=== PATIENT | female | born 1940 | race Caucasian/White ===

== ENCOUNTER 2016-10-05 03:19 | Inpatient (IN) | payer MEDICARE, BC ==
[2016-10-05] VITALS (23 sets, daily range): BP systolic 123–179; BP diastolic 56–83; PULSE 68–97; RESP 16; TEMP 97.1–98.6; O2SAT 94–100
[~2016-10-05] VITALS: Ht 162.6 cm; Wt 78.6 kg
[~2016-10-05 03:19] MED LIST: ALEN70 PO; ASPI81TA45 PO; CALTCHW4 PO; DILT120C9 PO; FLON0.053; HYDR200T3 PO; LIPI20TA PO; MONT10 PO; RIVA20 PO; TYLE500T PO; WAL-10TA2 PO
[2016-10-05] MEDS ORDERED: PROPOFOL 1000 MG/100 ML INJ 100 ML ONE (03:22)
[2016-10-05] MEDS ORDERED: MANNITOL INJ 250 ML IV ONE (03:30)
--- NOTE | 2016-10-05 03:52 | PD ---
HPI Chief Complaint: Bleeding Time Seen by Provider: 03:25 Travel History International Travel<30 days: No Contact w/Intl Traveler<30days: No Traveled to known affect area: No History of Present Illness HPI 76yo F with PMH of blood clot on xarelto was transferred from [facility] after being found to have right subdural hematoma with midline shift to left. As per RN Amira, pt was unresponsive and emergently intubated. Pt had no gag reflex when OG tube was placed as per her. Pt was given Kcentra. Pt also had a STEMI. As per nurse, pt's was there and wanted everything done at the time. PFSH Past Medical History Cancer: No Cardiovascular Problems: Yes (LOOP RECORDER, ) Diabetes: No Endocrine: No Gastrointestinal Disorders: Yes (GERD) Genitourinary: No Headaches: Yes Hepatitis: No Hiatal Hernia: Yes Hypertension: Yes Immune Disorder: Yes (SCLERADERMA, FIBROMYALGIA) Musculoskeletal: Yes (ARTHRITIS, NECK/BACK PAIN, FIBROMYALGIA) Neurologic: Yes (BRAIN STIMULATOR (HEAD TRAUMA)) Psychiatric: No Reproductive: No Respiratory: Yes (CHR SINUSITIS) Thyroid Disease: No Past Surgical History Abdominal Surgery: Yes (APPY, LAP. MARLEN) AICD: No Appendectomy: Yes Body Medical Devices: [employer]. TUTU NEUROSTIMULATOR TO BRAIN, LOOP HEART MONITOR ( CHEST WALL) Cholecystectomy: Yes Genitourinary Surgery: Yes (ESWL RENAL CALC.) Gynecologic Surgery: Yes (HYSTERECTOMY) Joint Replacement: No Neurologic Surgery: Yes (LUMBAR LAMI, LUMBAR FUSION, NEURO STIM. SYSTEM IMPL) Oral Surgery: Yes (TONSILLECTOMY, ETHMOIDECTOMY) Pacemaker: No Thoracic Surgery: Yes (LOOP HEART MINITOR INS.) Other Surgery: Yes Social History Alcohol Use: No Tobacco Use: No Substance Use: No Allergies-Medications (Allergen,Severity, Reaction): Coded Allergies: Grass (Unverified Allergy, Severe, Sneezing, 10/05/16) Molds and Smuts (Unverified Allergy, Severe, Sneezing, 10/05/16) Reported Meds & Prescriptions Reported Meds & Active Scripts Active Reported Loratadine 10 Mg Tab 10 Mg PO DAILY PRN Vitamin D2 (Ergocalciferol) 2,000 Unit Tab 50,000 Units PO WEEKLY Montelukast (Montelukast Sodium) 10 Mg Tab 10 Mg PO DAILY Hydroxychloroquine (Hydroxychloroquine Sulfate) 200 Mg Tab 400 Mg PO DAILY Takw with food Xarelto (Rivaroxaban) 20 Mg Tab 20 Mg PO DAILY Folate (Folic Acid) 1 Mg Tab 1 Mg PO DAILY Lidocaine Patch 12 HR (Lidocaine) 5 % Patch 1 Patch TOPICAL DAILY Remove patch after 12 hours Pantoprazole (Pantoprazole Sodium) 40 Mg Tab 40 Mg PO DAILY Cartia Xt (Diltiazem ER 24 HR) 120 Mg Caper 120 Mg PO DAILY Review of Systems ROS Limitations: Unresponsive Physical Exam Narrative GENERAL: 76yo F unresponsive. SKIN: Warm and dry. HEAD: Atraumatic. Normocephalic. EYES: Right pupil 5mm unreactive. Left pupil 4mm and reactive. ENT: No nasal bleeding or discharge. Mucous membranes pink and moist. NECK: Trachea midline. No JVD. CARDIOVASCULAR: Regular rate and rhythm. No murmur appreciated. RESPIRATORY: Intubated, on mechanical ventilator. GASTROINTESTINAL: Abdomen soft, non-tender, nondistended. MUSCULOSKELETAL: No obvious deformities. No clubbing. No cyanosis. No edema. NEUROLOGICAL: Right upper extremity decorticating. Bilateral upgoing of toes on babinski. Data Data Last Documented VS Vital Signs Date Time Temp Pulse Resp B/P Pulse Ox O2 Delivery O2 Flow Rate FiO2 10/05/16 04:00 100 100 10/05/16 03:51 83 16 132/73 Ventilator Orders Complete Blood Count With Diff (10/05/16 03:27) Basic Metabolic Panel (Bmp) (10/05/16 03:27) Prothrombin Time / Inr (Pt) (10/05/16 03:27) Act Partial Throm Time (Ptt) (10/05/16 03:27) Type And Screen (10/05/16 03:27) Ct Brain W/O Iv Contrast(Rout) (10/05/16 ) Mannitol Inj (Osmitrol Inj) (10/05/16 03:30) Propofol 1000 Mg/100 Ml Inj (Diprivan 10 (10/05/16 03:22) Consult Neurosurgery (10/05/16 ) Propofol 1000 Mg/100 Ml Inj (Diprivan 10 (10/05/16 04:00) ^ Infusion (10/05/16 03:53) RASS (10/05/16 03:53) Neurological Rass Scale SILVANO.Q2H (10/05/16 03:53) Admit Order (Ed Use Only) (10/05/16 04:06) Labs Laboratory Tests Test 10/05/16 03:40 White Blood Count 18.8 TH/MM3 Red Blood Count 4.05 MIL/MM3 Hemoglobin 12.3 GM/DL Hematocrit 36.6 % Mean Corpuscular Volume 90.5 FL Mean Corpuscular Hemoglobin 30.4 PG Mean Corpuscular Hemoglobin 33.5 % Concent Red Cell Distribution Width 15.7 % Platelet Count 406 TH/MM3 Mean Platelet Volume 7.6 FL Neutrophils (%) (Auto) 78.3 % Lymphocytes (%) (Auto) 6.7 % Monocytes (%) (Auto) 14.8 % Eosinophils (%) (Auto) 0.1 % Basophils (%) (Auto) 0.1 % Neutrophils # (Auto) 14.7 TH/MM3 Lymphocytes # (Auto) 1.3 TH/MM3 Monocytes # (Auto) 2.8 TH/MM3 Eosinophils # (Auto) 0.0 TH/MM3 Basophils # (Auto) 0.0 TH/MM3 CBC Comment AUTO DIFF Differential Comment AUTO DIFF CONFIRMED Prothrombin Time 13.2 SEC Prothromb Time International 1.2 RATIO Ratio Activated Partial 26.1 SEC Thromboplast Time Sodium Level 141 MEQ/L Potassium Level 4.1 MEQ/L Chloride Level 106 MEQ/L Carbon Dioxide Level 27.2 MEQ/L Anion Gap 8 MEQ/L Blood Urea Nitrogen 20 MG/DL Creatinine 0.80 MG/DL Estimat Glomerular Filtration 70 ML/MIN Rate Random Glucose 223 MG/DL Calcium Level 8.5 MG/DL Phosphorus Level 3.3 MG/DL Magnesium Level 2.0 MG/DL Troponin I 4.17 NG/ML Blood Type A POSITIVE Antibody Screen NEGATIVE Blood Bank Comment [facility] Medical Decision Making Medical Screen Exam Complete: Yes Emergency Medical Condition: Yes Differential Diagnosis Subdural hematoma vs. herniation Narrative Course 76yo F transferred from [facility] after neurosurgeon Dr. Leon accepted the patient for right subdural hematoma after being found in the bathroom floor. I discussed with Dr. Leon who recommended repeat blood work, 50 gm of mannitol, admit to field observer and repeat CT brain. Repeat labs reviewed leukocytosis at 18.8. Glucose 223. VS stable. Pt given mannitol and is on propofol drip. Repeat CT brain showed large right sided acute subdural hematoma with right to left midline shift of 2.1cm. Discussed with ICU attending Dr. Leiva who accepted the patient. Pt's is at bedside and decision was made to proceed with neurosurgery. Critical Care Narrative Aggregate critical care time was 40 minutes. Time to perform other separately billable procedures was not included in the critical care time. My time did not include minutes spent treating any other patients simultaneously or on activities that did not directly contribute to the patient's treatment. The services I provided to this patient were to treat and/or prevent clinically significant deterioration that could result in: cardiovascular collapse or . I provided critical care services requiring my management, as noted below: Chart data review, documentation time, medication orders and management, vital sign assessments/reviewing monitor data, ordering and reviewing lab tests, ordering and interpreting/reviewing x-rays and diagnostic studies, care of the patient and discussion of the patient with the admitting physicians. Diagnosis Primary Impression: Subdural hematoma Admitting Information Admitting Physician Requests: Olesya Vivar DO Oct 05, 2016 03:52
[2016-10-05 04:00] LABS: AUTOMATED NEUTROPHIL # 14.7 TH/MM3 (1.8-7.7); BASOPHIL % 0.1 % (0.0-2.0); EOSINOPHIL % 0.1 % (0.0-4.0); HEMATOCRIT 36.6 % (35.0-46.0); LYMPH % 6.7 % (9.0-44.0); LYMPHOCYTE # 1.3 TH/MM3 (1.0-4.8); MEAN CELL VOLUME 90.5 FL (80.0-100.0); MEAN CORPUSCULAR HEMOGLOBIN 30.4 PG (27.0-34.0); MEAN CORPUSCULAR HGB CONC 33.5 % (32.0-36.0); MONO % 14.8 % (0.0-8.0); NEUT % 78.3 % (16.0-70.0); PLATELET COUNT 406 TH/MM3 (150-450); RED BLOOD COUNT 4.05 MIL/MM3 (4.00-5.30); RED CELL DISTRIBUTION WIDTH 15.7 % (11.6-17.2); WHITE BLOOD COUNT 18.8 TH/MM3 (4.0-11.0)
[2016-10-05] MEDS ORDERED: PROPOFOL 1000 MG/100 ML INJ 100 ML IV SCH (04:00)
[2016-10-05 04:04] LABS: HEMO FLAGS AUTO DIFF
[2016-10-05 04:09] LABS: APTT (PATIENT) 26.1 SEC (24.3-30.1); BICARBONATE 27.2 MEQ/L (21.0-32.0); INTERNATIONAL NORMALIZED RATIO 1.2 RATIO; PROTHROMBIN TIME - PATIENT 13.2 SEC (9.8-11.6)
[2016-10-05 04:15] LABS: POTASSIUM 4.1 MEQ/L (3.5-5.1)
[2016-10-05] MEDS ORDERED: THROMBIN (TOPICAL) 5,000 UNIT VIAL ONE ×2 (04:21→06:15)
[2016-10-05] MEDS ORDERED: LIDOCAINE 1%/EPINEPHrine 1:100,000 SOLN 20 ML VIAL ONE (04:21)
[2016-10-05] MEDS ORDERED: GELFOAM SIZE 100 ONE (04:21)
[2016-10-05] MEDS ORDERED: GENTAMICIN SULFATE 80 MG/2 ML VIAL ONE (04:26)
--- NOTE | 2016-10-05 04:26 | RADRPT ---
EXAM DATE/TIME: 10/05/2016 04:09 [place] COMPARISON: No previous studies available for comparison. EXTERNAL COMPARISON : [facility], October 05, 2016 INDICATIONS : Follow up subdural hematoma. RADIATION DOSE: 39.57 CTDIvol (mGy) MEDICAL HISTORY : Non-responsive. SURGICAL HISTORY : Non-responsive. ENCOUNTER: Initial ACUITY: 1 day PAIN SCALE: Non-responsive LOCATION: cranial TECH NOTE: PT WAS A TRANSFER FROM [facility] TECHNIQUE: Multiple contiguous axial images were obtained of the head. Using automated exposure control and adj ustment of the mA and/or kV according to patient size, radiation dose was kept as low as reasonably a chievable to obtain optimal diagnostic quality images. FINDINGS: CEREBRUM: Large right subdural hemorrhage measures 1.9 cm in thickness. There is mass effect and compression up on the posterior horn and temporal horn of the right lateral ventricle. There is right to left midlin e shift of 2.1 cm. No evidence of midline shift, mass lesion or acute infarction. POSTERIOR FOSSA: The cerebellum and brainstem are intact. The 4th ventricle is midline. The cerebellopontine angle i s unremarkable. EXTRACRANIAL: The visualized portion of the orbits is intact. SKULL: The calvaria is intact. No evidence of skull fracture. CONCLUSION: 1. Large right-sided acute subdural hemorrhage measures 1.9 cm in thickness. 2. Right to left midline shift of 2.1 cm. Keshav Blakely MD on October 05, 2016 at 4:22 Board Certified Radiologist. This report was verified electronically.
[2016-10-05] MEDS ORDERED: fentaNYL CITRATE 250 MCG/5 ML AMP ONE (04:33)
[2016-10-05] MEDS ORDERED: SODIUM CHLOR 0.9% 1000 ML INJ 1,000 ML IV SCH (04:33)
[2016-10-05 04:38] LABS: SCAN/DIFF AUTO DIFF CONFIRMED
[2016-10-05] MEDS ORDERED: ONDANSETRON HCL 4 MG/2 ML VIAL IV PRN ×2 (04:45→05:00)
[2016-10-05] MEDS ORDERED: SODIUM CHLORIDE 0.9% FLUSH 5 ML FLUSH IV FLUSH PRN (04:45)
[2016-10-05] MEDS ORDERED: CHLORHEXIDINE GLUCONATE 2 % 1 PACK (2 CLOTHS) TOP PRN (04:45)
[2016-10-05] MEDS ORDERED: RESP: ALBUTEROL 2.5 MG/IPRATROPIUM 0.5 MG NEB (PRN) INH (04:45)
[2016-10-05] MEDS ORDERED: MISCELLANEOUS NURSING INFORMATION XX SCH (04:45)
[2016-10-05] MEDS ORDERED: ACETAMINOPHEN 325 MG TAB PO PRN (04:45)
[2016-10-05 04:47] LABS: BLOOD GAS BASE EXCESS 0.9 mmol/L (-2-2); BLOOD GAS CARBOXYHEMOGLOBIN 1.6 % (0-4); BLOOD GAS HCO3 25 mmol/L (22-26); BLOOD GAS METHEMOGLOBIN 1.7 % (0-2); BLOOD GAS O2 HGB SATURATION 96 % (90-100); BLOOD GAS OXYGEN CONTENT 15.9 Vol % (12.0-20.0); BLOOD GAS PCO2 37 mmHg (38-42); BLOOD GAS PO2 220 mmHG (61-120); BLOOD GAS TOTAL HGB 11.4 G/DL (12.0-16.0); CRITICAL VALUE NO; DRAW SITE RT BRACHIAL; FIO2 50 %; NUMBER OF ARTERIAL PUNCTURES 1; OXYGEN DEVICE VENTILATOR; STAT YES; TEMP CORR TO 98.6; VENT SETTINGS AC/16/500/PEEP5
--- NOTE | 2016-10-05 04:48 | PD.CONS ---
[facility] Service Neurosurg Consult Requested By Dr Hernandez Reason for Consult subdural hematoma Primary Care Physician Linda Negro DO History of Present Illness This is a 76 y/o female who was found down and unresponsive at home. She was taken to [facility] comatose. No seizures. NO clark bitting. No incontinence of stool or usine. She was intubated. CT of the brain showeda large acute right sided SDH with 2 cm subfalcine shift to left. 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 Required intubation and mechanical ventilation at referring facility for obtundation. She received Vitamin K and Kcentra then transported to [facility]. Mannitol bolus started. Cardiac markers elevated consisytent with a myocardial event/ Neurosurgical consultation was requested. Review of Systems Unobtainable. ROS Limitations: Clinical Condition, Intubated, Altered Mental Status, Unresponsive Past Family Social History Allergies: Coded Allergies: Grass (Unverified Allergy, Severe, Sneezing, 10/05/16) Molds and Smuts (Unverified Allergy, Severe, Sneezing, 10/05/16) Past Medical History Cardiovascular Problems: Yes (LOOP RECORDER, ) Diabetes: No Endocrine: No Gastrointestinal Disorders: Yes (GERD) Genitourinary: No Headaches: Yes Hepatitis: No Hiatal Hernia: Yes Hypertension: Yes Immune Disorder: Yes (SCLERADERMA, FIBROMYALGIA) Musculoskeletal: Yes (ARTHRITIS, NECK/BACK PAIN, FIBROMYALGIA) Neurologic: Yes (BRAIN STIMULATOR (HEAD TRAUMA)) Psychiatric: No Reproductive: No Respiratory: Yes (CHR SINUSITIS) Thyroid Disease: No Past Surgical History Abdominal Surgery: Yes (APPY, LAP. MARLEN) AICD: No Appendectomy: Yes Body Medical Devices: ST. TUTU NEUROSTIMULATOR TO BRAIN, LOOP HEART MONITOR ( CHEST WALL) Cholecystectomy: Yes Genitourinary Surgery: Yes (ESWL RENAL CALC.) Gynecologic Surgery: Yes (HYSTERECTOMY) Joint Replacement: No Neurologic Surgery: Yes (LUMBAR LAMI, LUMBAR FUSION, NEURO STIM. SYSTEM IMPL) Oral Surgery: Yes (TONSILLECTOMY, ETHMOIDECTOMY) Pacemaker: No Thoracic Surgery: Yes (LOOP HEART MINITOR INS.) Reported Medications Reviewed in EMR Other Surgery: Yes Lipitor 20 Mg Tab (Atorvastatin Calcium) 20 Mg Tab 1 Tab PO HS 30 Days Xarelto 20 Mg Tab (Rivaroxaban) 20 Mg Tab 20 Mg PO DAILY 30 Days Hydroxychloroquine Sulfat (Hydroxychloroquine Sulfate) 200 Mg Tab 200 Mg PO DAILY Montelukast Sodium 10 Mg Tab 10 Mg PO DAILY Caltrate 600+D (Calcium Carbonate/Cholecalciferol) Chw 2 Tab PO DAILY Diltiazem Hcl Er (Diltiazem HCl) 120 Mg Cap 120 Mg PO DAILY Aspirin 81 mg EC Lo-Dose (Aspirin) 81 Mg Tab 81 Mg PO DAILY Tylenol (Acetaminophen) 500 Mg Tab 500 Mg PO Q6HPRN Flonase (Fluticasone Propionate) 0.05 % Naspr 2 Spr NA DAILY 2 SPRAYS EACH NOSTRIL Loratadine 10 Mg Tab 10 Mg PO DAILYPRN Fosamax (Alendronate Sodium) 70 Mg Tab 70 Mg PO WEEKLY Active Ordered Medications Current Medications Mannitol 250 ml @ 250 mls/hr ONCE ONCE IV Last administered on 10/05/16 04: 22; Start 10/05/16 at 03:30; Stop 10/05/16 at 04:29; Status DC Propofol 100 ml @ As Directed STK-MED ONCE .ROUTE ; Start 10/05/16 at 03:22; Stop 10/05/16 at 03:45; Status DC Propofol (Diprivan 1000 Mg/100ml Inj) 100 ml @ 0 mls/hr TITRATE IV Last administered on 10/05/16 04:23; Start 10/05/16 at 04:00 Fentanyl Citrate (fentaNYL INJ) 250 mcg STK-MED ONCE .ROUTE ; Start 10/05/16 at 04:33; Stop 10/05/16 at 04:34; Status DC Family History NC Social History Alcohol Use: No Tobacco Use: No Substance Use: No Physical Exam Vital Signs Vital Signs Date Time Temp Pulse Resp B/P Pulse Ox O2 Delivery O2 Flow Rate FiO2 10/05/16 04:30 86 16 123/80 100 Ventilator 10/05/16 04:27 90 16 135/80 100 Ventilator 50 10/05/16 03:51 83 16 132/73 100 Ventilator 50 10/05/16 03:49 80 16 133/72 100 Ventilator 10/05/16 03:47 50 10/05/16 03:21 81 16 179/80 100 10/05/16 03:20 98 50 Physical Exam The patient is intubated and sedated. Extends to painful stimuli with right upper and lower extremities. Cranial Nerves: Pupils unequal, right pupil dilated and fixed, left round, reactive to light. Eyes appear non-conjugated. There was no nystagmus, no papilledema. Face musculature appeared symmetrical at rest. Face sensation, olfaction, visual russ, and hearing cannot be adequately assessed due to her neurological condition. The patient has a corneal reflex. SHe has no gag reflex. The sternocleidomastoid and trapezius are symmetrical. Cervical Spine: neck with nuchal rigidity. Motor: Extends to painful stimuli with right upper and lower extremities. Reflexes: Deep tendon reflexes are 1+ and symmetrical in the biceps, triceps, and brachioradialis, bilaterally, in the upper extremities. In the lower extremities, the patellar and ankles are 1+, bilaterally. There is a bilateral Babinsky. There is no clonus Sensory: On examination there is response to painful stimuli, Extends to painful stimuli with right upper and lower extremities. Cerebellar: Examination cannot be adequately assessed due to the patient's neurological condition. Laboratory Laboratory Tests Test 10/05/16 03:40 White Blood Count 18.8 Red Blood Count 4.05 Hemoglobin 12.3 Hematocrit 36.6 Mean Corpuscular Volume 90.5 Mean Corpuscular Hemoglobin 30.4 Mean Corpuscular Hemoglobin 33.5 Concent Red Cell Distribution Width 15.7 Platelet Count 406 Mean Platelet Volume 7.6 Neutrophils (%) (Auto) 78.3 Lymphocytes (%) (Auto) 6.7 Monocytes (%) (Auto) 14.8 Eosinophils (%) (Auto) 0.1 Basophils (%) (Auto) 0.1 Neutrophils # (Auto) 14.7 Lymphocytes # (Auto) 1.3 Monocytes # (Auto) 2.8 Eosinophils # (Auto) 0.0 Basophils # (Auto) 0.0 CBC Comment AUTO DIFF Prothrombin Time 13.2 Prothromb Time International 1.2 Ratio Activated Partial 26.1 Thromboplast Time Sodium Level 141 Potassium Level 4.1 Chloride Level 106 Carbon Dioxide Level 27.2 Anion Gap 8 Blood Urea Nitrogen 20 Creatinine 0.80 Estimat Glomerular Filtration 70 Rate Random Glucose 223 Calcium Level 8.5 Blood Type A POSITIVE Antibody Screen NEGATIVE Blood Bank Comment Result Diagram: 10/05/16 0340 10/05/16 0340 Imaging Last Impressions Head CT 10/05/16 0000 Signed Impressions: Service Date/Time: Wednesday, October 05, 2016 04:09 - CONCLUSION: 1. Large right-sided acute subdural hemorrhage measures 1.9 cm in thickness. 2. Right to left midline shift of 2.1 cm. Keshav Blakely MD Attending Statement Neuro. I have reviewed her clinical and radiological findings. Start neuro checks in a serial fashion. She has a large subdural hematoma with midline shift and herniation. Emergency surgical decompression indicated in a desperated attempt to save her life. .A placement of a ICP monitoring is indicated at this time as recommend by the AANS Recommend to repeat the CT of the brain in 24 hours. I have discussed with hwer the details including the [id number] details of the surgical procedure , its indications, alternatives, risks, and potential complications. Risks and potential complications include, but are not limited to, infection, blood loss, CSF leak, partial or complete loss of sight in one or both eyes, paresis, paralysis, permanent pain or difficulty swallowing, loss of bowel or bladder function, complications from anesthesia, blood clot, stroke, myocardial infarction, or even . She is anticoagulated. She received KCENTRA. She is at high risk for further bleeding MS. Seriasl troponin and EKG. Consult cardiology. Echocardiogram Respiratory. Mechanical ventiation. Aggressive pulmonary toilette, nasotracheal suction, and breathing treatments with nebulizers. PT and OT evaluation Nutrition. NPO Renal. monitor closely urine output, BUN and creatinine Endocrine. Monitor serial Acu checks and SSI as needed in detail ID monitor for signs of infection Protonix for stress ulcer prophylaxis Kendall hose and SCD's for DVT prophylaxis Discussed with her and Chandana Archuleta MD Oct 05, 2016 04:48
[2016-10-05] MEDS ORDERED: BISACODYL 10 MG SUPP PR PRN (05:00)
[2016-10-05] MEDS ORDERED: CALCIUM GLUCONATE 10% 1 GM/10 ML VIAL IV PRN (05:00)
[2016-10-05] MEDS ORDERED: POTASSIUM CHLOR 20 MEQ PREMIX 100 ML IV PRN ×2 (05:00→05:15)
[2016-10-05] MEDS: ceFAZolin 2 GM PREMIX 50 ML IV SCH ×4 (05:00→20:22)
[2016-10-05] MEDS ORDERED: MAGNESIUM SULFATE INJ 4 GM in SODIUM CHLORIDE 0.9% INJ 100 ML IV PRN (05:00)
[2016-10-05] MEDS ORDERED: ACETAMINOPHEN/HYDROcodone 325 MG/10 MG TAB PO PRN ×2 (05:00)
[2016-10-05] MEDS ORDERED: MORPHINE SULFATE 4 MG/ML INJ IV PUSH PRN (05:00)
[2016-10-05] MEDS ORDERED: MAGNESIUM SULFATE INJ 4 GM in SODIUM CHLORIDE 0.9% INJ 92 ML IV PRN (05:15)
[2016-10-05] MEDS ORDERED: POTASSIUM CL 40 MEQ/30 ML LIQ UDC PO/TUBE PRN ×2 (05:15)
[2016-10-05] MEDS ORDERED: MAGNESIUM SULFATE INJ 2 GM in SODIUM CHLORIDE 0.9% INJ 96 ML IV PRN (05:15)
[2016-10-05] MEDS ORDERED: POTASSIUM CHLOR 40 MEQ PREMIX 100 ML IV PRN ×2 (05:15)
[2016-10-05] MEDS ORDERED: POTASSIUM PHOSPHATE INJ 30 MMOL in SODIUM CHLOR 0.9% 250 ML INJ 250 ML IV PRN (05:15)
[2016-10-05] MEDS ORDERED: POTASSIUM PHOSPHATE MONOBASIC 500 MG TAB PO/TUBE PRN (05:15)
[2016-10-05] MEDS ORDERED: POTASSIUM PHOSPHATE MONOBASIC 500 MG TAB PO PRN (05:15)
[2016-10-05] MEDS ORDERED: MAGNESIUM OXIDE 400 MG TAB PO PRN (05:15)
--- NOTE | 2016-10-05 05:21 | HHI.HP ---
[facility] Service Critical Care Medicine Primary Care Physician Linda Negro DO Admission Diagnosis Right subdural hematoma Diagnosis: (1) Subdural hematoma Diagnosis: Principal Chief Complaint: Transfer from OSH for evaluation on acute subdural hemorrhage. Travel History International Travel<30 Days: No Contact w/Intl Traveler <30 Da: No Traveled to Known Affected Are: No History of Present Illness 76 y/o woman was found down and unresponsive last evening. Evaluation at [facility] revealed large acute right sided SDH with 2 cm subfalcine shift to left. 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 Required intubation and mechanical ventilation at referring facility for obtundation. Received Vit K and Kcentra then transported to [facility] where I met her on her arrival. at bedside. Largely unresponsive, will withdraw arms to pain. Mannitol bolus started. Cardiac markers elevated at OSH. Review of Systems ROS Unobtainable. Past Family Social History Allergies: Coded Allergies: Grass (Unverified Allergy, Severe, Sneezing, 10/05/16) Molds and Smuts (Unverified Allergy, Severe, Sneezing, 10/05/16) Past Medical History Past Medical History Cancer: No Cardiovascular Problems: Yes (LOOP RECORDER, ) Diabetes: No Endocrine: No Gastrointestinal Disorders: Yes (GERD) Genitourinary: No Headaches: Yes Hepatitis: No Hiatal Hernia: Yes Hypertension: Yes Immune Disorder: Yes (SCLERADERMA, FIBROMYALGIA) Musculoskeletal: Yes (ARTHRITIS, NECK/BACK PAIN, FIBROMYALGIA) Neurologic: Yes (BRAIN STIMULATOR (HEAD TRAUMA)) Psychiatric: No Reproductive: No Respiratory: Yes (CHR SINUSITIS) Thyroid Disease: No Past Surgical History Abdominal Surgery: Yes (APPY, LAP. MARLEN) AICD: No Appendectomy: Yes Body Medical Devices: ST. TUTU NEUROSTIMULATOR TO BRAIN, LOOP HEART MONITOR ( CHEST WALL) Cholecystectomy: Yes Genitourinary Surgery: Yes (ESWL RENAL CALC.) Gynecologic Surgery: Yes (HYSTERECTOMY) Joint Replacement: No Neurologic Surgery: Yes (LUMBAR LAMI, LUMBAR FUSION, NEURO STIM. SYSTEM IMPL) Oral Surgery: Yes (TONSILLECTOMY, ETHMOIDECTOMY) Pacemaker: No Thoracic Surgery: Yes (LOOP HEART MINITOR INS.) Other Surgery: Yes Social History Alcohol Use: No Tobacco Use: No Substance Use: No Allergies-Medications Allergies-Medications (Allergen,Severity, Reaction): Coded Allergies: Grass (Unverified Allergy, Severe, Sneezing, 10/05/16) Molds and Smuts (Unverified Allergy, Severe, Sneezing, 10/05/16) Reported Meds & Prescriptions Reported Meds & Active Scripts Active Lipitor 20 Mg Tab (Atorvastatin Calcium) 20 Mg Tab 1 Tab PO HS 30 Days Xarelto 20 Mg Tab (Rivaroxaban) 20 Mg Tab 20 Mg PO DAILY 30 Days Reported Hydroxychloroquine Sulfat (Hydroxychloroquine Sulfate) 200 Mg Tab 200 Mg PO DAILY Montelukast Sodium 10 Mg Tab 10 Mg PO DAILY Caltrate 600+D (Calcium Carbonate/Cholecalciferol) Chw 2 Tab PO DAILY Diltiazem Hcl Er (Diltiazem HCl) 120 Mg Cap 120 Mg PO DAILY Aspirin 81 mg EC Lo-Dose (Aspirin) 81 Mg Tab 81 Mg PO DAILY Tylenol (Acetaminophen) 500 Mg Tab 500 Mg PO Q6HPRN Flonase (Fluticasone Propionate) 0.05 % Naspr 2 Spr NA DAILY 2 SPRAYS EACH NOSTRIL Loratadine 10 Mg Tab 10 Mg PO DAILYPRN Fosamax (Alendronate Sodium) 70 Mg Tab 70 Mg PO WEEKLY Physical Exam Vital Signs Vital Signs Date Time Temp Pulse Resp B/P Pulse Ox O2 Delivery O2 Flow Rate FiO2 10/05/16 04:40 97 16 135/83 99 Ventilator 10/05/16 04:30 86 16 123/80 100 Ventilator 10/05/16 04:27 90 16 135/80 100 Ventilator 50 10/05/16 04:00 100 100 10/05/16 03:51 83 16 132/73 100 Ventilator 50 10/05/16 03:49 80 16 133/72 100 Ventilator 10/05/16 03:47 50 10/05/16 03:21 81 16 179/80 100 10/05/16 03:20 98 50 Physical Exam P 93, BP 156/100, R 18 vent, sats 100% Lungs: Clear, no wheezes or crackles. Heart: NL S1S2, RRR, No JVD. Abdomen : Soft, nondistended, no guarding. Extremities: Warm, well perfused. Neuro: Right pupil 3 mm, non-reactive. Left pupil 2 mm, reactive. DTRs patellar 1+ brianda. Toes upgoing to plantar stimulation. Extends both legs to stimulation. + cough reflex. Disconjugate gaze. GCS 4T. Laboratory Laboratory Tests Test 10/05/16 10/05/16 03:40 04:37 White Blood Count 18.8 Red Blood Count 4.05 Hemoglobin 12.3 Hematocrit 36.6 Mean Corpuscular Volume 90.5 Mean Corpuscular Hemoglobin 30.4 Mean Corpuscular Hemoglobin 33.5 Concent Red Cell Distribution Width 15.7 Platelet Count 406 Mean Platelet Volume 7.6 Neutrophils (%) (Auto) 78.3 Lymphocytes (%) (Auto) 6.7 Monocytes (%) (Auto) 14.8 Eosinophils (%) (Auto) 0.1 Basophils (%) (Auto) 0.1 Neutrophils # (Auto) 14.7 Lymphocytes # (Auto) 1.3 Monocytes # (Auto) 2.8 Eosinophils # (Auto) 0.0 Basophils # (Auto) 0.0 CBC Comment AUTO DIFF Differential Comment AUTO DIFF CONFIRMED Prothrombin Time 13.2 Prothromb Time International 1.2 Ratio Activated Partial 26.1 Thromboplast Time Sodium Level 141 Potassium Level 4.1 Chloride Level 106 Carbon Dioxide Level 27.2 Anion Gap 8 Blood Urea Nitrogen 20 Creatinine 0.80 Estimat Glomerular Filtration 70 Rate Random Glucose 223 Calcium Level 8.5 Blood Type A POSITIVE Antibody Screen NEGATIVE Blood Bank Comment Blood Gas Puncture Site RT BRACHIAL Blood Gas Patient Temperature 98.6 Blood Gas HCO3 25 Blood Gas Base Excess 0.9 Blood Gas Oxygen Saturation 96 Arterial Blood pH 7.44 Arterial Blood Partial 37 Pressure CO2 Arterial Blood Partial 220 Pressure O2 Arterial Blood Oxygen Content 15.9 Arterial Blood 1.6 Carboxyhemoglobin Arterial Blood Methemoglobin 1.7 Blood Gas Hemoglobin 11.4 Oxygen Delivery Device VENTILATOR Blood Gas Ventilator Setting AC/16/500/PEEP5 Blood Gas Inspired Oxygen 50 Result Diagram: 10/05/1633910/05/16339 Assessment and Plan Problem List: (1) Acute subdural hematoma ICD Code: I62.01 Status: Acute (2) Coagulopathy ICD Code: D68.9 Status: Acute (3) Acute respiratory failure ICD Code: J96.00 Status: Acute (4) NSTEMI (non-ST elevated myocardial infarction) ICD Code: I21.4 Status: Acute Assessment and Plan PLAN: NEURO: Mannitol 50 gms iv. Mild hyperventilation until OR. Emergency SDH decompression. Isotonic fluid. CV: NSTEMI, normal hemodynamics. Hold xarelto and ASA. Trop X 2. RESP: PRVC vent mode. PCO2 30-35 range. GI: NG to LIS. NPO. : Landers to CBD. HEME: Follow coag profile. Repeat Kcentra for problematic oozing. ID: Cultures for fevers. RENAL: Hydrate gingerly for mild dehydration unless elevated ICP. Serial mag, phos. PX: Protonix, SCDs. No chemical DVT px. Overall impression: This woman is critically ill with a life-threatening acute subdural hemorrhage, exacerbated by NOAC therapy and possibly related to a fall. She has serious brain at jeopardy and may not survive this insult. NSTEMI noted but should not preclude urgent brain decompression. Prognosis is guarded at best. I have talked with her in the ED. Critical Care 43 mins Andrea Leiva MD Oct 05, 2016 05:21
[2016-10-05] MEDS ORDERED: LIDOCAINE 1%/EPINEPHrine 1:100,000 SOLN 30 ML VIAL INFIL ONE (05:38)
[2016-10-05] MEDS ORDERED: levETIRAcetam INJ 500 MG in SODIUM CHLORIDE 0.9% INJ 100 ML IV SCH (06:00)
[2016-10-05] MEDS ORDERED: GELFOAM SIZE 100 OTHER ONE (06:15)
[2016-10-05] MEDS ORDERED: GENTAMICIN SULFATE 80 MG/2 ML VIAL XX ONE (06:15)
[2016-10-05] MEDS ORDERED: PHENYLEPHRINE HCL 10 MG/ML VIAL ONE (06:22)
[2016-10-05] MEDS ORDERED: TERBUTALINE INJ 1 MG/ML AMP SQ PRN (06:30)
[2016-10-05 07:23] LABS: BLOOD GAS BASE EXCESS -0.1 mmol/L (-2-2); BLOOD GAS CARBOXYHEMOGLOBIN 0.8 % (0-4); BLOOD GAS HCO3 24 mmol/L (22-26); BLOOD GAS METHEMOGLOBIN 0.8 % (0-2); BLOOD GAS O2 HGB SATURATION 98 % (90-100); BLOOD GAS OXYGEN CONTENT 14.7 Vol % (12.0-20.0); BLOOD GAS PCO2 37 mmHg (38-42); BLOOD GAS PO2 325 mmHg (61-120); CRITICAL VALUE NO; OXYGEN DEVICE VENTILATOR; TEMP CORR TO 98.6
[2016-10-05 07:24] LABS: DRAW SITE ART LINE; FIO2 75 %; STAT YES; VENT SETTINGS SIMV/12/500/PS10/+5
[2016-10-05] MEDS: PHENYLEPHRINE 40 MG/D5W 496 ML ADMIX IV SCH ×2 (07:24)
[2016-10-05] MEDS: NS + KCL 20 MEQ INJ 1,000 ML IV SCH ×2 (07:30→17:54)
[2016-10-05] MEDS ORDERED: DO NOT ADM ANY ANTICOAGULANT DRUGS XX PRN (07:45)
[2016-10-05] MEDS: levETIRAcetam INJ 500 MG in SODIUM CHLORIDE 0.9% INJ 100 ML IV SCH ×2 (07:45→20:47)
[2016-10-05] MEDS ORDERED: MONTELUKAST SODIUM 10 MG TAB PO SCH (09:00)
[2016-10-05] MEDS ORDERED: PANTOPRAZOLE SODIUM 40 MG VIAL IV SCH (09:00)
[2016-10-05] MEDS ORDERED: SODIUM CHLORIDE 0.9% FLUSH 5 ML FLUSH IV FLUSH SCH (09:00)
[2016-10-05] MEDS: PANTOPRAZOLE SOD 40 MG DELAYED RELEASE TAB PO SCH (09:00)
[2016-10-05 09:23] LABS: BLOOD GAS BASE EXCESS 0.9 mmol/L (-2-2); BLOOD GAS CARBOXYHEMOGLOBIN 0.8 % (0-4); BLOOD GAS HCO3 24 mmol/L (22-26); BLOOD GAS METHEMOGLOBIN 0.9 % (0-2); BLOOD GAS O2 HGB SATURATION 98 % (90-100); BLOOD GAS OXYGEN CONTENT 15.2 Vol % (12.0-20.0); BLOOD GAS PCO2 35 mmHg (38-42); BLOOD GAS PO2 320 mmHg (61-120); BLOOD GAS TOTAL HGB 10.5 G/DL (12.0-16.0); CRITICAL VALUE NO; OXYGEN DEVICE VENTILATOR; TEMP CORR TO 98.6
[2016-10-05 09:24] LABS: DRAW SITE ART LINE; FIO2 50 %; STAT NO; VENT SETTINGS PRVC/AC
[2016-10-05] MEDS: CHLORHEXIDINE 0.12% (ORAL KIT) 15 ML CUP MT SCH ×2 (09:30→20:22)
[2016-10-05] MEDS: SODIUM CHLORIDE 0.9% FLUSH 5 ML FLUSH IVF SCH ×2 (09:30→20:22)
--- NOTE | 2016-10-05 10:27 | PD.OP ---
Operative Report Date of Surgery: Oct 05, 2016 Preoperative Diagnosis: Right acute subdural hematoma Postoperative Diagnosis: Right acute subdural hematoma Procedure: Left frontal bur hole with placement of an intracranial pressure monitor. Anesthesia: gen Surgeon: Chandana Leon Nutrition Aides Teacher(s): N/A Operation and Findings: INTRAOPERATIVE FINDINGS Intracranial pressures of 2 mmHg. INDICATIONS FOR THE PROCEDURE The patient is an adult female who was brought to [facility] with a severe traumatic brain injury and a large subdural hematoma causing severe mass effect and midline shift SHe had a GCS of 4 with a right pupil dilated and fixed. CT of the brain showed a large acute subdural hematoma with mass effect and midline shift Placement of ICP monitor was indicated as recommended by the Trauma Commitee of [employer] DETAILS OF THE SURGICAL PROCEDURE The left frontal area was shaved, prepped and draped in the usual sterile fashion. An entry point was selected behind the hairline, approximately 30 mm lateral to the midline. The incision was infiltrated with 1% lidocaine with epinephrine 1:100,000 dilution. A small incision was made with a 15 blade down to the level of the periosteum. Using a twist drill a conor hole was made. The dura was opened with a blunt stylet, and a Marge bolt was secured to the bone. A fiberoptic transducer was calibrated according to the coal digger's instructions, and advanced into the parenchyma of the frontal lobe through the bolt. An intracranial pressure of 2 mmHg was achieved with a good waveform. A Betadine sterile dressing was applied. The patient tolerated the procedure well. There were no intraoperative complications. Blood loss was minimal. Chandana Leon MD Oct 05, 2016 10:27
[2016-10-05] MEDS: PANTOPRAZOLE SODIUM 40 MG VIAL IVP SCH (10:32)
--- NOTE | 2016-10-05 10:32 | PD.OP ---
Operative Report Date of Surgery: Oct 05, 2016 Preoperative Diagnosis: Right acute subdural hematoma Postoperative Diagnosis: Right acute subdural hematoma Procedure: Right frontal temporal parietal decompressive craniectomy with evacuation of acute subdural hematoma Anesthesia: gen Surgeon: Chandana Leon Parts Order And Stock Clerk(s): Mariela Operation and Findings: INDICATIONS FOR THE PROCEDURE The patient is a 76 year old female who was brought to [facility] with a severe traumatic brain injury and a large subdural hematoma causing severe mass effect and midline shift SHe had a GCS of 4 with a right pupil dilated and fixed. CT of the brain showed a large acute subdural hematoma with mass effect and midline shift Placement of ICP monitor was indicated as recommended by the Trauma Committee of [employer] DETAILS OF THE SURGICAL PROCEDURE The patient was endotracheally intubated and mechanically ventilated. A Landers catheter, bilateral JENNIFER hose and sequential compression devices were placed and kept throughout the procedure. The patient was positioned supine on a 3080 table over a soft mattress. The eyes were tapped shut after ointment was applied by the anesthesiologist to prevent corneal abrasion. A Leroy hugger was placed over the exposed lower body to maintain control of the core body temperature. The head was placed on a gel doughnut. All pressure points were carefully padded with egg crate mattress. The frontotemporal parietal area was shaved, prepped and draped in the usual sterile fashion. A standard inverted question jaycob incision was outlined on the right side of the scalp and infiltrated with 1% lidocaine with epinephrine. The skin incision was made with a #10 blade down to the level of the periosteum in the frontoparietal region and to the temporalis fascia in the temporal region. Mindy clips were applied to the scalp. Using a Bovie, the temporalis fascia and muscle were incised and a subperiosteal dissection was performed reflecting the scalp flap anteriorly. The scalp was covered with a moist sponge and held in position using fish hooks. The [facility] Atul was brought to the field and a bur hole was made in the right temporalparietal region using the craniotome attachment. Then, using the footplate attachment, a large frontotemporoparietal craniotomy flap was elevated. The dura was bulging, very tense with severe pressure and an underlying dark coloration related to the acute subdural hematoma. The dura was opened with a 15 blade and metzembaun scissors and a large subdural hematoma was found, causing significant mass effect. The hematoma was evacuated by gentle irrigation and sent to the lab for histologic analysis. The bleeding was controlled using the bipolar meat grader. Then the incision was irrigated with saline solution. The dural edges were tacked to the bone. The Dura was loosely reconstructed. Two 7 millimeter Dg -Dunne drain was then left in the subgaleal space and externalized through a separate stab incision. The incision was then closed in layers. 0 Vicryl in interrupted sutures were used to close the temporalis fascia. The galea was closed with interrupted 3-0 Vicryl. [place] were applied to the skin. The drain was secured with a 3-0 nylon. At the end of the procedure, the sponge, needle and instrument counts were all correct. Estimated blood loss was less than 80-100 cc or less. No blood transfusion was given. No intraoperative complications occurred. The patient received prophylactic antibiotics. The patient was then transferred to the recovery room in stable condition. COMPLICATIONS None ESTIMATED BLOOD LOSS Less than 80-100 cc. Chandana Leon MD Oct 05, 2016 10:31
[2016-10-05] MEDS ORDERED: HYDR200T3 PO (12:56)
[2016-10-05] MEDS ORDERED: PANT40TA3 PO (12:56)
[2016-10-05] MEDS ORDERED: LIDO1PAD52 TOPICAL (12:56)
[2016-10-05] MEDS ORDERED: XARE20TA PO (12:56)
[2016-10-05] MEDS ORDERED: LORA10TA PO (12:56)
[2016-10-05] MEDS ORDERED: ERGO2000 PO (12:56)
[2016-10-05] MEDS ORDERED: CART120C PO (12:56)
[2016-10-05] MEDS ORDERED: FOLI1TAB4 PO (12:56)
[2016-10-05] MEDS ORDERED: MONT10TA4 PO (12:56)
--- NOTE | 2016-10-05 13:53 | MB ---
cc: CLAIR GRIFFIN M.D. DATE OF CONSULTATION: 10/05/2016 HISTORY OF PRESENT ILLNESS Josephine is a 76-year-old lady who had been on Xarelto due to a "blood clot," transferred from [facility] after developing a right subdural hematoma with midline shift to the left. The patient became unresponsive and was intubated. Also found to have elevated troponin. The patient is currently intubated. She is status post evacuation of the subdural hematoma by Dr. Leon. She is unsedated. She remains unresponsive, therefore the review of systems is not obtainable. The ICU nurse states that the patient's notes the patient may have had a myocardial infarction. The patient was noted to have received vitamin[place] [facility] [place] PAST MEDICAL HISTORY Per history of present illness. She also has a history of: 1. A loop recorder. 2. GERD. 3. Headaches. 4. Scleroderma. 5. Fibromyalgia. 6. Arthritis. 7. Neck and back pain. 8. Brain stimulator. 9. Head trauma. 10. Chronic sinusitis. 11. Laparoscopic cholecystectomy. 12. Appendectomy. 13. St. Nicolás neurostimulator to the brain. 14. Loop heart monitor chest wall. 15. Hysterectomy. 16. Lumbar laminotomy. 17. Lumbar fusion. 18. Tonsillectomy. ALLERGIES Grass and molds. SOCIAL HISTORY Denies tobacco or alcohol use. MEDICATIONS Medications prior to admission: 1. Lipitor. 2. Xarelto. Medications in the hospital: 1. Atorvastatin 20, h.s. 2. Singulair 10 mg daily. 3. Pantoprazole 40 mg daily. 4. Docusate 100, b.i.d. 5. Levetiracetam. 6. Phenylephrine IV. 7. Propofol IV. 8. Potassium supplementation. 9. Magnesium supplementation. 10.Cephazolin. PHYSICAL EXAMINATION VITAL SIGNS: Blood pressure 128/56, pulse 77, temperature 97.7. Sats are 100% on 35% FIO2 by intubation. GENERAL: She is intubated, unresponsive. NECK: Supple. No JVD. No bruits. CARDIOVASCULAR: S1, S2. No murmurs, rubs or gallops. LUNGS: Clear to auscultation bilaterally. ABDOMEN: Soft, nontender, nondistended. Positive bowel sounds. EXTREMITIES: No lower extremity edema. LABORATORY DATA White count 18.8, hemoglobin 12.3, hematocrit 36.6, platelet count 406. Sodium 141, potassium 4.1, chloride 106, bicarb 27.2, BUN 20, creatinine 0.80, glucose 223. First troponin is 4.17, second troponin 8.57. Blood gas pH 7.46, PCO2 35, PO2 320 on 50% ventilator. INR 1.2. IMAGING DATA Head CT: Large right-sided acute subdural hemorrhage measures 1.9 cm in thickness, [id number] midline shift of 2.1 cm. DIAGNOSIS 1. Subdural hematoma. 2. Non-STEMI. 3. Arrhythmia. DISCUSSION At this point in time it is indeterminate whether her troponin elevation is due to a coronary obstructive event versus nonspecifically related to acute intracranial event. Nevertheless, the patient is not a candidate for anticoagulation given the recent subdural hematoma and evacuation, and she is still within her last dose of Xarelto. Recommend conservative care. Also care will need to be considered in the context of her prognosis neurologically. At this point in time she does not appear to be responsive. Will continue to follow her closely. Agree with Lipitor 20 mg h.s. Prognosis is guarded, mostly from a neurologic standpoint and possibly a cardiovascular standpoint. Will also order an EKG as well. MD ROHITH Caro/ARLINE /1:16 PM /1:31 PM
[2016-10-05] MEDS ORDERED: PROPOFOL 200 MG/20 ML AMP IV ONE (14:18)
[2016-10-05] MEDS: ATORVASTATIN 20 MG TAB PO SCH (20:22)
[2016-10-05] MEDS: DOCUSATE SODIUM 100 MG CAP PO SCH (20:53)
[2016-10-05] MEDS: MORPHINE SULFATE 4 MG/ML INJ IV PUSH PRN (23:53)
[2016-10-06] VITALS (15 sets, daily range): BP systolic 136–145; BP diastolic 64–73; PULSE 96–109; RESP 16; TEMP 98.4–99.5; O2SAT 99–100
[2016-10-06] MEDS: NS + KCL 20 MEQ INJ 1,000 ML IV SCH ×3 (01:09→20:09)
[2016-10-06] MEDS: CHLORHEXIDINE GLUCONATE 2 % 1 PACK (2 CLOTHS) TOP SCH (03:45)
[2016-10-06] MEDS: PROPOFOL 1000 MG/100 ML INJ 100 ML IV SCH ×2 (03:46→19:05)
[2016-10-06 05:11] LABS: AUTOMATED NEUTROPHIL # 9.8 TH/MM3 (1.8-7.7); BASOPHIL % 0.1 % (0.0-2.0); HEMATOCRIT 29.4 % (35.0-46.0); LYMPH % 18.2 % (9.0-44.0); LYMPHOCYTE # 2.7 TH/MM3 (1.0-4.8); MEAN CELL VOLUME 90.2 FL (80.0-100.0); MEAN CORPUSCULAR HEMOGLOBIN 30.3 PG (27.0-34.0); MEAN CORPUSCULAR HGB CONC 33.6 % (32.0-36.0); MONO % 16.1 % (0.0-8.0); NEUT % 65.6 % (16.0-70.0); PLATELET COUNT 305 TH/MM3 (150-450); RED BLOOD COUNT 3.26 MIL/MM3 (4.00-5.30); RED CELL DISTRIBUTION WIDTH 16.7 % (11.6-17.2); WHITE BLOOD COUNT 14.9 TH/MM3 (4.0-11.0)
[2016-10-06 05:44] LABS: BICARBONATE 21.6 MEQ/L (21.0-32.0); POTASSIUM 3.9 MEQ/L (3.5-5.1)
[2016-10-06 05:54] LABS: HEMO FLAGS AUTO DIFF
[2016-10-06] MEDS: CHLORHEXIDINE 0.12% (ORAL KIT) 15 ML CUP MT SCH ×2 (08:00→20:09)
[2016-10-06] MEDS: levETIRAcetam INJ 500 MG in SODIUM CHLORIDE 0.9% INJ 100 ML IV SCH ×2 (08:00→20:09)
[2016-10-06] MEDS: PANTOPRAZOLE SOD 40 MG DELAYED RELEASE TAB PO SCH (08:42)
[2016-10-06] MEDS: MONTELUKAST SODIUM 5 MG CHEWABLE TAB PO SCH (08:42)
[2016-10-06] MEDS: SODIUM CHLORIDE 0.9% FLUSH 5 ML FLUSH IVF SCH ×2 (08:42→20:09)
[2016-10-06] MEDS: DOCUSATE SODIUM 100 MG CAP PO SCH ×2 (08:42→20:09)
[2016-10-06] MEDS: PANTOPRAZOLE SODIUM 40 MG VIAL IVP SCH (08:42)
[2016-10-06 09:21] LABS: SCAN/DIFF AUTO DIFF CONFIRMED
--- NOTE | 2016-10-06 10:31 | HHI.NSPN ---
(Kaylee Bloom) Note Status Status: Progress Note (Kaylee Bloom) Interval History Interval History Ms. Novoa is a 76 y/o woman was found unresponsive. She was found to have a acute large right sided SDH with 2 cm midline shift. She is anticoagulated with xarelto. She received Vit K and Kcentral and was transferred to [facility]. She underwent emergent right frontotemporoparietal decompressive craniectomy with evacuation of subdural hematoma, and placement of intracranial pressure monitor on 10/05/15. 10/06: POD 1, ICPs at highest overnight 11, she is on 30 of Diprivan. ICPs currently 4. She localized to LE, she does not open eyes or follow commands. Pupils are equal. (Kaylee Bloom) Labs, Micro, & Vital Signs Results Date Time Temp Pulse Resp B/P Pulse Ox O2 Delivery O2 Flow Rate FiO2 10/06/16 08:00 108 10/06/16 08:00 98.4 108 16 142/73 100 10/06/16 07:55 100 35 10/06/16 06:00 103 10/06/16 04:00 104 10/06/16 03:44 99 35 10/06/16 02:00 96 10/06/16 01:11 100 35 10/06/16 00:00 102 10/05/16 22:00 96 10/05/16 20:00 96 10/05/16 20:00 98.6 96 16 152/70 100 Automatic Cuff 10/05/16 19:55 100 35 10/05/16 16:00 90 10/05/16 16:00 97.1 90 16 144/66 100 10/05/16 15:51 100 35 10/05/16 12:00 97.7 77 16 128/56 100 10/05/16 12:00 77 10/06/16 07:00 Intake Total 2548 ml Output Total 1510 ml Balance 1038 ml Constitutional Vital Signs Date Time Temp Pulse Resp B/P Pulse Ox O2 Delivery O2 Flow Rate FiO2 10/06/16 08:00 108 10/06/16 08:00 98.4 108 16 142/73 100 10/06/16 07:55 100 35 10/06/16 06:00 103 10/06/16 04:00 104 10/06/16 03:44 99 35 10/06/16 02:00 96 10/06/16 01:11 100 35 10/06/16 00:00 102 10/05/16 22:00 96 10/05/16 20:00 96 10/05/16 20:00 98.6 96 16 152/70 100 Automatic Cuff 10/05/16 19:55 100 35 10/05/16 16:00 90 10/05/16 16:00 97.1 90 16 144/66 100 10/05/16 15:51 100 35 10/05/16 12:00 97.7 77 16 128/56 100 10/05/16 12:00 77 10/06/16 07:00 Intake Total 2548 ml Output Total 1510 ml Balance 1038 ml (Kaylee Bloom) Review of Systems/Exam Exam Ms. Novoa is intubated and sedated on 30 Diprivan. She does not open eyes or follow commands. Right flap is firm but with pulsations seen. LAUREN drains intact. Left ICP monitor in place, with ICPs = 4 Cranial Nerves: Pupils 3 mm equal, round. Eyes appear conjugated at midline. Cervical Spine: neck is soft, supple, without nuchal rigidity. Motor: muscle tone and bulk are normal. Reflexes: There is a bilateral babinsky response Sensory: localizes to both lower extremities only Cerebellar: Examination cannot be adequately assessed due to the patient's neurological condition. (Kaylee Bloom) Medications Current Medications Current Medications Medications (Trade) Dose Ordered Sig/Vladislav Route PRN Reason Start Time Stop Time Status Last Admin Dose Admin Miscellaneous Information 1 [id number] XX 10/05/16 04:45 10/06/16 03:46 Chlorhexidine Gluconate (Chlorhexidine 2% Cloth) 3 pack Taper DAILY@04 TOP 10/06/16 04:00 10/02/17 03:59 10/06/16 03:45 Chlorhexidine Gluconate (Chlorhexidine 2% Cloth) 3 pack UNSCH PRN TOP HYGIENIC CARE 10/05/16 04:45 Atorvastatin Calcium 20 mg 20 mg HS PO 10/05/16 21:00 10/05/16 20:22 Potassium Chloride/Sodium Chloride (NS + KCl 20 Meq Inj) 1,000 ml @ 100 mls/hr Q10H IV 10/05/16 05:00 10/06/16 01:09 IV Flush (NS Flush) 2 ml UNSCH PRN IVF FLUSH AFTER USING IV ACCESS 10/05/16 05:00 IV Flush (NS Flush) 2 ml BID IVF 10/05/16 09:00 10/06/16 08:42 Bisacodyl (Dulcolax Supp) 10 mg DAILY PRN VT CONSTIPATION 10/05/16 05:00 Docusate Sodium (Colace) 100 mg BID PO 10/05/16 09:00 10/06/16 08:42 Pantoprazole Sodium (Protonix) 40 mg DAILY PO 10/05/16 09:00 Pantoprazole Sodium (Protonix Inj) 40 mg DAILY IVP 10/05/16 09:00 10/06/16 08:42 Ondansetron HCl (Zofran Inj) 4 mg Q6H PRN IV NAUSEA OR VOMITING 10/05/16 05:00 Calcium Gluconate 1 gm 1 gm UNSCH PRN IV SEE LABEL COMMENTS 10/05/16 05:00 Potassium Chloride 100 ml @ 50 mls/hr UNSCH PRN IV POTASSIUM LESS THAN 4 10/05/16 05:00 Magnesium Sulfate/ Sodium Chloride (Magnesium Sulfate Inj/NS Inj) 108 ml @ 108 mls/hr UNSCH PRN IV MAGNESIUM LESS THAN 2 10/05/16 05:00 Acetaminophen/ Hydrocodone Bitart (Marshall 10-325 Mg) 1 tab Q4H PRN PO PAIN SCALE 1 TO 5 10/05/16 05:00 Acetaminophen/ Hydrocodone Bitart (Marshall 10-325 Mg) 2 tab Q4H PRN PO PAIN SCALE 6 TO 10 10/05/16 05:00 Morphine Sulfate (Morphine Inj) 2 mg Q2H PRN IV PUSH PAIN SCALE 1 TO 6 10/05/16 05:00 10/05/16 23:53 Morphine Sulfate (Morphine Inj) 4 mg Q2H PRN IV PUSH PAIN SCALE 7 TO 10 10/05/16 05:00 Acetaminophen (Tylenol) 650 mg Q4H PRN PO TEMPERATURE > 101.5 F 10/05/16 05:00 Chlorhexidine Gluconate 15 ml 15 ml BID@08,20 MT 10/05/16 08:00 10/06/16 08:00 Propofol 100 ml @ 0 mls/hr TITRATE IV 10/05/16 05:15 10/06/16 03:46 Potassium Chloride 100 ml @ 50 mls/hr Q2H PRN IV For Potassium 2.8 - 3.2 mEq/L 10/05/16 05:15 Potassium Chloride (KCl 20 Meq Premix Inj) 100 ml @ 50 mls/hr Q2H PRN IV For Potassium 2.8 - 3.2 mEq/L 10/05/16 05:15 Potassium Chloride 40 meq 40 meq UNSCH PRN PO/TUBE For Potassium 3.3 - 3.5 mEq/L 10/05/16 05:15 Potassium Chloride 100 ml @ 25 mls/hr UNSCH PRN IV For Potassium 3.3 - 3.5 mEq/L 10/05/16 05:15 Potassium Chloride 100 ml @ 50 mls/hr Q2H PRN IV For Potassium 3.3 - 3.5 mEq/L 10/05/16 05:15 Magnesium Sulfate/ Sodium Chloride (Magnesium Sulfate Inj/NS Inj) 100 ml @ 50 mls/hr UNSCH PRN IV For Magnesium 0.9 - 1.1 mg/dL 10/05/16 05:15 Magnesium Oxide 800 mg 800 mg UNSCH PRN PO For Magnesium 1.2 - 1.6 mg/dL 10/05/16 05:15 Magnesium Sulfate/ Sodium Chloride (Magnesium Sulfate Inj/NS Inj) 100 ml @ 50 mls/hr UNSCH PRN IV For Magnesium 1.2 - 1.6 mg/dL 10/05/16 05:15 Potassium Phosphate 2000 mg 2,000 mg Q4H PRN PO For Phosphorus < 2.5 mg/dL 10/05/16 05:15 Sodium Phosphate/ Sodium Chloride (Sodium Phosphate Inj/NS 250 ml Inj) 250 ml @ 42 mls/hr UNSCH PRN IV For Phosphorus < 2.5 mg/dL 10/05/16 05:15 Potassium Chloride (KCl 40 Meq/30 ml Liq) 40 meq UNSCH PRN PO/TUBE SEE LABEL COMMENTS 10/05/16 05:15 Potassium Phosphate 2000 mg 2,000 mg UNSCH PRN PO/TUBE SEE LABEL COMMENTS 10/05/16 05:15 Potassium Phosphate 30 mmol/ Sodium Chloride 260 ml @ 42 mls/hr UNSCH PRN IV SEE LABEL COMMENTS 10/05/16 05:15 Phenylephrine HCl/ Dextrose (Neosynephrine Inj/D5W 500 ml Inj) 500 ml @ 0 mls/hr TITRATE IV 10/05/16 06:30 10/05/16 07:24 Terbutaline Sulfate 1 mg 1 mg UNSCH PRN SQ FOR EXTRAVASATION PROTOCOL 10/05/16 06:30 Levetriacetam/ Sodium Chloride (Keppra Inj/NS Inj) 105 ml @ 400 mls/hr Q12H IV 10/05/16 08:00 10/06/16 08:00 Montelukast Sodium (Singulair Chew) 10 mg DAILY PO 10/06/16 09:00 10/06/16 08:42 (Kaylee Bloom) Medical Decision Making MDM Remarks 76 year old female found unresponsive with a large right subdural hematoma with 2 cm midline shift previously anticoagulated on Xarelto, s/p Vit K and Kcentra s/p emergent right decompressive craniectomy with evacuation of subdural hematoma and placement of intracranial pressure monitor on 10/05/16 (Kaylee Bloom) Plan Plan Remarks ICPs within normal limits, cont ICP monitoring for now cont serial neuro checks f/u CT Head tomorrow morning critical care mgt nonchemical dvt prophylaxis with SCDs and TEDs due to acute ICH Protonix for stress ulcer prophylaxis (Kaylee Bloom) Attending Statement The exam, history, and the medical decision-making described in the above note were completed with the assistance of the mid-level provider. I reviewed and agree with the findings presented. I attest that I had a [id number] encounter with the patient on the same day, and personally performed and documented my assessment and findings in the medical record. (Chandana Leon MD) Kaylee Bloom Oct 06, 2016 10:31 Chandana Leon MD Oct 10, 2016 21:03
--- NOTE | 2016-10-06 14:20 | EC ---
Study Study Date:10/06/2016 STUDY CONCLUSIONS SUMMARY - Left ventricle: The cavity size was mildly dilated. Systolic function was severely reduced. The estimated ejection fraction was in the range of 20% to 25%. Akinesis of the apical myocardium. Akinesis of the anteroseptal myocardium. Akinesis of the anterior myocardium; consistent with infarction. - Mitral valve: Mildly to moderately calcified annulus. If LV function is below 40, please consider prescribing an ACEI or ARB or document rationale for non-use. PROCEDURE DATA STUDY STATUS: Elective. Procedure: Transthoracic echocardiography. Image quality was good. Scanning was performed from the parasternal, apical, and subcostal acoustic windows. Study completion: The patient tolerated the procedure well. Transthoracic echocardiography. M-mode, complete 2D, complete spectral Doppler, and color Doppler. Patient status: Inpatient. CARDIAC ANATOMY LEFT VENTRICLE: The cavity size was mildly dilated. Systolic function was severely reduced. The estimated ejection fraction was in the range of 20% to 25%. Regional wall motion abnormalities: Akinesis of the apical myocardium. Akinesis of the anteroseptal myocardium. Akinesis of the anterior myocardium; consistent with infarction. AORTIC VALVE: Mildly calcified leaflets. Doppler: There was no stenosis. No significant regurgitation. MITRAL VALVE: Mildly to moderately calcified annulus. Doppler: There was no evidence for stenosis. Trace regurgitation. Peak gradient: 4mm Hg (D). PULMONIC VALVE: Not well visualized. TRICUSPID VALVE: The valve appears to be grossly normal. Doppler: There was no evidence for stenosis. Trace regurgitation. BASIC MEASUREMENTS ADULT NORMAL Left ventricle LV internal dimension, ED, chordal level, 47.5 mm 43-52 PLAX LV posterior wall thickness, ED 8.39 mm IVS/LVPW ratio, ED 1.08 <1.3 Ventricular septum Septal thickness, ED 9.04 mm Aortic valve Leaflet separation 19 mm 15-26 Left atrium Anterior-posterior dimension 24 mm Right ventricle RV internal dimension, ED, PLAX 19.9 mm 19-38 BASIC MEASUREMENTS ADULT NORMAL Aortic valve Leaflet separation 19 mm 15-26 Aorta Root diameter, ED 29 mm 20-37 DOPPLER MEASUREMENTS ADULT NORMAL Main pulmonary artery Pressure, S *44 mm Hg =30 Mitral valve Peak E-wave velocity 96.3 cm/s Peak A-wave velocity 89.5 cm/s Peak gradient, D 4 mm Hg Peak E/A ratio 1.1 Tricuspid valve Regurgitant peak velocity 293 cm/s Peak RV-RA gradient, S 34 mm Hg Maximal regurgitant velocity 293 cm/s Systemic veins Estimated CVP 10 mm Hg Right ventricle RV pressure, S *44 mm Hg <30 LEGEND: Mean values are shown as u=mean value. Asterisk (*) patel values outside specified normal range. Prepared and signed by Vance Oneal [id number]
--- NOTE | 2016-10-06 15:21 | PD.CARD.PN ---
Subjective Subjective Remarks intubated Objective Vital Signs / I&O Vital Signs Date Time Temp Pulse Resp B/P Pulse Ox O2 Delivery O2 Flow Rate FiO2 10/06/16 12:00 104 10/06/16 12:00 98.6 104 16 136/64 100 10/06/16 11:25 100 35 10/06/16 08:00 108 10/06/16 08:00 98.4 108 16 142/73 100 10/06/16 07:55 100 35 10/06/16 06:00 103 10/06/16 04:00 104 10/06/16 03:44 99 35 10/06/16 02:00 96 10/06/16 01:11 100 35 10/06/16 00:00 102 10/05/16 22:00 96 10/05/16 20:00 96 10/05/16 20:00 98.6 96 16 152/70 100 Automatic Cuff 10/05/16 19:55 100 35 10/05/16 16:00 90 10/05/16 16:00 97.1 90 16 144/66 100 10/05/16 15:51 100 35 I/O 10/05/16 10/05/16 10/05/16 10/06/16 10/06/16 10/06/16 07:00 15:00 23:00 07:00 15:00 23:00 Intake Total 500 ml 753 ml 1009 ml 786 ml 768 ml Output Total 350 ml 780 ml 470 ml 260 ml 350 ml Balance 150 ml -27 ml 539 ml 526 ml 418 ml Intake Oral 0 ml IV Total 753 ml 1009 ml 786 ml 768 ml Other 500 ml Output Urine Total 350 ml 625 ml 450 ml 250 ml 250 ml Gastric Drainage Total 0 ml 0 ml 100 ml Drainage Total 155 ml 20 ml 10 ml 0 ml # Bowel Movements 0 0 0 0 Physical Exam GENERAL: SKIN: Warm and dry. HEAD: Normocephalic. EYES: No scleral icterus. No injection or drainage. NECK: Supple, trachea midline. No JVD or lymphadenopathy. CARDIOVASCULAR: Regular rate and rhythm without murmurs, gallops, or rubs. RESPIRATORY: Breath sounds equal bilaterally. No accessory muscle use. GASTROINTESTINAL: Abdomen soft, non-tender, nondistended. MUSCULOSKELETAL: No cyanosis, or edema. BACK: Nontender without obvious deformity. No CVA tenderness. Laboratory Laboratory Tests Test 10/06/16 04:45 White Blood Count 14.9 TH/MM3 Red Blood Count 3.26 MIL/MM3 Hemoglobin 9.9 GM/DL Hematocrit 29.4 % Mean Corpuscular Volume 90.2 FL Mean Corpuscular Hemoglobin 30.3 PG Mean Corpuscular Hemoglobin 33.6 % Concent Red Cell Distribution Width 16.7 % Platelet Count 305 TH/MM3 Mean Platelet Volume 7.8 FL Neutrophils (%) (Auto) 65.6 % Lymphocytes (%) (Auto) 18.2 % Monocytes (%) (Auto) 16.1 % Eosinophils (%) (Auto) 0.0 % Basophils (%) (Auto) 0.1 % Neutrophils # (Auto) 9.8 TH/MM3 Lymphocytes # (Auto) 2.7 TH/MM3 Monocytes # (Auto) 2.4 TH/MM3 Eosinophils # (Auto) 0.0 TH/MM3 Basophils # (Auto) 0.0 TH/MM3 CBC Comment AUTO DIFF Differential Comment AUTO DIFF CONFIRMED Sodium Level 141 MEQ/L Potassium Level 3.9 MEQ/L Chloride Level 109 MEQ/L Carbon Dioxide Level 21.6 MEQ/L Anion Gap 10 MEQ/L Blood Urea Nitrogen 12 MG/DL Creatinine 0.55 MG/DL Estimat Glomerular Filtration 107 ML/MIN Rate Random Glucose 120 MG/DL Calcium Level 7.6 MG/DL Phosphorus Level 2.6 MG/DL Magnesium Level 2.0 MG/DL Assessment and Plan Problem List: (1) HTN (hypertension) (2) PAD (peripheral artery disease) (3) Left carotid artery occlusion (4) CAD (coronary artery disease) (5) Acute respiratory failure (6) Subdural hematoma (7) Coagulopathy (8) NSTEMI (non-ST elevated myocardial infarction) (9) Acute subdural hematoma Assessment and Plan 1.) SDH - ekg suggests possible recent anteroseptal mi, ac contraindicated d/t life threatening ich, beta blockers, lyssa held d/t hypotension and ich; continue statin, supportive care, neurologic prognosis uncertain Marcus Medel MD Oct 06, 2016 15:21
[2016-10-06] MEDS: ATORVASTATIN 20 MG TAB PO SCH (20:09)
[2016-10-06] MEDS: MORPHINE SULFATE 4 MG/ML INJ IV PUSH PRN (21:40)
--- NOTE | 2016-10-06 22:45 | EKG ---
Date Performed: 10/05/2016 Time Performed: 14:05:24 PTAGE: 76 years EKG: Sinus rhythm ANTEROSEPTAL INFARCT - POSSIBLY ACUTE Abnormal ECG PREVIOUS TRACING : 07/26/2014 20.00 Compared to the previous tracing, anteroseptal st-t change s are new DOCTOR: Yoseph Fuchs Interpretating Date/Time 10/06/2016 22:42:36
[2016-10-07] VITALS (19 sets, daily range): BP systolic 123–160; BP diastolic 57–72; PULSE 90–112; RESP 16–17; TEMP 97.6–98.8; O2SAT 98–100
[2016-10-07] MEDS ORDERED: LIDOCAINE HCL 2% 100 MG/5 ML SYRINGE ONE (04:02)
[2016-10-07] MEDS ORDERED: EPINEPHrine HCL (1:10,000) 1 MG/10 ML SYRINGE ONE (04:02)
[2016-10-07] MEDS ORDERED: ATROPINE SULFATE 1 MG/10 ML SYRINGE ONE (04:02)
[2016-10-07] MEDS: CHLORHEXIDINE GLUCONATE 2 % 1 PACK (2 CLOTHS) TOP SCH (04:54)
--- NOTE | 2016-10-07 05:09 | RADRPT ---
EXAM DATE/TIME: 10/07/2016 04:19 [facility] COMPARISON: CT BRAIN W/O CONTRAST, October 05, 2016, 4:09. INDICATIONS : Follow up hemorrhage. RADIATION DOSE: 69.16 CTDIvol (mGy) MEDICAL HISTORY : Non-responsive. SURGICAL HISTORY : Craniotomy. ENCOUNTER: Subsequent ACUITY: 2 days PAIN SCALE: Non-responsive LOCATION: cranial TECHNIQUE: Multiple contiguous axial images were obtained of the head. Using automated exposure control and adj ustment of the mA and/or kV according to patient size, radiation dose was kept as low as reasonably a chievable to obtain optimal diagnostic quality images. FINDINGS: Right subdural hemorrhage has been evacuated however there is some minimal residual hemorrhage on the right measuring 5 mm in thickness. There has been interval right frontal craniectomy. Two dural drai ns are in place. There is some new hemorrhage along the right lower right frontal lobe without signif icant mass effect. No midline shift on current study. Ventricles are patent. Minimal hemorrhage in th e posterior horns of both ventricles. CONCLUSION: 1. Right craniectomy with dural drains in place. 2. Minimal right subdural hemorrhage measures 5 mm. 3. There is some new minimal hemorrhage along the lower right frontal lobe without significant mass e ffect. 4. Minimal intraventricular hemorrhage. Keshav Blakely MD on October 07, 2016 at 5:03 Board Certified Radiologist. This report was verified electronically.
[2016-10-07] MEDS: NS + KCL 20 MEQ INJ 1,000 ML IV SCH ×2 (07:13→09:45)
[2016-10-07] MEDS: PANTOPRAZOLE SOD 40 MG DELAYED RELEASE TAB PO SCH (09:00)
[2016-10-07] MEDS: MONTELUKAST SODIUM 5 MG CHEWABLE TAB PO SCH (09:44)
[2016-10-07] MEDS: DOCUSATE SODIUM 100 MG CAP PO SCH ×2 (09:44→22:01)
[2016-10-07] MEDS: levETIRAcetam INJ 500 MG in SODIUM CHLORIDE 0.9% INJ 100 ML IV SCH ×2 (09:44→22:00)
[2016-10-07] MEDS: PANTOPRAZOLE SODIUM 40 MG VIAL IVP SCH (09:45)
[2016-10-07] MEDS: CHLORHEXIDINE 0.12% (ORAL KIT) 15 ML CUP MT SCH ×2 (09:46→22:00)
[2016-10-07] MEDS: SODIUM CHLORIDE 0.9% FLUSH 5 ML FLUSH IVF SCH ×2 (09:46→22:01)
[2016-10-07] MEDS: PROPOFOL 1000 MG/100 ML INJ 100 ML IV SCH (09:47)
--- NOTE | 2016-10-07 10:37 | HHI.NSPN ---
(Kaylee Bloom) Note Status Status: Progress Note (Kaylee Bloom) Interval History Interval History Ms. Novoa is a 76 y/o woman was found unresponsive. She was found to have a acute large right sided SDH with 2 cm midline shift. She is anticoagulated with xarelto. She received Vit K and Kcentral and was transferred to [facility]. She underwent emergent right frontotemporoparietal decompressive craniectomy with evacuation of subdural hematoma, and placement of intracranial pressure monitor on 10/05/15. 10/06: POD 1, ICPs at highest overnight 11, she is on 30 of Diprivan. ICPs currently 4. She localized to LE, she does not open eyes or follow commands. Pupils are equal. 10/07: POD 2, f/u CT Brain completed this am, remains sedated for bp control. ICPs within normal limits (Kaylee Bloom) Labs, Micro, & Vital Signs Results Date Time Temp Pulse Resp B/P Pulse Ox O2 Delivery O2 Flow Rate FiO2 10/07/16 08:06 100 35 10/07/16 06:00 107 10/07/16 04:17 100 35 10/07/16 04:10 100 100 10/07/16 04:00 105 10/07/16 02:00 112 10/07/16 01:14 100 35 10/07/16 00:00 98.8 108 16 148/68 98 10/07/16 00:00 108 10/06/16 22:00 107 10/06/16 20:31 100 35 10/06/16 20:00 109 10/06/16 20:00 99.5 109 16 145/67 100 10/06/16 16:05 100 35 10/06/16 16:00 99.4 109 16 138/67 100 10/06/16 16:00 109 10/06/16 12:00 104 10/06/16 12:00 98.6 104 16 136/64 100 10/06/16 11:25 100 35 10/07/16 07:00 Intake Total 2645 ml Output Total 2240 ml Balance 405 ml Constitutional Vital Signs Date Time Temp Pulse Resp B/P Pulse Ox O2 Delivery O2 Flow Rate FiO2 10/07/16 08:06 100 35 10/07/16 06:00 107 10/07/16 04:17 100 35 10/07/16 04:10 100 100 10/07/16 04:00 105 10/07/16 02:00 112 10/07/16 01:14 100 35 10/07/16 00:00 98.8 108 16 148/68 98 10/07/16 00:00 108 10/06/16 22:00 107 10/06/16 20:31 100 35 10/06/16 20:00 109 10/06/16 20:00 99.5 109 16 145/67 100 10/06/16 16:05 100 35 10/06/16 16:00 99.4 109 16 138/67 100 10/06/16 16:00 109 10/06/16 12:00 104 10/06/16 12:00 98.6 104 16 136/64 100 10/06/16 11:25 100 35 10/07/16 07:00 Intake Total 2645 ml Output Total 2240 ml Balance 405 ml (Kaylee Bloom) Review of Systems/Exam Exam Ms. Novoa is intubated and sedated on Diprivan. She does not open eyes or follow commands. Right flap is firm but with pulsations seen. LAUREN drains intact. Left ICP monitor in place, with ICPs low below 5 Cranial Nerves: Pupils 3 mm equal, round. Eyes appear conjugated at midline. Cervical Spine: neck is soft, supple, without nuchal rigidity. Motor: muscle tone and bulk are normal. Reflexes: There is a bilateral babinsky response Sensory: localizes to both lower extremities only Cerebellar: Examination cannot be adequately assessed due to the patient's neurological condition. (Kaylee Bloom) Medications Current Medications Current Medications Medications (Trade) Dose Ordered Sig/Vladislav Route PRN Reason Start Time Stop Time Status Last Admin Dose Admin Miscellaneous Information 1 [id number] XX 10/05/16 04:45 10/06/16 03:46 Chlorhexidine Gluconate (Chlorhexidine 2% Cloth) 3 pack Taper DAILY@04 TOP 10/06/16 04:00 10/02/17 03:59 10/07/16 04:54 Chlorhexidine Gluconate (Chlorhexidine 2% Cloth) 3 pack UNSCH PRN TOP HYGIENIC CARE 10/05/16 04:45 Atorvastatin Calcium 20 mg 20 mg HS PO 10/05/16 21:00 10/06/16 20:09 Potassium Chloride/Sodium Chloride (NS + KCl 20 Meq Inj) 1,000 ml @ 100 mls/hr Q10H IV 10/05/16 05:00 10/07/16 09:45 IV Flush (NS Flush) 2 ml UNSCH PRN IVF FLUSH AFTER USING IV ACCESS 10/05/16 05:00 IV Flush (NS Flush) 2 ml BID IVF 10/05/16 09:00 10/07/16 09:46 Bisacodyl (Dulcolax Supp) 10 mg DAILY PRN UT CONSTIPATION 10/05/16 05:00 Docusate Sodium (Colace) 100 mg BID PO 10/05/16 09:00 10/07/16 09:44 Pantoprazole Sodium (Protonix) 40 mg DAILY PO 10/05/16 09:00 Pantoprazole Sodium (Protonix Inj) 40 mg DAILY IVP 10/05/16 09:00 10/07/16 09:45 Ondansetron HCl (Zofran Inj) 4 mg Q6H PRN IV NAUSEA OR VOMITING 10/05/16 05:00 Calcium Gluconate 1 gm 1 gm UNSCH PRN IV SEE LABEL COMMENTS 10/05/16 05:00 Potassium Chloride 100 ml @ 50 mls/hr UNSCH PRN IV POTASSIUM LESS THAN 4 10/05/16 05:00 Magnesium Sulfate/ Sodium Chloride (Magnesium Sulfate Inj/NS Inj) 108 ml @ 108 mls/hr UNSCH PRN IV MAGNESIUM LESS THAN 2 10/05/16 05:00 Acetaminophen/ Hydrocodone Bitart (Parachute 10-325 Mg) 1 tab Q4H PRN PO PAIN SCALE 1 TO 5 10/05/16 05:00 Acetaminophen/ Hydrocodone Bitart (Parachute 10-325 Mg) 2 tab Q4H PRN PO PAIN SCALE 6 TO 10 10/05/16 05:00 Morphine Sulfate (Morphine Inj) 2 mg Q2H PRN IV PUSH PAIN SCALE 1 TO 6 10/05/16 05:00 10/06/16 21:40 Morphine Sulfate (Morphine Inj) 4 mg Q2H PRN IV PUSH PAIN SCALE 7 TO 10 10/05/16 05:00 Acetaminophen (Tylenol) 650 mg Q4H PRN PO TEMPERATURE > 101.5 F 10/05/16 05:00 Chlorhexidine Gluconate 15 ml 15 ml BID@08,20 MT 10/05/16 08:00 10/07/16 09:46 Propofol 100 ml @ 0 mls/hr TITRATE IV 10/05/16 05:15 10/07/16 09:47 Potassium Chloride 100 ml @ 50 mls/hr Q2H PRN IV For Potassium 2.8 - 3.2 mEq/L 10/05/16 05:15 Potassium Chloride (KCl 20 Meq Premix Inj) 100 ml @ 50 mls/hr Q2H PRN IV For Potassium 2.8 - 3.2 mEq/L 10/05/16 05:15 Potassium Chloride 40 meq 40 meq UNSCH PRN PO/TUBE For Potassium 3.3 - 3.5 mEq/L 10/05/16 05:15 Potassium Chloride 100 ml @ 25 mls/hr UNSCH PRN IV For Potassium 3.3 - 3.5 mEq/L 10/05/16 05:15 Potassium Chloride 100 ml @ 50 mls/hr Q2H PRN IV For Potassium 3.3 - 3.5 mEq/L 10/05/16 05:15 Magnesium Sulfate/ Sodium Chloride (Magnesium Sulfate Inj/NS Inj) 100 ml @ 50 mls/hr UNSCH PRN IV For Magnesium 0.9 - 1.1 mg/dL 10/05/16 05:15 Magnesium Oxide 800 mg 800 mg UNSCH PRN PO For Magnesium 1.2 - 1.6 mg/dL 10/05/16 05:15 Magnesium Sulfate/ Sodium Chloride (Magnesium Sulfate Inj/NS Inj) 100 ml @ 50 mls/hr UNSCH PRN IV For Magnesium 1.2 - 1.6 mg/dL 10/05/16 05:15 Potassium Phosphate 2000 mg 2,000 mg Q4H PRN PO For Phosphorus < 2.5 mg/dL 10/05/16 05:15 Sodium Phosphate/ Sodium Chloride (Sodium Phosphate Inj/NS 250 ml Inj) 250 ml @ 42 mls/hr UNSCH PRN IV For Phosphorus < 2.5 mg/dL 10/05/16 05:15 Potassium Chloride (KCl 40 Meq/30 ml Liq) 40 meq UNSCH PRN PO/TUBE SEE LABEL COMMENTS 10/05/16 05:15 Potassium Phosphate 2000 mg 2,000 mg UNSCH PRN PO/TUBE SEE LABEL COMMENTS 10/05/16 05:15 Potassium Phosphate 30 mmol/ Sodium Chloride 260 ml @ 42 mls/hr UNSCH PRN IV SEE LABEL COMMENTS 10/05/16 05:15 Phenylephrine HCl/ Dextrose (Neosynephrine Inj/D5W 500 ml Inj) 500 ml @ 0 mls/hr TITRATE IV 10/05/16 06:30 10/05/16 07:24 Terbutaline Sulfate 1 mg 1 mg UNSCH PRN SQ FOR EXTRAVASATION PROTOCOL 10/05/16 06:30 Levetriacetam/ Sodium Chloride (Keppra Inj/NS Inj) 105 ml @ 400 mls/hr Q12H IV 10/05/16 08:00 10/07/16 09:44 Montelukast Sodium (Singulair Chew) 10 mg DAILY PO 10/06/16 09:00 10/07/16 09:44 (Kaylee Bloom) Medical Decision Making MDM Remarks 76 year old female found unresponsive with a large right subdural hematoma with 2 cm midline shift previously anticoagulated on Xarelto, s/p Vit K and Kcentra s/p emergent right decompressive craniectomy with evacuation of subdural hematoma and placement of intracranial pressure monitor on 10/05/16 (Kaylee Bloom) Plan Plan Remarks f/u CT Brain with resolution of subdural hematoma, improved midline shift, stable intracranial pressures, will dc ICP monitor this afternoon cont wean sedation as tolerated and follow up neuro exam cont critical care mgt nonchemical dvt prophylaxis with SCDs and TEDs due to acute ICH, no anticoagulants at this time Protonix for stress ulcer prophylaxis cont LAUREN draining dw daughter at bedside, her questions answered (Kaylee Bloom) Attending Statement The exam, history, and the medical decision-making described in the above note were completed with the assistance of the mid-level provider. I reviewed and agree with the findings presented. I attest that I had a [id number] encounter with the patient on the same day, and personally performed and documented my assessment and findings in the medical record. (Chandana Leon MD) Kaylee Bloom Oct 07, 2016 10:37 Chandana Leon MD Oct 10, 2016 18:25
--- NOTE | 2016-10-07 11:06 | EKG ---
Date Performed: 10/06/2016 Time Performed: 15:41:22 PTAGE: 76 years EKG: Sinus tachycardia Recent or acute anteroseptal infarct Since previous tracing, no significa nt change noted Abnormal ECG PREVIOUS TRACING : 10/05/2016 14.05 DOCTOR: Max Cote Interpretating Date/Time 10/07/2016 11:05:55
[2016-10-07] MEDS ORDERED: LABETALOL HCL 100 MG/20 ML VIAL IVP ONE (14:30)
--- NOTE | 2016-10-07 15:18 | HHI.CCPN ---
Objective Vital Signs Date Time Temp Pulse Resp B/P Pulse Ox O2 Delivery O2 Flow Rate FiO2 10/07/16 12:00 100 10/07/16 12:00 97.6 16 133/63 100 10/07/16 10:59 35 10/05/16 08:50 Mechanical Ventilator Intake and Output 10/06/16 10/06/16 10/07/16 08:00 16:00 00:00 Intake Total 786 ml 768 ml 1164 ml Output Total 260 ml 350 ml 1165 ml Balance 526 ml 418 ml -1 ml Result Diagram: 10/06/1644410/06/16444 Objective Remarks P 93, BP 156/100, R 18 vent, sats 100% Lungs: Clear, no wheezes or crackles. Heart: NL S1S2, RRR, No JVD. Abdomen : Soft, nondistended, no guarding. Extremities: Warm, well perfused. Neuro: Right pupil 3 mm, non-reactive. Left pupil 2 mm, reactive. DTRs patellar 1+ brianda. Toes upgoing to plantar stimulation. Extends both legs to stimulation. + cough reflex. Disconjugate gaze. GCS 4T. A/P Problem List: (1) Acute subdural hematoma ICD Code: I62.01 Status: Acute (2) Coagulopathy ICD Code: D68.9 Status: Acute (3) Acute respiratory failure ICD Code: J96.00 Status: Acute (4) NSTEMI (non-ST elevated myocardial infarction) ICD Code: I21.4 Status: Acute Assessment and Plan PLAN: NEURO: - SDH - post Emergency SDH decompression. - continue Isotonic fluid. CV: - NSTEMI, - hemodynamically stable - Hold Xarelto and ASA. - per cardiology RESP: - PRVC vent mode. PCO2 30-35 range. - SBT - attempt to extubate GI: NG to LIS. NPO. : Landers to CBD. HEME: Follow coag profile. Repeat Kcentra for problematic oozing. ID: Cultures for fevers. RENAL: Hydrate gingerly for mild dehydration unless elevated ICP. Serial mag, phos. PX: Protonix, SCDs. No chemical DVT px. Overall impression: This woman is critically ill with a life-threatening acute subdural hemorrhage, exacerbated by NOAC therapy and possibly related to a fall. She has serious brain at jeopardy and may not survive this insult. NSTEMI noted but should not preclude urgent brain decompression. Prognosis is guarded at best. I have talked with her in the ED. Level 3 Femi Vieyra MD Oct 07, 2016 15:17
[2016-10-07] MEDS ORDERED: hydrALAZINE HCL 20 MG/ML VIAL IV PUSH PRN (15:30)
[2016-10-07] MEDS ORDERED: LABETALOL HCL 100 MG/20 ML VIAL IV PUSH PRN (15:30)
--- NOTE | 2016-10-07 15:46 | PD.CARD.PN ---
Subjective Subjective Remarks intubated Objective Vital Signs / I&O Vital Signs Date Time Temp Pulse Resp B/P Pulse Ox O2 Delivery O2 Flow Rate FiO2 10/07/16 14:00 98 10/07/16 12:00 100 10/07/16 12:00 97.6 100 16 133/63 100 10/07/16 10:59 100 35 10/07/16 10:00 102 10/07/16 08:06 100 35 10/07/16 08:00 98.6 104 16 123/60 100 10/07/16 08:00 104 10/07/16 06:00 107 10/07/16 04:17 100 35 10/07/16 04:10 100 100 10/07/16 04:00 105 10/07/16 02:00 112 10/07/16 01:14 100 35 10/07/16 00:00 98.8 108 16 148/68 98 10/07/16 00:00 108 10/06/16 22:00 107 10/06/16 20:31 100 35 10/06/16 20:00 109 10/06/16 20:00 99.5 109 16 145/67 100 10/06/16 16:05 100 35 10/06/16 16:00 99.4 109 16 138/67 100 10/06/16 16:00 109 I/O 10/06/16 10/06/16 10/06/16 10/07/16 10/07/16 10/07/16 07:00 15:00 23:00 07:00 15:00 23:00 Intake Total 786 ml 768 ml 1164 ml 713 ml 889 ml Output Total 260 ml 350 ml 1165 ml 725 ml 635 ml Balance 526 ml 418 ml -1 ml -12 ml 254 ml IV Total 786 ml 768 ml 1164 ml 713 ml 889 ml Output Urine Total 250 ml 250 ml 1150 ml 625 ml 620 ml Gastric Drainage Total 100 ml 100 ml 0 ml Drainage Total 10 ml 0 ml 15 ml 0 ml 15 ml # Bowel Movements 0 0 0 0 0 Physical Exam GENERAL: SKIN: Warm and dry. HEAD: Normocephalic. EYES: No scleral icterus. No injection or drainage. NECK: Supple, trachea midline. No JVD or lymphadenopathy. CARDIOVASCULAR: Regular rate and rhythm without murmurs, gallops, or rubs. RESPIRATORY: Breath sounds equal bilaterally. No accessory muscle use. GASTROINTESTINAL: Abdomen soft, non-tender, nondistended. MUSCULOSKELETAL: No cyanosis, or edema. BACK: Nontender without obvious deformity. No CVA tenderness. Assessment and Plan Problem List: (1) HTN (hypertension) (2) PAD (peripheral artery disease) (3) Left carotid artery occlusion (4) CAD (coronary artery disease) (5) Acute respiratory failure (6) Subdural hematoma (7) Coagulopathy (8) NSTEMI (non-ST elevated myocardial infarction) (9) Acute subdural hematoma Assessment and Plan 1.) SDH - ekg suggests possible recent anteroseptal mi, ac contraindicated d/t life threatening ich, beta blockers, lyssa held d/t hypotension and ich; continue statin, supportive care, neurologic prognosis uncertain 2.) Ischemic cardiomyopathy - lyssa inhibitor and beta blockers held d/t labile bp , hypotensive episodes and recent ich Marcus Medel MD Oct 07, 2016 15:46
[2016-10-07] MEDS: DILTIAZEM HCL 30 MG TAB PO SCH ×2 (17:40→22:01)
[2016-10-07] MEDS: ATORVASTATIN 20 MG TAB PO SCH (22:01)
[2016-10-08] VITALS (19 sets, daily range): BP systolic 110–168; BP diastolic 45–76; PULSE 83–120; RESP 16–21; TEMP 97.9–100.8; O2SAT 98–100
[2016-10-08] MEDS: NS + KCL 20 MEQ INJ 1,000 ML IV SCH ×3 (03:10→22:39)
[2016-10-08] MEDS: CHLORHEXIDINE GLUCONATE 2 % 1 PACK (2 CLOTHS) TOP SCH (04:23)
[2016-10-08 04:42] LABS: AUTOMATED NEUTROPHIL # 15.2 TH/MM3 (1.8-7.7); BASOPHIL % 0.2 % (0.0-2.0); HEMATOCRIT 26.5 % (35.0-46.0); LYMPH % 7.4 % (9.0-44.0); LYMPHOCYTE # 1.4 TH/MM3 (1.0-4.8); MEAN CELL VOLUME 90.9 FL (80.0-100.0); MEAN CORPUSCULAR HEMOGLOBIN 29.7 PG (27.0-34.0); MEAN CORPUSCULAR HGB CONC 32.7 % (32.0-36.0); MONO % 12.3 % (0.0-8.0); NEUT % 80.1 % (16.0-70.0); PLATELET COUNT 304 TH/MM3 (150-450); RED BLOOD COUNT 2.91 MIL/MM3 (4.00-5.30); RED CELL DISTRIBUTION WIDTH 16.9 % (11.6-17.2); WHITE BLOOD COUNT 18.9 TH/MM3 (4.0-11.0)
[2016-10-08 05:01] LABS: ALKALINE PHOSPHATASE 57 U/L (45-117); ALT (GPT) 16 U/L (10-53); ANION GAP 12 MEQ/L (5-15); AST (GOT) 35 U/L (15-37); BLOOD UREA NITROGEN 16 MG/DL (7-18); CHLORIDE 110 MEQ/L (98-107); GLOMERULAR FILTRATION RATE 139 ML/MIN (>89); MAGNESIUM 2.1 MG/DL (1.5-2.5); POTASSIUM 4.2 MEQ/L (3.5-5.1); SODIUM (NA) 141 MEQ/L (136-145); TOTAL BILIRUBIN ADULT 0.6 MG/DL (0.2-1.0)
[2016-10-08 05:11] LABS: HEMO FLAGS AUTO DIFF
[2016-10-08 05:44] LABS: BLOOD GAS BASE EXCESS -6.7 mmol/L (-2-2); BLOOD GAS CARBOXYHEMOGLOBIN 0.9 % (0-4); BLOOD GAS HCO3 17 mmol/L (22-26); BLOOD GAS METHEMOGLOBIN 0.9 % (0-2); BLOOD GAS O2 HGB SATURATION 97 % (90-100); BLOOD GAS OXYGEN CONTENT 15.4 Vol % (12.0-20.0); BLOOD GAS PCO2 27 mmHg (38-42); BLOOD GAS PO2 178 mmHg (61-120); CRITICAL VALUE NO; OXYGEN DEVICE VENTILATOR; TEMP CORR TO 98.6
[2016-10-08 05:45] LABS: DRAW SITE ART LINE; FIO2 35 %; STAT NO; VENT SETTINGS PRVC/AC
--- NOTE | 2016-10-08 06:36 | RADRPT ---
EXAM DATE/TIME: 10/08/2016 06:02 [facility] COMPARISON: No previous studies available for comparison. INDICATIONS : Shortness of breath. MEDICAL HISTORY : Hypertension. SURGICAL HISTORY : Loop recorder. Neurostimulator. ENCOUNTER: Initial ACUITY: 3 days PAIN SCORE: Non-responsive. LOCATION: Bilateral chest FINDINGS: The cardiac silhouette is normal in transverse diameter. Endotracheal tube is in good position above the lissette. A nasogastric tube is in place with its tip in the stomach. The patient is rotated into t he right posterior oblique position. The lungs are free of acute parenchymal opacity. No effusions ar e identified. CONCLUSION: 1. Satisfactory position of endotracheal tube as above. 2. No acute cardiopulmonary disease. Severo Love MD on October 08, 2016 at 6:33 Board Certified Radiologist. This report was verified electronically.
[2016-10-08 07:32] LABS: PLATELET ESTIMATE SMEAR NORMAL (NORMAL); PLATELET MORPHOLOGY NORMAL (NORMAL); SCAN/DIFF AUTO DIFF CONFIRMED
[2016-10-08] MEDS: CHLORHEXIDINE 0.12% (ORAL KIT) 15 ML CUP MT SCH ×2 (08:00→20:11)
[2016-10-08] MEDS: SODIUM CHLORIDE 0.9% FLUSH 5 ML FLUSH IVF SCH ×2 (08:58→20:11)
[2016-10-08] MEDS: DILTIAZEM HCL 30 MG TAB PO SCH ×4 (08:58→20:12)
[2016-10-08] MEDS: MONTELUKAST SODIUM 5 MG CHEWABLE TAB PO SCH (08:58)
[2016-10-08] MEDS: PANTOPRAZOLE SOD 40 MG DELAYED RELEASE TAB PO SCH (08:58)
[2016-10-08] MEDS: levETIRAcetam INJ 500 MG in SODIUM CHLORIDE 0.9% INJ 100 ML IV SCH (08:58)
[2016-10-08] MEDS: PANTOPRAZOLE SODIUM 40 MG VIAL IVP SCH (08:58)
[2016-10-08] MEDS: DOCUSATE SODIUM 100 MG CAP PO SCH ×2 (08:58→20:12)
--- NOTE | 2016-10-08 11:42 | HHI.CCPN ---
Subjective Remarks/Hospital Course 76 y/o woman was found down and unresponsive last evening. Evaluation at [facility] revealed large acute right sided SDH with 2 cm subfalcine shift to left. 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 Required intubation and mechanical ventilation at referring facility for obtundation. Received Vit K and Kcentra then transported to [facility] where I met her on her arrival. at bedside. Largely unresponsive, will withdraw arms to pain. Mannitol bolus started. Cardiac markers elevated at OSH. Objective Vital Signs Date Time Temp Pulse Resp B/P Pulse Ox O2 Delivery O2 Flow Rate FiO2 10/08/16 11:20 98 45 10/08/16 10:00 86 10/08/16 08:00 97.9 21 168/76 10/05/16 08:50 Mechanical Ventilator Intake and Output 10/07/16 10/07/16 10/08/16 08:00 16:00 00:00 Intake Total 713 ml 889 ml 1029 ml Output Total 725 ml 635 ml 1270 ml Balance -12 ml 254 ml -241 ml Result Diagram: 10/08/16 0421 10/08/16 0421 Other Results Laboratory Tests Test 10/08/16 05:38 Blood Gas Puncture Site ART LINE Blood Gas Patient Temperature 98.6 Blood Gas HCO3 17 mmol/L (22-26) Blood Gas Base Excess -6.7 mmol/L (-2-2) Blood Gas Oxygen Saturation 97 % (90-100) Arterial Blood pH 7.42 (7.380-7.420) Arterial Blood Partial 27 mmHg (38-42) Pressure CO2 Arterial Blood Partial 178 mmHg Pressure O2 (61-120) Arterial Blood Oxygen Content 15.4 Vol % (12.0-20.0) Arterial Blood 0.9 % (0-4) Carboxyhemoglobin Arterial Blood Methemoglobin 0.9 % (0-2) Blood Gas Hemoglobin 11.0 G/DL (12.0-16.0) Oxygen Delivery Device VENTILATOR Blood Gas Ventilator Setting PRVC/AC Blood Gas Inspired Oxygen 35 % Objective Remarks P 93, BP 156/100, R 18 vent, sats 100% Lungs: Clear, no wheezes or crackles. Heart: NL S1S2, RRR, No JVD. Abdomen : Soft, nondistended, no guarding. Extremities: Warm, well perfused. Neuro: Right pupil 3 mm, non-reactive. Left pupil 2 mm, reactive. DTRs patellar 1+ brianda. Toes upgoing to plantar stimulation. Extends both legs to stimulation. + cough reflex. Disconjugate gaze. GCS 4T. A/P Problem List: (1) Acute subdural hematoma ICD Code: I62.01 Status: Acute (2) Coagulopathy ICD Code: D68.9 Status: Acute (3) Acute respiratory failure ICD Code: J96.00 Status: Acute (4) NSTEMI (non-ST elevated myocardial infarction) ICD Code: I21.4 Status: Acute Assessment and Plan PLAN: NEURO: - SDH - post Emergency SDH decompression. - continue Isotonic fluid - neurochecks per unit routine - management per NSGY CV: - NSTEMI, - hemodynamically stable - Hold Xarelto and ASA. - cardiology input appreciated RESP: - PRVC vent mode. PCO2 30-35 range. - SBT - attempt to extubate - failed yesterday due to rapid shallow breathing GI: NG to LIS. NPO. : Landers to CBD. HEME: Follow coag profile. Repeat Kcentra for problematic oozing. ID: Cultures for fevers. RENAL: Hydrate gingerly for mild dehydration unless elevated ICP. Serial mag, phos. PX: Protonix, SCDs. No chemical DVT px. Overall impression: This woman is critically ill with a life-threatening acute subdural hemorrhage, exacerbated by NOAC therapy and possibly related to a fall. She has serious brain at jeopardy and may not survive this insult. NSTEMI noted but should not preclude urgent brain decompression. Prognosis is guarded at best. I have talked with her in the ED. Level 3 Femi Vieyra MD Oct 08, 2016 11:42
[2016-10-08] MEDS: PROPOFOL 1000 MG/100 ML INJ 100 ML IV SCH ×2 (14:31→18:08)
[2016-10-08] MEDS: LORazepam 2 MG/ML VIAL IM PRN (14:52)
--- NOTE | 2016-10-08 14:57 | HHI.NSPN ---
(Kaylee lBoom) Note Status Status: Progress Note (Kaylee Bloom) Interval History Interval History Ms. Novoa is a 76 y/o woman was found unresponsive. She was found to have a acute large right sided SDH with 2 cm midline shift. She is anticoagulated with xarelto. She received Vit K and Kcentral and was transferred to [facility]. She underwent emergent right frontotemporoparietal decompressive craniectomy with evacuation of subdural hematoma, and placement of intracranial pressure monitor on 10/05/15. 10/06: POD 1, ICPs at highest overnight 11, she is on 30 of Diprivan. ICPs currently 4. She localized to LE, she does not open eyes or follow commands. Pupils are equal. 10/07: POD 2, f/u CT Brain completed this am, remains sedated for bp control. ICPs within normal limits 10/08: POD 3, minimal output from LAUREN. new onset seizures, with head rotated to left, left lateral gaze with slight nystagmus. No tonic/ clonic events in extremities. bone flap with good pulsation, decompressed but firm (Kaylee Bloom) Labs, Micro, & Vital Signs Results Date Time Temp Pulse Resp B/P Pulse Ox O2 Delivery O2 Flow Rate FiO2 10/08/16 11:44 100 35 10/08/16 11:20 98 45 10/08/16 10:00 86 10/08/16 08:00 97.9 112 21 168/76 100 10/08/16 08:00 35 10/08/16 08:00 114 10/08/16 06:00 98 10/08/16 04:15 100 35 10/08/16 04:00 35 10/08/16 04:00 104 10/08/16 02:00 120 10/08/16 01:10 100 35 10/08/16 00:00 100 10/08/16 00:00 100.8 100 19 100 120/48 10/08/16 00:00 35 10/07/16 22:00 102 10/07/16 20:00 35 10/07/16 20:00 102 10/07/16 20:00 98.6 102 17 100 160/72 10/07/16 19:41 100 35 10/07/16 18:00 94 10/07/16 16:09 100 35 10/07/16 16:00 98.3 90 17 123/57 100 10/07/16 16:00 90 10/08/16 07:00 Intake Total 2782 ml Output Total 2405 ml Balance 377 ml Constitutional Vital Signs Date Time Temp Pulse Resp B/P Pulse Ox O2 Delivery O2 Flow Rate FiO2 10/08/16 11:44 100 35 10/08/16 11:20 98 45 10/08/16 10:00 86 10/08/16 08:00 97.9 112 21 168/76 100 10/08/16 08:00 35 10/08/16 08:00 114 10/08/16 06:00 98 10/08/16 04:15 100 35 10/08/16 04:00 35 10/08/16 04:00 104 10/08/16 02:00 120 10/08/16 01:10 100 35 10/08/16 00:00 100 10/08/16 00:00 100.8 100 19 100 120/48 10/08/16 00:00 35 10/07/16 22:00 102 10/07/16 20:00 35 10/07/16 20:00 102 10/07/16 20:00 98.6 102 17 100 160/72 10/07/16 19:41 100 35 10/07/16 18:00 94 10/07/16 16:09 100 35 10/07/16 16:00 98.3 90 17 123/57 100 10/07/16 16:00 90 10/08/16 07:00 Intake Total 2782 ml Output Total 2405 ml Balance 377 ml (Kaylee Bloom) Review of Systems/Exam Exam Ms. Novoa is intubated and sedated on Diprivan. She does not open eyes or follow commands. Right flap is firm but with pulsations seen. LAUREN drains intact. Left ICP monitor in place, with ICPs low below 5 Cranial Nerves: Pupils 3 mm equal, round. Eyes appear conjugated at midline. Cervical Spine: neck is soft, supple, without nuchal rigidity. Motor: muscle tone and bulk are normal. Reflexes: There is a bilateral babinsky response Sensory: localizes to both lower extremities only Cerebellar: Examination cannot be adequately assessed due to the patient's neurological condition. (Kaylee Bloom) Medical Decision Making MDM Remarks 76 year old female found unresponsive with a large right subdural hematoma with 2 cm midline shift previously anticoagulated on Xarelto, s/p Vit K and Kcentra s/p emergent right decompressive craniectomy with evacuation of subdural hematoma and placement of intracranial pressure monitor on 10/05/16 flap remains tight but decompressed (Kaylee Bloom) Plan Plan Remarks dc LAUREN drains, cont serial neuro checks increase Keppra to 1000mg bid, repeat EEG tomorrow Neurology consult for seizures (Kaylee Bloom) Attending Statement The exam, history, and the medical decision-making described in the above note were completed with the assistance of the mid-level provider. I reviewed and agree with the findings presented. I attest that I had a [id number] encounter with the patient on the same day, and personally performed and documented my assessment and findings in the medical record. (Chandana Leon MD) Kaylee Bloom Oct 08, 2016 14:57 Chandana Leon MD Oct 10, 2016 18:12
--- NOTE | 2016-10-08 17:08 | MG ---
cc: DOMONIQUE BARRIENTOS M.D., JAN MD Lab No: Date: 10/08/16 Age: Sex: F Race: DATE OF : 1940, [address] Vieyra. ROOM: [facility] With photic stimulation. No sedation. Diprivan 15 mcg started at 1435, went up to 40 mcg at 1439, and then 2 mg of Ativan at 1444. Intubated. History of right subdural hematoma with craniectomy, decompression. Apparently the patient fell, hit her head. On Xarelto. Medicines - on Keppra. DESCRIPTION OF RECORD Has diffuse discharges, spike and wave discharges over the frontal, central, parietal regions. The left hemisphere does not exhibit any epileptic potentials. There is movement and shaking of her foot, looking to the left. Photic stimulation does not change the background. I do not see any driving response. By epoch 93 the spike and waves are starting to slow down to decrease in intensity and amplitude. She was started back on the Diprivan at 15 mcg, then 40 mcg by epoch 124 because the discharges continued and then they started to become more frequent. Then 2 mg of Diovan was given and then discharges started to decrease and nearly resolve. Then her Keppra dose was increased. IMPRESSION Abnormal EEG due to epileptic activity over the right hemisphere. Clinical correlation. Repeat EEG in a.m. Adjust medications accordingly. Domonique Barrientos MD DF/MC /4:46 PM /4:52 PM
[2016-10-08] MEDS ORDERED: FOSPHENYTOIN INJ 1,000 MGPE in SODIUM CHLORIDE 0.9% INJ 50 ML IV ONE (17:45)
--- NOTE | 2016-10-08 18:18 | MB ---
cc: NICHOLAS CHACON MD DATE OF CONSULTATION 10/08/16 1940 REASON FOR CONSULTATION Seizures with a history of subdural hematoma. HISTORY OF PRESENT ILLNESS A 76-year-old woman found unresponsive the night prior to admission I believe. She was admitted on the . Evaluation of [facility] showed a large right-sided subdural hematoma with 2 cm subfalcine shift to the left. 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 She was intubated, placed on mechanical ventilation, sedated, given vitamin Kcentra and transported to [place]. She did undergo evacuation of the subdural on 10/05. She had a decompressive craniectomy with evacuation by Dr. Leon. She was placed on Keppra as well but apparently today when they lightened her sedation, she started having flickering of her right eye and gaze deviation. She was given some Ativan, increased her Diprivan and her Keppra was increased to 1000 mg twice a day. FOCUS EXAMINATION VITAL SIGNS: Temperature is 98.3, pulse 92, respiratory rate 18, blood pressure 115/56. She is intubated on the ventilator, sedated with Diprivan. Pupils are 4 mm, sluggishly reactive, some minimal withdrawal to pain. Does not follow commands. As stated, this is a sedated exam. DTRs are trace to 1+. Tone is intact. Toes are upgoing bilaterally. Gait and cerebellar cannot be assessed. IMAGING STUDIES Last CT of the head was on 10/07 showing right craniectomy with dural drains in place, minimal right subdural hemorrhage 5 mm and new minimal hemorrhage in the right frontal lobe without mass effect. IMPRESSION A 76-year-old woman subdural hematoma status post craniectomy with seizure. Recommend continuing the Keppra at the current dose 1 gram b.i.d. I will go ahead and take a look at her EEG. She will probably have an another EEG tomorrow. We will see how she does with lightening the sedation. If she has any further seizures, I would at that point in time add lacosamide 50 mg b.i.d. We will continue to monitor, make further recommendations accordingly. MD REFUGIO Anders/ /4:36 PM /6:06 PM
--- NOTE | 2016-10-08 18:25 | PD.CARD.PN ---
Subjective Subjective Remarks intubated, sedated d/t seizures Objective Vital Signs / I&O Vital Signs Date Time Temp Pulse Resp B/P Pulse Ox O2 Delivery O2 Flow Rate FiO2 10/08/16 17:06 100 35 10/08/16 14:00 92 10/08/16 12:00 35 10/08/16 12:00 93 10/08/16 12:00 98.3 93 18 115/56 100 10/08/16 11:44 100 35 10/08/16 11:20 98 45 10/08/16 10:00 86 10/08/16 08:00 97.9 112 21 168/76 100 10/08/16 08:00 35 10/08/16 08:00 114 10/08/16 06:00 98 10/08/16 04:15 100 35 10/08/16 04:00 35 10/08/16 04:00 104 10/08/16 02:00 120 10/08/16 01:10 100 35 10/08/16 00:00 100 10/08/16 00:00 100.8 100 19 100 120/48 10/08/16 00:00 35 10/07/16 22:00 102 10/07/16 20:00 35 10/07/16 20:00 102 10/07/16 20:00 98.6 102 17 100 160/72 10/07/16 19:41 100 35 I/O 10/07/16 10/07/16 10/07/16 10/08/16 10/08/16 10/08/16 07:00 15:00 23:00 07:00 15:00 23:00 Intake Total 713 ml 889 ml 1029 ml 864 ml 913 ml Output Total 725 ml 635 ml 1270 ml 500 ml 650 ml Balance -12 ml 254 ml -241 ml 364 ml 263 ml IV Total 713 ml 889 ml 829 ml 864 ml 813 ml Tube Irrigant 200 ml Other 100 ml Output Urine Total 625 ml 620 ml 1250 ml 450 ml 550 ml Gastric Drainage Total 100 ml 0 ml 0 ml 50 ml 100 ml Drainage Total 0 ml 15 ml 20 ml 0 ml # Bowel Movements 0 0 0 0 0 Physical Exam GENERAL: SKIN: Warm and dry. HEAD: Normocephalic. EYES: No scleral icterus. No injection or drainage. NECK: Supple, trachea midline. No JVD or lymphadenopathy. CARDIOVASCULAR: Regular rate and rhythm without murmurs, gallops, or rubs. RESPIRATORY: Breath sounds equal bilaterally. No accessory muscle use. GASTROINTESTINAL: Abdomen soft, non-tender, nondistended. MUSCULOSKELETAL: No cyanosis, or edema. BACK: Nontender without obvious deformity. No CVA tenderness. Laboratory Laboratory Tests Test 10/08/16 10/08/16 04:21 05:38 White Blood Count 18.9 TH/MM3 Red Blood Count 2.91 MIL/MM3 Hemoglobin 8.6 GM/DL Hematocrit 26.5 % Mean Corpuscular Volume 90.9 FL Mean Corpuscular Hemoglobin 29.7 PG Mean Corpuscular Hemoglobin 32.7 % Concent Red Cell Distribution Width 16.9 % Platelet Count 304 TH/MM3 Mean Platelet Volume 7.7 FL Neutrophils (%) (Auto) 80.1 % Lymphocytes (%) (Auto) 7.4 % Monocytes (%) (Auto) 12.3 % Eosinophils (%) (Auto) 0.0 % Basophils (%) (Auto) 0.2 % Neutrophils # (Auto) 15.2 TH/MM3 Lymphocytes # (Auto) 1.4 TH/MM3 Monocytes # (Auto) 2.3 TH/MM3 Eosinophils # (Auto) 0.0 TH/MM3 Basophils # (Auto) 0.0 TH/MM3 CBC Comment AUTO DIFF Differential Comment AUTO DIFF CONFIRMED Platelet Estimate NORMAL Platelet Morphology Comment NORMAL Sodium Level 141 MEQ/L Potassium Level 4.2 MEQ/L Chloride Level 110 MEQ/L Carbon Dioxide Level 19.0 MEQ/L Anion Gap 12 MEQ/L Blood Urea Nitrogen 16 MG/DL Creatinine 0.44 MG/DL Estimat Glomerular Filtration 139 ML/MIN Rate Random Glucose 96 MG/DL Calcium Level 7.7 MG/DL Phosphorus Level 2.8 MG/DL Magnesium Level 2.1 MG/DL Total Bilirubin 0.6 MG/DL Aspartate Amino Transf 35 U/L (AST/SGOT) Alanine Aminotransferase 16 U/L (ALT/SGPT) Alkaline Phosphatase 57 U/L Total Protein 5.8 GM/DL Albumin 2.0 GM/DL Blood Gas Puncture Site ART LINE Blood Gas Patient Temperature 98.6 Blood Gas HCO3 17 mmol/L Blood Gas Base Excess -6.7 mmol/L Blood Gas Oxygen Saturation 97 % Arterial Blood pH 7.42 Arterial Blood Partial 27 mmHg Pressure CO2 Arterial Blood Partial 178 mmHg Pressure O2 Arterial Blood Oxygen Content 15.4 Vol % Arterial Blood 0.9 % Carboxyhemoglobin Arterial Blood Methemoglobin 0.9 % Blood Gas Hemoglobin 11.0 G/DL Oxygen Delivery Device VENTILATOR Blood Gas Ventilator Setting PRVC/AC Blood Gas Inspired Oxygen 35 % Assessment and Plan Problem List: (1) HTN (hypertension) (2) PAD (peripheral artery disease) (3) Left carotid artery occlusion (4) CAD (coronary artery disease) (5) Acute respiratory failure (6) Subdural hematoma (7) Coagulopathy (8) NSTEMI (non-ST elevated myocardial infarction) (9) Acute subdural hematoma Assessment and Plan 1.) SDH - ekg suggests possible recent anteroseptal mi, ac contraindicated d/t life threatening ich, beta blockers, lyssa held d/t hypotension and ich; continue statin, supportive care, neurologic prognosis uncertain 2.) Ischemic cardiomyopathy - lyssa inhibitor and beta blockers held d/t labile bp , hypotensive episodes and recent ich Marcus Medel MD Oct 08, 2016 18:25
[2016-10-08] MEDS ORDERED: levETIRAcetam INJ 750 MG in SODIUM CHLORIDE 0.9% INJ 100 ML IV SCH (20:00)
[2016-10-08] MEDS: levETIRAcetam 1000 MG INJ 100 ML IV SCH (20:11)
[2016-10-08] MEDS: ATORVASTATIN 20 MG TAB PO SCH (20:12)
[2016-10-08] MEDS: PHENYLEPHRINE 40 MG/D5W 496 ML ADMIX IV SCH ×2 (21:17)
[2016-10-08] MEDS ORDERED: PHENYLEPHRINE 40 MG/D5W 496 ML ADMIX IV SCH ×2 (22:00)
[2016-10-09] VITALS (14 sets, daily range): BP systolic 101–112; BP diastolic 37–51; PULSE 73–113; RESP 16–27; TEMP 98.9–103; O2SAT 94–100
[2016-10-09] MEDS: PROPOFOL 1000 MG/100 ML INJ 100 ML IV SCH ×4 (00:35→18:36)
[2016-10-09] MEDS: CHLORHEXIDINE GLUCONATE 2 % 1 PACK (2 CLOTHS) TOP SCH (03:15)
[2016-10-09 03:40] LABS: AUTOMATED NEUTROPHIL # 10.6 TH/MM3 (1.8-7.7); BASOPHIL % 0.1 % (0.0-2.0); EOSINOPHIL % 0.1 % (0.0-4.0); HEMATOCRIT 23.1 % (35.0-46.0); LYMPH % 9.4 % (9.0-44.0); LYMPHOCYTE # 1.3 TH/MM3 (1.0-4.8); MEAN CELL VOLUME 90.7 FL (80.0-100.0); MEAN CORPUSCULAR HEMOGLOBIN 29.9 PG (27.0-34.0); MEAN CORPUSCULAR HGB CONC 32.9 % (32.0-36.0); MONO % 15.8 % (0.0-8.0); NEUT % 74.6 % (16.0-70.0); PLATELET COUNT 338 TH/MM3 (150-450); RED BLOOD COUNT 2.54 MIL/MM3 (4.00-5.30); RED CELL DISTRIBUTION WIDTH 16.8 % (11.6-17.2); WHITE BLOOD COUNT 14.3 TH/MM3 (4.0-11.0)
[2016-10-09 03:44] LABS: HEMO FLAGS AUTO DIFF
[2016-10-09 04:05] LABS: ALT (GPT) 19 U/L (10-53); ANION GAP 9 MEQ/L (5-15); AST (GOT) 32 U/L (15-37); BICARBONATE 20.9 MEQ/L (21.0-32.0); BLOOD UREA NITROGEN 17 MG/DL (7-18); CHLORIDE 111 MEQ/L (98-107); GLOMERULAR FILTRATION RATE 160 ML/MIN (>89); MAGNESIUM 2.1 MG/DL (1.5-2.5); POTASSIUM 4.4 MEQ/L (3.5-5.1); SODIUM (NA) 141 MEQ/L (136-145)
[2016-10-09 04:08] LABS: ALKALINE PHOSPHATASE 58 U/L (45-117); TOTAL BILIRUBIN ADULT 0.3 MG/DL (0.2-1.0)
[2016-10-09 05:51] LABS: BLOOD GAS BASE EXCESS -6.3 mmol/L (-2-2); BLOOD GAS CARBOXYHEMOGLOBIN 0.6 % (0-4); BLOOD GAS HCO3 17 mmol/L (22-26); BLOOD GAS METHEMOGLOBIN 0.7 % (0-2); BLOOD GAS O2 HGB SATURATION 98 % (90-100); BLOOD GAS OXYGEN CONTENT 21.7 Vol % (12.0-20.0); BLOOD GAS PCO2 27 mmHg (38-42); BLOOD GAS PO2 148 mmHg (61-120); BLOOD GAS TOTAL HGB 15.7 G/DL (12.0-16.0); CRITICAL VALUE NO; OXYGEN DEVICE VENTILATOR; TEMP CORR TO 98.6
[2016-10-09 05:52] LABS: DRAW SITE ART LINE; FIO2 35 %; STAT NO; VENT SETTINGS PRVC/AC
[2016-10-09 05:57] LABS: SCAN/DIFF AUTO DIFF CONFIRMED
--- NOTE | 2016-10-09 06:38 | RADRPT ---
EXAM DATE/TIME: 10/09/2016 05:37 [place] COMPARISON: CHEST SINGLE AP, October 08, 2016, 6:02. INDICATIONS : Shortness of breath. MEDICAL HISTORY : Hypertension. SURGICAL HISTORY : Loop recorder. Neurostimulator. ENCOUNTER: Subsequent ACUITY: 4 - 6 days PAIN SCORE: Non-responsive. LOCATION: Bilateral chest FINDINGS: The cardiac silhouette is enlarged in transverse diameter. The patient is rotated into the right post erior oblique position. There is increasing right perihilar edema versus pneumonia. No pleural effusi ons are identified. CONCLUSION: 1. Cardiomegaly. Right perihilar edema versus pneumonia. The findings have worsened when compared wit h the prior examination. Severo Love MD on October 09, 2016 at 6:36 Board Certified Radiologist. This report was verified electronically.
--- NOTE | 2016-10-09 06:40 | HHI.NSPN ---
History Chief Complaint: SDH s/p right crani. Interval History Ms. Novoa is a 76 y/o woman was found unresponsive. She was found to have a acute large right sided SDH with 2 cm midline shift. She is anticoagulated with xarelto. She received Vit K and Kcentral and was transferred to [facility]. She underwent emergent right frontotemporoparietal decompressive craniectomy with evacuation of subdural hematoma, and placement of intracranial pressure monitor on 10/05/15. 10/06: POD 1, ICPs at highest overnight 11, she is on 30 of Diprivan. ICPs currently 4. She localized to LE, she does not open eyes or follow commands. Pupils are equal. 10/07: POD 2, f/u CT Brain completed this am, remains sedated for bp control. ICPs within normal limits 10/08: POD 3, minimal output from [facility]. new onset seizures, with head rotated to left, left lateral gaze with slight nystagmus. No tonic/ clonic events in extremities. bone flap with good pulsation, decompressed but firm 10/09: POD 4: Not opening eyes or following commands. Intubated. Pt started on phenylephrine drip last night. Pupils equal. Pt on low dose Diprivan drip. System Review Comments Not able to obtain given level clinical condition. Exam Results Vital Signs Date Time Temp Pulse Resp B/P Pulse Ox O2 Delivery O2 Flow Rate FiO2 10/09/16 06:00 80 10/09/16 04:20 100 35 10/09/16 04:00 98.9 16 109/47 10/05/16 08:50 Mechanical Ventilator Intake and Output 10/08/16 10/08/16 10/09/16 08:00 16:00 00:00 Intake Total 864 ml 913 ml 1121 ml Output Total 500 ml 650 ml 525 ml Balance 364 ml 263 ml 596 ml Physical Examination Resp: Intubated PRVC A/C rate 16 Heart: NSR no murmurs Abd: Soft positive bs Skin: Incision clean and dry. No signs of infection Muscle: Not following for muscle testing. Withdraws all 4 extremities. Left hemiparesis. Neuro: Pt on low dose Diprivan. Not opening eyes. Not following commands. Pupils 3mm bilaterally. Withdraws extremities Left hemiparesis. Lab, Micro, Other Results Last Impressions Chest X-Ray 10/08/16 06 Signed Impressions: Service Date/Time: Saturday, October 08, 2016 06:02 - CONCLUSION: 1. Satisfactory position of endotracheal tube as above. 2. No acute cardiopulmonary disease. Severo Love MD Head CT 10/07/16 06 Signed Impressions: Service Date/Time: September 04:19 - CONCLUSION: 1. Right craniectomy with dural drains in place. 2. Minimal right subdural hemorrhage measures 5 mm. 3. There is some new minimal hemorrhage along the lower right frontal lobe without significant mass effect. 4. Minimal intraventricular hemorrhage. Keshav Blakely MD Laboratory Tests Test 10/09/16 10/09/16 03:15 05:39 White Blood Count 14.3 TH/MM3 Red Blood Count 2.54 MIL/MM3 Hemoglobin 7.6 GM/DL Hematocrit 23.1 % Mean Corpuscular Volume 90.7 FL Mean Corpuscular Hemoglobin 29.9 PG Mean Corpuscular Hemoglobin 32.9 % Concent Red Cell Distribution Width 16.8 % Platelet Count 338 TH/MM3 Mean Platelet Volume 7.5 FL Neutrophils (%) (Auto) 74.6 % Lymphocytes (%) (Auto) 9.4 % Monocytes (%) (Auto) 15.8 % Eosinophils (%) (Auto) 0.1 % Basophils (%) (Auto) 0.1 % Neutrophils # (Auto) 10.6 TH/MM3 Lymphocytes # (Auto) 1.3 TH/MM3 Monocytes # (Auto) 2.2 TH/MM3 Eosinophils # (Auto) 0.0 TH/MM3 Basophils # (Auto) 0.0 TH/MM3 CBC Comment AUTO DIFF Differential Comment AUTO DIFF CONFIRMED Sodium Level 141 MEQ/L Potassium Level 4.4 MEQ/L Chloride Level 111 MEQ/L Carbon Dioxide Level 20.9 MEQ/L Anion Gap 9 MEQ/L Blood Urea Nitrogen 17 MG/DL Creatinine 0.39 MG/DL Estimat Glomerular Filtration 160 ML/MIN Rate Random Glucose 157 MG/DL Calcium Level 7.8 MG/DL Phosphorus Level 2.3 MG/DL Magnesium Level 2.1 MG/DL Total Bilirubin 0.3 MG/DL Aspartate Amino Transf 32 U/L (AST/SGOT) Alanine Aminotransferase 19 U/L (ALT/SGPT) Alkaline Phosphatase 58 U/L Total Protein 5.5 GM/DL Albumin 1.9 GM/DL Blood Gas Puncture Site ART LINE Blood Gas Patient Temperature 98.6 Blood Gas HCO3 17 mmol/L Blood Gas Base Excess -6.3 mmol/L Blood Gas Oxygen Saturation 98 % Arterial Blood pH 7.42 Arterial Blood Partial 27 mmHg Pressure CO2 Arterial Blood Partial 148 mmHg Pressure O2 Arterial Blood Oxygen Content 21.7 Vol % Arterial Blood 0.6 % Carboxyhemoglobin Arterial Blood Methemoglobin 0.7 % Blood Gas Hemoglobin 15.7 G/DL Oxygen Delivery Device VENTILATOR Blood Gas Ventilator Setting PRVC/AC Blood Gas Inspired Oxygen 35 % 10/08/16 10/08/16 10/09/16 15:00 23:00 07:00 Intake Total 913 ml 1121 ml 1416 ml Output Total 650 ml 525 ml 550 ml Balance 263 ml 596 ml 866 ml IV Total 813 ml 1053 ml 1235 ml Tube Feeding 68 ml 181 ml Other 100 ml Output Urine Total 550 ml 525 ml 550 ml Gastric Drainage Total 100 ml # Bowel Movements 0 0 0 Medical Decision Making Impression and Plan A: 76 year old female found unresponsive with a large right subdural hematoma with 2 cm midline shift previously anticoagulated on Xarelto, s/p Vit K and Kcentra s/p emergent right decompressive craniectomy with evacuation of subdural hematoma and placement of intracranial pressure monitor on 10/05/16 flap remains tight but decompressed Seizures P: Continue to monitor Continue with current care. Neurology following for seizure management Continue with critical care. Keshav Cadena Oct 09, 2016 06:40
[2016-10-09] MEDS: CHLORHEXIDINE 0.12% (ORAL KIT) 15 ML CUP MT SCH ×2 (08:00→20:35)
[2016-10-09] MEDS: PANTOPRAZOLE SODIUM 40 MG VIAL IVP SCH (08:33)
[2016-10-09] MEDS: DOCUSATE SODIUM 100 MG CAP PO SCH ×2 (08:33→20:38)
--- NOTE | 2016-10-09 08:33 | PD.CARD.PN ---
Subjective Subjective Remarks intubated, sedated Objective Vital Signs / I&O Vital Signs Date Time Temp Pulse Resp B/P Pulse Ox O2 Delivery O2 Flow Rate FiO2 10/09/16 08:00 100.1 81 16 112/46 100 Automatic Cuff 10/09/16 08:00 30 10/09/16 08:00 81 10/09/16 06:00 80 10/09/16 04:20 100 35 10/09/16 04:00 98.9 73 16 100 109/47 10/09/16 04:00 35 10/09/16 04:00 73 10/09/16 02:00 86 10/09/16 01:36 100 35 10/09/16 00:00 99.3 74 16 100 106/49 10/09/16 00:00 35 10/09/16 00:00 74 10/08/16 22:08 100 35 10/08/16 22:00 83 10/08/16 20:00 98.3 86 16 100 110/45 10/08/16 20:00 86 10/08/16 20:00 35 10/08/16 19:58 100 35 10/08/16 18:00 92 10/08/16 17:06 100 35 10/08/16 16:00 97.9 94 18 120/58 100 10/08/16 16:00 94 10/08/16 16:00 35 10/08/16 14:00 92 10/08/16 12:00 35 10/08/16 12:00 93 10/08/16 12:00 98.3 93 18 115/56 100 10/08/16 11:45 35 10/08/16 11:44 100 35 10/08/16 11:20 98 45 10/08/16 10:00 86 I/O 10/08/16 10/08/16 10/08/16 10/09/16 10/09/16 10/09/16 07:00 15:00 23:00 07:00 15:00 23:00 Intake Total 864 ml 913 ml 1121 ml 1416 ml Output Total 500 ml 650 ml 525 ml 550 ml 0 ml Balance 364 ml 263 ml 596 ml 866 ml 0 ml IV Total 864 ml 813 ml 1053 ml 1235 ml Tube Feeding 68 ml 181 ml Other 100 ml Output Urine Total 450 ml 550 ml 525 ml 550 ml Gastric Drainage Total 50 ml 100 ml Tube Feeding Residual Discard 0 ml Drainage Total 0 ml # Bowel Movements 0 0 0 0 Physical Exam GENERAL: SKIN: Warm and dry. HEAD: Normocephalic. EYES: No scleral icterus. No injection or drainage. NECK: Supple, trachea midline. No JVD or lymphadenopathy. CARDIOVASCULAR: Regular rate and rhythm without murmurs, gallops, or rubs. RESPIRATORY: Breath sounds equal bilaterally. No accessory muscle use. GASTROINTESTINAL: Abdomen soft, non-tender, nondistended. MUSCULOSKELETAL: No cyanosis, or edema. BACK: Nontender without obvious deformity. No CVA tenderness. Laboratory Laboratory Tests Test 10/09/16 10/09/16 03:15 05:39 White Blood Count 14.3 TH/MM3 Red Blood Count 2.54 MIL/MM3 Hemoglobin 7.6 GM/DL Hematocrit 23.1 % Mean Corpuscular Volume 90.7 FL Mean Corpuscular Hemoglobin 29.9 PG Mean Corpuscular Hemoglobin 32.9 % Concent Red Cell Distribution Width 16.8 % Platelet Count 338 TH/MM3 Mean Platelet Volume 7.5 FL Neutrophils (%) (Auto) 74.6 % Lymphocytes (%) (Auto) 9.4 % Monocytes (%) (Auto) 15.8 % Eosinophils (%) (Auto) 0.1 % Basophils (%) (Auto) 0.1 % Neutrophils # (Auto) 10.6 TH/MM3 Lymphocytes # (Auto) 1.3 TH/MM3 Monocytes # (Auto) 2.2 TH/MM3 Eosinophils # (Auto) 0.0 TH/MM3 Basophils # (Auto) 0.0 TH/MM3 CBC Comment AUTO DIFF Differential Comment AUTO DIFF CONFIRMED Sodium Level 141 MEQ/L Potassium Level 4.4 MEQ/L Chloride Level 111 MEQ/L Carbon Dioxide Level 20.9 MEQ/L Anion Gap 9 MEQ/L Blood Urea Nitrogen 17 MG/DL Creatinine 0.39 MG/DL Estimat Glomerular Filtration 160 ML/MIN Rate Random Glucose 157 MG/DL Calcium Level 7.8 MG/DL Phosphorus Level 2.3 MG/DL Magnesium Level 2.1 MG/DL Total Bilirubin 0.3 MG/DL Aspartate Amino Transf 32 U/L (AST/SGOT) Alanine Aminotransferase 19 U/L (ALT/SGPT) Alkaline Phosphatase 58 U/L Total Protein 5.5 GM/DL Albumin 1.9 GM/DL Blood Gas Puncture Site ART LINE Blood Gas Patient Temperature 98.6 Blood Gas HCO3 17 mmol/L Blood Gas Base Excess -6.3 mmol/L Blood Gas Oxygen Saturation 98 % Arterial Blood pH 7.42 Arterial Blood Partial 27 mmHg Pressure CO2 Arterial Blood Partial 148 mmHg Pressure O2 Arterial Blood Oxygen Content 21.7 Vol % Arterial Blood 0.6 % Carboxyhemoglobin Arterial Blood Methemoglobin 0.7 % Blood Gas Hemoglobin 15.7 G/DL Oxygen Delivery Device VENTILATOR Blood Gas Ventilator Setting PRVC/AC Blood Gas Inspired Oxygen 35 % Assessment and Plan Problem List: (1) HTN (hypertension) (2) PAD (peripheral artery disease) (3) Left carotid artery occlusion (4) CAD (coronary artery disease) (5) Acute respiratory failure (6) Subdural hematoma (7) Coagulopathy (8) NSTEMI (non-ST elevated myocardial infarction) (9) Acute subdural hematoma Assessment and Plan 1.) SDH - ekg suggests possible recent anteroseptal mi, ac contraindicated d/t life threatening ich, beta blockers, lyssa held d/t hypotension and ich; continue statin, supportive care, neurologic prognosis uncertain 2.) Ischemic cardiomyopathy - lyssa inhibitor and beta blockers held d/t labile bp , hypotensive episodes and recent ich Marcus Medel MD Oct 09, 2016 08:33
[2016-10-09] MEDS: levETIRAcetam 1000 MG INJ 100 ML IV SCH ×2 (08:34→20:37)
[2016-10-09] MEDS: PANTOPRAZOLE SOD 40 MG DELAYED RELEASE TAB PO SCH (08:34)
[2016-10-09] MEDS: SODIUM CHLORIDE 0.9% FLUSH 5 ML FLUSH IVF SCH ×2 (08:34→20:38)
[2016-10-09] MEDS: MONTELUKAST SODIUM 5 MG CHEWABLE TAB PO SCH (08:34)
[2016-10-09] MEDS: DILTIAZEM HCL 30 MG TAB PO SCH ×4 (09:00→20:38)
--- NOTE | 2016-10-09 14:54 | MG ---
cc: NICHOLAS CHACON M.D. Lab No: [id number] Date: 10/09/16 Age: Sex: F Race: DATE OF : 1940, 76 YEARS OLD REFERRING [facility] ROOM 1332 With photic only. Intubated, sedated with Diprivan 25 mics, turned on at 8 minutes 45 seconds into test. Deep tactile stimulation done, withdrew bilaterally in the legs only. Status post frontotemporal decompressive craniotomy. EEG yesterday showed epileptic activity of the right hemisphere. MEDICINES Keppra, propofol. DESCRIPTION OF RECORD There are some sharp waves noted over the right hemisphere but not improved from yesterday. Overall background is slow predominately of delta frequency at times. There is a lot of muscle artifact. Sedation was resumed at epoch 55 with improvement at times over the right hemisphere. Photic stimulation - no significant driving response. IMPRESSION Abnormal EEG due to ongoing sharps still seen over the right hemisphere. Concerning for ongoing epileptic focus. Clinical correlation. Adjustment of medications and/or add on therapy recommended. MD REFUGIO Anders/MC /2:01 PM /2:40 PM
--- NOTE | 2016-10-09 16:00 | HHI.CCPN ---
Subjective Remarks/Hospital Course 76 y/o woman was found down and unresponsive last evening. Evaluation at [facility] revealed large acute right sided SDH with 2 cm subfalcine shift to left. 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 Required intubation and mechanical ventilation at referring facility for obtundation. Received Vit K and Kcentra then transported to [facility] where I met her on her arrival. at bedside. Largely unresponsive, will withdraw arms to pain. Mannitol bolus started. Cardiac markers elevated at OSH. Objective Vital Signs Date Time Temp Pulse Resp B/P Pulse Ox O2 Delivery O2 Flow Rate FiO2 10/09/16 12:00 99.7 90 18 111/45 100 10/09/16 10:21 30 10/05/16 08:50 Mechanical Ventilator Intake and Output 10/08/16 10/08/16 10/09/16 08:00 16:00 00:00 Intake Total 864 ml 913 ml 1121 ml Output Total 500 ml 650 ml 525 ml Balance 364 ml 263 ml 596 ml Result Diagram: 10/09/165 10/09/165 Other Results Laboratory Tests Test 10/09/16 05:39 Blood Gas Puncture Site ART LINE Blood Gas Patient Temperature 98.6 Blood Gas HCO3 17 mmol/L (22-26) Blood Gas Base Excess -6.3 mmol/L (-2-2) Blood Gas Oxygen Saturation 98 % (90-100) Arterial Blood pH 7.42 (7.380-7.420) Arterial Blood Partial 27 mmHg (38-42) Pressure CO2 Arterial Blood Partial 148 mmHg Pressure O2 (61-120) Arterial Blood Oxygen Content 21.7 Vol % (12.0-20.0) Arterial Blood 0.6 % (0-4) Carboxyhemoglobin Arterial Blood Methemoglobin 0.7 % (0-2) Blood Gas Hemoglobin 15.7 G/DL (12.0-16.0) Oxygen Delivery Device VENTILATOR Blood Gas Ventilator Setting PRVC/AC Blood Gas Inspired Oxygen 35 % Objective Remarks P 93, BP 156/100, R 18 vent, sats 100% Lungs: Clear, no wheezes or crackles. Heart: NL S1S2, RRR, No JVD. Abdomen : Soft, nondistended, no guarding. Extremities: Warm, well perfused. Neuro: Right pupil 3 mm, non-reactive. Left pupil 2 mm, reactive. DTRs patellar 1+ brianda. Toes upgoing to plantar stimulation. Extends both legs to stimulation. + cough reflex. Disconjugate gaze. GCS 4T. A/P Problem List: (1) Acute subdural hematoma ICD Code: I62.01 Status: Acute (2) Coagulopathy ICD Code: D68.9 Status: Acute (3) Acute respiratory failure ICD Code: J96.00 Status: Acute (4) NSTEMI (non-ST elevated myocardial infarction) ICD Code: I21.4 Status: Acute Assessment and Plan PLAN: NEURO: - SDH - post Emergency SDH decompression. - continue Isotonic fluid - neurochecks per unit routine - management per NSGY Seizure - Keppra - Loaded with Fosphenytoin - Neurology appreciated CV: - NSTEMI, - hemodynamically stable - Hold Xarelto and ASA. - cardiology input appreciated RESP: - PRVC vent mode. PCO2 30-35 range. - SBT on hold due to persistent seizure activity while off propofol GI: NG to LIS. NPO. : [place] to CBD. HEME: Follow coag profile. Repeat Kcentra for problematic oozing. ID: Cultures for fevers. RENAL: Hydrate gingerly for mild dehydration unless elevated ICP. Serial mag, phos. PX: Protonix, SCDs. No chemical DVT px. Overall impression: This woman is critically ill with a life-threatening acute subdural hemorrhage, exacerbated by NOAC therapy and possibly related to a fall. She has serious brain at jeopardy and may not survive this insult. NSTEMI noted but should not preclude urgent brain decompression. Prognosis is guarded at best. I have talked with her in the ED. Level 3 Femi Vieyra MD Oct 09, 2016 16:00
[2016-10-09] MEDS: ACETAMINOPHEN 325 MG TAB PO PRN (16:16)
[2016-10-09] MEDS: LACOSAMIDE INJ 50 MG in SODIUM CHLORIDE 0.9% INJ 100 ML IV SCH ×2 (16:46→20:37)
[2016-10-09] MEDS ORDERED: VANCOMYCIN INJ 1,000 MG in SODIUM CHLOR 0.9% 250 ML INJ 250 ML IV ONE (17:00)
[2016-10-09] MEDS: CEFEPIME INJ 2,000 MG in SODIUM CHLORIDE 0.9% INJ 100 ML IV SCH (18:32)
[2016-10-09 18:38] LABS: LACTIC ACID,CSF 4.3 MMOL/L (0.0-3.0)
[2016-10-09 18:51] LABS: GROSS BLOOD TUBE #1 4+ (0); GROSS BLOOD TUBE #2 4+ (0); GROSS BLOOD TUBE #3 4+ (0); SUPERNATE COLOR TUBE #1 XANTHOCHROMIC (CLEAR); SUPERNATE COLOR TUBE #2 XANTHOCHROMIC (CLEAR); SUPERNATE COLOR TUBE #3 XANTHOCHROMIC (CLEAR)
[2016-10-09 18:52] LABS: CSF LYMPHOCYTES 18 %; CSF MONOCYTES 2 %; CSF NEUTROPHILS 80 %; GROSS BLOOD TUBE #4 4+ (0); SUPERNATE COLOR TUBE #4 XANTHOCHROMIC (CLEAR); VOLUME TUBE # 4 2.5 ML
[2016-10-09 20:25] LABS: BACTERIA, URINE OCC /hpf; BLOOD, URINE TRACE (NEG); GLUCOSE,URINE 300 mg/dL (NEG); KETONE, URINE NEG (NEG); MUCUS URINE FEW /lpf (OCC); NITRITE,URINE NEG (NEG); SQUAMOUS EPITHELIAL CELL URINE 1 /hpf (0-5); URINE COLOR YELLOW (YELLW/STRAW)
[2016-10-09 20:26] LABS: COMMENT (UR) CATH-CULTURE IND; CULTURE IF INDICATED CATH CULTURE IND
[2016-10-09] MEDS: ATORVASTATIN 20 MG TAB PO SCH (20:38)
[2016-10-09] MEDS: LORazepam 2 MG/ML VIAL IM PRN (22:05)
[2016-10-10] VITALS (16 sets, daily range): BP systolic 88–110; BP diastolic 42–56; PULSE 80–110; RESP 16–25; TEMP 97.7–100; O2SAT 95–100
[2016-10-10] MEDS: CHLORHEXIDINE GLUCONATE 2 % 1 PACK (2 CLOTHS) TOP SCH (01:37)
[2016-10-10] MEDS: CEFEPIME INJ 2,000 MG in SODIUM CHLORIDE 0.9% INJ 100 ML IV SCH ×2 (05:32→18:00)
--- NOTE | 2016-10-10 06:44 | HHI.NSPN ---
(Keshav Cadena) History Chief Complaint: SDH s/p right crani. (Keshav Cadena) Interval History Ms. Novoa is a 76 y/o woman was found unresponsive. She was found to have a acute large right sided SDH with 2 cm midline shift. She is anticoagulated with xarelto. She received Vit K and Kcentral and was transferred to [facility]. She underwent emergent right frontotemporoparietal decompressive craniectomy with evacuation of subdural hematoma, and placement of intracranial pressure monitor on 10/05/15. 10/06: POD 1, ICPs at highest overnight 11, she is on 30 of Diprivan. ICPs currently 4. She localized to LE, she does not open eyes or follow commands. Pupils are equal. 10/07: POD 2, f/u CT Brain completed this am, remains sedated for bp control. ICPs within normal limits 10/08: POD 3, minimal output from [facility]. new onset seizures, with head rotated to left, left lateral gaze with slight nystagmus. No tonic/ clonic events in extremities. bone flap with good pulsation, decompressed but firm 10/09: POD 4: Not opening eyes or following commands. Intubated. Pt started on phenylephrine drip last night. Pupils equal. Pt on low dose Diprivan drip. 10/10/16: Pt not opening eyes or following commands. Intubated. Remains on phenylephedrine drip. When Diprivan weaned pt reportedly has seizure activity. Pupils 3mm bilaterally. (Keshav Cadena) System Review Comments Not able to obtain given level of alertness. (Keshav Cadena) Exam Results Vital Signs Date Time Temp Pulse Resp B/P Pulse Ox O2 Delivery O2 Flow Rate FiO2 10/10/16 06:00 99 10/10/16 04:44 97 50 10/10/16 04:00 98.5 20 89/42 88/52 Intake and Output 10/09/16 10/09/16 10/10/16 08:00 16:00 00:00 Intake Total 1416 ml 1628 ml 1524 ml Output Total 550.0 ml 575.0 ml 2100 ml Balance 866.0 ml 1053.0 ml -576 ml (Keshav Cadena) Physical Examination Resp: Intubated PRVC A/C rate 16 Heart: NSR no murmurs Abd: Soft positive bs Skin: Incision clean and dry. No signs of infection Muscle: Not following for muscle testing. Withdraws all 4 extremities. Neuro: Pt on low dose Diprivan. Not opening eyes. Not following commands. Pupils 3mm bilaterally. Withdraws extremities Left hemiparesis. (Keshav Cadena) Lab, Micro, Other Results Laboratory Tests Test 10/09/16 03:15 White Blood Count 14.3 TH/MM3 Red Blood Count 2.54 MIL/MM3 Hemoglobin 7.6 GM/DL Hematocrit 23.1 % Mean Corpuscular Volume 90.7 FL Mean Corpuscular Hemoglobin 29.9 PG Mean Corpuscular Hemoglobin 32.9 % Concent Red Cell Distribution Width 16.8 % Platelet Count 338 TH/MM3 Mean Platelet Volume 7.5 FL Neutrophils (%) (Auto) 74.6 % Lymphocytes (%) (Auto) 9.4 % Monocytes (%) (Auto) 15.8 % Eosinophils (%) (Auto) 0.1 % Basophils (%) (Auto) 0.1 % Neutrophils # (Auto) 10.6 TH/MM3 Lymphocytes # (Auto) 1.3 TH/MM3 Monocytes # (Auto) 2.2 TH/MM3 Eosinophils # (Auto) 0.0 TH/MM3 Basophils # (Auto) 0.0 TH/MM3 CBC Comment AUTO DIFF Differential Comment AUTO DIFF CONFIRMED Laboratory Tests Test 10/09/16 03:15 Sodium Level 141 MEQ/L Potassium Level 4.4 MEQ/L Chloride Level 111 MEQ/L Carbon Dioxide Level 20.9 MEQ/L Anion Gap 9 MEQ/L Blood Urea Nitrogen 17 MG/DL Creatinine 0.39 MG/DL Estimat Glomerular Filtration 160 ML/MIN Rate Random Glucose 157 MG/DL Calcium Level 7.8 MG/DL Phosphorus Level 2.3 MG/DL Magnesium Level 2.1 MG/DL Total Bilirubin 0.3 MG/DL Aspartate Amino Transf 32 U/L (AST/SGOT) Alanine Aminotransferase 19 U/L (ALT/SGPT) Alkaline Phosphatase 58 U/L Total Protein 5.5 GM/DL Albumin 1.9 GM/DL Microbiology Date/Time Procedure Status Source Growth 10/09/16 16:32 Gram Stain - Final Resulted Sputum Endotracheal 10/09/16 16:32 Sputum Culture Resulted Sputum Endotracheal Pending 10/09/16 16:32 Urine Culture Received Urine Catheterized Urine Pending 10/09/16 17:15 Gram Stain - Final Resulted Cerebral Spinal Fluid Lumbar Puncture 10/09/16 17:15 CSF Culture Resulted Cerebral Spinal Fluid Lumbar Puncture Pending 10/09/16 21:47 Aerobic Blood Culture Received Blood Peripheral Pending 10/09/16 21:47 Anaerobic Blood Culture Received Blood Peripheral Pending Last Impressions Chest X-Ray 10/09/16 0600 Signed Impressions: Service Date/Time: Sunday, October 09, 2016 05:37 - CONCLUSION: 1. Cardiomegaly. Right perihilar edema versus pneumonia. The findings have worsened when compared with the prior examination. Severo Love MD Head CT 10/07/16 0600 Signed Impressions: Service Date/Time: September 04:19 - CONCLUSION: 1. Right craniectomy with dural drains in place. 2. Minimal right subdural hemorrhage measures 5 mm. 3. There is some new minimal hemorrhage along the lower right frontal lobe without significant mass effect. 4. Minimal intraventricular hemorrhage. Keshav Blakely MD Laboratory Tests Test 10/09/16 10/09/16 16:32 17:15 Urine Color YELLOW Urine Turbidity HAZY Urine pH 5.0 Urine Specific [place] 1.016 Urine Protein TRACE mg/dL Urine Glucose (UA) 300 mg/dL Urine Ketones NEG mg/dL Urine Occult Blood TRACE Urine Nitrite NEG Urine Bilirubin NEG Urine Urobilinogen LESS THAN 2.0 MG/DL Urine Leukocyte Esterase LARGE Urine RBC 14 /hpf Urine WBC 40 /hpf Urine Squamous Epithelial 1 /hpf Cells Urine Bacteria OCC /hpf Urine Mucus FEW /lpf Urine Yeast (Budding) FEW Microscopic Urinalysis Comment CATH-CULTURE IND CSF Volume (Tube 1) 2.0 ML CSF Supernatant Color (tube 1) XANTHOCHROMIC CSF Gross Blood (Tube 1) 4+ CSF Volume (Tube 2) 2.0 ML CSF Supernatant Color (tube 2) XANTHOCHROMIC CSF Gross Blood (Tube 2) 4+ CSF Volume (Tube 3) 1.0 ML CSF Supernatant Color (tube 3) XANTHOCHROMIC CSF Gross Blood (Tube 3) 4+ CSF Volume (Tube 4) 2.5 ML CSF Supernatant Color (tube 4) XANTHOCHROMIC CSF Gross Blood (Tube 4) 4+ CSF Neutrophils 80 % CSF Lymphocytes 18 % CSF Monocytes 2 % CSF Differential Comment CSF Glucose 113 MG/DL CSF Lactate Dehydrogenase 47 U/L CSF Lactic Acid 4.3 MMOL/L CSF Total Protein 95.3 MG/DL 10/09/16 10/09/16 10/10/16 15:00 23:00 07:00 Intake Total 1628 ml 1524 ml 857 ml Output Total 575 ml 2100 ml 250 ml Balance 1053 ml -576 ml 607 ml IV Total 1311 ml 1524 ml 470 ml Tube Feeding 317 ml 0 ml 387 ml Output Urine Total 575 ml 2100 ml 250 ml Gastric Drainage Total 0 ml 0 ml 0 ml Tube Feeding Residual Discard 0 ml 0 ml # Bowel Movements 0 0 0 (Keshav Cadena) Medical Decision Making Impression and Plan A: 76 year old female found unresponsive with a large right subdural hematoma with 2 cm midline shift previously anticoagulated on Xarelto, s/p Vit K and Kcentra s/p emergent right decompressive craniectomy with evacuation of subdural hematoma and placement of intracranial pressure monitor on 10/05/16 flap remains tight but decompressed Seizures P: Continue to monitor Continue with current care. Neurology following for seizure management Continue with critical care. (Keshav Cadena) Attending Statement The exam, history, and the medical decision-making described in the above note were completed with the assistance of the mid-level provider. I reviewed and agree with the findings presented. I attest that I had a [id number] encounter with the patient on the same day, and personally performed and documented my assessment and findings in the medical record. Continue supportive care and seizure management. Updated daughter at bedside. (Jason Velarde MD) Keshav Cadena Oct 10, 2016 06:44 Jason Velarde MD Oct 10, 2016 09:47
[2016-10-10] MEDS: PHENYLEPHRINE INJ 40 MG in SODIUM CHLORID 0.9% 500 ML INJ 496 ML IV SCH ×3 (08:44→20:35)
[2016-10-10] MEDS: SODIUM CHLORIDE 0.9% FLUSH 5 ML FLUSH IVF SCH ×2 (08:44→20:33)
[2016-10-10] MEDS: CHLORHEXIDINE 0.12% (ORAL KIT) 15 ML CUP MT SCH ×2 (08:44→20:33)
[2016-10-10] MEDS: DOCUSATE SODIUM 100 MG CAP PO SCH ×2 (08:45→20:34)
[2016-10-10] MEDS: PANTOPRAZOLE SOD 40 MG DELAYED RELEASE TAB PO SCH (08:45)
[2016-10-10] MEDS: levETIRAcetam 1000 MG INJ 100 ML IV SCH (08:48)
[2016-10-10] MEDS: MONTELUKAST SODIUM 5 MG CHEWABLE TAB PO SCH (08:48)
[2016-10-10] MEDS: PANTOPRAZOLE SODIUM 40 MG VIAL IVP SCH (08:48)
--- NOTE | 2016-10-10 08:57 | PD.CARD.PN ---
Subjective Subjective Remarks intubated, sedated Objective Vital Signs / I&O Vital Signs Date Time Temp Pulse Resp B/P Pulse Ox O2 Delivery O2 Flow Rate FiO2 10/10/16 08:31 97 45 10/10/16 08:00 100.0 91 21 103/53 96 Arterial Line 10/10/16 08:00 91 10/10/16 08:00 50 10/10/16 06:00 99 10/10/16 04:44 97 50 10/10/16 04:00 98.5 100 20 89/42 99 88/52 10/10/16 04:00 100 10/10/16 04:00 50 10/10/16 02:19 99 50 10/10/16 02:00 108 10/10/16 00:00 110 10/10/16 00:00 99.5 110 19 99 97/48 10/10/16 00:00 60 10/09/16 22:08 96 60 10/09/16 22:00 113 27 101/51 98 10/09/16 22:00 113 10/09/16 20:00 60 10/09/16 20:00 99.2 88 18 111/42 94 10/09/16 20:00 98 10/09/16 17:53 95 50 10/09/16 16:00 103.0 99 23 103/37 100 10/09/16 16:00 99 10/09/16 12:00 99.7 90 18 111/45 100 10/09/16 12:00 90 10/09/16 10:21 100 30 I/O 10/09/16 10/09/16 10/09/16 10/10/16 10/10/16 10/10/16 07:00 15:00 23:00 07:00 15:00 23:00 Intake Total 1416 ml 1628 ml 1524 ml 857 ml Output Total 550 ml 575 ml 2100 ml 250 ml 0 ml Balance 866 ml 1053 ml -576 ml 607 ml 0 ml IV Total 1235 ml 1311 ml 1524 ml 470 ml Tube Feeding 181 ml 317 ml 0 ml 387 ml Output Urine Total 550 ml 575 ml 2100 ml 250 ml Gastric Drainage Total 0 ml 0 ml 0 ml Tube Feeding Residual Discard 0 ml 0 ml 0 ml # Bowel Movements 0 0 0 0 Physical Exam GENERAL: SKIN: Warm and dry. HEAD: Normocephalic. EYES: No scleral icterus. No injection or drainage. NECK: Supple, trachea midline. No JVD or lymphadenopathy. CARDIOVASCULAR: Regular rate and rhythm without murmurs, gallops, or rubs. RESPIRATORY: Breath sounds equal bilaterally. No accessory muscle use. GASTROINTESTINAL: Abdomen soft, non-tender, nondistended. MUSCULOSKELETAL: No cyanosis, or edema. BACK: Nontender without obvious deformity. No CVA tenderness. Laboratory Laboratory Tests Test 10/09/16 10/09/16 16:32 17:15 Urine Color YELLOW Urine Turbidity HAZY Urine pH 5.0 Urine Specific [place] 1.016 Urine Protein TRACE mg/dL Urine Glucose (UA) 300 mg/dL Urine Ketones NEG mg/dL Urine Occult Blood TRACE Urine Nitrite NEG Urine Bilirubin NEG Urine Urobilinogen LESS THAN 2.0 MG/DL Urine Leukocyte Esterase LARGE Urine RBC 14 /hpf Urine WBC 40 /hpf Urine Squamous Epithelial 1 /hpf Cells Urine Bacteria OCC /hpf Urine Mucus FEW /lpf Urine Yeast (Budding) FEW Microscopic Urinalysis Comment CATH-CULTURE IND CSF Volume (Tube 1) 2.0 ML CSF Supernatant Color (tube 1) XANTHOCHROMIC CSF Gross Blood (Tube 1) 4+ CSF Volume (Tube 2) 2.0 ML CSF Supernatant Color (tube 2) XANTHOCHROMIC CSF Gross Blood (Tube 2) 4+ CSF Volume (Tube 3) 1.0 ML CSF Supernatant Color (tube 3) XANTHOCHROMIC CSF Gross Blood (Tube 3) 4+ CSF Volume (Tube 4) 2.5 ML CSF Supernatant Color (tube 4) XANTHOCHROMIC CSF Gross Blood (Tube 4) 4+ CSF Neutrophils 80 % CSF Lymphocytes 18 % CSF Monocytes 2 % CSF Differential Comment CSF Glucose 113 MG/DL CSF Lactate Dehydrogenase 47 U/L CSF Lactic Acid 4.3 MMOL/L CSF Total Protein 95.3 MG/DL Assessment and Plan Problem List: (1) HTN (hypertension) (2) PAD (peripheral artery disease) (3) Left carotid artery occlusion (4) CAD (coronary artery disease) (5) Acute respiratory failure (6) Subdural hematoma (7) Coagulopathy (8) NSTEMI (non-ST elevated myocardial infarction) (9) Acute subdural hematoma Assessment and Plan 1.) SDH - ekg suggests possible recent anteroseptal mi, ac contraindicated d/t life threatening ich, beta blockers, lyssa held d/t hypotension and ich; continue statin, supportive care, neurologic prognosis uncertain 2.) Ischemic cardiomyopathy - lyssa inhibitor and beta blockers held d/t labile bp , hypotensive episodes and recent ich Marcus Medel MD Oct 10, 2016 08:57
[2016-10-10] MEDS: DILTIAZEM HCL 30 MG TAB PO SCH ×4 (09:00→20:34)
--- NOTE | 2016-10-10 09:14 | HHI.CCPN ---
Subjective Remarks/Hospital Course 76 y/o woman was found down and unresponsive last evening. Evaluation at [facility] revealed large acute right sided SDH with 2 cm subfalcine shift to left. 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 Required intubation and mechanical ventilation at referring facility for obtundation. Received Vit K and Kcentra then [place] [facility] [place] her on her arrival. at bedside. Largely unresponsive, will withdraw arms to pain. Mannitol bolus started. Cardiac markers elevated at OSH. Objective Vital Signs Date Time Temp Pulse Resp B/P Pulse Ox O2 Delivery O2 Flow Rate FiO2 10/10/16 08:31 97 45 10/10/16 08:00 100.0 91 21 103/53 Arterial Line Intake and Output 10/09/16 10/09/16 10/10/16 08:00 16:00 00:00 Intake Total 1416 ml 1628 ml 1524 ml Output Total 550.0 ml 575.0 ml 2100 ml Balance 866.0 ml 1053.0 ml -576 ml Result Diagram: 10/09/1631410/09/16314 Objective Remarks Lungs: Clear, no wheezes or crackles. Heart: NL S1S2, RRR, No JVD. Abdomen : Soft, nondistended, no guarding. Extremities: Warm, well perfused. Neuro: Right pupil 3 mm, non-reactive. Left pupil 2 mm, reactive. DTRs patellar 1+ brianda. Toes upgoing to plantar stimulation. Extends both legs to stimulation. + cough reflex. Disconjugate gaze. GCS 4T. A/P Problem List: (1) Acute subdural hematoma ICD Code: I62.01 Status: Acute (2) Coagulopathy ICD Code: D68.9 Status: Acute (3) Acute respiratory failure ICD Code: J96.00 Status: Acute (4) NSTEMI (non-ST elevated myocardial infarction) ICD Code: I21.4 Status: Acute Assessment and Plan SDH - post Emergency SDH decompression. - continue Isotonic fluid - neurochecks per unit routine - management per NSGY Seizure - Keppra - Loaded with Fosphenytoin - Neurology appreciated NSTEMI, - hemodynamically stable - Hold Xarelto and ASA due to SDH - cardiology input appreciated Respiratory failure: - intubated for an airway protection - PRVC vent mode. PCO2 30-35 range. - SBT on hold due to persistent seizure activity while off propofol Fevers and leukocytosis - LP cultures negative - Follow up - empirically Vanc/Cef DVT/GI prophylaxis Protonix, SCDs. No chemical DVT px. due to SDH Overall impression: This woman is critically ill with a life-threatening acute subdural hemorrhage, exacerbated by NOAC therapy and possibly related to a fall. She has serious brain at jeopardy and may not survive this insult. NSTEMI noted but should not preclude urgent brain decompression. Prognosis is guarded at best. I have talked with her in the ED. Level 3 Femi Vieyra MD Oct 10, 2016 09:14
[2016-10-10] MEDS: ACETAMINOPHEN 325 MG TAB PO PRN ×2 (09:30→23:41)
[2016-10-10] MEDS: LACOSAMIDE INJ 50 MG in SODIUM CHLORIDE 0.9% INJ 100 ML IV SCH (11:24)
[2016-10-10] MEDS: PROPOFOL 1000 MG/100 ML INJ 100 ML IV SCH ×3 (11:56→21:39)
[2016-10-10] MEDS: LACOSAMIDE INJ 100 MG in SODIUM CHLORIDE 0.9% INJ 100 ML IV SCH ×2 (14:14→20:33)
[2016-10-10] MEDS ORDERED: PHENYLEPHRINE HCL 10 MG/ML VIAL ONE (14:32)
--- NOTE | 2016-10-10 14:35 | MG ---
cc: NICHOLAS CHACON M.D. Lab No: [id number] Date: Age: 76 Sex: F Race: REFERRING: Iliana. ROOM: 1332. With hyperventilation only. Intubated and sedated with 20 micrograms of Diprivan and then increased to 40 micrograms five minutes into the study and then to 50 micrograms fourteen minutes into the study. Status post right frontotemporal decompressive craniotomy for subdural hematoma. CURRENT MEDICATIONS: Keppra 1000 milligrams twice a day. Yesterday, Vimpat 50 milligrams twice a day was added. DESCRIPTION OF RECORD: The leads have been adjusted but the patient in the right hemisphere still has spike and wave discharges paroxysmally. Otherwise the rest of the recording is attenuated at times predominantly in the delta frequency. The patient still exhibits abnormality still spiking waves coming from the right hemisphere. At epoch 81, the Diprivan is now increased to 50 micrograms with discharges still occurring. IMPRESSION: Abnormal EEG due to spike and wave discharges still coming from the right hemisphere concerning for ongoing epileptic focus. Medications have been adjusted. Lacosamide increased to 100 milligrams twice a day and Keppra 1500 milligrams twice a day. Continue neuro monitoring. MD REFUGIO Anders/ASHWIN /12:51 PM /2:28 PM
--- NOTE | 2016-10-10 17:58 | PD.PROCEDR ---
Procedure Note Procedure Lumbar Puncture Date: 10/09/16 Time: 1700 Indication: Altered Mental Status, Fever, Seizure A time-out was completed verifying correct patient, procedure, site, positioning , and special equipment if applicable. The patient was placed in the <LEFT/ lateral decubitus position in a semi- position with help from the nursing staff. The area was cleansed and draped in usual sterile fashion. 1% lidocaine was used anesthetize the surrounding skin area. A <20-gauge 3.5-inch> spinal needle was placed in the <L3-L4/L4-L5> interspace. Clear cerebral spinal fluid was obtained and the opening pressure was noted to be <?cm>. Four tubes were filled with 4 mL of CSF. These were sent for the usual tests, including 1 tube to be held for further analysis if needed. <Attending/Resident> was present for the entire procedure Estimated Blood Loss: 0ml The patient tolerated the procedure well and there were no complications. Femi Vieyra MD Oct 10, 2016 17:58
[2016-10-10] MEDS: levETIRAcetam INJ 1,500 MG in SODIUM CHLORIDE 0.9% INJ 100 ML IV SCH (20:33)
[2016-10-10] MEDS: ATORVASTATIN 20 MG TAB PO SCH (20:34)
[2016-10-11] VITALS (18 sets, daily range): BP systolic 87–110; BP diastolic 46–63; PULSE 78–97; RESP 16–23; TEMP 97.8–101.3; O2SAT 35–100
[2016-10-11] MEDS: CHLORHEXIDINE GLUCONATE 2 % 1 PACK (2 CLOTHS) TOP SCH (01:27)
[2016-10-11] MEDS: PROPOFOL 1000 MG/100 ML INJ 100 ML IV SCH ×5 (02:27→20:48)
[2016-10-11] MEDS: PHENYLEPHRINE INJ 40 MG in SODIUM CHLORID 0.9% 500 ML INJ 496 ML IV SCH (04:39)
[2016-10-11] MEDS: CEFEPIME INJ 2,000 MG in SODIUM CHLORIDE 0.9% INJ 100 ML IV SCH ×2 (05:06→17:18)
[2016-10-11 05:26] LABS: BLOOD GAS BASE EXCESS -11.2 mmol/L (-2-2); BLOOD GAS CARBOXYHEMOGLOBIN 1.3 % (0-4); BLOOD GAS HCO3 13 mmol/L (22-26); BLOOD GAS OXYGEN CONTENT 7.1 Vol % (12.0-20.0); BLOOD GAS PCO2 23 mmHg (38-42); BLOOD GAS PO2 83 mmHg (61-120); BLOOD GAS TOTAL HGB 5.2 G/DL (12.0-16.0); TEMP CORR TO 98.6
[2016-10-11 05:27] LABS: BLOOD GAS O2 HGB SATURATION 94 % (90-100)
--- NOTE | 2016-10-11 05:28 | RADRPT ---
EXAM DATE/TIME: 10/11/2016 04:45 [facility] COMPARISON: CHEST SINGLE AP, October 09, 2016, 5:37. POC ULTRASOUND VASCULAR ACCESS TEAM, October 10, 2016, 17:2 2. INDICATIONS : Please evaluate after respiratory failure. MEDICAL HISTORY : Hypertension. SURGICAL HISTORY : Loop recorder, nuerostimulator ENCOUNTER: Subsequent ACUITY: 2 weeks PAIN SCORE: Non-responsive. LOCATION: Bilateral chest FINDINGS: Endotracheal tube is present with tip just above the lissette. Nasogastric tube descends to the stomach . A stimulator apparatus is present with control pack over the left chest and leads extending up into the neck. There is also an implantable air box tester. Aeration is worsening with increasing bilate ral perihilar infiltrates and basilar infiltrates. Cardiac contours are grossly stable. CONCLUSION: Worsening aeration. Beau Babcock MD on October 11, 2016 at 5:25 Board Certified Radiologist. This report was verified electronically.
[2016-10-11 05:29] LABS: CRITICAL VALUE YES; OXYGEN DEVICE VENTILATOR
[2016-10-11 05:30] LABS: DRAW SITE ART LINE; FIO2 35 %; STAT NO; VENT SETTINGS PRVC/R16/1.0/+5
[2016-10-11 05:49] LABS: AUTOMATED NEUTROPHIL # 17.6 TH/MM3 (1.8-7.7); BASOPHIL % 0.2 % (0.0-2.0); EOSINOPHIL # 0.2 TH/MM3 (0-0.4); EOSINOPHIL % 0.7 % (0.0-4.0); LYMPH % 9.6 % (9.0-44.0); LYMPHOCYTE # 2.1 TH/MM3 (1.0-4.8); MEAN CELL VOLUME 93.7 FL (80.0-100.0); MEAN CORPUSCULAR HEMOGLOBIN 29.5 PG (27.0-34.0); MEAN CORPUSCULAR HGB CONC 31.5 % (32.0-36.0); MONO % 8.8 % (0.0-8.0); NEUT % 80.7 % (16.0-70.0); PLATELET COUNT 333 TH/MM3 (150-450); RED BLOOD COUNT 2.35 MIL/MM3 (4.00-5.30); RED CELL DISTRIBUTION WIDTH 17.2 % (11.6-17.2); WHITE BLOOD COUNT 21.8 TH/MM3 (4.0-11.0)
[2016-10-11 05:51] LABS: ALT (GPT) 22 U/L (10-53); ANION GAP 9 MEQ/L (5-15); AST (GOT) 26 U/L (15-37); BICARBONATE 17.7 MEQ/L (21.0-32.0); BLOOD UREA NITROGEN 16 MG/DL (7-18); CHLORIDE 117 MEQ/L (98-107); GLOMERULAR FILTRATION RATE 129 ML/MIN (>89); MAGNESIUM 1.8 MG/DL (1.5-2.5); POTASSIUM 3.7 MEQ/L (3.5-5.1); SODIUM (NA) 144 MEQ/L (136-145)
[2016-10-11 05:52] LABS: HEMO FLAGS AUTO DIFF
[2016-10-11 05:53] LABS: ALKALINE PHOSPHATASE 69 U/L (45-117); HEMATOCRIT 22.1 % (35.0-46.0); TOTAL BILIRUBIN ADULT LESS THAN 0.1 MG/DL (0.2-1.0)
[2016-10-11 07:14] LABS: WBC TUBE #4 386 /MM3 (0-10)
[2016-10-11] MEDS: SODIUM PHOSPHATE INJ 30 MMOL in SODIUM CHLOR 0.9% 250 ML INJ 240 ML IV PRN (07:18)
[2016-10-11 07:39] LABS: BANDS 18 % (0-6); EOSINOPHILS 1 % (0-4); PLATELET ESTIMATE SMEAR NORMAL (NORMAL); PLATELET MORPHOLOGY NORMAL (NORMAL); POLYS (SEG NEUTROPHILS) 69 % (16-70); SCAN/DIFF FINAL DIFF MANUAL; WBC DIFF SAMPLE 100
[2016-10-11 07:41] LABS: ACANTHOCYTES 1+ (NORMAL)
[2016-10-11] MEDS: PANTOPRAZOLE SOD 40 MG DELAYED RELEASE TAB PO SCH (09:00)
[2016-10-11] MEDS: DILTIAZEM HCL 30 MG TAB PO SCH ×4 (09:00→20:37)
[2016-10-11] MEDS: levETIRAcetam INJ 1,500 MG in SODIUM CHLORIDE 0.9% INJ 100 ML IV SCH ×2 (09:14→20:47)
[2016-10-11] MEDS: LACOSAMIDE INJ 100 MG in SODIUM CHLORIDE 0.9% INJ 100 ML IV SCH (09:15)
[2016-10-11] MEDS: MONTELUKAST SODIUM 5 MG CHEWABLE TAB PO SCH (09:15)
[2016-10-11] MEDS: DOCUSATE SODIUM 100 MG CAP PO SCH ×2 (09:15→20:47)
[2016-10-11] MEDS: PANTOPRAZOLE SODIUM 40 MG VIAL IVP SCH (09:15)
[2016-10-11] MEDS: SODIUM CHLORIDE 0.9% FLUSH 5 ML FLUSH IVF SCH ×2 (09:16→20:47)
[2016-10-11] MEDS: CHLORHEXIDINE 0.12% (ORAL KIT) 15 ML CUP MT SCH ×2 (09:16→20:47)
--- NOTE | 2016-10-11 10:15 | HHI.PR ---
Subjective Remarks abnormal eeg c/w epileptic d/c right hemisphere sedated on the vent no shaking or twitching Objective Vital Signs Date Time Temp Pulse Resp B/P Pulse Ox O2 Delivery O2 Flow Rate FiO2 10/11/16 08:15 35 35 10/11/16 06:00 82 10/11/16 04:00 81 10/11/16 04:00 35 10/11/16 04:00 99.7 81 19 95/46 98 10/11/16 02:00 97 10/11/16 00:30 96 35 10/11/16 00:00 97 10/11/16 00:00 35 10/11/16 00:00 101.3 97 23 87/51 95 10/10/16 22:00 101 10/10/16 20:52 100 35 10/10/16 20:00 35 10/10/16 20:00 97.8 88 25 108/56 97 10/10/16 20:00 88 10/10/16 16:07 100 35 10/10/16 16:00 80 10/10/16 16:00 97.7 80 16 90/55 96 10/10/16 14:18 96 40 10/10/16 12:08 95 45 10/10/16 12:00 98.1 87 16 110/53 97 10/10/16 12:00 87 I/O 10/10/16 10/10/16 10/10/16 10/11/16 10/11/16 10/11/16 07:00 15:00 23:00 07:00 15:00 23:00 Intake Total 857 ml 1823 ml 1207 ml 1369 ml Output Total 250 ml 350 ml 350 ml 350 ml Balance 607 ml 1473 ml 857 ml 1019 ml IV Total 470 ml 1373 ml 874 ml 931 ml Tube Feeding 387 ml 450 ml 333 ml 438 ml Output Urine Total 250 ml 350 ml 350 ml 350 ml Gastric Drainage Total 0 ml 0 ml Tube Feeding Residual Discard 0 ml 0 ml 0 ml # Bowel Movements 0 0 0 1 intub/sedated exam pupil 2-1mm not following decreased tone toes upgoing b/l Result Diagram: 10/11/1621 10/11/16 0521 Medications and IVs keppra 1500 mg q12 lacosamide 200mg q 12 Assessment and Plan Assessment and Plan s/p right sdh-evacuation ,craniotomy seizures -cont current doses of aed's will check f/u eeg. if still having discharges may need to add phenobarbital if able to tolerate. Domonique Barrientos MD Oct 11, 2016 10:15
--- NOTE | 2016-10-11 11:03 | HHI.NSPN ---
(Kaylee Bloom) Note Status Status: Progress Note (Kaylee Bloom) Interval History Interval History Ms. Novoa is a 76 y/o woman was found unresponsive. She was found to have a acute large right sided SDH with 2 cm midline shift. She is anticoagulated with xarelto. She received Vit K and Kcentral and was transferred to [facility]. She underwent emergent right frontotemporoparietal decompressive craniectomy with evacuation of subdural hematoma, and placement of intracranial pressure monitor on 10/05/15. 10/06: POD 1, ICPs at highest overnight 11, she is on 30 of Diprivan. ICPs currently 4. She localized to LE, she does not open eyes or follow commands. Pupils are equal. 10/07: POD 2, f/u CT Brain completed this am, remains sedated for bp control. ICPs within normal limits 10/08: POD 3, minimal output from [facility]. new onset seizures, with head rotated to left, left lateral gaze with slight nystagmus. No tonic/ clonic events in extremities. bone flap with good pulsation, decompressed but firm 10/11: records reports still having seizures off diprivan over the weekend. On multiple antiepileptic medications per Neurology. Sedated on 50 mc Diprivan. ( Kaylee Bloom) Labs, Micro, & Vital Signs Results Date Time Temp Pulse Resp B/P Pulse Ox O2 Delivery O2 Flow Rate FiO2 10/11/16 08:15 35 35 10/11/16 06:00 82 10/11/16 04:00 81 10/11/16 04:00 35 10/11/16 04:00 99.7 81 19 95/46 98 10/11/16 02:00 97 10/11/16 00:30 96 35 10/11/16 00:00 97 10/11/16 00:00 35 10/11/16 00:00 101.3 97 23 87/51 95 10/10/16 22:00 101 10/10/16 20:52 100 35 10/10/16 20:00 35 10/10/16 20:00 97.8 88 25 108/56 97 10/10/16 20:00 88 10/10/16 16:07 100 35 10/10/16 16:00 80 10/10/16 16:00 97.7 80 16 90/55 96 10/10/16 14:18 96 40 10/10/16 12:08 95 45 10/10/16 12:00 98.1 87 16 110/53 97 10/10/16 12:00 87 10/11/16 07:00 Intake Total 4399 ml Output Total 1050.0 ml Balance 3349.0 ml Constitutional Vital Signs Date Time Temp Pulse Resp B/P Pulse Ox O2 Delivery O2 Flow Rate FiO2 10/11/16 08:15 35 35 10/11/16 06:00 82 10/11/16 04:00 81 10/11/16 04:00 35 10/11/16 04:00 99.7 81 19 95/46 98 10/11/16 02:00 97 10/11/16 00:30 96 35 10/11/16 00:00 97 10/11/16 00:00 35 10/11/16 00:00 101.3 97 23 87/51 95 10/10/16 22:00 101 10/10/16 20:52 100 35 10/10/16 20:00 35 10/10/16 20:00 97.8 88 25 108/56 97 10/10/16 20:00 88 10/10/16 16:07 100 35 10/10/16 16:00 80 10/10/16 16:00 97.7 80 16 90/55 96 10/10/16 14:18 96 40 10/10/16 12:08 95 45 10/10/16 12:00 98.1 87 16 110/53 97 10/10/16 12:00 87 10/11/16 07:00 Intake Total 4399 ml Output Total 1050.0 ml Balance 3349.0 ml (Kaylee Bloom) Review of Systems/Exam Exam Intubated, sedated on 50 mc Diprivan. Does not open eyes, does not follow commands. No seizure like activities seen. Right flap decompressed, soft to palpate. Wound healing well, griselda intact. CN: pupils equal, left eye mildly disconjugated to left. Neck: soft, supple Sensorimotor: no withdrawals to all four extremities to local pain Plantars silent b/l (Kaylee Bloom) Medications Current Medications Current Medications Medications (Trade) Dose Ordered Sig/Vladislav Route PRN Reason Start Time Stop Time Status Last Admin Dose Admin Miscellaneous Information 1 [id number] XX 10/05/16 04:45 10/06/16 03:46 Chlorhexidine Gluconate (Chlorhexidine 2% Cloth) Taper DAILY@04 TOP 10/06/16 04:00 10/02/17 03:59 10/10/16 01:37 Chlorhexidine Gluconate (Chlorhexidine 2% Cloth) 3 pack UNSCH PRN TOP HYGIENIC CARE 10/05/16 04:45 Atorvastatin Calcium (Lipitor) 20 mg HS PO 10/05/16 21:00 10/10/16 20:34 IV Flush (NS Flush) 2 ml UNSCH PRN IVF FLUSH AFTER USING IV ACCESS 10/05/16 05:00 IV Flush (NS Flush) 2 ml BID IVF 10/05/16 09:00 10/11/16 09:16 Bisacodyl (Dulcolax Supp) 10 mg DAILY PRN GA CONSTIPATION 10/05/16 05:00 Docusate Sodium (Colace) 100 mg BID PO 10/05/16 09:00 10/11/16 09:15 Pantoprazole Sodium (Protonix) 40 mg DAILY PO 10/05/16 09:00 Pantoprazole Sodium (Protonix Inj) 40 mg DAILY IVP 10/05/16 09:00 10/11/16 09:15 Ondansetron HCl (Zofran Inj) 4 mg Q6H PRN IV NAUSEA OR VOMITING 10/05/16 05:00 Calcium Gluconate 1 gm 1 gm UNSCH PRN IV SEE LABEL COMMENTS 10/05/16 05:00 Potassium Chloride 100 ml @ 50 mls/hr UNSCH PRN IV POTASSIUM LESS THAN 4 10/05/16 05:00 Magnesium Sulfate/ Sodium Chloride (Magnesium Sulfate Inj/NS Inj) 108 ml @ 108 mls/hr UNSCH PRN IV MAGNESIUM LESS THAN 2 10/05/16 05:00 Acetaminophen/ Hydrocodone Bitart ([place] 10-325 Mg) 1 tab Q4H PRN PO PAIN SCALE 1 TO 5 10/05/16 05:00 Acetaminophen/ Hydrocodone Bitart ([place] 10-325 Mg) 2 tab Q4H PRN PO PAIN SCALE 6 TO 10 10/05/16 05:00 Morphine Sulfate (Morphine Inj) 2 mg Q2H PRN IV PUSH PAIN SCALE 1 TO 6 10/05/16 05:00 10/06/16 21:40 Morphine Sulfate (Morphine Inj) 4 mg Q2H PRN IV PUSH PAIN SCALE 7 TO 10 10/05/16 05:00 Acetaminophen (Tylenol) 650 mg Q4H PRN PO TEMPERATURE > 101.5 F 10/05/16 05:00 10/10/16 23:41 Chlorhexidine Gluconate 15 ml 15 ml BID@08,20 MT 10/05/16 08:00 10/11/16 09:16 Propofol 100 ml @ 0 mls/hr TITRATE IV 10/05/16 05:15 10/11/16 06:47 Potassium Chloride 100 ml @ 50 mls/hr Q2H PRN IV For Potassium 2.8 - 3.2 mEq/L 10/05/16 05:15 Potassium Chloride (KCl 20 Meq Premix Inj) 100 ml @ 50 mls/hr Q2H PRN IV For Potassium 2.8 - 3.2 mEq/L 10/05/16 05:15 Potassium Chloride 40 meq 40 meq UNSCH PRN PO/TUBE For Potassium 3.3 - 3.5 mEq/L 10/05/16 05:15 Potassium Chloride 100 ml @ 25 mls/hr UNSCH PRN IV For Potassium 3.3 - 3.5 mEq/L 10/05/16 05:15 Potassium Chloride 100 ml @ 50 mls/hr Q2H PRN IV For Potassium 3.3 - 3.5 mEq/L 10/05/16 05:15 Magnesium Sulfate/ Sodium Chloride (Magnesium Sulfate Inj/NS Inj) 100 ml @ 50 mls/hr UNSCH PRN IV For Magnesium 0.9 - 1.1 mg/dL 10/05/16 05:15 Magnesium Oxide 800 mg 800 mg UNSCH PRN PO For Magnesium 1.2 - 1.6 mg/dL 10/05/16 05:15 Magnesium Sulfate/ Sodium Chloride (Magnesium Sulfate Inj/NS Inj) 100 ml @ 50 mls/hr UNSCH PRN IV For Magnesium 1.2 - 1.6 mg/dL 10/05/16 05:15 Potassium Phosphate 2000 mg 2,000 mg Q4H PRN PO For Phosphorus < 2.5 mg/dL 10/05/16 05:15 10/09/16 08:35 Sodium Phosphate/ Sodium Chloride (Sodium Phosphate Inj/NS 250 ml Inj) 250 ml @ 42 mls/hr UNSCH PRN IV For Phosphorus < 2.5 mg/dL 10/05/16 05:15 10/11/16 07:18 Potassium Chloride (KCl 40 Meq/30 ml Liq) 40 meq UNSCH PRN PO/TUBE SEE LABEL COMMENTS 10/05/16 05:15 Potassium Phosphate 2000 mg 2,000 mg UNSCH PRN PO/TUBE SEE LABEL COMMENTS 10/05/16 05:15 Potassium Phosphate/Sodium Chloride (Potassium Phosphate Inj/NS 250 ml Inj) 260 ml @ 42 mls/hr UNSCH PRN IV SEE LABEL COMMENTS 10/05/16 05:15 Terbutaline Sulfate (Brethine Inj) 1 mg UNSCH PRN SQ FOR EXTRAVASATION PROTOCOL 10/05/16 06:30 Montelukast Sodium (Singulair Chew) 10 mg DAILY PO 10/06/16 09:00 10/11/16 09:15 Labetalol HCl (Trandate Inj) 10 mg Q4H PRN IV PUSH SBP>160, DBP>90 10/07/16 15:30 Hydralazine HCl (Apresoline Inj) 20 mg Q4H PRN IV PUSH SBP> OR = 180, DBP> OR = 100 10/07/16 15:30 Diltiazem HCl (Cardizem) 30 mg QID PO 10/07/16 18:00 10/10/16 20:34 Lorazepam 1 mg 1 mg Q2H PRN IM SEIZURES 10/08/16 13:15 10/09/16 22:05 Cefepime HCl 2000 mg/Sodium Chloride 100 ml @ 200 mls/hr Q12H IV 10/09/16 18:00 10/11/16 05:06 Phenylephrine HCl 40 mg/Sodium Chloride 500 ml @ 0 mls/hr TITRATE IV 10/09/16 21:00 10/11/16 04:39 Levetriacetam 1500 mg/Sodium Chloride 115 ml @ 460 mls/hr Q12H IV 10/10/16 21:00 10/11/16 09:14 Lacosamide/Sodium Chloride (Vimpat Inj/NS Inj) 120 ml @ 110 mls/hr Q12HR IV 10/11/16 21:00 (Kaylee Bloom) Medical Decision Making MDM Remarks 76 year old female found unresponsive with a large right subdural hematoma with 2 cm midline shift previously anticoagulated on Xarelto, s/p Vit K and Kcentra s/p emergent right decompressive craniectomy with evacuation of subdural hematoma and placement of intracranial pressure monitor on 10/05/16 flap remains tight but decompressed Seizures (Kaylee Bloom) Plan Plan Remarks cont mgt of seizures per Neurology, sedation weaning as tolerated and f/u neuro exam, right flap remains decompressed and soft, cont critical care mgt (Kaylee Bloom) Attending Statement The exam, history, and the medical decision-making described in the above note were completed with the assistance of the mid-level provider. I reviewed and agree with the findings presented. I attest that I had a [id number] encounter with the patient on the same day, and personally performed and documented my assessment and findings in the medical record. (Chandana Leon MD) Kaylee Bloom Oct 11, 2016 11:03 Chandana Leon MD Oct 13, 2016 17:08
[2016-10-11] MEDS ORDERED: PHENobarbital SOD 130 MG/ML VIAL IV PUSH ONE (13:15)
--- NOTE | 2016-10-11 14:10 | PD.CARD.PN ---
Subjective Subjective Remarks intubated, sedated Objective Vital Signs / I&O Vital Signs Date Time Temp Pulse Resp B/P Pulse Ox O2 Delivery O2 Flow Rate FiO2 10/11/16 14:00 83 10/11/16 12:38 100 35 10/11/16 12:00 94 10/11/16 12:00 35 10/11/16 12:00 97.8 94 16 110/63 100 10/11/16 10:00 85 10/11/16 08:15 35 35 10/11/16 08:00 81 10/11/16 08:00 35 10/11/16 08:00 98.4 81 16 110/55 100 10/11/16 06:00 82 10/11/16 04:00 81 10/11/16 04:00 35 10/11/16 04:00 99.7 81 19 95/46 98 10/11/16 02:00 97 10/11/16 00:30 96 35 10/11/16 00:00 97 10/11/16 00:00 35 10/11/16 00:00 101.3 97 23 87/51 95 10/10/16 22:00 101 10/10/16 20:52 100 35 10/10/16 20:00 35 10/10/16 20:00 97.8 88 25 108/56 97 10/10/16 20:00 88 10/10/16 16:07 100 35 10/10/16 16:00 80 10/10/16 16:00 97.7 80 16 90/55 96 10/10/16 14:18 96 40 I/O 10/10/16 10/10/16 10/10/16 10/11/16 10/11/16 10/11/16 07:00 15:00 23:00 07:00 15:00 23:00 Intake Total 857 ml 1823 ml 1207 ml 1369 ml 1755 ml Output Total 250 ml 350 ml 350 ml 350 ml 400 ml Balance 607 ml 1473 ml 857 ml 1019 ml 1355 ml IV Total 470 ml 1373 ml 874 ml 931 ml 1311 ml Tube Feeding 387 ml 450 ml 333 ml 438 ml 444 ml Output Urine Total 250 ml 350 ml 350 ml 350 ml 400 ml Gastric Drainage Total 0 ml 0 ml Tube Feeding Residual Discard 0 ml 0 ml 0 ml # Bowel Movements 0 0 0 1 0 Physical Exam GENERAL: SKIN: Warm and dry. HEAD: Normocephalic. EYES: No scleral icterus. No injection or drainage. NECK: Supple, trachea midline. No JVD or lymphadenopathy. CARDIOVASCULAR: Regular rate and rhythm without murmurs, gallops, or rubs. RESPIRATORY: Breath sounds equal bilaterally. No accessory muscle use. GASTROINTESTINAL: Abdomen soft, non-tender, nondistended. MUSCULOSKELETAL: No cyanosis, or edema. BACK: Nontender without obvious deformity. No CVA tenderness. Laboratory Laboratory Tests Test 10/11/16 10/11/16 10/11/16 05:14 05:21 12:25 Blood Gas Puncture Site ART LINE Blood Gas Patient Temperature 98.6 Blood Gas HCO3 13 mmol/L Blood Gas Base Excess -11.2 mmol/L Blood Gas Oxygen Saturation 94 % Arterial Blood pH 7.38 Arterial Blood Partial 23 mmHg Pressure CO2 Arterial Blood Partial 83 mmHg Pressure O2 Arterial Blood Oxygen Content 7.1 Vol % Arterial Blood 1.3 % Carboxyhemoglobin Arterial Blood Methemoglobin 1.0 % Blood Gas Hemoglobin 5.2 G/DL Oxygen Delivery Device VENTILATOR Blood Gas Ventilator Setting PRVC/R16/1.0/+5 Blood Gas Inspired Oxygen 35 % White Blood Count 21.8 TH/MM3 Red Blood Count 2.35 MIL/MM3 Hemoglobin 6.9 GM/DL Hematocrit 22.1 % Mean Corpuscular Volume 93.7 FL Mean Corpuscular Hemoglobin 29.5 PG Mean Corpuscular Hemoglobin 31.5 % Concent Red Cell Distribution Width 17.2 % Platelet Count 333 TH/MM3 Mean Platelet Volume 7.7 FL Neutrophils (%) (Auto) 80.7 % Lymphocytes (%) (Auto) 9.6 % Monocytes (%) (Auto) 8.8 % Eosinophils (%) (Auto) 0.7 % Basophils (%) (Auto) 0.2 % Neutrophils # (Auto) 17.6 TH/MM3 Lymphocytes # (Auto) 2.1 TH/MM3 Monocytes # (Auto) 1.9 TH/MM3 Eosinophils # (Auto) 0.2 TH/MM3 Basophils # (Auto) 0.0 TH/MM3 CBC Comment AUTO DIFF Differential Total Cells 100 Counted Neutrophils % (Manual) 69 % Band Neutrophils % 18 % Lymphocytes % 7 % Monocytes % 5 % Eosinophils % 1 % Neutrophils # (Manual) 19.0 TH/MM3 Differential Comment FINAL DIFF MANUAL Platelet Estimate NORMAL Platelet Morphology Comment NORMAL Acanthocytes 1+ Sodium Level 144 MEQ/L Potassium Level 3.7 MEQ/L Chloride Level 117 MEQ/L Carbon Dioxide Level 17.7 MEQ/L Anion Gap 9 MEQ/L Blood Urea Nitrogen 16 MG/DL Creatinine 0.47 MG/DL Estimat Glomerular Filtration 129 ML/MIN Rate Random Glucose 171 MG/DL Calcium Level 7.5 MG/DL Phosphorus Level 1.7 MG/DL Magnesium Level 1.8 MG/DL Total Bilirubin LESS THAN 0.1 MG/DL Aspartate Amino Transf 26 U/L (AST/SGOT) Alanine Aminotransferase 22 U/L (ALT/SGPT) Alkaline Phosphatase 69 U/L Total Protein 5.3 GM/DL Albumin 1.3 GM/DL Blood Type A POSITIVE Antibody Screen NEGATIVE Crossmatch Leukocyte-Reduced Red Blood Cells Blood Bank Comment Assessment and Plan Problem List: (1) HTN (hypertension) (2) PAD (peripheral artery disease) (3) Left carotid artery occlusion (4) CAD (coronary artery disease) (5) Acute respiratory failure (6) Subdural hematoma (7) Coagulopathy (8) NSTEMI (non-ST elevated myocardial infarction) (9) Acute subdural hematoma Assessment and Plan 1.) SDH - ekg suggests possible recent anteroseptal mi, ac contraindicated d/t life threatening ich, beta blockers, lyssa held d/t hypotension and ich; continue statin, supportive care, neurologic prognosis uncertain 2.) Ischemic cardiomyopathy - lyssa inhibitor and beta blockers held d/t labile bp , hypotensive episodes and recent ich Marcus Medel MD Oct 11, 2016 14:10
--- NOTE | 2016-10-11 14:24 | HHI.CCPN ---
Subjective Remarks/Hospital Course 76 y/o woman was found down and unresponsive last evening. Evaluation at [facility] revealed large acute right sided SDH with 2 cm subfalcine shift to left. 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 Required intubation and mechanical ventilation at referring facility for obtundation. Received Vit K and Kcentra then transported to [facility] [place] met her on her arrival. at bedside. Largely unresponsive, will withdraw arms to pain. Mannitol bolus started. Cardiac markers elevated at OSH. Objective Vital Signs Date Time Temp Pulse Resp B/P Pulse Ox O2 Delivery O2 Flow Rate FiO2 10/11/16 14:00 83 10/11/16 12:38 100 35 10/11/16 12:00 97.8 16 110/63 Intake and Output 10/10/16 10/10/16 10/11/16 08:00 16:00 00:00 Intake Total 857 ml 1823 ml 1207 ml Output Total 250.0 ml 350.0 ml 350.0 ml Balance 607.0 ml 1473.0 ml 857.0 ml Result Diagram: 10/11/16 0521 10/11/16 0521 Other Results Laboratory Tests Test 10/11/16 05:14 Blood Gas Puncture Site ART LINE Blood Gas Patient Temperature 98.6 Blood Gas HCO3 13 mmol/L (22-26) Blood Gas Base Excess -11.2 mmol/L (-2-2) Blood Gas Oxygen Saturation 94 % (90-100) Arterial Blood pH 7.38 (7.380-7.420) Arterial Blood Partial 23 mmHg (38-42) Pressure CO2 Arterial Blood Partial 83 mmHg Pressure O2 (61-120) Arterial Blood Oxygen Content 7.1 Vol % (12.0-20.0) Arterial Blood 1.3 % (0-4) Carboxyhemoglobin Arterial Blood Methemoglobin 1.0 % (0-2) Blood Gas Hemoglobin 5.2 G/DL (12.0-16.0) Oxygen Delivery Device VENTILATOR Blood Gas Ventilator Setting PRVC/R16/1.0/+5 Blood Gas Inspired Oxygen 35 % Objective Remarks Lungs: Clear, no wheezes or crackles. Heart: NL S1S2, RRR, No JVD. Abdomen : Soft, nondistended, no guarding. Extremities: Warm, well perfused. Neuro: Right pupil 3 mm, non-reactive. Left pupil 2 mm, reactive. DTRs patellar 1+ brianda. Toes upgoing to plantar stimulation. Extends both legs to stimulation. + cough reflex. Disconjugate gaze. GCS 4T. A/P Problem List: (1) Acute subdural hematoma ICD Code: I62.01 Status: Acute (2) Coagulopathy ICD Code: D68.9 Status: Acute (3) Acute respiratory failure ICD Code: J96.00 Status: Acute (4) NSTEMI (non-ST elevated myocardial infarction) ICD Code: I21.4 Status: Acute Assessment and Plan SDH - post Emergency SDH decompression. - continue Isotonic fluid - neurochecks per unit routine - management per NSGY Seizure - Keppra 1500 BID - Increased Vimpat 200 BID (off label dose for refractory seizure/status) - Phenobarb added by neurology today - Neurology input appreciated NSTEMI, - hemodynamically stable - Hold Xarelto and ASA due to SDH - cardiology input appreciated Anemia - protonics BID - Transfuse 2 units Today Respiratory failure: - intubated for an airway protection - PRVC vent mode. PCO2 30-35 range. - SBT on hold due to persistent seizure activity while off propofol Fevers and leukocytosis - LP cultures negative - Follow up - empirically Vanc/Cef, will add Zozyn to double cover for Pseudomonas until sensitivity (worsening WBC) - will sent C. Dif DVT/GI prophylaxis Protonix, SCDs. No chemical DVT px. due to SDH Overall impression: This woman is critically ill with a life-threatening acute subdural hemorrhage, exacerbated by NOAC therapy and possibly related to a fall. She has serious brain at jeopardy and may not survive this insult. NSTEMI noted but should not preclude urgent brain decompression. Prognosis is guarded at best. I have talked with her in the ED. Level 3 Femi Vieyra MD Oct 11, 2016 14:24
[2016-10-11] MEDS ORDERED: VANCOMYCIN INJ 1,000 MG in SODIUM CHLOR 0.9% 250 ML INJ 250 ML IV ONE (15:00)
[2016-10-11] MEDS: PIPERACIL-TAZO 3.375 GM PREMIX 50 ML IV SCH ×2 (15:42→22:18)
[2016-10-11] MEDS: LACOSAMIDE INJ 200 MG in SODIUM CHLORIDE 0.9% INJ 100 ML IV SCH (20:47)
[2016-10-12] VITALS (14 sets, daily range): BP systolic 89–123; BP diastolic 55–62; PULSE 84–100; RESP 20–24; TEMP 98.5–100.4; O2SAT 97–100
[2016-10-12] MEDS: ATORVASTATIN 20 MG TAB PO SCH ×2 (01:12→20:37)
[2016-10-12] MEDS: PROPOFOL 1000 MG/100 ML INJ 100 ML IV SCH ×2 (02:15→06:42)
[2016-10-12] MEDS: PIPERACIL-TAZO 3.375 GM PREMIX 50 ML IV SCH ×2 (03:20→10:14)
[2016-10-12] MEDS: CHLORHEXIDINE GLUCONATE 2 % 1 PACK (2 CLOTHS) TOP SCH (04:00)
[2016-10-12] MEDS: PHENYLEPHRINE INJ 40 MG in SODIUM CHLORID 0.9% 500 ML INJ 496 ML IV SCH ×2 (04:46→16:45)
[2016-10-12 04:58] LABS: AUTOMATED NEUTROPHIL # 14.4 TH/MM3 (1.8-7.7); BASOPHIL % 0.2 % (0.0-2.0); EOSINOPHIL # 0.3 TH/MM3 (0-0.4); EOSINOPHIL % 1.6 % (0.0-4.0); HEMATOCRIT 31.2 % (35.0-46.0); LYMPH % 11.1 % (9.0-44.0); MEAN CORPUSCULAR HEMOGLOBIN 30.3 PG (27.0-34.0); MEAN CORPUSCULAR HGB CONC 33.6 % (32.0-36.0); MONO % 8.9 % (0.0-8.0); NEUT % 78.2 % (16.0-70.0); PLATELET COUNT 301 TH/MM3 (150-450); RED BLOOD COUNT 3.47 MIL/MM3 (4.00-5.30); RED CELL DISTRIBUTION WIDTH 15.9 % (11.6-17.2); WHITE BLOOD COUNT 18.4 TH/MM3 (4.0-11.0)
[2016-10-12 05:08] LABS: BLOOD GAS BASE EXCESS -4.5 mmol/L (-2-2); BLOOD GAS CARBOXYHEMOGLOBIN 1.4 % (0-4); BLOOD GAS HCO3 19 mmol/L (22-26); BLOOD GAS METHEMOGLOBIN 0.8 % (0-2); BLOOD GAS O2 HGB SATURATION 96 % (90-100); BLOOD GAS PCO2 28 mmHg (38-42); BLOOD GAS PO2 109 mmHg (61-120); CRITICAL VALUE NO; OXYGEN DEVICE VENTILATOR; TEMP CORR TO 98.6; VENT SETTINGS PRVC/AC
[2016-10-12 05:09] LABS: DRAW SITE ART LINE; FIO2 35 %; STAT NO
[2016-10-12 05:10] LABS: HEMO FLAGS AUTO DIFF
[2016-10-12 05:28] LABS: BICARBONATE 17.9 MEQ/L (21.0-32.0); CALCIUM-PROTEIN CORRECTED 8.1 MG/DL (8.5-10.1); MAGNESIUM 1.7 MG/DL (1.5-2.5); POTASSIUM 3.5 MEQ/L (3.5-5.1); TOTAL BILIRUBIN ADULT 0.7 MG/DL (0.2-1.0)
[2016-10-12] MEDS: CEFEPIME INJ 2,000 MG in SODIUM CHLORIDE 0.9% INJ 100 ML IV SCH (05:33)
[2016-10-12] MEDS: POTASSIUM CHLOR 20 MEQ PREMIX 100 ML IV PRN ×2 (06:11→08:07)
--- NOTE | 2016-10-12 06:26 | RADRPT ---
EXAM DATE/TIME: 10/12/2016 05:43 [facility] COMPARISON: CHEST SINGLE AP, October 11, 2016, 4:45. INDICATIONS : Short of breath, respiratory failure MEDICAL HISTORY : Hypertension. SURGICAL HISTORY : loop recorder, neurostimulator ENCOUNTER: Subsequent ACUITY: 2 weeks PAIN SCORE: Non-responsive. LOCATION: Bilateral chest FINDINGS: Endotracheal tube tip is at the lissette. Nasogastric tube descends into the stomach. Implantable contr ol units are again seen over the left chest. Hazy bilateral infiltrates are improved, particularly on the left. Cardiac contours are stable. CONCLUSION: Slight improvement in aeration. Beau Babcock MD on October 12, 2016 at 6:23 Board Certified Radiologist. This report was verified electronically.
[2016-10-12 06:53] LABS: BANDS 20 % (0-6); BASOPHILS 1 % (0-2); CORRECTED NUCLEATED RBC 1 /100 WBC (0-0); METAMYELOCYTES 3 % (0-1); MYELOCYTES 4 % (0-0); NEUTROPHIL # MANUAL DIFF 14.9 TH/MM3 (1.8-7.7); POLYS (SEG NEUTROPHILS) 54 % (16-70); WBC DIFF SAMPLE 100
[2016-10-12 06:55] LABS: PLATELET ESTIMATE SMEAR NORMAL (NORMAL); PLATELET MORPHOLOGY NORMAL (NORMAL); SCAN/DIFF FINAL DIFF MANUAL
[2016-10-12] MEDS: MONTELUKAST SODIUM 5 MG CHEWABLE TAB PO SCH (07:58)
[2016-10-12] MEDS: levETIRAcetam INJ 1,500 MG in SODIUM CHLORIDE 0.9% INJ 100 ML IV SCH ×2 (07:58→20:36)
[2016-10-12] MEDS: SODIUM CHLORIDE 0.9% FLUSH 5 ML FLUSH IVF SCH ×2 (07:59→20:36)
[2016-10-12] MEDS: PANTOPRAZOLE SODIUM 40 MG VIAL IVP SCH (07:59)
[2016-10-12] MEDS: DOCUSATE SODIUM 100 MG CAP PO SCH ×2 (07:59→20:37)
[2016-10-12] MEDS: CHLORHEXIDINE 0.12% (ORAL KIT) 15 ML CUP MT SCH ×2 (07:59→20:38)
[2016-10-12] MEDS: DILTIAZEM HCL 30 MG TAB PO SCH ×4 (07:59→20:37)
[2016-10-12] MEDS: PANTOPRAZOLE SOD 40 MG DELAYED RELEASE TAB PO SCH (07:59)
[2016-10-12] MEDS: LACOSAMIDE INJ 200 MG in SODIUM CHLORIDE 0.9% INJ 100 ML IV SCH ×2 (08:33→21:09)
--- NOTE | 2016-10-12 08:54 | HHI.NSPN ---
(Kaylee Bloom) Note Status Status: Progress Note (Kaylee Bloom) Interval History Interval History Ms. Novoa is a 76 y/o woman was found unresponsive. She was found to have a acute large right sided SDH with 2 cm midline shift. She is anticoagulated with xarelto. She received Vit K and Kcentral and was transferred to [facility]. She underwent emergent right frontotemporoparietal decompressive craniectomy with evacuation of subdural hematoma, and placement of intracranial pressure monitor on 10/05/15. 10/06: POD 1, ICPs at highest overnight 11, she is on 30 of Diprivan. ICPs currently 4. She localized to LE, she does not open eyes or follow commands. Pupils are equal. 10/07: POD 2, f/u CT Brain completed this am, remains sedated for bp control. ICPs within normal limits 10/08: POD 3, minimal output from [facility]. new onset seizures, with head rotated to left, left lateral gaze with slight nystagmus. No tonic/ clonic events in extremities. bone flap with good pulsation, decompressed but firm 10/11: records reports still having seizures off diprivan over the weekend. On multiple antiepileptic medications per Neurology. Sedated on 50 mc Diprivan. 10/12: currently sedated on 30 mc Diprivan, does not open eyes or follow commands , slight withdrawals to feet. (Kaylee Bloom) Labs, Micro, & Vital Signs Results Date Time Temp Pulse Resp B/P Pulse Ox O2 Delivery O2 Flow Rate FiO2 10/12/16 06:00 84 10/12/16 04:00 86 10/12/16 04:00 98.7 86 22 98/55 97 10/12/16 04:00 35 10/12/16 03:52 100 35 10/12/16 02:00 90 10/12/16 00:59 100 35 10/12/16 00:00 96 10/12/16 00:00 98.7 96 20 112/61 99 10/12/16 00:00 35 10/11/16 22:28 99 35 10/11/16 22:00 93 10/11/16 20:00 35 10/11/16 20:00 93 10/11/16 20:00 99.4 93 22 106/63 100 10/11/16 19:59 99 35 10/11/16 18:00 90 10/11/16 16:52 100 35 10/11/16 16:00 35 10/11/16 16:00 98.6 78 16 100/52 98 10/11/16 16:00 78 10/11/16 14:00 83 10/11/16 12:38 100 35 10/11/16 12:00 94 10/11/16 12:00 35 10/11/16 12:00 97.8 94 16 110/63 100 10/11/16 10:00 85 10/12/16 07:00 Intake Total 4591 ml Output Total 1150 ml Balance 3441 ml Constitutional Vital Signs Date Time Temp Pulse Resp B/P Pulse Ox O2 Delivery O2 Flow Rate FiO2 10/12/16 06:00 84 10/12/16 04:00 86 10/12/16 04:00 98.7 86 22 98/55 97 10/12/16 04:00 35 10/12/16 03:52 100 35 10/12/16 02:00 90 10/12/16 00:59 100 35 10/12/16 00:00 96 10/12/16 00:00 98.7 96 20 112/61 99 10/12/16 00:00 35 10/11/16 22:28 99 35 10/11/16 22:00 93 10/11/16 20:00 35 10/11/16 20:00 93 10/11/16 20:00 99.4 93 22 106/63 100 10/11/16 19:59 99 35 10/11/16 18:00 90 10/11/16 16:52 100 35 10/11/16 16:00 35 10/11/16 16:00 98.6 78 16 100/52 98 10/11/16 16:00 78 10/11/16 14:00 83 10/11/16 12:38 100 35 10/11/16 12:00 94 10/11/16 12:00 35 10/11/16 12:00 97.8 94 16 110/63 100 10/11/16 10:00 85 10/12/16 07:00 Intake Total 4591 ml Output Total 1150 ml Balance 3441 ml (Kaylee Bloom) Review of Systems/Exam Exam Intubated, sedated on 30 mc Diprivan. Does not open eyes, does not follow commands. Right flap decompressed, soft to palpate. Pulsations noted. Wound healing well, griselda intact. CN: pupils 3-4 mm equal, no reaction to right, eye, left sluggish. left eye mildly disconjugated to left. No nystagmus seen. Neck: soft, supple Sensorimotor: mild withdrawal feet to local stim, R>L, no response to UE b/l. Normal tone. Right babinsky response, left plantar silent Abdomen: soft (Kaylee Bloom) Medications Current Medications Current Medications Medications (Trade) Dose Ordered Sig/Vladislav Route PRN Reason Start Time Stop Time Status Last Admin Dose Admin Miscellaneous Information 1 [id number] XX 10/05/16 04:45 10/06/16 03:46 Chlorhexidine Gluconate (Chlorhexidine 2% Cloth) Taper DAILY@04 TOP 10/06/16 04:00 10/02/17 03:59 10/12/16 04:00 Chlorhexidine Gluconate (Chlorhexidine 2% Cloth) 3 pack UNSCH PRN [facility] 10/05/16 04:45 Atorvastatin Calcium (Lipitor) 20 mg HS PO 10/05/16 21:00 10/12/16 01:12 IV Flush (NS Flush) 2 ml UNSCH PRN IVF FLUSH AFTER USING IV ACCESS 10/05/16 05:00 IV Flush (NS Flush) 2 ml BID IVF 10/05/16 09:00 10/12/16 07:59 Bisacodyl (Dulcolax Supp) 10 mg DAILY PRN MI CONSTIPATION 10/05/16 05:00 Docusate Sodium (Colace) 100 mg BID PO 10/05/16 09:00 10/12/16 07:59 Pantoprazole Sodium (Protonix) 40 mg DAILY PO 10/05/16 09:00 Pantoprazole Sodium (Protonix Inj) 40 mg DAILY IVP 10/05/16 09:00 10/12/16 07:59 Ondansetron HCl (Zofran Inj) 4 mg Q6H PRN IV NAUSEA OR VOMITING 10/05/16 05:00 Calcium Gluconate 1 gm 1 gm UNSCH PRN IV SEE LABEL COMMENTS 10/05/16 05:00 Potassium Chloride 100 ml @ 50 mls/hr UNSCH PRN IV POTASSIUM LESS THAN 4 10/05/16 05:00 Magnesium Sulfate/ Sodium Chloride (Magnesium Sulfate Inj/NS Inj) 108 ml @ 108 mls/hr UNSCH PRN IV MAGNESIUM LESS THAN 2 10/05/16 05:00 10/12/16 06:14 Acetaminophen/ Hydrocodone Bitart ([place] 10-325 Mg) 1 tab Q4H PRN PO PAIN SCALE 1 TO 5 10/05/16 05:00 Acetaminophen/ Hydrocodone Bitart ([place] 10-325 Mg) 2 tab Q4H PRN PO PAIN SCALE 6 TO 10 10/05/16 05:00 Morphine Sulfate (Morphine Inj) 2 mg Q2H PRN IV PUSH PAIN SCALE 1 TO 6 10/05/16 05:00 10/06/16 21:40 Morphine Sulfate (Morphine Inj) 4 mg Q2H PRN IV PUSH PAIN SCALE 7 TO 10 10/05/16 05:00 Acetaminophen (Tylenol) 650 mg Q4H PRN PO TEMPERATURE > 101.5 F 10/05/16 05:00 10/10/16 23:41 Chlorhexidine Gluconate 15 ml 15 ml BID@08,20 MT 10/05/16 08:00 10/12/16 07:59 Propofol 100 ml @ 0 mls/hr TITRATE IV 10/05/16 05:15 10/12/16 06:42 Potassium Chloride 100 ml @ 50 mls/hr Q2H PRN IV For Potassium 2.8 - 3.2 mEq/L 10/05/16 05:15 Potassium Chloride (KCl 20 Meq Premix Inj) 100 ml @ 50 mls/hr Q2H PRN IV For Potassium 2.8 - 3.2 mEq/L 10/05/16 05:15 Potassium Chloride 40 meq 40 meq UNSCH PRN PO/TUBE For Potassium 3.3 - 3.5 mEq/L 10/05/16 05:15 Potassium Chloride 100 ml @ 25 mls/hr UNSCH PRN IV For Potassium 3.3 - 3.5 mEq/L 10/05/16 05:15 Potassium Chloride 100 ml @ 50 mls/hr Q2H PRN IV For Potassium 3.3 - 3.5 mEq/L 10/05/16 05:15 10/12/16 08:07 Magnesium Sulfate/ Sodium Chloride (Magnesium Sulfate Inj/NS Inj) 100 ml @ 50 mls/hr UNSCH PRN IV For Magnesium 0.9 - 1.1 mg/dL 10/05/16 05:15 Magnesium Oxide 800 mg 800 mg UNSCH PRN PO For Magnesium 1.2 - 1.6 mg/dL 10/05/16 05:15 Magnesium Sulfate/ Sodium Chloride (Magnesium Sulfate Inj/NS Inj) 100 ml @ 50 mls/hr UNSCH PRN IV For Magnesium 1.2 - 1.6 mg/dL 10/05/16 05:15 Potassium Phosphate 2000 mg 2,000 mg Q4H PRN PO For Phosphorus < 2.5 mg/dL 10/05/16 05:15 10/09/16 08:35 Sodium Phosphate/ Sodium Chloride (Sodium Phosphate Inj/NS 250 ml Inj) 250 ml @ 42 mls/hr UNSCH PRN IV For Phosphorus < 2.5 mg/dL 10/05/16 05:15 10/11/16 07:18 Potassium Chloride (KCl 40 Meq/30 ml Liq) 40 meq UNSCH PRN PO/TUBE SEE LABEL COMMENTS 10/05/16 05:15 Potassium Phosphate 2000 mg 2,000 mg UNSCH PRN PO/TUBE SEE LABEL COMMENTS 10/05/16 05:15 Potassium Phosphate/Sodium Chloride (Potassium Phosphate Inj/NS 250 ml Inj) 260 ml @ 42 mls/hr UNSCH PRN IV SEE LABEL COMMENTS 10/05/16 05:15 Terbutaline Sulfate (Brethine Inj) 1 mg UNSCH PRN SQ FOR EXTRAVASATION PROTOCOL 10/05/16 06:30 Montelukast Sodium (Singulair Chew) 10 mg DAILY PO 10/06/16 09:00 10/12/16 07:58 Labetalol HCl (Trandate Inj) 10 mg Q4H PRN IV PUSH SBP>160, DBP>90 10/07/16 15:30 Hydralazine HCl (Apresoline Inj) 20 mg Q4H PRN IV PUSH SBP> OR = 180, DBP> OR = 100 10/07/16 15:30 Diltiazem HCl (Cardizem) 30 mg QID PO 10/07/16 18:00 10/10/16 20:34 Lorazepam 1 mg 1 mg Q2H PRN IM SEIZURES 10/08/16 13:15 10/09/16 22:05 Cefepime HCl 2000 mg/Sodium Chloride 100 ml @ 200 mls/hr Q12H IV 10/09/16 18:00 10/12/16 05:33 Phenylephrine HCl 40 mg/Sodium Chloride 500 ml @ 0 mls/hr TITRATE IV 10/09/16 21:00 10/12/16 04:46 Levetriacetam 1500 mg/Sodium Chloride 115 ml @ 460 mls/hr Q12H IV 10/10/16 21:00 10/12/16 07:58 Lacosamide/Sodium Chloride (Vimpat Inj/NS Inj) 120 ml @ 110 mls/hr Q12HR IV 10/11/16 21:00 10/12/16 08:33 Phenobarbital Sodium 60 mg 60 mg Q12H IV PUSH 10/12/16 01:00 10/12/16 01:12 Piperacillin Sod/ Tazobactam Sod (Zosyn 3.375 Gm Premix) 50 ml @ 100 mls/hr Q6H IV 10/11/16 16:00 10/12/16 03:20 (Kaylee Bloom) Medical Decision Making MDM Remarks 76 year old female found unresponsive with a large right subdural hematoma with 2 cm midline shift previously anticoagulated on Xarelto, s/p Vit K and Kcentra s/p emergent right decompressive craniectomy with evacuation of subdural hematoma and placement of intracranial pressure monitor on 10/05/16, flap decompressed and soft, pulsatile Seizures (Kaylee Bloom) Plan Plan Remarks cont mgt of seizures per Neurology, cont sedation weaning as tolerated and f/u neuro exam, right flap remains decompressed and soft, (Kaylee Bloom) Attending Statement The exam, history, and the medical decision-making described in the above note were completed with the assistance of the mid-level provider. I reviewed and agree with the findings presented. I attest that I had a [id number] encounter with the patient on the same day, and personally performed and documented my assessment and findings in the medical record. (Chandana Leon MD) Kaylee Bloom Oct 12, 2016 08:54 Chandana Leon MD Oct 13, 2016 17:11
--- NOTE | 2016-10-12 09:27 | MG ---
cc: ROSANGELA VELIZ MD Lab No: [id number] Date: 10/11/2016 Age: 76 Sex: F Race: __ DATE OF 1940 INDICATIONS History of head trauma, intracranial hemorrhage, altered mental status. DESCRIPTION Sharp waves and breach type rhythm noted in the right frontal central region background displaying 1-4 Hz activity 20-50 microvolts. Interspersed one to two second paroxysmal delta suppressed rhythm would occur. No driving with photic stimulation. Single lead EKG showing sinus rhythm. INTERPRETATION Moderate to severe encephalopathy with a right frontal breach type rhythm and with some sharp transients in that region, although no active seizure activity. Clinical correlation. Rosangela Veliz MD MG/DJL /9:02 PM /9:22 AM
--- NOTE | 2016-10-12 13:03 | HHI.CCPN ---
Subjective Remarks/Hospital Course 76 y/o woman was found down and unresponsive. Evaluation at [facility] revealed large acute right sided SDH with 2 cm subfalcine shift to left. 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 Required intubation and mechanical ventilation at referring facility for obtundation. Received Vit K and Kcentra then transported to [facility] where I met her on her arrival. at bedside. Largely unresponsive, will withdraw arms to pain. Mannitol bolus started. Cardiac markers elevated at OSH. Emergency decompression the night of admission, now ventilator dependent, largely unresponsive. Objective Vital Signs Date Time Temp Pulse Resp B/P Pulse Ox O2 Delivery O2 Flow Rate FiO2 10/12/16 12:33 100 35 10/12/16 08:00 98.5 87 23 89/57 Intake and Output 10/11/16 10/11/16 10/11/16 07:59 15:59 23:59 Intake Total 1369 ml 1755 ml 1997 ml Output Total 350 ml 400 ml 450 ml Balance 1019 ml 1355 ml 1547 ml Result Diagram: 10/12/16 0435 10/12/16 0435 Other Results Microbiology Date/Time Procedure Status Source Growth 10/09/16 16:32 Gram Stain - Final Complete Sputum Endotracheal 10/09/16 16:32 Sputum Culture - Final Complete Staphylococcus Aureus Enterobacter Cloacae 10/09/16 17:15 Gram Stain - Final Complete Cerebral Spinal Fluid Lumbar Puncture 10/09/16 17:15 CSF Culture - Final Complete Cerebral Spinal Fluid Lumbar Puncture NO GROWTH IN 72 HOURS Laboratory Tests Test 10/12/16 04:32 Blood Gas Puncture Site ART LINE Blood Gas Patient Temperature 98.6 Blood Gas HCO3 19 mmol/L (22-26) Blood Gas Base Excess -4.5 mmol/L (-2-2) Blood Gas Oxygen Saturation 96 % (90-100) Arterial Blood pH 7.44 (7.380-7.420) Arterial Blood Partial 28 mmHg (38-42) Pressure CO2 Arterial Blood Partial 109 mmHg Pressure O2 (61-120) Arterial Blood Oxygen Content 15.0 Vol % (12.0-20.0) Arterial Blood 1.4 % (0-4) Carboxyhemoglobin Arterial Blood Methemoglobin 0.8 % (0-2) Blood Gas Hemoglobin 11.0 G/DL (12.0-16.0) Oxygen Delivery Device VENTILATOR Blood Gas Ventilator Setting PRVC/AC Blood Gas Inspired Oxygen 35 % Objective Remarks Lungs: Clear, no wheezes or crackles. Heart: NL S1S2, RRR, No JVD. Abdomen : Soft, nondistended, no guarding. BS active. Extremities: Warm, well perfused. Neuro: Largely unresponsive. A/P Problem List: (1) Acute subdural hematoma ICD Code: I62.01 Status: Acute (2) Coagulopathy ICD Code: D68.9 Status: Acute (3) Acute respiratory failure ICD Code: J96.00 Status: Acute (4) NSTEMI (non-ST elevated myocardial infarction) ICD Code: I21.4 Status: Acute Assessment and Plan SDH - post Emergency SDH decompression. - continue Isotonic fluid - neurochecks per unit routine Seizure - Keppra 1500 BID - Increased Vimpat 200 BID (off label dose for refractory seizure/status) - Phenobarb added by neurology NSTEMI, - hemodynamically stable - Hold Xarelto and ASA due to SDH Anemia - protonics BID - Transfuse 2 units, check Hgb after Respiratory failure: - intubated, ventilated - PRVC vent mode. PCO2 30-35 range. - SBT on hold due to persistent seizure activity while off propofol Fevers and leukocytosis - LP cultures negative - Follow up - empirically Vanc/Cef. - will sent C. Dif DVT/GI prophylaxis Protonix, SCDs. No chemical DVT px. due to SDH Overall impression: This woman remains critically ill with a life-threatening acute subdural hemorrhage, exacerbated by NOAC therapy and possibly related to a fall. She remains critically ill and we are unable to wean the ventilators. Neurlogic function is markedly decreased. Critical care 36 mins Andrea Leiva MD Oct 12, 2016 13:03 Andrea Leiva MD Oct 12, 2016 13:03
[2016-10-12] MEDS ORDERED: Vancomycin Consult Pharmacy 1 EA OTHER SCH (13:15)
--- NOTE | 2016-10-12 14:07 | PD.CARD.PN ---
Subjective Subjective Remarks intubated, unresponsive Objective Vital Signs / I&O Vital Signs Date Time Temp Pulse Resp B/P Pulse Ox O2 Delivery O2 Flow Rate FiO2 10/12/16 12:33 100 35 10/12/16 08:00 98.5 87 23 89/57 99 10/12/16 08:00 87 10/12/16 08:00 35 10/12/16 06:00 84 10/12/16 04:00 86 10/12/16 04:00 98.7 86 22 98/55 97 10/12/16 04:00 35 10/12/16 03:52 100 35 10/12/16 02:00 90 10/12/16 00:59 100 35 10/12/16 00:00 96 10/12/16 00:00 98.7 96 20 112/61 99 10/12/16 00:00 35 10/11/16 22:28 99 35 10/11/16 22:00 93 10/11/16 20:00 35 10/11/16 20:00 93 10/11/16 20:00 99.4 93 22 106/63 100 10/11/16 19:59 99 35 10/11/16 18:00 90 10/11/16 16:52 100 35 10/11/16 16:00 35 10/11/16 16:00 98.6 78 16 100/52 98 10/11/16 16:00 78 I/O 10/11/16 10/11/16 10/11/16 10/12/16 10/12/16 10/12/16 07:00 15:00 23:00 07:00 15:00 23:00 Intake Total 1369 ml 1755 ml 1997 ml 839 ml Output Total 350 ml 400 ml 450 ml 300 ml Balance 1019 ml 1355 ml 1547 ml 539 ml IV Total 931 ml 1311 ml 1492 ml 501 ml Tube Feeding 438 ml 444 ml 505 ml 338 ml Output Urine Total 350 ml 400 ml 450 ml 300 ml Tube Feeding Residual Discard 0 ml # Bowel Movements 1 0 0 1 Physical Exam GENERAL: SKIN: Warm and dry. HEAD: Normocephalic. EYES: No scleral icterus. No injection or drainage. NECK: Supple, trachea midline. No JVD or lymphadenopathy. CARDIOVASCULAR: Regular rate and rhythm without murmurs, gallops, or rubs. RESPIRATORY: Breath sounds equal bilaterally. No accessory muscle use. GASTROINTESTINAL: Abdomen soft, non-tender, nondistended. MUSCULOSKELETAL: No cyanosis, or edema. BACK: Nontender without obvious deformity. No CVA tenderness. Laboratory Laboratory Tests Test 10/12/16 10/12/16 04:32 04:35 Blood Gas Puncture Site ART LINE Blood Gas Patient Temperature 98.6 Blood Gas HCO3 19 mmol/L Blood Gas Base Excess -4.5 mmol/L Blood Gas Oxygen Saturation 96 % Arterial Blood pH 7.44 Arterial Blood Partial 28 mmHg Pressure CO2 Arterial Blood Partial 109 mmHg Pressure O2 Arterial Blood Oxygen Content 15.0 Vol % Arterial Blood 1.4 % Carboxyhemoglobin Arterial Blood Methemoglobin 0.8 % Blood Gas Hemoglobin 11.0 G/DL Oxygen Delivery Device VENTILATOR Blood Gas Ventilator Setting PRVC/AC Blood Gas Inspired Oxygen 35 % White Blood Count 18.4 TH/MM3 Red Blood Count 3.47 MIL/MM3 Hemoglobin 10.5 GM/DL Hematocrit 31.2 % Mean Corpuscular Volume 90.0 FL Mean Corpuscular Hemoglobin 30.3 PG Mean Corpuscular Hemoglobin 33.6 % Concent Red Cell Distribution Width 15.9 % Platelet Count 301 TH/MM3 Mean Platelet Volume 8.0 FL Neutrophils (%) (Auto) 78.2 % Lymphocytes (%) (Auto) 11.1 % Monocytes (%) (Auto) 8.9 % Eosinophils (%) (Auto) 1.6 % Basophils (%) (Auto) 0.2 % Neutrophils # (Auto) 14.4 TH/MM3 Lymphocytes # (Auto) 2.0 TH/MM3 Monocytes # (Auto) 1.6 TH/MM3 Eosinophils # (Auto) 0.3 TH/MM3 Basophils # (Auto) 0.0 TH/MM3 CBC Comment AUTO DIFF Differential Total Cells 100 Counted Neutrophils % (Manual) 54 % Band Neutrophils % 20 % Lymphocytes % 11 % Monocytes % 7 % Basophils % 1 % Neutrophils # (Manual) 14.9 TH/MM3 Metamyelocytes 3 % Myelocytes 4 % Nucleated Red Blood Cells 1 /100 WBC Differential Comment FINAL DIFF MANUAL Platelet Estimate NORMAL Platelet Morphology Comment NORMAL Sodium Level 143 MEQ/L Potassium Level 3.5 MEQ/L Chloride Level 113 MEQ/L Carbon Dioxide Level 17.9 MEQ/L Anion Gap 12 MEQ/L Blood Urea Nitrogen 17 MG/DL Creatinine 0.53 MG/DL Estimat Glomerular Filtration 112 ML/MIN Rate Random Glucose 145 MG/DL Calcium Level 7.2 MG/DL Protein Corrected Calcium 8.1 MG/DL Phosphorus Level 1.9 MG/DL Magnesium Level 1.7 MG/DL Total Bilirubin 0.7 MG/DL Aspartate Amino Transf 53 U/L (AST/SGOT) Alanine Aminotransferase 30 U/L (ALT/SGPT) Alkaline Phosphatase 97 U/L Total Protein 5.4 GM/DL Albumin 1.2 GM/DL Assessment and Plan Problem List: (1) HTN (hypertension) (2) PAD (peripheral artery disease) (3) Left carotid artery occlusion (4) CAD (coronary artery disease) (5) Acute respiratory failure (6) Subdural hematoma (7) Coagulopathy (8) NSTEMI (non-ST elevated myocardial infarction) (9) Acute subdural hematoma Assessment and Plan 1.) SDH - ekg suggests possible recent anteroseptal mi, ac contraindicated d/t life threatening ich, beta blockers, lyssa held d/t hypotension and ich; continue statin, supportive care, neurologic prognosis uncertain 2.) Ischemic cardiomyopathy - lyssa inhibitor and beta blockers held d/t labile bp , hypotensive episodes and recent ich Marcus Medel MD Oct 12, 2016 14:07
[2016-10-12] MEDS: VANCOMYCIN INJ 1,250 MG in SODIUM CHLOR 0.9% 250 ML INJ 250 ML IV SCH (16:45)
--- NOTE | 2016-10-12 21:41 | MG ---
cc: ROSANGELA VELIZ MD Lab No: Date: 10/12/2016 Age: Sex: F Race: DATE OF 1940 INDICATION A 76-year-old female, unresponsive, intubated. Right frontotemporal decompressive craniotomy DESCRIPTION OF RECORD Right frontotemporal breech rhythm and sharp waves present off and on, 20 to over 70 microvolts. A couple of tiny sharp transients T3-T5 epoch 111. Reasonable EEG variability reactivity. Single lead EKG showing sinus rhythm. No significant driving with photic stimulation. INTERPRETATION Moderate to severe encephalopathy with right frontal central breach rhythm and sharp discharges at varying frequency. No sustained seizure activity. Clinical correlation. Rosangela Veliz MD MG/KK /8:22 PM /9:32 PM
[2016-10-13] VITALS (18 sets, daily range): BP systolic 116–145; BP diastolic 56–65; PULSE 90–114; RESP 21–25; TEMP 98.8–100.8; O2SAT 99–100
[2016-10-13] MEDS: CHLORHEXIDINE GLUCONATE 2 % 1 PACK (2 CLOTHS) TOP SCH (04:00)
[2016-10-13] MEDS: SODIUM CHLORIDE 0.9% FLUSH 5 ML FLUSH IVF PRN (05:58)
[2016-10-13 06:46] LABS: MAGNESIUM 2.3 MG/DL (1.5-2.5); PHENOBARBITAL 5.5 MCG/ML (15.0-40.0); POTASSIUM 4.1 MEQ/L (3.5-5.1)
[2016-10-13] MEDS: DOCUSATE SODIUM 100 MG CAP PO SCH ×2 (07:46→20:39)
[2016-10-13] MEDS: PANTOPRAZOLE SOD 40 MG DELAYED RELEASE TAB PO SCH (09:00)
[2016-10-13] MEDS: CHLORHEXIDINE 0.12% (ORAL KIT) 15 ML CUP MT SCH ×2 (09:20→20:40)
[2016-10-13] MEDS: LACOSAMIDE INJ 200 MG in SODIUM CHLORIDE 0.9% INJ 100 ML IV SCH ×2 (09:20→20:49)
[2016-10-13] MEDS: levETIRAcetam INJ 1,500 MG in SODIUM CHLORIDE 0.9% INJ 100 ML IV SCH ×2 (09:20→20:39)
[2016-10-13] MEDS: MONTELUKAST SODIUM 5 MG CHEWABLE TAB PO SCH (09:21)
[2016-10-13] MEDS: SODIUM PHOSPHATE INJ 30 MMOL in SODIUM CHLOR 0.9% 250 ML INJ 240 ML IV PRN (09:21)
[2016-10-13] MEDS: SODIUM CHLORIDE 0.9% FLUSH 5 ML FLUSH IVF SCH ×2 (09:21→20:39)
[2016-10-13] MEDS: PANTOPRAZOLE SODIUM 40 MG VIAL IVP SCH (09:21)
[2016-10-13] MEDS: VANCOMYCIN INJ 1,250 MG in SODIUM CHLOR 0.9% 250 ML INJ 250 ML IV SCH (10:24)
[2016-10-13] MEDS: DILTIAZEM HCL 30 MG TAB PO SCH ×4 (10:24→20:39)
--- NOTE | 2016-10-13 14:35 | PD.CARD.PN ---
Subjective Subjective Remarks intubated, unresponsive Objective Vital Signs / I&O Vital Signs Date Time Temp Pulse Resp B/P Pulse Ox O2 Delivery O2 Flow Rate FiO2 10/13/16 14:00 90 10/13/16 12:00 99.0 95 21 126/61 100 10/13/16 12:00 95 10/13/16 12:00 35 10/13/16 11:45 100 35 10/13/16 10:00 93 10/13/16 08:20 100 35 10/13/16 08:00 35 10/13/16 08:00 100.1 98 21 116/56 100 10/13/16 08:00 98 10/13/16 06:00 100 10/13/16 04:48 100 35 10/13/16 04:00 100 10/13/16 04:00 35 10/13/16 04:00 99.1 100 25 126/58 100 10/13/16 02:00 114 10/13/16 01:05 100 35 10/13/16 00:00 35 10/13/16 00:00 100.8 96 25 118/58 100 10/13/16 00:00 96 10/12/16 22:00 100 10/12/16 20:19 100 35 10/12/16 20:00 92 10/12/16 20:00 100.4 92 24 123/62 100 10/12/16 20:00 35 10/12/16 17:37 100 35 10/12/16 16:00 35 10/12/16 16:00 99.8 92 20 123/60 99 I/O 10/12/16 10/12/16 10/12/16 10/13/16 10/13/16 10/13/16 07:00 15:00 23:00 07:00 15:00 23:00 Intake Total 839 ml 1691 ml 1151 ml 666 ml 1139 ml Output Total 300 ml 750 ml 900 ml 850 ml 550 ml Balance 539 ml 941 ml 251 ml -184 ml 589 ml IV Total 501 ml 1227 ml 579 ml 182 ml 612 ml Tube Feeding 338 ml 464 ml 452 ml 364 ml 407 ml Other 120 ml 120 ml 120 ml Output Urine Total 300 ml 750 ml 900 ml 850 ml 550 ml Tube Feeding Residual Discard 0 ml 0 ml # Bowel Movements 1 1 0 3 0 Physical Exam GENERAL: SKIN: Warm and dry. HEAD: Normocephalic. EYES: No scleral icterus. No injection or drainage. NECK: Supple, trachea midline. No JVD or lymphadenopathy. CARDIOVASCULAR: Regular rate and rhythm without murmurs, gallops, or rubs. RESPIRATORY: Breath sounds equal bilaterally. No accessory muscle use. GASTROINTESTINAL: Abdomen soft, non-tender, nondistended. MUSCULOSKELETAL: No cyanosis, or edema. BACK: Nontender without obvious deformity. No CVA tenderness. Laboratory Laboratory Tests Test 10/13/16 06:05 Potassium Level 4.1 MEQ/L Phosphorus Level 2.1 MG/DL Magnesium Level 2.3 MG/DL Phenobarbital Level 5.5 MCG/ML Assessment and Plan Problem List: (1) HTN (hypertension) (2) PAD (peripheral artery disease) (3) Left carotid artery occlusion (4) CAD (coronary artery disease) (5) Acute respiratory failure (6) Subdural hematoma (7) Coagulopathy (8) NSTEMI (non-ST elevated myocardial infarction) (9) Acute subdural hematoma Assessment and Plan 1.) SDH - ekg suggests possible recent anteroseptal mi, ac contraindicated d/t life threatening ich, beta blockers, lyssa held d/t hypotension and ich; continue statin, supportive care, neurologic prognosis uncertain 2.) Ischemic cardiomyopathy - lyssa inhibitor and beta blockers held d/t labile bp , hypotensive episodes and recent ich Marcus Medel MD Oct 13, 2016 14:35
--- NOTE | 2016-10-13 16:03 | HHI.CCPN ---
Subjective Remarks/Hospital Course 76 y/o woman was found down and unresponsive. Evaluation at [facility] revealed large acute right sided SDH with 2 cm subfalcine shift to left. 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 Required intubation and mechanical ventilation at referring facility for obtundation. Received Vit K and Kcentra then transported to [facility] where I met her on her arrival. at bedside. Largely unresponsive, will withdraw arms to pain. Mannitol bolus started. Cardiac markers elevated at OSH. Emergency decompression the night of admission, now ventilator dependent, largely unresponsive. 10/13: No neurological improvement. is getting very anxious. Objective Vital Signs Date Time Temp Pulse Resp B/P Pulse Ox O2 Delivery O2 Flow Rate FiO2 10/13/16 15:51 100 35 10/13/16 14:00 90 10/13/16 12:00 99.0 21 126/61 Intake and Output 10/12/16 10/12/16 10/13/16 08:00 16:00 00:00 Intake Total 839 ml 1691 ml 1151 ml Output Total 300 ml 750 ml 900.0 ml Balance 539 ml 941 ml 251.0 ml Result Diagram: 10/12/16 0435 10/13/16 0605 Objective Remarks Lungs: Clear, no wheezes or crackles.Good brianda air entry. Heart: NL S1S2, RRR, No JVD. Abdomen : Soft, nondistended, no guarding. BS active. Extremities: Warm, well perfused. Trace ankle edema. Neuro: Unresponsive. A/P Problem List: (1) Acute subdural hematoma ICD Code: I62.01 Status: Acute (2) Coagulopathy ICD Code: D68.9 Status: Acute (3) Acute respiratory failure ICD Code: J96.00 Status: Acute (4) NSTEMI (non-ST elevated myocardial infarction) ICD Code: I21.4 Status: Acute Assessment and Plan SDH - post Emergency SDH decompression. - continue Isotonic fluid - neuro checks Seizure - Keppra 1500 BID - Increased Vimpat 200 BID (off label dose for refractory seizure/status) - Phenobarb NSTEMI, - hemodynamically stable - Hold Xarelto and ASA due to SDH Anemia - protonics BID - Transfuse 2 units, check Hgb after Respiratory failure: - intubated, ventilated - PRVC vent mode. PCO2 30-35 range. - SBT on hold due to persistent seizure activity while off propofol Fevers and leukocytosis - LP cultures negative - Follow up - empirically Vanc/Cef. DVT/GI prophylaxis Protonix, SCDs. No chemical DVT px. due to SDH Overall impression: This woman remains critically ill after decompression of a life-threatening acute subdural hemorrhage. She remains critically ill and we are unable to wean the ventilators. Neurologic function is markedly decreased. Critical care 35 mins Andrea Leiva MD Oct 13, 2016 16:03
--- NOTE | 2016-10-13 17:05 | HHI.NSPN ---
(Kaylee Bloom) Note Status Status: Progress Note (Kaylee Bloom) Interval History Interval History Ms. Novoa is a 76 y/o woman was found unresponsive. She was found to have a acute large right sided SDH with 2 cm midline shift. She is anticoagulated with xarelto. She received Vit K and Kcentral and was transferred to [facility]. She underwent emergent right frontotemporoparietal decompressive craniectomy with evacuation of subdural hematoma, and placement of intracranial pressure monitor on 10/05/15. 10/06: POD 1, ICPs at highest overnight 11, she is on 30 of Diprivan. ICPs currently 4. She localized to LE, she does not open eyes or follow commands. Pupils are equal. 10/07: POD 2, f/u CT Brain completed this am, remains sedated for bp control. ICPs within normal limits 10/08: POD 3, minimal output from [facility]. new onset seizures, with head rotated to left, left lateral gaze with slight nystagmus. No tonic/ clonic events in extremities. bone flap with good pulsation, decompressed but firm 10/11: records reports still having seizures off diprivan over the weekend. On multiple antiepileptic medications per Neurology. Sedated on 50 mc Diprivan. 10/12: currently sedated on 30 mc Diprivan, does not open eyes or follow commands , slight withdrawals to feet. 10/13: no acute changes overnight, remains sedated. (Kaylee Bloom) Labs, Micro, & Vital Signs Results Date Time Temp Pulse Resp B/P Pulse Ox O2 Delivery O2 Flow Rate FiO2 10/13/16 15:51 100 35 10/13/16 14:00 90 10/13/16 12:00 99.0 95 21 126/61 100 10/13/16 12:00 95 10/13/16 12:00 35 10/13/16 11:45 100 35 10/13/16 10:00 93 10/13/16 08:20 100 35 10/13/16 08:00 35 10/13/16 08:00 100.1 98 21 116/56 100 10/13/16 08:00 98 10/13/16 06:00 100 10/13/16 04:48 100 35 10/13/16 04:00 100 10/13/16 04:00 35 10/13/16 04:00 99.1 100 25 126/58 100 10/13/16 02:00 114 10/13/16 01:05 100 35 10/13/16 00:00 35 10/13/16 00:00 100.8 96 25 118/58 100 10/13/16 00:00 96 10/12/16 22:00 100 10/12/16 20:19 100 35 10/12/16 20:00 92 10/12/16 20:00 100.4 92 24 123/62 100 10/12/16 20:00 35 10/12/16 17:37 100 35 10/13/16 07:00 Intake Total 3508 ml Output Total 2500.0 ml Balance 1008.0 ml Constitutional Vital Signs Date Time Temp Pulse Resp B/P Pulse Ox O2 Delivery O2 Flow Rate FiO2 10/13/16 15:51 100 35 10/13/16 14:00 90 10/13/16 12:00 99.0 95 21 126/61 100 10/13/16 12:00 95 10/13/16 12:00 35 10/13/16 11:45 100 35 10/13/16 10:00 93 10/13/16 08:20 100 35 10/13/16 08:00 35 10/13/16 08:00 100.1 98 21 116/56 100 10/13/16 08:00 98 10/13/16 06:00 100 10/13/16 04:48 100 35 10/13/16 04:00 100 10/13/16 04:00 35 10/13/16 04:00 99.1 100 25 126/58 100 10/13/16 02:00 114 10/13/16 01:05 100 35 10/13/16 00:00 35 10/13/16 00:00 100.8 96 25 118/58 100 10/13/16 00:00 96 10/12/16 22:00 100 10/12/16 20:19 100 35 10/12/16 20:00 92 10/12/16 20:00 100.4 92 24 123/62 100 10/12/16 20:00 35 10/12/16 17:37 100 35 10/13/16 07:00 Intake Total 3508 ml Output Total 2500.0 ml Balance 1008.0 ml (Kaylee Bloom) Review of Systems/Exam Exam Intubated, sedated on Diprivan. Does not open eyes, does not follow commands. Right flap appears a little hines today but still soft and with good pulsation. Wound healing well, griselda intact. CN: pupils 3-4 mm equal, no reaction to right, eye, left sluggish. left eye mildly disconjugated to left. No nystagmus seen. No corneals noted. Neck: soft, supple Sensorimotor: mild withdrawal feet to local stim, R>L, no response to UE b/l. Normal tone. Right babinsky response, left plantar silent Abdomen: soft (Kaylee Bloom) Medications Current Medications Current Medications Medications (Trade) Dose Ordered Sig/Vladislav Route PRN Reason Start Time Stop Time Status Last Admin Dose Admin Miscellaneous Information 1 Q361D XX 10/05/16 04:45 10/06/16 03:46 Chlorhexidine Gluconate (Chlorhexidine 2% Cloth) Taper DAILY@04 TOP 10/06/16 04:00 10/02/17 03:59 10/12/16 04:00 Chlorhexidine Gluconate (Chlorhexidine 2% Cloth) 3 pack UNSCH PRN TOP HYGIENIC CARE 10/05/16 04:45 Atorvastatin Calcium (Lipitor) 20 mg HS PO 10/05/16 21:00 10/12/16 20:37 IV Flush (NS Flush) 2 ml UNSCH PRN IVF FLUSH AFTER USING IV ACCESS 10/05/16 05:00 10/13/16 05:58 IV Flush (NS Flush) 2 ml BID IVF 10/05/16 09:00 10/13/16 09:21 Bisacodyl (Dulcolax Supp) 10 mg DAILY PRN [place] CONSTIPATION 10/05/16 05:00 Docusate Sodium (Colace) 100 mg BID PO 10/05/16 09:00 10/12/16 20:37 Pantoprazole Sodium (Protonix) 40 mg DAILY PO 10/05/16 09:00 Pantoprazole Sodium (Protonix Inj) 40 mg DAILY IVP 10/05/16 09:00 10/13/16 09:21 Ondansetron HCl (Zofran Inj) 4 mg Q6H PRN IV NAUSEA OR VOMITING 10/05/16 05:00 Calcium Gluconate 1 gm 1 gm UNSCH PRN IV SEE LABEL COMMENTS 10/05/16 05:00 Potassium Chloride 100 ml @ 50 mls/hr UNSCH PRN IV POTASSIUM LESS THAN 4 10/05/16 05:00 Magnesium Sulfate/ Sodium Chloride (Magnesium Sulfate Inj/NS Inj) 108 ml @ 108 mls/hr UNSCH PRN IV MAGNESIUM LESS THAN 2 10/05/16 05:00 10/12/16 06:14 Acetaminophen/ Hydrocodone Bitart ([place] 10-325 Mg) 1 tab Q4H PRN PO PAIN SCALE 1 TO 5 10/05/16 05:00 Acetaminophen/ Hydrocodone Bitart ([place] 10-325 Mg) 2 tab Q4H PRN PO PAIN SCALE 6 TO 10 10/05/16 05:00 Morphine Sulfate (Morphine Inj) 2 mg Q2H PRN IV PUSH PAIN SCALE 1 TO 6 10/05/16 05:00 10/06/16 21:40 Morphine Sulfate (Morphine Inj) 4 mg Q2H PRN IV PUSH PAIN SCALE 7 TO 10 10/05/16 05:00 Acetaminophen (Tylenol) 650 mg Q4H PRN PO TEMPERATURE > 101.5 F 10/05/16 05:00 10/10/16 23:41 Chlorhexidine Gluconate 15 ml 15 ml BID@08,20 MT 10/05/16 08:00 10/13/16 09:20 Propofol 100 ml @ 0 mls/hr TITRATE IV 10/05/16 05:15 10/12/16 06:42 Potassium Chloride 100 ml @ 50 mls/hr Q2H PRN IV For Potassium 2.8 - 3.2 mEq/L 10/05/16 05:15 Potassium Chloride (KCl 20 Meq Premix Inj) 100 ml @ 50 mls/hr Q2H PRN IV For Potassium 2.8 - 3.2 mEq/L 10/05/16 05:15 Potassium Chloride 40 meq 40 meq UNSCH PRN PO/TUBE For Potassium 3.3 - 3.5 mEq/L 10/05/16 05:15 Potassium Chloride 100 ml @ 25 mls/hr UNSCH PRN IV For Potassium 3.3 - 3.5 mEq/L 10/05/16 05:15 Potassium Chloride 100 ml @ 50 mls/hr Q2H PRN IV For Potassium 3.3 - 3.5 mEq/L 10/05/16 05:15 10/12/16 08:07 Magnesium Sulfate/ Sodium Chloride (Magnesium Sulfate Inj/NS Inj) 100 ml @ 50 mls/hr UNSCH PRN IV For Magnesium 0.9 - 1.1 mg/dL 10/05/16 05:15 Magnesium Oxide 800 mg 800 mg UNSCH PRN PO For Magnesium 1.2 - 1.6 mg/dL 10/05/16 05:15 Magnesium Sulfate/ Sodium Chloride (Magnesium Sulfate Inj/NS Inj) 100 ml @ 50 mls/hr UNSCH PRN IV For Magnesium 1.2 - 1.6 mg/dL 10/05/16 05:15 Potassium Phosphate 2000 mg 2,000 mg Q4H PRN PO For Phosphorus < 2.5 mg/dL 10/05/16 05:15 10/09/16 08:35 Sodium Phosphate/ Sodium Chloride (Sodium Phosphate Inj/NS 250 ml Inj) 250 ml @ 42 mls/hr UNSCH PRN IV For Phosphorus < 2.5 mg/dL 10/05/16 05:15 10/13/16 09:21 Potassium Chloride (KCl 40 Meq/30 ml Liq) 40 meq UNSCH PRN PO/TUBE SEE LABEL COMMENTS 10/05/16 05:15 Potassium Phosphate 2000 mg 2,000 mg UNSCH PRN PO/TUBE SEE LABEL COMMENTS 10/05/16 05:15 Potassium Phosphate/Sodium Chloride (Potassium Phosphate Inj/NS 250 ml Inj) 260 ml @ 42 mls/hr UNSCH PRN IV SEE LABEL COMMENTS 10/05/16 05:15 Terbutaline Sulfate (Brethine Inj) 1 mg UNSCH PRN SQ FOR EXTRAVASATION PROTOCOL 10/05/16 06:30 Montelukast Sodium (Singulair Chew) 10 mg DAILY PO 10/06/16 09:00 10/13/16 09:21 Labetalol HCl (Trandate Inj) 10 mg Q4H PRN IV PUSH SBP>160, DBP>90 10/07/16 15:30 Hydralazine HCl (Apresoline Inj) 20 mg Q4H PRN IV PUSH SBP> OR = 180, DBP> OR = 100 10/07/16 15:30 Diltiazem HCl (Cardizem) 30 mg QID PO 10/07/16 18:00 10/13/16 12:55 Lorazepam 1 mg 1 mg Q2H PRN IM SEIZURES 10/08/16 13:15 10/09/16 22:05 Phenylephrine HCl 40 mg/Sodium Chloride 500 ml @ 0 mls/hr TITRATE IV 10/09/16 21:00 10/12/16 16:45 Levetriacetam 1500 mg/Sodium Chloride 115 ml @ 460 mls/hr Q12H IV 10/10/16 21:00 10/13/16 09:20 Lacosamide 200 mg/ Sodium Chloride 120 ml @ 110 mls/hr Q12HR IV 10/11/16 21:00 10/13/16 09:20 Pharmacy Profile Note (Vancomycin Consult Pharmacy) 0 ml @ 0 mls/hr UNSCH OTHER 10/12/16 13:15 Phenobarbital Sodium 60 mg 60 mg Q8HR IV PUSH 10/12/16 22:00 10/13/16 12:55 Vancomycin HCl/ Sodium Chloride (Vancomycin Inj/ NS 250 ml Inj) 262.5 ml @ 250 mls/hr Q18H IV 10/12/16 16:00 10/13/16 10:24 Miscellaneous Information SPECIFIC LAB TO BE DRAWN:VANCO TROUGH DATE TO BE DRChar.. ONCE ONCE XX 10/14/16 21:45 10/14/16 21:46 (Kaylee Bloom) Medical Decision Making MDM Remarks 76 year old female found unresponsive with a large right subdural hematoma with 2 cm midline shift previously anticoagulated on Xarelto, s/p Vit K and Kcentra s/p emergent right decompressive craniectomy with evacuation of subdural hematoma and placement of intracranial pressure monitor on 10/05/16, flap decompressed and soft, pulsatile Seizures (Kaylee Bloom) Plan Plan Remarks cont mgt of seizures per Neurology, cont sedation weaning as tolerated and f/u neuro exam, (Kaylee Bloom) Attending Statement The exam, history, and the medical decision-making described in the above note were completed with the assistance of the mid-level provider. I reviewed and agree with the findings presented. I attest that I had a [id number] encounter with the patient on the same day, and personally performed and documented my assessment and findings in the medical record. (Chandana Leon MD) Kaylee Bloom Oct 13, 2016 17:05 Chandana Leon MD Oct 17, 2016 20:58
[2016-10-13] MEDS: ATORVASTATIN 20 MG TAB PO SCH (20:39)
[2016-10-14] VITALS (19 sets, daily range): BP systolic 117–143; BP diastolic 57–66; PULSE 92–102; RESP 20–25; TEMP 98.5–100.1; O2SAT 95–100
[2016-10-14] MEDS: CHLORHEXIDINE GLUCONATE 2 % 1 PACK (2 CLOTHS) TOP SCH (04:00)
[2016-10-14] MEDS: VANCOMYCIN INJ 1,250 MG in SODIUM CHLOR 0.9% 250 ML INJ 250 ML IV SCH (04:26)
[2016-10-14] MEDS: DOCUSATE SODIUM 100 MG CAP PO SCH ×2 (07:27→21:00)
[2016-10-14] MEDS: PANTOPRAZOLE SOD 40 MG DELAYED RELEASE TAB PO SCH (08:19)
[2016-10-14] MEDS: MONTELUKAST SODIUM 5 MG CHEWABLE TAB PO SCH (08:19)
[2016-10-14] MEDS: levETIRAcetam INJ 1,500 MG in SODIUM CHLORIDE 0.9% INJ 100 ML IV SCH ×2 (08:19→21:12)
[2016-10-14] MEDS: LACOSAMIDE INJ 200 MG in SODIUM CHLORIDE 0.9% INJ 100 ML IV SCH ×2 (08:19→21:12)
[2016-10-14] MEDS: DILTIAZEM HCL 30 MG TAB PO SCH ×4 (08:19→21:12)
[2016-10-14] MEDS: PANTOPRAZOLE SODIUM 40 MG VIAL IVP SCH (08:19)
[2016-10-14] MEDS: SODIUM CHLORIDE 0.9% FLUSH 5 ML FLUSH IVF SCH ×2 (08:19→21:13)
[2016-10-14] MEDS: CHLORHEXIDINE 0.12% (ORAL KIT) 15 ML CUP MT SCH ×2 (08:20→21:13)
--- NOTE | 2016-10-14 09:35 | HHI.NSPN ---
(Kaylee Bloom) Note Status Status: Progress Note (Kaylee Bloom) Interval History Interval History Ms. Novoa is a 76 y/o woman was found unresponsive. She was found to have a acute large right sided SDH with 2 cm midline shift. She is anticoagulated with xarelto. She received Vit K and Kcentral and was transferred to [facility]. She underwent emergent right frontotemporoparietal decompressive craniectomy with evacuation of subdural hematoma, and placement of intracranial pressure monitor on 10/05/15. 10/06: POD 1, ICPs at highest overnight 11, she is on 30 of Diprivan. ICPs currently 4. She localized to LE, she does not open eyes or follow commands. Pupils are equal. 10/07: POD 2, f/u CT Brain completed this am, remains sedated for bp control. ICPs within normal limits 10/08: POD 3, minimal output from [facility]. new onset seizures, with head rotated to left, left lateral gaze with slight nystagmus. No tonic/ clonic events in extremities. bone flap with good pulsation, decompressed but firm 10/11: records reports still having seizures off diprivan over the weekend. On multiple antiepileptic medications per Neurology. Sedated on 50 mc Diprivan. 10/12: currently sedated on 30 mc Diprivan, does not open eyes or follow commands , slight withdrawals to feet. 10/13: no acute changes overnight, remains sedated. 10/14: last EEG still showing sharp discharges, remains sedated due to clinical sz when off sedation. does not open eyes, does not follow commands, no purposeful movements. (Kaylee Bloom) Labs, Micro, & Vital Signs Results Date Time Temp Pulse Resp B/P Pulse Ox O2 Delivery O2 Flow Rate FiO2 10/14/16 08:00 98.7 101 20 134/63 100 10/14/16 08:00 35 10/14/16 08:00 101 10/14/16 06:00 98 10/14/16 04:06 98 35 10/14/16 04:00 100.1 98 21 119/58 98 10/14/16 04:00 35 10/14/16 04:00 98 10/14/16 02:00 98 10/14/16 00:39 100 35 10/14/16 00:00 99.0 100 24 143/66 100 10/14/16 00:00 100 10/14/16 00:00 35 10/13/16 22:00 100 10/13/16 21:48 99 35 10/13/16 20:00 35 10/13/16 20:00 98.9 104 24 145/65 100 10/13/16 20:00 104 10/13/16 18:00 107 10/13/16 16:00 35 10/13/16 16:00 98.8 90 21 119/58 100 10/13/16 16:00 90 10/13/16 15:51 100 35 10/13/16 14:00 90 10/13/16 12:00 99.0 95 21 126/61 100 10/13/16 12:00 95 10/13/16 12:00 35 10/13/16 11:45 100 35 10/13/16 10:00 93 10/14/16 07:00 Intake Total 2928 ml Output Total 1800.0 ml Balance 1128.0 ml Constitutional Vital Signs Date Time Temp Pulse Resp B/P Pulse Ox O2 Delivery O2 Flow Rate FiO2 10/14/16 08:00 98.7 101 20 134/63 100 10/14/16 08:00 35 10/14/16 08:00 101 10/14/16 06:00 98 10/14/16 04:06 98 35 10/14/16 04:00 100.1 98 21 119/58 98 10/14/16 04:00 35 10/14/16 04:00 98 10/14/16 02:00 98 10/14/16 00:39 100 35 10/14/16 00:00 99.0 100 24 143/66 100 10/14/16 00:00 100 10/14/16 00:00 35 10/13/16 22:00 100 10/13/16 21:48 99 35 10/13/16 20:00 35 10/13/16 20:00 98.9 104 24 145/65 100 10/13/16 20:00 104 10/13/16 18:00 107 10/13/16 16:00 35 10/13/16 16:00 98.8 90 21 119/58 100 10/13/16 16:00 90 10/13/16 15:51 100 35 10/13/16 14:00 90 10/13/16 12:00 99.0 95 21 126/61 100 10/13/16 12:00 95 10/13/16 12:00 35 10/13/16 11:45 100 35 10/13/16 10:00 93 10/14/16 07:00 Intake Total 2928 ml Output Total 1800.0 ml Balance 1128.0 ml (Kaylee Bloom) Review of Systems/Exam Exam Intubated, no sedative drips. No spontaneous eye opening, does not follow commands. No purposeful movements. Right flap full, soft and pulsatile. The skin flap appears ecchymotic. Skin is warm. Wound healing well, griselda intact. CN: pupils 3-4 mm equal, no reaction to right, eye, left sluggish. left eye mildly disconjugated to left. No nystagmus seen. Neck: soft, supple Sensorimotor: mild foot dorsiflexion to local stimuli Right Babinski response, left plantar silent Abdomen: soft (Kaylee Bloom) Medications Current Medications Current Medications Medications (Trade) Dose Ordered Sig/Vladislav Route PRN Reason Start Time Stop Time Status Last Admin Dose Admin Miscellaneous Information 1 Q361D XX 10/05/16 04:45 10/06/16 03:46 Chlorhexidine Gluconate (Chlorhexidine 2% Cloth) Taper DAILY@04 TOP 10/06/16 04:00 10/02/17 03:59 10/12/16 04:00 Chlorhexidine Gluconate (Chlorhexidine 2% Cloth) 3 pack UNSCH PRN TOP HYGIENIC CARE 10/05/16 04:45 Atorvastatin Calcium (Lipitor) 20 mg HS PO 10/05/16 21:00 10/13/16 20:39 IV Flush (NS Flush) 2 ml UNSCH PRN IVF FLUSH AFTER USING IV ACCESS 10/05/16 05:00 10/13/16 05:58 IV Flush (NS Flush) 2 ml BID IVF 10/05/16 09:00 10/14/16 08:19 Bisacodyl (Dulcolax Supp) 10 mg DAILY PRN [place] CONSTIPATION 10/05/16 05:00 Docusate Sodium (Colace) 100 mg BID PO 10/05/16 09:00 10/12/16 20:37 Pantoprazole Sodium (Protonix) 40 mg DAILY PO 10/05/16 09:00 Pantoprazole Sodium (Protonix Inj) 40 mg DAILY IVP 10/05/16 09:00 10/14/16 08:19 Ondansetron HCl (Zofran Inj) 4 mg Q6H PRN IV NAUSEA OR VOMITING 10/05/16 05:00 Calcium Gluconate 1 gm 1 gm UNSCH PRN IV SEE LABEL COMMENTS 10/05/16 05:00 Potassium Chloride 100 ml @ 50 mls/hr UNSCH PRN IV POTASSIUM LESS THAN 4 10/05/16 05:00 Magnesium Sulfate/ Sodium Chloride (Magnesium Sulfate Inj/NS Inj) 108 ml @ 108 mls/hr UNSCH PRN IV MAGNESIUM LESS THAN 2 10/05/16 05:00 10/12/16 06:14 Acetaminophen/ Hydrocodone Bitart ([place] 10-325 Mg) 1 tab Q4H PRN PO PAIN SCALE 1 TO 5 10/05/16 05:00 Acetaminophen/ Hydrocodone Bitart ([place] 10-325 Mg) 2 tab Q4H PRN PO PAIN SCALE 6 TO 10 10/05/16 05:00 Morphine Sulfate (Morphine Inj) 2 mg Q2H PRN IV PUSH PAIN SCALE 1 TO 6 10/05/16 05:00 10/06/16 21:40 Morphine Sulfate (Morphine Inj) 4 mg Q2H PRN IV PUSH PAIN SCALE 7 TO 10 10/05/16 05:00 Acetaminophen (Tylenol) 650 mg Q4H PRN PO TEMPERATURE > 101.5 F 10/05/16 05:00 10/10/16 23:41 Chlorhexidine Gluconate 15 ml 15 ml BID@08,20 MT 10/05/16 08:00 10/14/16 08:20 Propofol 100 ml @ 0 mls/hr TITRATE IV 10/05/16 05:15 10/12/16 06:42 Potassium Chloride 100 ml @ 50 mls/hr Q2H PRN IV For Potassium 2.8 - 3.2 mEq/L 10/05/16 05:15 Potassium Chloride (KCl 20 Meq Premix Inj) 100 ml @ 50 mls/hr Q2H PRN IV For Potassium 2.8 - 3.2 mEq/L 10/05/16 05:15 Potassium Chloride 40 meq 40 meq UNSCH PRN PO/TUBE For Potassium 3.3 - 3.5 mEq/L 10/05/16 05:15 Potassium Chloride 100 ml @ 25 mls/hr UNSCH PRN IV For Potassium 3.3 - 3.5 mEq/L 10/05/16 05:15 Potassium Chloride 100 ml @ 50 mls/hr Q2H PRN IV For Potassium 3.3 - 3.5 mEq/L 10/05/16 05:15 10/12/16 08:07 Magnesium Sulfate/ Sodium Chloride (Magnesium Sulfate Inj/NS Inj) 100 ml @ 50 mls/hr UNSCH PRN IV For Magnesium 0.9 - 1.1 mg/dL 10/05/16 05:15 Magnesium Oxide 800 mg 800 mg UNSCH PRN PO For Magnesium 1.2 - 1.6 mg/dL 10/05/16 05:15 Magnesium Sulfate/ Sodium Chloride (Magnesium Sulfate Inj/NS Inj) 100 ml @ 50 mls/hr UNSCH PRN IV For Magnesium 1.2 - 1.6 mg/dL 10/05/16 05:15 Potassium Phosphate 2000 mg 2,000 mg Q4H PRN PO For Phosphorus < 2.5 mg/dL 10/05/16 05:15 10/09/16 08:35 Sodium Phosphate/ Sodium Chloride (Sodium Phosphate Inj/NS 250 ml Inj) 250 ml @ 42 mls/hr UNSCH PRN IV For Phosphorus < 2.5 mg/dL 10/05/16 05:15 10/13/16 09:21 Potassium Chloride (KCl 40 Meq/30 ml Liq) 40 meq UNSCH PRN PO/TUBE SEE LABEL COMMENTS 10/05/16 05:15 Potassium Phosphate 2000 mg 2,000 mg UNSCH PRN PO/TUBE SEE LABEL COMMENTS 10/05/16 05:15 Potassium Phosphate/Sodium Chloride (Potassium Phosphate Inj/NS 250 ml Inj) 260 ml @ 42 mls/hr UNSCH PRN IV SEE LABEL COMMENTS 10/05/16 05:15 Terbutaline Sulfate (Brethine Inj) 1 mg UNSCH PRN SQ FOR EXTRAVASATION PROTOCOL 10/05/16 06:30 Montelukast Sodium (Singulair Chew) 10 mg DAILY PO 10/06/16 09:00 10/14/16 08:19 Labetalol HCl (Trandate Inj) 10 mg Q4H PRN IV PUSH SBP>160, DBP>90 10/07/16 15:30 Hydralazine HCl (Apresoline Inj) 20 mg Q4H PRN IV PUSH SBP> OR = 180, DBP> OR = 100 10/07/16 15:30 Diltiazem HCl (Cardizem) 30 mg QID PO 10/07/16 18:00 10/14/16 08:19 Lorazepam 1 mg 1 mg Q2H PRN IM SEIZURES 10/08/16 13:15 10/09/16 22:05 Phenylephrine HCl 40 mg/Sodium Chloride 500 ml @ 0 mls/hr TITRATE IV 10/09/16 21:00 10/12/16 16:45 Levetriacetam 1500 mg/Sodium Chloride 115 ml @ 460 mls/hr Q12H IV 10/10/16 21:00 10/14/16 08:19 Lacosamide 200 mg/ Sodium Chloride 120 ml @ 110 mls/hr Q12HR IV 10/11/16 21:00 10/14/16 08:19 Pharmacy Profile Note (Vancomycin Consult Pharmacy) 0 ml @ 0 mls/hr UNSCH OTHER 10/12/16 13:15 Phenobarbital Sodium 60 mg 60 mg Q8HR IV PUSH 10/12/16 22:00 10/14/16 05:48 Vancomycin HCl/ Sodium Chloride (Vancomycin Inj/ NS 250 ml Inj) 262.5 ml @ 250 mls/hr Q18H IV 10/12/16 16:00 10/14/16 04:26 Miscellaneous Information SPECIFIC LAB TO BE DRAWN:VANCO TROUGH DATE TO BE DRChar.. ONCE ONCE XX 10/14/16 21:45 10/14/16 21:46 (Kaylee Bloom) Medical Decision Making MDM Remarks 76 year old female found unresponsive with a large right subdural hematoma with 2 cm midline shift previously anticoagulated on Xarelto, s/p Vit K and Kcentra s/p emergent right decompressive craniectomy with evacuation of subdural hematoma and placement of intracranial pressure monitor on 10/05/16, flap decompressed and soft, pulsatile Seizures (Kaylee Bloom) Plan Plan Remarks getting repeat EEG now, defer mgt seizure per Neurology cont follow neuro exam (Kaylee Bloom) Attending Statement The exam, history, and the medical decision-making described in the above note were completed with the assistance of the mid-level provider. I reviewed and agree with the findings presented. I attest that I had a [id number] encounter with the patient on the same day, and personally performed and documented my assessment and findings in the medical record. (Chandana Leon MD) Kaylee Bloom Oct 14, 2016 09:35 Chandana Leon MD Oct 17, 2016 20:59
--- NOTE | 2016-10-14 13:55 | PD.CARD.PN ---
Subjective Subjective Remarks intubated, sedated Objective Vital Signs / I&O Vital Signs Date Time Temp Pulse Resp B/P Pulse Ox O2 Delivery O2 Flow Rate FiO2 10/14/16 12:24 35 10/14/16 12:20 35 10/14/16 12:20 97 35 10/14/16 12:00 96 10/14/16 12:00 98.5 96 22 117/57 98 10/14/16 10:19 95 35 10/14/16 10:00 98 10/14/16 08:00 98.7 101 20 134/63 100 10/14/16 08:00 35 10/14/16 08:00 101 10/14/16 06:00 98 10/14/16 04:06 98 35 10/14/16 04:00 100.1 98 21 119/58 98 10/14/16 04:00 35 10/14/16 04:00 98 10/14/16 02:00 98 10/14/16 00:39 100 35 10/14/16 00:00 99.0 100 24 143/66 100 10/14/16 00:00 100 10/14/16 00:00 35 10/13/16 22:00 100 10/13/16 21:48 99 35 10/13/16 20:00 35 10/13/16 20:00 98.9 104 24 145/65 100 10/13/16 20:00 104 10/13/16 18:00 107 10/13/16 16:00 35 10/13/16 16:00 98.8 90 21 119/58 100 10/13/16 16:00 90 10/13/16 15:51 100 35 10/13/16 14:00 90 I/O 10/13/16 10/13/16 10/13/16 10/14/16 10/14/16 10/14/16 07:00 15:00 23:00 07:00 15:00 23:00 Intake Total 666 ml 1139 ml 823 ml 966 ml Output Total 850 ml 550 ml 650 ml 600 ml 0 ml Balance -184 ml 589 ml 173 ml 366 ml 0 ml IV Total 182 ml 612 ml 286 ml 461 ml Tube Feeding 364 ml 407 ml 357 ml 445 ml Other 120 ml 120 ml 180 ml 60 ml Output Urine Total 850 ml 550 ml 650 ml 600 ml Tube Feeding Residual Discard 0 ml 0 ml 0 ml 0 ml 0 ml # Bowel Movements 3 0 2 1 Physical Exam GENERAL: SKIN: Warm and dry. HEAD: Normocephalic. EYES: No scleral icterus. No injection or drainage. NECK: Supple, trachea midline. No JVD or lymphadenopathy. CARDIOVASCULAR: Regular rate and rhythm without murmurs, gallops, or rubs. RESPIRATORY: Breath sounds equal bilaterally. No accessory muscle use. GASTROINTESTINAL: Abdomen soft, non-tender, nondistended. MUSCULOSKELETAL: No cyanosis, or edema. BACK: Nontender without obvious deformity. No CVA tenderness. Assessment and Plan Problem List: (1) HTN (hypertension) (2) PAD (peripheral artery disease) (3) Left carotid artery occlusion (4) CAD (coronary artery disease) (5) Acute respiratory failure (6) Subdural hematoma (7) Coagulopathy (8) NSTEMI (non-ST elevated myocardial infarction) (9) Acute subdural hematoma Assessment and Plan 1.) SDH - ekg suggests possible recent anteroseptal mi, ac contraindicated d/t life threatening ich, beta blockers, lyssa held d/t hypotension and ich; continue statin, supportive care, neurologic prognosis uncertain 2.) Ischemic cardiomyopathy - lyssa inhibitor and beta blockers held d/t labile bp , hypotensive episodes and recent ich Marcus Medel MD Oct 14, 2016 13:55
[2016-10-14 14:27] LABS: BICARBONATE 23.4 MEQ/L (21.0-32.0)
[2016-10-14 14:39] LABS: POTASSIUM 4.3 MEQ/L (3.5-5.1)
--- NOTE | 2016-10-14 18:16 | HHI.CCPN ---
Subjective Remarks/Hospital Course 76 y/o woman was found down and unresponsive. Evaluation at [facility] revealed large acute right sided SDH with 2 cm subfalcine shift to left. 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 Required intubation and mechanical ventilation at referring facility for obtundation. Received Vit K and Kcentra then transported to [facility] where I met her on her arrival. at bedside. Largely unresponsive, will withdraw arms to pain. Mannitol bolus started. Cardiac markers elevated at OSH. Emergency decompression the night of admission, now ventilator dependent, largely unresponsive. 10/13: No neurological improvement. is getting very anxious. 10/14: No improvement, sedated for seizure control. Objective Vital Signs Date Time Temp Pulse Resp B/P Pulse Ox O2 Delivery O2 Flow Rate FiO2 10/14/16 17:15 97 35 10/14/16 16:00 95 10/14/16 16:00 98.9 21 120/59 Intake and Output 10/13/16 10/13/16 10/14/16 08:00 16:00 00:00 Intake Total 666 ml 1139 ml 823 ml Output Total 850.0 ml 550.0 ml 650.0 ml Balance -184.0 ml 589.0 ml 173.0 ml Result Diagram: 10/12/16 0435 10/14/16 1322 Objective Remarks Lungs: Clear, no wheezes or crackles.Good brianda air entry. Heart: NL S1S2, RRR, No JVD. Occ PMB. Abdomen : Soft, nondistended, no guarding. BS active. Extremities: Warm, well perfused. Trace ankle edema. Neuro: Unresponsive. No obvious seizures. A/P Problem List: (1) Acute subdural hematoma ICD Code: I62.01 Status: Acute (2) Coagulopathy ICD Code: D68.9 Status: Acute (3) Acute respiratory failure ICD Code: J96.00 Status: Acute (4) NSTEMI (non-ST elevated myocardial infarction) ICD Code: I21.4 Status: Acute Assessment and Plan SDH - post Emergency SDH decompression. - continue Isotonic fluid - neuro checks Seizure - Keppra 1500 BID - Increased Vimpat 200 BID (off label dose for refractory seizure/status) - Phenobarb level < 10 NSTEMI, - hemodynamically stable - Hold Xarelto and ASA due to SDH Anemia - protonics BID - Transfuse 2 units, check Hgb after Respiratory failure: - intubated, ventilated - PRVC vent mode. PCO2 30-35 range. - SBT on hold due to persistent seizure activity while off propofol Fevers and leukocytosis - LP cultures negative - Follow up - empirically Vanc/Cef. DVT/GI prophylaxis Protonix, SCDs. No chemical DVT px. due to SDH Overall impression: This woman remains critically ill after decompression of a life-threatening acute subdural hemorrhage. We are unable to wean the ventilators. Neurologic function is markedly decreased. Critical care 33 mins Andrea Leiva MD Oct 14, 2016 18:16
[2016-10-14] MEDS: ATORVASTATIN 20 MG TAB PO SCH (21:12)
--- NOTE | 2016-10-14 21:13 | MG ---
cc: ROSANGELA VELIZ MD Lab No: [id number] Date: 10/14/16 Age: 76 Sex: F Race: 1940 A 76-year-old history of decompressive craniectomy. Right frontal central breach rhythm. Sharp transients and overall generalized slowing 1-3 Hz with overriding low amplitude 4-5 Hz theta activity. No driving with photic stimulation. Areas of frequency of breach rhythm. Single lead EKG showing sinus rhythm. INTERPRETATION Right frontal central breach rhythm with sharp transients. moderate generalized slowing. Clinical correlation. MD JESSICA Bailon/ /8:17 PM /9:10 PM
[2016-10-14] MEDS ORDERED: PHARMACY ORDERED LAB XX ONE (21:45)
[2016-10-15] VITALS (19 sets, daily range): BP systolic 111–130; BP diastolic 56–62; PULSE 94–103; RESP 20–26; TEMP 99.1–100.7; O2SAT 97–100
[2016-10-15] MEDS: VANCOMYCIN INJ 1,250 MG in SODIUM CHLOR 0.9% 250 ML INJ 250 ML IV SCH ×2 (01:03→12:41)
[2016-10-15] MEDS: CHLORHEXIDINE GLUCONATE 2 % 1 PACK (2 CLOTHS) TOP SCH (04:00)
[2016-10-15 04:35] LABS: AUTOMATED NEUTROPHIL # 8.5 TH/MM3 (1.8-7.7); BASOPHIL # 0.1 TH/MM3 (0-0.2); BASOPHIL % 0.5 % (0.0-2.0); EOSINOPHIL # 0.1 TH/MM3 (0-0.4); EOSINOPHIL % 1.1 % (0.0-4.0); HEMATOCRIT 29.4 % (35.0-46.0); LYMPH % 13.5 % (9.0-44.0); LYMPHOCYTE # 1.6 TH/MM3 (1.0-4.8); MEAN CELL VOLUME 90.2 FL (80.0-100.0); MEAN CORPUSCULAR HGB CONC 33.2 % (32.0-36.0); MONO % 14.6 % (0.0-8.0); NEUT % 70.3 % (16.0-70.0); PLATELET COUNT 335 TH/MM3 (150-450); RED BLOOD COUNT 3.26 MIL/MM3 (4.00-5.30); RED CELL DISTRIBUTION WIDTH 16.3 % (11.6-17.2); WHITE BLOOD COUNT 12.1 TH/MM3 (4.0-11.0)
[2016-10-15 04:39] LABS: HEMO FLAGS AUTO DIFF
[2016-10-15 05:03] LABS: BICARBONATE 27.7 MEQ/L (21.0-32.0); POTASSIUM 3.8 MEQ/L (3.5-5.1)
[2016-10-15] MEDS: SODIUM CHLORIDE 0.9% FLUSH 5 ML FLUSH IVF PRN (06:01)
[2016-10-15 06:58] LABS: BANDS 4 % (0-6); BASOPHILS 1 % (0-2); EOSINOPHILS 3 % (0-4); METAMYELOCYTES 2 % (0-1); NEUTROPHIL # MANUAL DIFF 8.5 TH/MM3 (1.8-7.7); PLATELET ESTIMATE SMEAR NORMAL (NORMAL); PLATELET MORPHOLOGY NORMAL (NORMAL); POLYS (SEG NEUTROPHILS) 64 % (16-70); SCAN/DIFF FINAL DIFF MANUAL; WBC DIFF SAMPLE 100
[2016-10-15] MEDS: PANTOPRAZOLE SOD 40 MG DELAYED RELEASE TAB PO SCH (09:00)
[2016-10-15] MEDS: LACOSAMIDE INJ 200 MG in SODIUM CHLORIDE 0.9% INJ 100 ML IV SCH ×2 (09:18→21:00)
[2016-10-15] MEDS: SODIUM CHLORIDE 0.9% FLUSH 5 ML FLUSH IVF SCH ×2 (09:18→21:00)
[2016-10-15] MEDS: PANTOPRAZOLE SODIUM 40 MG VIAL IVP SCH (09:18)
[2016-10-15] MEDS: DILTIAZEM HCL 30 MG TAB PO SCH ×4 (09:18→21:00)
[2016-10-15] MEDS: MONTELUKAST SODIUM 5 MG CHEWABLE TAB PO SCH (09:18)
[2016-10-15] MEDS: DOCUSATE SODIUM 100 MG CAP PO SCH ×2 (09:18→21:00)
[2016-10-15] MEDS: CHLORHEXIDINE 0.12% (ORAL KIT) 15 ML CUP MT SCH ×2 (09:19→20:00)
[2016-10-15] MEDS: levETIRAcetam INJ 1,500 MG in SODIUM CHLORIDE 0.9% INJ 100 ML IV SCH ×2 (09:41→21:00)
--- NOTE | 2016-10-15 11:29 | PD.CONS ---
Consult Service Palliative Care Consult Requested By Dr Leiva . Primary Care Physician Linda Negro DO Reason for Consultation a. To assist with evaluation and management of symptoms including:dyspnea, encephalopathy, pain b. To assist medical decision maker(s) with: better understanding of current medical conditions; weighing benefits/burdens of medical treatment options; making medical treatment decisions. (Leah Elias) HPI History of Present Illness 76-year-old female presented to the ED 10/05/16, transferred from [facility]. She was found at home unresponsive on her bathroom floor. At [facility] ED was found to have a right subdural hematoma with midline shift , pt w known hx thrombus, on Xarelto. Patient was apparently unresponsive and emergently intubated in the ED. Nursing noted no gag reflex when NG-tube placed. Patient also positive for NSTEMI. She received Vit K, Kecentra before transfer to [place] * Dr Leon accepting neuro MD. Repeat CT brain =large right sided acute subdural hematoma with right to left midline shift of 2.1cm. Neurosurgery recommended emergency surgical decompression indicated in attempt to save her life -- present and elected to proceed w neurosurgery. 10/05/16 underwent right frontal temporal parietal decompressive craniectomy with evacuation acute SDH, conor hole placement for ICP monitor * Cardiology also consulted for NSTEMI--not clear. Troponin elevation due to coronary event versus nonspecific related to acute intracranial event, not a candidate for anticoagulation recommended conservative treatment. Further care to be considered in context of neuro prognosis. Cardiology to follow. * 2-D echo 10/06 EF 2025 percent, akinesis of apical myocardium, akinesis of anterior septal myocardium, akinesis of anterior myocardium consistent with infarction. * 10/07 ICP WNL. Remains on sedation for BP control. Follow-up CT brain stable. Not following commands, extension of extremities to stimuli. * 10/08 neurology consulted for seizures. Continue Keppra, EEG pending. * 10/09 still not following commands. Remains on mechanical vent.cont to have sz , neurology adjusting sz medications. * 10/11 + fevers, leukocytosis. S/p LP CSF cultures negative. On vancomycin, Ceftin, Zosyn. Transfuse 2 units RBC for anemia. On Keppra 1500 BID, Vimpat 200 BID + Phenobarb added by neurology or seizures. * 1/18 no neurological improvement. She remains critically ill. Ventilator weaning on hold due to requiring propofol to assist with persistent seizure activity. * 10/15/16 palliative care consulted to assist with clarification of goals of treatment Pt seen in room no family or visitors present. Minimally responsive to my exam: Eye-opening. Extension upper extremities to pain. Slight withdraw lower extremities to pain. On CPAP currently, appears to be tolerating -respiratory rate 22. Following exam call to patient to set up a meeting, he will be in hospital in another hour or 2, tentatively set up to meet with him today between 1 and 2 PM. He does inform he would want additional follow-up meeting on Tuesday when there are adult children are in town as well. D/w Neurosurgery-- any neurological recovery will be very slow improvements, likely over a year. Ongoing seizure activity contributing to current condition/ lack of neurologic improvement. Pt expected to require alf placement following hospitalization. Function/Cognitive Trajectory previously lived at home with her independent with ADLs, no cognitive deficits (Leah Elias) Review of Systems ROS Limitations: Intubated, Altered Mental Status (patient unable to provide due to unresponsive, SDH), Unresponsive (Leah Elias) Past Family Social History Coded Allergies: Grass (Unverified Allergy, Severe, Sneezing, 10/05/16) Molds and Smuts (Unverified Allergy, Severe, Sneezing, 10/05/16) Past Medical History Arthrosclerosis Splenic artery thrombosis GERD Headaches Hiatal hernia Hypertension Scleroderma Fibromyalgia Arthritis Chronic neck/back pain head trauma--brain stimulator Sinusitis . Past Surgical History bilateral carotid endarterectomy with reocclusion of the left internal carotid artery Appendectomy Laparoscopic cholecystectomy [place] neurostimulator implant brain Renal calculi procedure Hysterectomy Lumbar laminectomy Lumbar fusion Tonsillectomy Ethmoidectomy Reported Medications Loratadine 10 Mg Tab 10 Mg PO DAILY PRN Vitamin D2 (Ergocalciferol) 2,000 Unit Tab 50,000 Units PO WEEKLY Montelukast (Montelukast Sodium) 10 Mg Tab 10 Mg PO DAILY Hydroxychloroquine (Hydroxychloroquine Sulfate) 200 Mg Tab 400 Mg PO DAILY Takw with food Xarelto (Rivaroxaban) 20 Mg Tab 20 Mg PO DAILY Folate (Folic Acid) 1 Mg Tab 1 Mg PO DAILY Lidocaine Patch 12 HR (Lidocaine) 5 % Patch 1 Patch TOPICAL DAILY Remove patch after 12 hours Pantoprazole (Pantoprazole Sodium) 40 Mg Tab 40 Mg PO DAILY Cartia Xt (Diltiazem ER 24 HR) 120 Mg Caper 120 Mg PO DAILY . Current Medications Medications (Trade) Dose Ordered Sig/Vladislav Route Start Time Stop Time Status Last Admin Miscellaneous Information 1 [id number] XX 10/05/16 04:45 10/06/16 03:46 (Chlorhexidine 2% Cloth) Taper DAILY@04 TOP 10/06/16 04:00 10/02/17 03:59 10/12/16 04:00 (Chlorhexidine 2% Cloth) 3 pack UNSCH PRN TOP 10/05/16 04:45 (Lipitor) 20 mg HS PO 10/05/16 21:00 10/14/16 21:12 (NS Flush) 2 ml UNSCH PRN IVF 10/05/16 05:00 10/15/16 06:01 (NS Flush) 2 ml BID IVF 10/05/16 09:00 10/15/16 09:18 (Dulcolax Supp) 10 mg DAILY PRN [place] 10/05/16 05:00 (Colace) 100 mg BID PO 10/05/16 09:00 10/15/16 09:18 (Protonix) 40 mg DAILY PO 10/05/16 09:00 (Protonix Inj) 40 mg DAILY IVP 10/05/16 09:00 10/15/16 09:18 (Zofran Inj) 4 mg Q6H PRN IV 10/05/16 05:00 Calcium Gluconate 1 gm 1 gm UNSCH PRN IV 10/05/16 05:00 Potassium Chloride 100 ml @ 50 mls/hr UNSCH PRN IV 10/05/16 05:00 (Magnesium Sulfate Inj/NS Inj) 108 ml @ 108 mls/hr UNSCH PRN IV 10/05/16 05:00 10/12/16 06:14 ([place] 10-325 Mg) 1 tab Q4H PRN PO 10/05/16 05:00 ([place] 10-325 Mg) 2 tab Q4H PRN PO 10/05/16 05:00 (Morphine Inj) 2 mg Q2H PRN IV PUSH 10/05/16 05:00 10/06/16 21:40 (Morphine Inj) 4 mg Q2H PRN IV PUSH 10/05/16 05:00 (Tylenol) 650 mg Q4H PRN PO 10/05/16 05:00 10/10/16 23:41 Chlorhexidine Gluconate 15 ml 15 ml BID@08,20 MT 10/05/16 08:00 10/15/16 09:19 Propofol 100 ml @ 0 mls/hr TITRATE IV 10/05/16 05:15 10/12/16 06:42 Potassium Chloride 100 ml @ 50 mls/hr Q2H PRN IV 10/05/16 05:15 (KCl 20 Meq Premix Inj) 100 ml @ 50 mls/hr Q2H PRN IV 10/05/16 05:15 Potassium Chloride 40 meq 40 meq UNSCH PRN PO/TUBE 10/05/16 05:15 Potassium Chloride 100 ml @ 25 mls/hr UNSCH PRN IV 10/05/16 05:15 Potassium Chloride 100 ml @ 50 mls/hr Q2H PRN IV 10/05/16 05:15 10/12/16 08:07 (Magnesium Sulfate Inj/NS Inj) 100 ml @ 50 mls/hr UNSCH PRN IV 10/05/16 05:15 Magnesium Oxide 800 mg 800 mg UNSCH PRN PO 10/05/16 05:15 (Magnesium Sulfate Inj/NS Inj) 100 ml @ 50 mls/hr UNSCH PRN IV 10/05/16 05:15 Potassium Phosphate 2000 mg 2,000 mg Q4H PRN PO 10/05/16 05:15 10/09/16 08:35 (Sodium Phosphate Inj/NS 250 ml Inj) 250 ml @ 42 mls/hr UNSCH PRN IV 10/05/16 05:15 10/13/16 09:21 (KCl 40 Meq/30 ml Liq) 40 meq UNSCH PRN PO/TUBE 10/05/16 05:15 Potassium Phosphate 2000 mg 2,000 mg UNSCH PRN PO/TUBE 10/05/16 05:15 (Potassium Phosphate Inj/NS 250 ml Inj) 260 ml @ 42 mls/hr UNSCH PRN IV 10/05/16 05:15 (Brethine Inj) 1 mg UNSCH PRN SQ 10/05/16 06:30 (Singulair Chew) 10 mg DAILY PO 10/06/16 09:00 10/15/16 09:18 (Trandate Inj) 10 mg Q4H PRN IV PUSH 10/07/16 15:30 (Apresoline Inj) 20 mg Q4H PRN IV PUSH 10/07/16 15:30 (Cardizem) 30 mg QID PO 10/07/16 18:00 10/15/16 09:18 Lorazepam 1 mg 1 mg Q2H PRN IM 10/08/16 13:15 10/09/16 22:05 Phenylephrine HCl 40 mg/Sodium Chloride 500 ml @ 0 mls/hr TITRATE IV 10/09/16 21:00 10/12/16 16:45 Levetriacetam 1500 mg/Sodium Chloride 115 ml @ 460 mls/hr Q12H IV 10/10/16 21:00 10/15/16 09:41 Lacosamide 200 mg/ Sodium Chloride 120 ml @ 110 mls/hr Q12HR IV 10/11/16 21:00 10/15/16 09:18 (Vancomycin Consult Pharmacy) 0 ml @ 0 mls/hr UNSCH OTHER 10/12/16 13:15 Phenobarbital Sodium 60 mg 60 mg Q8HR IV PUSH 10/12/16 22:00 10/15/16 06:01 (Vancomycin Inj/ NS 250 ml Inj) 262.5 ml @ 250 mls/hr Q12H IV 10/15/16 13:00 Miscellaneous Information SPECIFIC LAB TO BE DRAWN:[facility] DATE TO BE DR... ONCE ONCE XX 10/16/16 12:45 10/16/16 12:46 Family History Father secondary to multiple strokes in his 80s, mother of coronary artery disease in late 60s Substance Use Tobacco: Former smoker quit 35 years ago, prior 1 PPD 20 years Alcohol: Prescription med abuse: Illicits: Psychosocial History Patient lives at home with her of 55 years. Originally from [place], lived in [place] for many years. 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 Enjoyed bingo, socializing with her girlfriends. Supported by 2 adult children (not local) Spiritual/Cultural Factors Muslim, believes in God, no particular yarsanism affiliation; would appreciate fibreglass lay up worker support. (Leah Elias) Living Will: Completed, but not made available (possible adv. directives, not certain ) Ethical and Legal Issues Due to clinical condition pt unable to participate in decision making, not clear if she will regain capacity. Per [place] statutes her would be legal decision maker--he is going to try to locate any living will she may have completed. . (Leah Elias) Physical Exam Vital Signs Date Time Temp Pulse Resp B/P Pulse Ox O2 Delivery O2 Flow Rate FiO2 10/15/16 08:38 35 10/15/16 08:38 99 35 10/15/16 06:00 96 10/15/16 04:21 100 35 10/15/16 04:00 35 10/15/16 04:00 99.2 98 21 112/56 97 10/15/16 04:00 98 10/15/16 02:00 100 10/15/16 01:48 100 35 10/15/16 00:00 99.3 100 26 129/62 98 10/15/16 00:00 100 10/15/16 00:00 35 10/14/16 22:36 99 35 10/14/16 22:00 97 10/14/16 20:14 96 35 10/14/16 20:00 102 10/14/16 20:00 99.2 102 25 135/66 97 10/14/16 20:00 35 10/14/16 18:00 92 10/14/16 17:15 97 35 10/14/16 16:00 35 10/14/16 16:00 95 10/14/16 16:00 98.9 95 21 120/59 98 10/14/16 14:00 92 10/14/16 12:24 35 10/14/16 12:20 35 10/14/16 12:20 97 35 10/14/16 12:00 96 10/14/16 12:00 98.5 96 22 117/57 98 10/14/16 10/15/16 19:00 07:00 Intake Total 597 ml 1694 ml Output Total 550 ml 1275 ml Balance 47 ml 419 ml IV Total 267 ml 724 ml Tube Feeding 250 ml 790 ml Other 80 ml 180 ml Output Urine Total 550 ml 1275 ml Tube Feeding Residual Discard 0 ml # Bowel Movements 1 2 Exam CONSTITUTIONAL/GENERAL: This is an adequately nourished patient, minimally responsive on mechanical vent TUBES/LINES/DRAINS: PIV 2 right upper extremity, OG tube, ET tube, Landers catheter, SCDs SKIN: No jaundice, rashes, or lesions. Areas of ecchymosis bilateral upper extremities. Ecchymosis present surgical flap area right head. + C-shaped incision right head, griselda intact-small amount pink/serous drainage end of incision near ear. Skin temperature warm. HEAD: Ecchymosis present surgical flap area right head. + C-shaped incision right head, griselda intact-small amount pink/serous drainage end of incision near ear. Flap area pulsatile EYES: Pupils 2 mm, questionable reaction to light. No scleral icterus. No injection or drainage. Fundi not examined. ENT: Nose without bleeding or purulent drainage. Unable to visualize oropharynx due to ET tube, OG tube.. NECK: Trachea midline. Supple, nontender. CARDIOVASCULAR: Regular rate and rhythm, no murmurs. No JVD. Peripheral pulses symmetric. Trace peripheral edema. RESPIRATORY/CHEST: Symmetric, unlabored respirations via mechanical vent. Respiratory rate 22 on CPAP. Clear to auscultation. Breath sounds equal bilaterally. GASTROINTESTINAL: Abdomen soft, unable to determine tenderness due to level of consciousness, nondistended. No hepato-splenomegaly, or palpable masses. Bowel sounds present. Tube feeding infusing via OG tube. GENITOURINARY: Without palpable bladder distension. Landers catheter in place- clear yellow urine some sediment present. MUSCULOSKELETAL: Extremities without clubbing, cyanosis. Trace generalized edema. No joint effusion noted. No mottling or clubbing. LYMPHATICS: No palpable cervical or supraclavicular adenopathy. NEUROLOGICAL: Minimally responsive. On no sedation currently. No eye opening to pain stimuli. Slight extension upper extremities to pain. Slight withdraw lower extremities to pain. + Spontaneous respirations on CPAP. PSYCHIATRIC: No obvious anxiety/depression--limited assessment due to clinical condition/decreased level of consciousness. (Leah Elias) Diagnostic Tests Laboratory Laboratory Tests Test 10/13/16 10/14/16 10/15/16 10/15/16 06:05 13:22 00:02 04:18 Potassium Level 4.1 MEQ/L 4.3 MEQ/L 3.8 MEQ/L (3.5-5.1) (3.5-5.1) (3.5-5.1) Phosphorus Level 2.1 MG/DL (2.5-4.9) Magnesium Level 2.3 MG/DL (1.5-2.5) Phenobarbital Level 5.5 MCG/ML 9.6 MCG/ML (15.0-40.0) (15.0-40.0) Sodium Level 141 MEQ/L 140 MEQ/L (136-145) (136-145) Chloride Level 108 MEQ/L 105 MEQ/L (98-107) (98-107) Carbon Dioxide Level 23.4 MEQ/L 27.7 MEQ/L (21.0-32.0) (21.0-32.0) Anion Gap 10 MEQ/L (5-15) 7 MEQ/L (5-15) Blood Urea Nitrogen 21 MG/DL (7-18) 22 MG/DL (7-18) Creatinine 0.48 MG/DL 0.50 MG/DL (0.50-1.00) (0.50-1.00) Estimat Glomerular Filtration 126 ML/MIN 120 ML/MIN Rate (>89) (>89) Random Glucose 161 MG/DL 146 MG/DL (74-106) (74-106) Calcium Level 7.7 MG/DL 7.5 MG/DL (8.5-10.1) (8.5-10.1) Vancomycin Level Trough 10.8 MCG/ML (5.0-10.0) White Blood Count 12.1 TH/MM3 (4.0-11.0) Red Blood Count 3.26 MIL/MM3 (4.00-5.30) Hemoglobin 9.8 GM/DL (11.6-15.3) Hematocrit 29.4 % (35.0-46.0) Mean Corpuscular Volume 90.2 FL (80.0-100.0) Mean Corpuscular Hemoglobin 30.0 PG (27.0-34.0) Mean Corpuscular Hemoglobin 33.2 % Concent (32.0-36.0) Red Cell Distribution Width 16.3 % (11.6-17.2) Platelet Count 335 TH/MM3 (150-450) Mean Platelet Volume 8.0 FL (7.0-11.0) Neutrophils (%) (Auto) 70.3 % (16.0-70.0) Lymphocytes (%) (Auto) 13.5 % (9.0-44.0) Monocytes (%) (Auto) 14.6 % (0.0-8.0) Eosinophils (%) (Auto) 1.1 % (0.0-4.0) Basophils (%) (Auto) 0.5 % (0.0-2.0) Neutrophils # (Auto) 8.5 TH/MM3 (1.8-7.7) Lymphocytes # (Auto) 1.6 TH/MM3 (1.0-4.8) Monocytes # (Auto) 1.8 TH/MM3 (0-0.9) Eosinophils # (Auto) 0.1 TH/MM3 (0-0.4) Basophils # (Auto) 0.1 TH/MM3 (0-0.2) CBC Comment AUTO DIFF Differential Total Cells 100 Counted Neutrophils % (Manual) 64 % (16-70) Band Neutrophils % 4 % (0-6) Lymphocytes % 13 % (9-44) Monocytes % 13 % (0-8) Eosinophils % 3 % (0-4) Basophils % 1 % (0-2) Neutrophils # (Manual) 8.5 TH/MM3 (1.8-7.7) Metamyelocytes 2 % (0-1) Differential Comment FINAL DIFF MANUAL Platelet Estimate NORMAL (NORMAL) Platelet Morphology Comment NORMAL (NORMAL) (Leah Elias) Result Diagram: 10/15/1641710/15/16417 Imaging Last Impressions Chest X-Ray 10/12/16599 Signed Impressions: Service Date/Time: Wednesday, October 12, 2016 05:43 - CONCLUSION: Slight improvement in aeration. Beau Babcock MD Head CT 10/07/16 06 Signed Impressions: Service Date/Time: September 04:19 - CONCLUSION: 1. Right craniectomy with dural drains in place. 2. Minimal right subdural hemorrhage measures 5 mm. 3. There is some new minimal hemorrhage along the lower right frontal lobe without significant mass effect. 4. Minimal intraventricular hemorrhage. Keshav Blakely MD Procedures 10/05/16-left frontal conor hole with placement of ICP monitor 10/05/16 right frontal temporal parietal decompressive craniectomy with evacuation acute SDH 10/09/16 -LP (Leah Elias) Patient/Family Conference Present at Family Conference: Patient Mr. Novoa Family Conference Time (mins): 45 Family Conference Location: Bedside Issues Discussed: Met with at length at bedside. Discussion included: * Palliative care role, purpose, approach * Additional medical, psychosocial, and spiritual history * Patients general health, functional status, and cognitive status in the months leading up to the current hospitalization * Patient/family understanding of the current medical problems, prognosis, likely trajectory going forward * Patients goals of care as best understood from advance directives and/or conversations and/or values * CODE STATUS * Current medical treatment options and benefits/burdens of those options-- review of upcoming likeliness to require tracheostomy, PEG tube, would likely require SNF placement following prolonged hospital course * Likely scenarios comparing ongoing aggressive care with a transition to comfort measures only--review alternative if they did not desire tracheostomy and ongoing aggressive measures then can transition to comfort focus only * Questions answered to the best of my ability * Palliative care contact information provided seems to have a reasonable understanding of conditions, treatments in place and prognosis. he is struggling expresses feeling guilty because the patient had a minor fall in which she struck the night stand about 24 hours before the event which led to current hospitalization; he blames himself for not seeking hospital treatment at that time and thinks maybe her condition would not be a severe had he originally made her get treatment. I did explore with him that the patient may not have sustained current injury from that fall. He verbalizes in the past patient may have elected DNR status however he does not wish to make any changes without talking further with his children Upon review of possible trajectories and procedures going for he does not think that the patient would want to live with any sort of even partially dependent fashion per her verbalizations in the past however; he also does not "think they could just choose to pull the plug "and allow her to . (Leah Elias) Assessment and Plan Disease Oriented Problem List: (1) Acute respiratory failure (2) NSTEMI (non-ST elevated myocardial infarction) (3) Acute subdural hematoma Comment: s/p craniectomy (4) Coagulopathy (5) Seizure (6) Anemia (7) Leukocytosis Symptom Scale: (1) Seizure 0-10 Scale: Unable to quantify (2) Dyspnea 0-10 Scale: Unable to quantify (3) Encephalopathy 0-10 Scale: Unable to quantify (4) Pain 0-10 Scale: Unable to quantify Pertinent Non-Medical Issues Psychosocial:Patient lives at home with her of 55 years. Originally from [place], lived in [place] for many years. 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 Enjoyed bingo, socializing with her girlfriends. Supported by 2 adult children (not local) Spiritual:Muslim, believes in God, no particular yarsanism affiliation; would appreciate fibreglass lay up worker support. Legal:Due to clinical condition pt unable to participate in decision making, not clear if she will regain capacity. Per [place] statutes her would be legal decision maker--he is going to try to locate any living will she may have completed. Ethical issues impacting care: Important Contacts Marcus Novoa [phone] /[phone] Prognosis This 76 yr old patient was admitted for subdural hemorrhage, now status post decompressive craniectomy. No neurological improvement thus far. Additionally has suffered NSTEMI, noted EF estimate 2024 percent. Unable to wean off of mechanical vent, had been requiring sedatives for seizure control. Overall prognosis for full functional recovery/independence appears poor. Will require trach/PEG for ongoing tx, will require NH placement following hospitalization. Code Status: Full Code Plan * Legal decision maker:Due to clinical condition pt unable to participate in decision making, not clear if she will regain capacity. Per [place] statutes her would be legal decision maker--he is going to try to locate any living will she may have completed. * Goals: Goals for now aggressive; contemplating DNR he thinks patient may have had a DNR before, but he is not willing to make any decisions before meeting further with their adult children. He is not certain about tracheostomy and PEG. Requests follow-up meeting Tuesday with his adult children to again review conditions, trajectory, prognosis. He will notify palliative with time. * CODE STATUS: Full * SYMPTOMS: --Dyspnea--emergently intubated, acute respiratory failure 2/2 SDH. Remains on mechanical vent, limited CPAP trials thus far due to heavy sedation requirements. Today off of sedation and on CPAP trial --Encephalopathy--large SDH with significant midline shift requiring emergent decompressive craniectomy 10/05. Very little neurologic improvement during course thus far. + Ongoing seizures (managed by neurology). --Pain--potential sources would include history of chronic disorders including fibromyalgia, scleroderma, multiple L-spine procedures, as well as acute hospitalization and current bedbound status multiple invasive procedures. Currently with no signs of pain to exam, nursing reports no signs of pain. --Seizures-neurology following. Ongoing seizure activity despite 3 anticonvulsants// phenobarbital, Keppra, vimat, neurology following * Palliative care will continue to follow during hospital course as condition evolves, to assist patient/decision-maker with understanding of medical conditions, weighing benefits/burdens of treatment options, for clarification of goals of treatment. Additionally will assist with any symptoms of palliative concern (Leah Elias) Time Spent Total Floor Time (mins): 70 >50% Counseling/Coord of Care: Yes (d/w critical care, RN, neurosurgery ) (Leah Elias) Thank you for the opportunity to participate in the care of Ms. Novoa. (Leah Elias) Attestation To help prompt me to consider important information that might be impacting today's encounter and assessment, information from prior notes written by myself or my colleagues may have been "brought forward" into today's note. My signature on this note, however, is an attestation that I personally performed the exam, history, and/or decision-making noted today, and, unless otherwise indicated, the interactions with patient, family, and staff as well as the review of records all occurred today. I also attest that the listed assessment and stated plan reflect my best clinical judgment today based on the combination of historical information, prior notes, and today's exam/ interactions. When time spent is documented, it refers only to time spent today by the signer, or if indicated, combined time spent today by collaborating physician/nurse practitioner. (Leah Elias) Collaborating MD Comments Chart reviewed. Case discussed with palliative care INSEMINATION WORKER. Above INSEMINATION WORKER note reviewed and I concur. . (Rufino Lucas MD) Leah Elias Oct 15, 2016 11:29 Rufino Lucas MD Nov 14, 2016 08:05
--- NOTE | 2016-10-15 13:48 | PD.CARD.PN ---
Subjective Subjective Remarks intubated, sedated Objective Vital Signs / I&O Vital Signs Date Time Temp Pulse Resp B/P Pulse Ox O2 Delivery O2 Flow Rate FiO2 10/15/16 12:25 100 35 10/15/16 12:00 35 10/15/16 12:00 99.1 102 22 126/60 99 10/15/16 12:00 102 10/15/16 10:00 101 10/15/16 08:38 35 10/15/16 08:38 99 35 10/15/16 08:00 103 10/15/16 08:00 35 10/15/16 08:00 100.7 103 20 130/61 98 10/15/16 06:00 96 10/15/16 04:21 100 35 10/15/16 04:00 35 10/15/16 04:00 99.2 98 21 112/56 97 10/15/16 04:00 98 10/15/16 02:00 100 10/15/16 01:48 100 35 10/15/16 00:00 99.3 100 26 129/62 98 10/15/16 00:00 100 10/15/16 00:00 35 10/14/16 22:36 99 35 10/14/16 22:00 97 10/14/16 20:14 96 35 10/14/16 20:00 102 10/14/16 20:00 99.2 102 25 135/66 97 10/14/16 20:00 35 10/14/16 18:00 92 10/14/16 17:15 97 35 10/14/16 16:00 35 10/14/16 16:00 95 10/14/16 16:00 98.9 95 21 120/59 98 10/14/16 14:00 92 I/O 10/14/16 10/14/16 10/14/16 10/15/16 10/15/16 10/15/16 07:00 15:00 23:00 07:00 15:00 23:00 Intake Total 966 ml 597 ml 648 ml 1046 ml Output Total 600 ml 550 ml 600 ml 675 ml Balance 366 ml 47 ml 48 ml 371 ml IV Total 461 ml 267 ml 182 ml 542 ml Tube Feeding 445 ml 250 ml 346 ml 444 ml Other 60 ml 80 ml 120 ml 60 ml Output Urine Total 600 ml 550 ml 600 ml 675 ml Tube Feeding Residual Discard 0 ml 0 ml # Bowel Movements 1 1 0 2 Physical Exam GENERAL: SKIN: Warm and dry. HEAD: Normocephalic. EYES: No scleral icterus. No injection or drainage. NECK: Supple, trachea midline. No JVD or lymphadenopathy. CARDIOVASCULAR: Regular rate and rhythm without murmurs, gallops, or rubs. RESPIRATORY: Breath sounds equal bilaterally. No accessory muscle use. GASTROINTESTINAL: Abdomen soft, non-tender, nondistended. MUSCULOSKELETAL: No cyanosis, or edema. BACK: Nontender without obvious deformity. No CVA tenderness. Laboratory Laboratory Tests Test 10/15/16 10/15/16 00:02 04:18 Vancomycin Level Trough 10.8 MCG/ML White Blood Count 12.1 TH/MM3 Red Blood Count 3.26 MIL/MM3 Hemoglobin 9.8 GM/DL Hematocrit 29.4 % Mean Corpuscular Volume 90.2 FL Mean Corpuscular Hemoglobin 30.0 PG Mean Corpuscular Hemoglobin 33.2 % Concent Red Cell Distribution Width 16.3 % Platelet Count 335 TH/MM3 Mean Platelet Volume 8.0 FL Neutrophils (%) (Auto) 70.3 % Lymphocytes (%) (Auto) 13.5 % Monocytes (%) (Auto) 14.6 % Eosinophils (%) (Auto) 1.1 % Basophils (%) (Auto) 0.5 % Neutrophils # (Auto) 8.5 TH/MM3 Lymphocytes # (Auto) 1.6 TH/MM3 Monocytes # (Auto) 1.8 TH/MM3 Eosinophils # (Auto) 0.1 TH/MM3 Basophils # (Auto) 0.1 TH/MM3 CBC Comment AUTO DIFF Differential Total Cells 100 Counted Neutrophils % (Manual) 64 % Band Neutrophils % 4 % Lymphocytes % 13 % Monocytes % 13 % Eosinophils % 3 % Basophils % 1 % Neutrophils # (Manual) 8.5 TH/MM3 Metamyelocytes 2 % Differential Comment FINAL DIFF MANUAL Platelet Estimate NORMAL Platelet Morphology Comment NORMAL Sodium Level 140 MEQ/L Potassium Level 3.8 MEQ/L Chloride Level 105 MEQ/L Carbon Dioxide Level 27.7 MEQ/L Anion Gap 7 MEQ/L Blood Urea Nitrogen 22 MG/DL Creatinine 0.50 MG/DL Estimat Glomerular Filtration 120 ML/MIN Rate Random Glucose 146 MG/DL Calcium Level 7.5 MG/DL Assessment and Plan Problem List: (1) HTN (hypertension) (2) PAD (peripheral artery disease) (3) Left carotid artery occlusion (4) CAD (coronary artery disease) (5) Acute respiratory failure (6) Subdural hematoma (7) Coagulopathy (8) NSTEMI (non-ST elevated myocardial infarction) (9) Acute subdural hematoma Assessment and Plan 1.) SDH - ekg suggests possible recent anteroseptal mi, ac contraindicated d/t life threatening ich, beta blockers, lyssa held d/t hypotension and ich; continue statin, supportive care, neurologic prognosis uncertain 2.) Ischemic cardiomyopathy - lyssa inhibitor and beta blockers held d/t labile bp , hypotensive episodes and recent ich Marcus Medel MD Oct 15, 2016 13:48
[2016-10-15] MEDS ORDERED: CEFEPIME INJ 2,000 MG in SODIUM CHLORIDE 0.9% INJ 100 ML IV SCH (16:00)
--- NOTE | 2016-10-15 16:00 | HHI.CCPN ---
Subjective Remarks/Hospital Course 76 y/o woman was found down and unresponsive. Evaluation at [facility] revealed large acute right sided SDH with 2 cm subfalcine shift to left. 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 Required intubation and mechanical ventilation at referring facility for obtundation. Received Vit K and Kcentra then transported to [facility] where I met her on her arrival. at bedside. Largely unresponsive, will withdraw arms to pain. Mannitol bolus started. Cardiac markers elevated at OSH. Emergency decompression the night of admission, now ventilator dependent, largely unresponsive. 10/13: No neurological improvement. is getting very anxious. 10/14: No improvement, sedated for seizure control. 10/15: Enterobacter and Staph in sputum. Pseudomonas in urine. Continue antibiotics, reculture for fevers. Repeat UA. Objective Vital Signs Date Time Temp Pulse Resp B/P Pulse Ox O2 Delivery O2 Flow Rate FiO2 10/15/16 14:00 98 10/15/16 12:25 100 35 10/15/16 12:00 99.1 22 126/60 Intake and Output 10/14/16 10/14/16 10/15/16 08:00 16:00 00:00 Intake Total 966 ml 597 ml 648 ml Output Total 600.0 ml 550 ml 600 ml Balance 366.0 ml 47 ml 48 ml Result Diagram: 10/15/168 10/15/16 0418 Objective Remarks Gen: Unresponsive. Neck: Supple, orally intubated Lungs: Clear, no wheezes or crackles.Good brianda air entry. Few mobile secretions. Heart: NL S1S2, RRR, No JVD. Abdomen : Soft, nondistended, no guarding. BS active. Extremities: Warm, well perfused. Neuro: Unresponsive. No obvious seizures. A/P Problem List: (1) Acute subdural hematoma ICD Code: I62.01 Status: Acute (2) Coagulopathy ICD Code: D68.9 Status: Acute (3) Acute respiratory failure ICD Code: J96.00 Status: Acute (4) NSTEMI (non-ST elevated myocardial infarction) ICD Code: I21.4 Status: Acute Assessment and Plan SDH - post Emergency SDH decompression. - continue Isotonic fluid - neuro checks Seizure - Keppra 1500 BID - Increased Vimpat 200 BID (off label dose for refractory seizure/status) - Phenobarb level < 10 NSTEMI, - hemodynamically stable - Hold Xarelto and ASA due to SDH Anemia - protonics BID - Transfuse 2 units, check Hgb after Respiratory failure: - intubated, ventilated - PRVC vent mode. PCO2 30-35 range. - SBT on hold due to persistent seizure activity while off propofol Fevers and leukocytosis - LP cultures negative - Follow up - empirically Vanc/Cef. Enterobacter, Staph lungs Pseudomonas urine DVT/GI prophylaxis Protonix, SCDs. No chemical DVT px. due to SDH Overall impression: This woman remains critically ill after decompression of a life-threatening acute subdural hemorrhage. We are unable to wean the ventilators. Neurologic function is markedly decreased. Lungs are colonized, bronchitis apparent. Critical care 37 mins Andrea Leiva MD Oct 15, 2016 15:59
--- NOTE | 2016-10-15 16:18 | HHI.NSPN ---
Note Status Status: Progress Note Interval History Interval History Ms. Novoa is a 76 y/o woman was found unresponsive. She was found to have a acute large right sided SDH with 2 cm midline shift. She is anticoagulated with xarelto. She received Vit K and Kcentral and was transferred to [facility]. She underwent emergent right frontotemporoparietal decompressive craniectomy with evacuation of subdural hematoma, and placement of intracranial pressure monitor on 10/05/15. 10/06: POD 1, ICPs at highest overnight 11, she is on 30 of Diprivan. ICPs currently 4. She localized to LE, she does not open eyes or follow commands. Pupils are equal. 10/07: POD 2, f/u CT Brain completed this am, remains sedated for bp control. ICPs within normal limits 10/08: POD 3, minimal output from [facility]. new onset seizures, with head rotated to left, left lateral gaze with slight nystagmus. No tonic/ clonic events in extremities. bone flap with good pulsation, decompressed but firm 10/11: records reports still having seizures off diprivan over the weekend. On multiple antiepileptic medications per Neurology. Sedated on 50 mc Diprivan. 10/12: currently sedated on 30 mc Diprivan, does not open eyes or follow commands , slight withdrawals to feet. 10/13: no acute changes overnight, remains sedated. 10/14: last EEG still showing sharp discharges, remains sedated due to clinical sz when off sedation. does not open eyes, does not follow commands, no purposeful movements. 10/15: Patient seen this morning during rounds. She is still off sedation. No purposeful movements, not following commands, reported ? right eye blinking with deep stimuli. Labs, Micro, & Vital Signs Results Date Time Temp Pulse Resp B/P Pulse Ox O2 Delivery O2 Flow Rate FiO2 10/15/16 14:00 98 10/15/16 12:25 100 35 10/15/16 12:00 35 10/15/16 12:00 99.1 102 22 126/60 99 10/15/16 12:00 102 10/15/16 10:00 101 10/15/16 08:38 35 10/15/16 08:38 99 35 10/15/16 08:00 103 10/15/16 08:00 35 10/15/16 08:00 100.7 103 20 130/61 98 10/15/16 06:00 96 10/15/16 04:21 100 35 10/15/16 04:00 35 10/15/16 04:00 99.2 98 21 112/56 97 10/15/16 04:00 98 10/15/16 02:00 100 10/15/16 01:48 100 35 10/15/16 00:00 99.3 100 26 129/62 98 10/15/16 00:00 100 10/15/16 00:00 35 10/14/16 22:36 99 35 10/14/16 22:00 97 10/14/16 20:14 96 35 10/14/16 20:00 102 10/14/16 20:00 99.2 102 25 135/66 97 10/14/16 20:00 35 10/14/16 18:00 92 10/14/16 17:15 97 35 10/15/16 07:00 Intake Total 2291 ml Output Total 1825 ml Balance 466 ml Constitutional Vital Signs Date Time Temp Pulse Resp B/P Pulse Ox O2 Delivery O2 Flow Rate FiO2 10/15/16 14:00 98 10/15/16 12:25 100 35 10/15/16 12:00 35 10/15/16 12:00 99.1 102 22 126/60 99 10/15/16 12:00 102 10/15/16 10:00 101 10/15/16 08:38 35 10/15/16 08:38 99 35 10/15/16 08:00 103 10/15/16 08:00 35 10/15/16 08:00 100.7 103 20 130/61 98 10/15/16 06:00 96 10/15/16 04:21 100 35 10/15/16 04:00 35 10/15/16 04:00 99.2 98 21 112/56 97 10/15/16 04:00 98 10/15/16 02:00 100 10/15/16 01:48 100 35 10/15/16 00:00 99.3 100 26 129/62 98 10/15/16 00:00 100 10/15/16 00:00 35 10/14/16 22:36 99 35 10/14/16 22:00 97 10/14/16 20:14 96 35 10/14/16 20:00 102 10/14/16 20:00 99.2 102 25 135/66 97 10/14/16 20:00 35 10/14/16 18:00 92 10/14/16 17:15 97 35 10/15/16 07:00 Intake Total 2291 ml Output Total 1825 ml Balance 466 ml Review of Systems/Exam Exam Intubated, no sedative drips. No spontaneous eye opening, reported to have blinking right eye when repositioned? does not follow commands. No purposeful movements. Right flap soft with pulsations. The skin flap appears ecchymotic. Skin is warm. Wound healing well, griselda intact. CN: pupils 3-4 mm equal, no reaction to right, eye, left sluggish. left eye mildly disconjugated to left. No nystagmus seen. Neck: soft, supple Sensorimotor: mild bilateral foot dorsiflexion to local stimuli Bilateral Babinski response Abdomen: soft Medications Current Medications Current Medications Medications (Trade) Dose Ordered Sig/Vladislav Route PRN Reason Start Time Stop Time Status Last Admin Dose Admin Miscellaneous Information 1 [id number] XX 10/05/16 04:45 10/06/16 03:46 Chlorhexidine Gluconate (Chlorhexidine 2% Cloth) Taper DAILY@04 TOP 10/06/16 04:00 10/02/17 03:59 10/12/16 04:00 Chlorhexidine Gluconate (Chlorhexidine 2% Cloth) 3 pack UNSCH PRN [facility] 10/05/16 04:45 Atorvastatin Calcium (Lipitor) 20 mg HS PO 10/05/16 21:00 10/14/16 21:12 IV Flush (NS Flush) 2 ml UNSCH PRN IVF FLUSH AFTER USING IV ACCESS 10/05/16 05:00 10/15/16 06:01 IV Flush (NS Flush) 2 ml BID IVF 10/05/16 09:00 10/15/16 09:18 Bisacodyl (Dulcolax Supp) 10 mg DAILY PRN [place] CONSTIPATION 10/05/16 05:00 Docusate Sodium (Colace) 100 mg BID PO 10/05/16 09:00 10/15/16 09:18 Pantoprazole Sodium (Protonix) 40 mg DAILY PO 10/05/16 09:00 Pantoprazole Sodium (Protonix Inj) 40 mg DAILY IVP 10/05/16 09:00 10/15/16 09:18 Ondansetron HCl (Zofran Inj) 4 mg Q6H PRN IV NAUSEA OR VOMITING 10/05/16 05:00 Calcium Gluconate 1 gm 1 gm UNSCH PRN IV SEE LABEL COMMENTS 10/05/16 05:00 Potassium Chloride 100 ml @ 50 mls/hr UNSCH PRN IV POTASSIUM LESS THAN 4 10/05/16 05:00 Magnesium Sulfate/ Sodium Chloride (Magnesium Sulfate Inj/NS Inj) 108 ml @ 108 mls/hr UNSCH PRN IV MAGNESIUM LESS THAN 2 10/05/16 05:00 10/12/16 06:14 Acetaminophen/ Hydrocodone Bitart ([place] 10-325 Mg) 1 tab Q4H PRN PO PAIN SCALE 1 TO 5 10/05/16 05:00 Acetaminophen/ Hydrocodone Bitart ([place] 10-325 Mg) 2 tab Q4H PRN PO PAIN SCALE 6 TO 10 10/05/16 05:00 Morphine Sulfate (Morphine Inj) 2 mg Q2H PRN IV PUSH PAIN SCALE 1 TO 6 10/05/16 05:00 10/06/16 21:40 Morphine Sulfate (Morphine Inj) 4 mg Q2H PRN IV PUSH PAIN SCALE 7 TO 10 10/05/16 05:00 Acetaminophen (Tylenol) 650 mg Q4H PRN PO TEMPERATURE > 101.5 F 10/05/16 05:00 10/10/16 23:41 Chlorhexidine Gluconate 15 ml 15 ml BID@08,20 MT 10/05/16 08:00 10/15/16 09:19 Propofol 100 ml @ 0 mls/hr TITRATE IV 10/05/16 05:15 10/12/16 06:42 Potassium Chloride 100 ml @ 50 mls/hr Q2H PRN IV For Potassium 2.8 - 3.2 mEq/L 10/05/16 05:15 Potassium Chloride (KCl 20 Meq Premix Inj) 100 ml @ 50 mls/hr Q2H PRN IV For Potassium 2.8 - 3.2 mEq/L 10/05/16 05:15 Potassium Chloride 40 meq 40 meq UNSCH PRN PO/TUBE For Potassium 3.3 - 3.5 mEq/L 10/05/16 05:15 Potassium Chloride 100 ml @ 25 mls/hr UNSCH PRN IV For Potassium 3.3 - 3.5 mEq/L 10/05/16 05:15 Potassium Chloride 100 ml @ 50 mls/hr Q2H PRN IV For Potassium 3.3 - 3.5 mEq/L 10/05/16 05:15 10/12/16 08:07 Magnesium Sulfate/ Sodium Chloride (Magnesium Sulfate Inj/NS Inj) 100 ml @ 50 mls/hr UNSCH PRN IV For Magnesium 0.9 - 1.1 mg/dL 10/05/16 05:15 Magnesium Oxide 800 mg 800 mg UNSCH PRN PO For Magnesium 1.2 - 1.6 mg/dL 10/05/16 05:15 Magnesium Sulfate/ Sodium Chloride (Magnesium Sulfate Inj/NS Inj) 100 ml @ 50 mls/hr UNSCH PRN IV For Magnesium 1.2 - 1.6 mg/dL 10/05/16 05:15 Potassium Phosphate 2000 mg 2,000 mg Q4H PRN PO For Phosphorus < 2.5 mg/dL 10/05/16 05:15 10/09/16 08:35 Sodium Phosphate/ Sodium Chloride (Sodium Phosphate Inj/NS 250 ml Inj) 250 ml @ 42 mls/hr UNSCH PRN IV For Phosphorus < 2.5 mg/dL 10/05/16 05:15 10/13/16 09:21 Potassium Chloride (KCl 40 Meq/30 ml Liq) 40 meq UNSCH PRN PO/TUBE SEE LABEL COMMENTS 10/05/16 05:15 Potassium Phosphate 2000 mg 2,000 mg UNSCH PRN PO/TUBE SEE LABEL COMMENTS 10/05/16 05:15 Potassium Phosphate/Sodium Chloride (Potassium Phosphate Inj/NS 250 ml Inj) 260 ml @ 42 mls/hr UNSCH PRN IV SEE LABEL COMMENTS 10/05/16 05:15 Terbutaline Sulfate (Brethine Inj) 1 mg UNSCH PRN SQ FOR EXTRAVASATION PROTOCOL 10/05/16 06:30 Montelukast Sodium (Singulair Chew) 10 mg DAILY PO 10/06/16 09:00 10/15/16 09:18 Labetalol HCl (Trandate Inj) 10 mg Q4H PRN IV PUSH SBP>160, DBP>90 10/07/16 15:30 Hydralazine HCl (Apresoline Inj) 20 mg Q4H PRN IV PUSH SBP> OR = 180, DBP> OR = 100 10/07/16 15:30 Diltiazem HCl (Cardizem) 30 mg QID PO 10/07/16 18:00 10/15/16 12:28 Lorazepam 1 mg 1 mg Q2H PRN IM SEIZURES 10/08/16 13:15 10/09/16 22:05 Phenylephrine HCl 40 mg/Sodium Chloride 500 ml @ 0 mls/hr TITRATE IV 10/09/16 21:00 10/12/16 16:45 Levetriacetam 1500 mg/Sodium Chloride 115 ml @ 460 mls/hr Q12H IV 10/10/16 21:00 10/15/16 09:41 Lacosamide 200 mg/ Sodium Chloride 120 ml @ 110 mls/hr Q12HR IV 10/11/16 21:00 10/15/16 09:18 Pharmacy Profile Note (Vancomycin Consult Pharmacy) 0 ml @ 0 mls/hr UNSCH OTHER 10/12/16 13:15 Phenobarbital Sodium 60 mg 60 mg Q8HR IV PUSH 10/12/16 22:00 10/15/16 12:40 Vancomycin HCl/ Sodium Chloride (Vancomycin Inj/ NS 250 ml Inj) 262.5 ml @ 250 mls/hr Q12H IV 10/15/16 13:00 10/15/16 12:41 Miscellaneous Information SPECIFIC LAB TO BE DRAWN:VANCO TROUGH DATE TO BE DRChar.. ONCE ONCE XX 10/16/16 12:45 10/16/16 12:46 Cefepime HCl/ Sodium Chloride (Maxipime Inj/NS Inj) 100 ml @ 200 mls/hr Q12H IV 10/15/16 17:00 Medical Decision Making MDM Remarks 76 year old female found unresponsive with a large right subdural hematoma with 2 cm midline shift previously anticoagulated on Xarelto, s/p Vit K and Kcentra s/p emergent right decompressive craniectomy with evacuation of subdural hematoma and placement of intracranial pressure monitor on 10/05/16, flap decompressed and soft, pulsatile Seizures Plan Plan Remarks cont antiepileptics, seizure management per neurology critical care mgt palliative care following Kaylee Bloom 20, 2017 16:18
[2016-10-15] MEDS: CEFEPIME INJ 2,000 MG in SODIUM CHLORIDE 0.9% INJ 100 ML IV SCH (16:53)
[2016-10-15] MEDS: ATORVASTATIN 20 MG TAB PO SCH (21:00)
[2016-10-16] VITALS (17 sets, daily range): BP systolic 83–129; BP diastolic 51–58; PULSE 87–104; RESP 17–20; TEMP 98.3–101.1; O2SAT 97–100
[2016-10-16] MEDS: VANCOMYCIN INJ 1,250 MG in SODIUM CHLOR 0.9% 250 ML INJ 250 ML IV SCH ×2 (01:00→13:00)
[2016-10-16] MEDS: CHLORHEXIDINE GLUCONATE 2 % 1 PACK (2 CLOTHS) TOP SCH (03:42)
[2016-10-16] MEDS: CEFEPIME INJ 2,000 MG in SODIUM CHLORIDE 0.9% INJ 100 ML IV SCH ×2 (04:01→16:11)
[2016-10-16] MEDS: ACETAMINOPHEN 325 MG TAB PO PRN (06:00)
[2016-10-16 06:30] LABS: BICARBONATE 24.3 MEQ/L (21.0-32.0); POTASSIUM 4.2 MEQ/L (3.5-5.1)
[2016-10-16] MEDS: CHLORHEXIDINE 0.12% (ORAL KIT) 15 ML CUP MT SCH ×2 (08:34→20:36)
[2016-10-16] MEDS: MONTELUKAST SODIUM 5 MG CHEWABLE TAB PO SCH (08:35)
[2016-10-16] MEDS: levETIRAcetam INJ 1,500 MG in SODIUM CHLORIDE 0.9% INJ 100 ML IV SCH ×2 (08:35→20:35)
[2016-10-16] MEDS: SODIUM CHLORIDE 0.9% FLUSH 5 ML FLUSH IVF SCH ×2 (08:35→20:36)
[2016-10-16] MEDS: PANTOPRAZOLE SODIUM 40 MG VIAL IVP SCH (08:36)
[2016-10-16] MEDS: DILTIAZEM HCL 30 MG TAB PO SCH ×4 (08:36→20:35)
[2016-10-16] MEDS: DOCUSATE SODIUM 100 MG CAP PO SCH ×2 (08:36→20:35)
[2016-10-16] MEDS: PANTOPRAZOLE SOD 40 MG DELAYED RELEASE TAB PO SCH (08:36)
--- NOTE | 2016-10-16 08:47 | HHI.CCPN ---
Subjective Remarks/Hospital Course 76 y/o woman was found down and unresponsive. Evaluation at [facility] revealed large acute right sided SDH with 2 cm subfalcine shift to left. 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 Required intubation and mechanical ventilation at referring facility for obtundation. Received Vit K and Kcentra then transported to [facility] where I met her on her arrival. at bedside. Largely unresponsive, will withdraw arms to pain. Mannitol bolus started. Cardiac markers elevated at OSH. Emergency decompression the night of admission, now ventilator dependent, largely unresponsive. 10/13: No neurological improvement. is getting very anxious. 10/14: No improvement, sedated for seizure control. 10/15: Enterobacter and Staph in sputum. Pseudomonas in urine. Continue antibiotics, reculture for fevers. Repeat UA. 10/16: No improvement. Objective Vital Signs Date Time Temp Pulse Resp B/P Pulse Ox O2 Delivery O2 Flow Rate FiO2 10/16/16 08:00 89 10/16/16 08:00 35 10/16/16 08:00 98.6 17 97/51 98 Intake and Output 10/15/16 10/15/16 10/16/16 08:00 16:00 00:00 Intake Total 1046 ml 1009 ml 710 ml Output Total 675 ml 650 ml 500 ml Balance 371 ml 359 ml 210 ml Result Diagram: 10/15/16 0418 10/16/16 0530 Objective Remarks Gen: Unresponsive. Neck: Supple, orally intubated Lungs: Clear, no wheezes or crackles.Good brianda air entry. Few mobile secretions. Heart: NL S1S2, RRR, No JVD. Abdomen : Soft, nondistended, no guarding. BS active. No peritoneal irritation. Extremities: Warm, well perfused. Neuro: Unresponsive. No obvious seizures. Occ spontaneous breath. Moves feet slightly to stimulation. Toes up bilat. No spontaneous movement. A/P Problem List: (1) Acute subdural hematoma ICD Code: I62.01 Status: Acute (2) Coagulopathy ICD Code: D68.9 Status: Acute (3) Acute respiratory failure ICD Code: J96.00 Status: Acute (4) NSTEMI (non-ST elevated myocardial infarction) ICD Code: I21.4 Status: Acute Assessment and Plan SDH - post Emergency SDH decompression. - continue Isotonic fluid - neuro checks Seizure - Keppra 1500 BID - Increased Vimpat 200 BID (off label dose for refractory seizure/status) NSTEMI, - hemodynamically stable - Hold Xarelto and ASA due to SDH Anemia - protonics BID Respiratory failure: - intubated, ventilated - PRVC vent mode. PCO2 30-35 range. -Try CPAP trial. Fevers and leukocytosis - LP cultures negative - Follow up - empirically Vanc/Cef. Enterobacter, Staph lungs Pseudomonas urine DVT/GI prophylaxis Protonix, SCDs. No chemical DVT px. due to SDH Overall impression: This woman remains critically ill after decompression of a life-threatening acute subdural hemorrhage. We are unable to wean the ventilator. Neurologic function remains markedly decreased. Lungs are colonized , bronchitis apparent. Only response is feet movement to stimulation. Critical care 34 mins Andrea Leiva MD Oct 16, 2016 08:47 nAdrea Leiva MD Oct 16, 2016 08:47
[2016-10-16 08:54] LABS: AUTOMATED NEUTROPHIL # 10.2 TH/MM3 (1.8-7.7); BASOPHIL # 0.1 TH/MM3 (0-0.2); BASOPHIL % 0.8 % (0.0-2.0); EOSINOPHIL # 0.2 TH/MM3 (0-0.4); EOSINOPHIL % 1.4 % (0.0-4.0); HEMATOCRIT 29.3 % (35.0-46.0); HEMO FLAGS AUTO DIFF; LYMPH % 11.7 % (9.0-44.0); LYMPHOCYTE # 1.6 TH/MM3 (1.0-4.8); MEAN CELL VOLUME 89.5 FL (80.0-100.0); MEAN CORPUSCULAR HEMOGLOBIN 29.9 PG (27.0-34.0); MEAN CORPUSCULAR HGB CONC 33.4 % (32.0-36.0); MONO % 11.9 % (0.0-8.0); NEUT % 74.2 % (16.0-70.0); PLATELET COUNT 327 TH/MM3 (150-450); RED BLOOD COUNT 3.27 MIL/MM3 (4.00-5.30); RED CELL DISTRIBUTION WIDTH 16.2 % (11.6-17.2); WHITE BLOOD COUNT 13.7 TH/MM3 (4.0-11.0)
[2016-10-16] MEDS: LACOSAMIDE INJ 200 MG in SODIUM CHLORIDE 0.9% INJ 100 ML IV SCH ×2 (08:58→23:05)
--- NOTE | 2016-10-16 09:22 | HHI.NSPN ---
History Chief Complaint: SDH s/p right crani. Interval History Day 10 after right craniectomy for SDH, improving very slowly clinically on maximal supportive care. She is off sedation and her eyes remain closed but she is starting to have minimal movements to command Review of Systems General: Positive for: fever (to 101.1) Exam Results Vital Signs Date Time Temp Pulse Resp B/P Pulse Ox O2 Delivery O2 Flow Rate FiO2 10/16/16 08:00 89 10/16/16 08:00 35 10/16/16 08:00 98.6 17 97/51 98 Intake and Output 10/15/16 10/15/16 10/16/16 08:00 16:00 00:00 Intake Total 1046 ml 1009 ml 710 ml Output Total 675 ml 650 ml 500 ml Balance 371 ml 359 ml 210 ml Physical Examination Intubated, no sedative drips. No spontaneous eye opening, reported to have blinking eyes, Right flap soft with pulsations. The skin flap appears ecchymotic. Skin is warm. Wound healing well, griselda intact. CN: pupils 3-4 mm equal, no reaction to right, eye, left sluggish. No nystagmus seen. Bilateral Babinski response Abdomen: soft, positive BS, RRR Lab, Micro, Other Results Laboratory Tests Test 10/16/16 05:30 White Blood Count 13.7 TH/MM3 Red Blood Count 3.27 MIL/MM3 Hemoglobin 9.8 GM/DL Hematocrit 29.3 % Mean Corpuscular Volume 89.5 FL Mean Corpuscular Hemoglobin 29.9 PG Mean Corpuscular Hemoglobin 33.4 % Concent Red Cell Distribution Width 16.2 % Platelet Count 327 TH/MM3 Mean Platelet Volume 8.9 FL Neutrophils (%) (Auto) 74.2 % Lymphocytes (%) (Auto) 11.7 % Monocytes (%) (Auto) 11.9 % Eosinophils (%) (Auto) 1.4 % Basophils (%) (Auto) 0.8 % Neutrophils # (Auto) 10.2 TH/MM3 Lymphocytes # (Auto) 1.6 TH/MM3 Monocytes # (Auto) 1.6 TH/MM3 Eosinophils # (Auto) 0.2 TH/MM3 Basophils # (Auto) 0.1 TH/MM3 CBC Comment AUTO DIFF Hematology Comments Sodium Level 139 MEQ/L Potassium Level 4.2 MEQ/L Chloride Level 105 MEQ/L Carbon Dioxide Level 24.3 MEQ/L Anion Gap 10 MEQ/L Blood Urea Nitrogen 23 MG/DL Creatinine 0.45 MG/DL Estimat Glomerular Filtration 135 ML/MIN Rate Random Glucose 149 MG/DL Calcium Level 7.6 MG/DL Medical Decision Making Impression and Plan Slightly more alert, follow up CT in the am, supportive care continued at this time. Total Minutes: 10 Froilan Verdugo Oct 16, 2016 09:22
[2016-10-16 10:12] LABS: BANDS 23 % (0-6); METAMYELOCYTES 1 % (0-1); POLYS (SEG NEUTROPHILS) 56 % (16-70); WBC DIFF SAMPLE 100
[2016-10-16 10:13] LABS: PLATELET ESTIMATE SMEAR NORMAL (NORMAL); PLATELET MORPHOLOGY NORMAL (NORMAL); SCAN/DIFF FINAL DIFF MANUAL; TOXIC GRANULATION 1+ (NORMAL)
[2016-10-16] MEDS: PHENobarbital SOD 130 MG/ML VIAL IV PUSH SCH ×2 (12:31→23:06)
[2016-10-16] MEDS ORDERED: PHARMACY ORDERED LAB XX ONE (12:45)
--- NOTE | 2016-10-16 13:11 | PD.CARD.PN ---
Subjective Subjective Remarks intubated, sedated Objective Vital Signs / I&O Vital Signs Date Time Temp Pulse Resp B/P Pulse Ox O2 Delivery O2 Flow Rate FiO2 10/16/16 12:36 97 35 10/16/16 10:00 87 10/16/16 09:20 98 35 10/16/16 09:20 35 10/16/16 08:00 89 10/16/16 08:00 35 10/16/16 08:00 98.6 89 17 97/51 98 10/16/16 04:07 99 35 10/16/16 04:00 101.1 96 19 108/54 98 10/16/16 04:00 96 10/16/16 04:00 35 10/16/16 02:00 104 10/16/16 01:53 99 35 10/16/16 00:00 94 10/16/16 00:00 100.6 94 19 114/56 99 10/16/16 00:00 35 10/15/16 22:15 99 35 10/15/16 22:00 94 10/15/16 20:15 100 35 10/15/16 20:00 94 10/15/16 20:00 35 10/15/16 20:00 99.9 94 20 111/56 100 10/15/16 18:00 98 10/15/16 16:52 100 35 10/15/16 16:00 99 10/15/16 16:00 99.4 99 24 122/57 99 10/15/16 16:00 35 10/15/16 14:00 98 I/O 10/15/16 10/15/16 10/15/16 10/16/16 10/16/16 10/16/16 07:00 15:00 23:00 07:00 15:00 23:00 Intake Total 1046 ml 1009 ml 710 ml Output Total 675 ml 650 ml 500 ml Balance 371 ml 359 ml 210 ml IV Total 542 ml 516 ml 260 ml Tube Feeding 444 ml 393 ml 350 ml Other 60 ml 100 ml 100 ml Output Urine Total 675 ml 650 ml 500 ml # Bowel Movements 2 0 1 Physical Exam GENERAL: SKIN: Warm and dry. HEAD: Normocephalic. EYES: No scleral icterus. No injection or drainage. NECK: Supple, trachea midline. No JVD or lymphadenopathy. CARDIOVASCULAR: Regular rate and rhythm without murmurs, gallops, or rubs. RESPIRATORY: Breath sounds equal bilaterally. No accessory muscle use. GASTROINTESTINAL: Abdomen soft, non-tender, nondistended. MUSCULOSKELETAL: No cyanosis, or edema. BACK: Nontender without obvious deformity. No CVA tenderness. Laboratory Laboratory Tests Test 10/16/16 05:30 White Blood Count 13.7 TH/MM3 Red Blood Count 3.27 MIL/MM3 Hemoglobin 9.8 GM/DL Hematocrit 29.3 % Mean Corpuscular Volume 89.5 FL Mean Corpuscular Hemoglobin 29.9 PG Mean Corpuscular Hemoglobin 33.4 % Concent Red Cell Distribution Width 16.2 % Platelet Count 327 TH/MM3 Mean Platelet Volume 8.9 FL Neutrophils (%) (Auto) 74.2 % Lymphocytes (%) (Auto) 11.7 % Monocytes (%) (Auto) 11.9 % Eosinophils (%) (Auto) 1.4 % Basophils (%) (Auto) 0.8 % Neutrophils # (Auto) 10.2 TH/MM3 Lymphocytes # (Auto) 1.6 TH/MM3 Monocytes # (Auto) 1.6 TH/MM3 Eosinophils # (Auto) 0.2 TH/MM3 Basophils # (Auto) 0.1 TH/MM3 CBC Comment AUTO DIFF Differential Total Cells 100 Counted Neutrophils % (Manual) 56 % Band Neutrophils % 23 % Lymphocytes % 12 % Monocytes % 8 % Neutrophils # (Manual) 11.0 TH/MM3 Metamyelocytes 1 % Differential Comment FINAL DIFF MANUAL Toxic Granulation 1+ Platelet Estimate NORMAL Platelet Morphology Comment NORMAL Hematology Comments Sodium Level 139 MEQ/L Potassium Level 4.2 MEQ/L Chloride Level 105 MEQ/L Carbon Dioxide Level 24.3 MEQ/L Anion Gap 10 MEQ/L Blood Urea Nitrogen 23 MG/DL Creatinine 0.45 MG/DL Estimat Glomerular Filtration 135 ML/MIN Rate Random Glucose 149 MG/DL Calcium Level 7.6 MG/DL Phenobarbital Level 12.0 MCG/ML Assessment and Plan Problem List: (1) HTN (hypertension) (2) PAD (peripheral artery disease) (3) Left carotid artery occlusion (4) CAD (coronary artery disease) (5) Acute respiratory failure (6) Subdural hematoma (7) Coagulopathy (8) NSTEMI (non-ST elevated myocardial infarction) (9) Acute subdural hematoma Assessment and Plan 1.) SDH - ekg suggests possible recent anteroseptal mi, ac contraindicated d/t life threatening ich, beta blockers, lyssa held d/t hypotension and ich; continue statin, supportive care, neurologic prognosis uncertain 2.) Ischemic cardiomyopathy - lyssa inhibitor and beta blockers held d/t labile bp , hypotensive episodes and recent ich Marcus Medel MD Oct 16, 2016 13:11
--- NOTE | 2016-10-16 13:18 | HHI.PR ---
Review/Management Diagnosis/Plan: (1) Encephalopathy Plan: 2/2 rt sdh, ? post-ictal and sz meds should gradually improve (2) Seizure Plan: continue phb increase to 80mg tid based on lower levels and repeat levels follow exam (3) Acute subdural hematoma (4) HTN (hypertension) Subjective Subjective Comments No acute events reported xcover Active Medications Current Medications Medications (Trade) Dose Ordered Sig/Vladislav Route Start Time Stop Time Status Last Admin Miscellaneous Information 1 Q361D XX 10/05/16 04:45 10/06/16 03:46 (Chlorhexidine 2% Cloth) Taper DAILY@04 TOP 10/06/16 04:00 10/02/17 03:59 10/12/16 04:00 (Chlorhexidine 2% Cloth) 3 pack UNSCH PRN TOP 10/05/16 04:45 (Lipitor) 20 mg HS PO 10/05/16 21:00 10/15/16 21:00 (NS Flush) 2 ml UNSCH PRN IVF 10/05/16 05:00 10/15/16 06:01 (NS Flush) 2 ml BID IVF 10/05/16 09:00 10/16/16 08:35 (Dulcolax Supp) 10 mg DAILY PRN RI 10/05/16 05:00 (Colace) 100 mg BID PO 10/05/16 09:00 10/16/16 08:36 (Protonix) 40 mg DAILY PO 10/05/16 09:00 (Protonix Inj) 40 mg DAILY IVP 10/05/16 09:00 10/16/16 08:36 (Zofran Inj) 4 mg Q6H PRN IV 10/05/16 05:00 Calcium Gluconate 1 gm 1 gm UNSCH PRN IV 10/05/16 05:00 Potassium Chloride 100 ml @ 50 mls/hr UNSCH PRN IV 10/05/16 05:00 (Magnesium Sulfate Inj/NS Inj) 108 ml @ 108 mls/hr UNSCH PRN IV 10/05/16 05:00 10/12/16 06:14 ([place] 10-325 Mg) 1 tab Q4H PRN PO 10/05/16 05:00 ([place] 10-325 Mg) 2 tab Q4H PRN PO 10/05/16 05:00 (Morphine Inj) 2 mg Q2H PRN IV PUSH 10/05/16 05:00 10/06/16 21:40 (Morphine Inj) 4 mg Q2H PRN IV PUSH 10/05/16 05:00 (Tylenol) 650 mg Q4H PRN PO 10/05/16 05:00 10/16/16 06:00 Chlorhexidine Gluconate 15 ml 15 ml BID@08,20 MT 10/05/16 08:00 10/16/16 08:34 Propofol 100 ml @ 0 mls/hr TITRATE IV 10/05/16 05:15 10/12/16 06:42 Potassium Chloride 100 ml @ 50 mls/hr Q2H PRN IV 10/05/16 05:15 (KCl 20 Meq Premix Inj) 100 ml @ 50 mls/hr Q2H PRN IV 10/05/16 05:15 Potassium Chloride 40 meq 40 meq UNSCH PRN PO/TUBE 10/05/16 05:15 Potassium Chloride 100 ml @ 25 mls/hr UNSCH PRN IV 10/05/16 05:15 Potassium Chloride 100 ml @ 50 mls/hr Q2H PRN IV 10/05/16 05:15 10/12/16 08:07 (Magnesium Sulfate Inj/NS Inj) 100 ml @ 50 mls/hr UNSCH PRN IV 10/05/16 05:15 Magnesium Oxide 800 mg 800 mg UNSCH PRN PO 10/05/16 05:15 (Magnesium Sulfate Inj/NS Inj) 100 ml @ 50 mls/hr UNSCH PRN IV 10/05/16 05:15 Potassium Phosphate 2000 mg 2,000 mg Q4H PRN PO 10/05/16 05:15 10/09/16 08:35 (Sodium Phosphate Inj/NS 250 ml Inj) 250 ml @ 42 mls/hr UNSCH PRN IV 10/05/16 05:15 10/13/16 09:21 (KCl 40 Meq/30 ml Liq) 40 meq UNSCH PRN PO/TUBE 10/05/16 05:15 Potassium Phosphate 2000 mg 2,000 mg UNSCH PRN PO/TUBE 10/05/16 05:15 (Potassium Phosphate Inj/NS 250 ml Inj) 260 ml @ 42 mls/hr UNSCH PRN IV 10/05/16 05:15 (Brethine Inj) 1 mg UNSCH PRN SQ 10/05/16 06:30 (Singulair Chew) 10 mg DAILY PO 10/06/16 09:00 10/16/16 08:35 (Trandate Inj) 10 mg Q4H PRN IV PUSH 10/07/16 15:30 (Apresoline Inj) 20 mg Q4H PRN IV PUSH 10/07/16 15:30 (Cardizem) 30 mg QID PO 10/07/16 18:00 10/16/16 12:30 Lorazepam 1 mg 1 mg Q2H PRN IM 10/08/16 13:15 10/09/16 22:05 Phenylephrine HCl 40 mg/Sodium Chloride 500 ml @ 0 mls/hr TITRATE IV 10/09/16 21:00 10/12/16 16:45 Levetriacetam 1500 mg/Sodium Chloride 115 ml @ 460 mls/hr Q12H IV 10/10/16 21:00 10/16/16 08:35 Lacosamide 200 mg/ Sodium Chloride 120 ml @ 110 mls/hr Q12HR IV 10/11/16 21:00 10/16/16 08:58 Pharmacy Profile Note 0 ml @ 0 mls/hr UNSCH OTHER 10/12/16 13:15 Vancomycin HCl 1250 mg/Sodium Chloride 262.5 ml @ 250 mls/hr Q12H IV 10/15/16 13:00 10/16/16 01:00 (Maxipime Inj/NS Inj) 100 ml @ 200 mls/hr Q12H IV 10/15/16 17:00 10/16/16 04:01 (Luminal Inj) 80 mg Q8HR IV PUSH 10/16/16 14:00 10/16/16 12:31 Allergies Allergies Coded Allergies Grass (Unverified Allergy, Severe, Sneezing, 10/05/16) Molds and Smuts (Unverified Allergy, Severe, Sneezing, 10/05/16) Review of Systems All other ROS: Unable to obtain Exam I&O / VS 10/15/16 10/15/16 10/16/16 15:00 23:00 07:00 Intake Total 1009 ml 710 ml Output Total 650 ml 500 ml Balance 359 ml 210 ml IV Total 516 ml 260 ml Tube Feeding 393 ml 350 ml Other 100 ml 100 ml Output Urine Total 650 ml 500 ml # Bowel Movements 0 1 Vital Signs Date Time Temp Pulse Resp B/P Pulse Ox O2 Delivery O2 Flow Rate FiO2 10/16/16 12:36 97 35 10/16/16 10:00 87 10/16/16 09:20 98 35 10/16/16 09:20 35 10/16/16 08:00 89 10/16/16 08:00 35 10/16/16 08:00 98.6 89 17 97/51 98 10/16/16 04:07 99 35 10/16/16 04:00 101.1 96 19 108/54 98 10/16/16 04:00 96 10/16/16 04:00 35 10/16/16 02:00 104 10/16/16 01:53 99 35 10/16/16 00:00 94 10/16/16 00:00 100.6 94 19 114/56 99 10/16/16 00:00 35 10/15/16 22:15 99 35 10/15/16 22:00 94 10/15/16 20:15 100 35 10/15/16 20:00 94 10/15/16 20:00 35 10/15/16 20:00 99.9 94 20 111/56 100 10/15/16 18:00 98 10/15/16 16:52 100 35 10/15/16 16:00 99 10/15/16 16:00 99.4 99 24 122/57 99 10/15/16 16:00 35 10/15/16 14:00 98 Exam Comments minimally opens eye, non-verbal, not following, ou 2-1mm, eomi, mild flexion in ue, withdrawal in le, Objective Micro and Labs Laboratory Tests Test 10/16/16 05:30 White Blood Count 13.7 Red Blood Count 3.27 Hemoglobin 9.8 Hematocrit 29.3 Mean Corpuscular Volume 89.5 Mean Corpuscular Hemoglobin 29.9 Mean Corpuscular Hemoglobin 33.4 Concent Red Cell Distribution Width 16.2 Platelet Count 327 Mean Platelet Volume 8.9 Neutrophils (%) (Auto) 74.2 Lymphocytes (%) (Auto) 11.7 Monocytes (%) (Auto) 11.9 Eosinophils (%) (Auto) 1.4 Basophils (%) (Auto) 0.8 Neutrophils # (Auto) 10.2 Lymphocytes # (Auto) 1.6 Monocytes # (Auto) 1.6 Eosinophils # (Auto) 0.2 Basophils # (Auto) 0.1 CBC Comment AUTO DIFF Differential Total Cells 100 Counted Neutrophils % (Manual) 56 Band Neutrophils % 23 Lymphocytes % 12 Monocytes % 8 Neutrophils # (Manual) 11.0 Metamyelocytes 1 Differential Comment FINAL DIFF MANUAL Toxic Granulation 1+ Platelet Estimate NORMAL Platelet Morphology Comment NORMAL Hematology Comments Sodium Level 139 Potassium Level 4.2 Chloride Level 105 Carbon Dioxide Level 24.3 Anion Gap 10 Blood Urea Nitrogen 23 Creatinine 0.45 Estimat Glomerular Filtration 135 Rate Random Glucose 149 Calcium Level 7.6 Phenobarbital Level 12.0 Problem Qualifiers (1) HTN (hypertension): Qualified Code: I10 - Essential hypertension Alfie Mary MD Oct 16, 2016 13:18
[2016-10-16] MEDS ORDERED: ALBUMIN HUMAN 5% 12.5 GM/250 ML BOTTLE IV ONE ×3 (17:26→17:45)
[2016-10-16] MEDS ORDERED: SODIUM CHLORID 0.9% 500 ML INJ 500 ML IV ONE (17:45)
[2016-10-16 19:16] LABS: HEMATOCRIT 28.5 % (35.0-46.0)
[2016-10-16 19:22] LABS: REVIEW FLAG FINAL
[2016-10-16] MEDS ORDERED: NOREPINEPHRINE 4 MG/4 ML AMP ONE (19:25)
[2016-10-16] MEDS ORDERED: SODIUM CHLOR 0.9% 1000 ML INJ 1,000 ML IV ONE (20:00)
[2016-10-16] MEDS: ATORVASTATIN 20 MG TAB PO SCH (20:35)
[2016-10-16] MEDS: SODIUM CHLOR 0.9% 1000 ML INJ 1,000 ML IV SCH (20:36)
[2016-10-17] VITALS (14 sets, daily range): BP systolic 92–107; BP diastolic 51–67; PULSE 92–98; RESP 19–24; TEMP 98.3–100.4; O2SAT 97–100
[2016-10-17] MEDS: CHLORHEXIDINE GLUCONATE 2 % 1 PACK (2 CLOTHS) TOP SCH (04:00)
[2016-10-17 04:26] LABS: BICARBONATE 25.8 MEQ/L (21.0-32.0); PHENOBARBITAL 11.8 MCG/ML (15.0-40.0); POTASSIUM 3.7 MEQ/L (3.5-5.1)
[2016-10-17 04:44] LABS: CALCIUM-PROTEIN CORRECTED 8.2 MG/DL (8.5-10.1)
--- NOTE | 2016-10-17 05:09 | RADRPT ---
EXAM DATE/TIME: 10/17/2016 04:41 [facility] COMPARISON: CT BRAIN W/O CONTRAST, October 07, 2016, 4:19. INDICATIONS : Follow up subdural hematoma. RADIATION DOSE: 56.35 CTDIvol (mGy) MEDICAL HISTORY : Non-responsive. SURGICAL HISTORY : Non-responsive. ENCOUNTER: Subsequent ACUITY: 2 weeks PAIN SCALE: Non-responsive LOCATION: cranial TECHNIQUE: Multiple contiguous axial images were obtained of the head. Using automated exposure control and adj ustment of the mA and/or kV according to patient size, radiation dose was kept as low as reasonably a chievable to obtain optimal diagnostic quality images. FINDINGS: Interval removal of the subdural drains. There is protrusion of the right interparietal cortex throu gh the craniotomy defect, but there is no protrusion in the posterior one half of the craniotomy defe ct. This protrusion is a new finding when compared to prior CT 10/07/16. The ventricles are normal i n size. No evidence of midline shift. There is good through matter differentiation. There is some CSF density in the subdural space right lobe parietal region. No residual blood products seen in the right subdural space. Mild subarachnoid hemorrhage in the posterior left sylvian region. The poste rior fossa structures are intact. There is an air-fluid level in the right sphenoid sinus, similar t o prior.. CONCLUSION: 1. Interval removal of subdural drains and the extra-axial fluid about the posterior parietal and occ ipital region is isodense to CSF. 2. There is focal swelling of the brain in the anterior one half of the craniotomy defect with protru lupe of the cortex. No effacement of the ventricles and no midline shift however. Carlos Stafford MD on October 17, 2016 at 5:03 Board Certified Radiologist. This report was verified electronically.
[2016-10-17] MEDS: CEFEPIME INJ 2,000 MG in SODIUM CHLORIDE 0.9% INJ 100 ML IV SCH ×2 (05:59→18:04)
[2016-10-17] MEDS: PHENobarbital SOD 130 MG/ML VIAL IV PUSH SCH ×2 (05:59→20:25)
[2016-10-17] MEDS ORDERED: NOREPINEPHRINE 4 MG/4 ML AMP ONE (07:25)
[2016-10-17] MEDS: CHLORHEXIDINE 0.12% (ORAL KIT) 15 ML CUP MT SCH ×2 (07:43→20:24)
[2016-10-17] MEDS: MONTELUKAST SODIUM 5 MG CHEWABLE TAB PO SCH (08:33)
[2016-10-17] MEDS: SODIUM CHLORIDE 0.9% FLUSH 5 ML FLUSH IVF SCH ×2 (08:33→20:25)
[2016-10-17] MEDS: PANTOPRAZOLE SOD 40 MG DELAYED RELEASE TAB PO SCH (09:00)
[2016-10-17] MEDS: DILTIAZEM HCL 30 MG TAB PO SCH ×4 (09:00→20:24)
[2016-10-17] MEDS: levETIRAcetam INJ 1,500 MG in SODIUM CHLORIDE 0.9% INJ 100 ML IV SCH ×2 (09:11→20:24)
[2016-10-17] MEDS: NOREPINEPHRINE INJ 4 MG in SODIUM CHLOR 0.9% 250 ML INJ 250 ML IV SCH ×2 (09:11→23:04)
[2016-10-17] MEDS: LACOSAMIDE INJ 200 MG in SODIUM CHLORIDE 0.9% INJ 100 ML IV SCH ×2 (09:17→20:23)
[2016-10-17] MEDS: PANTOPRAZOLE SODIUM 40 MG VIAL IVP SCH (09:19)
[2016-10-17] MEDS: DOCUSATE SODIUM 100 MG CAP PO SCH ×2 (09:21→20:24)
--- NOTE | 2016-10-17 12:11 | HHI.NSPN ---
History Chief Complaint: SDH s/p right crani. Interval History Day 10 after right craniectomy for SDH, improving very slowly clinically on maximal supportive care. She is off sedation and her eyes remain closed but she is starting to have minimal movements to command 10/17/16 She is off sedation but still still very minimally responsive, eyes closed and not able to follow commands. She is afebrile. Review of Systems General: Negative for: fever, chills, insomnia Exam Results Vital Signs Date Time Temp Pulse Resp B/P Pulse Ox O2 Delivery O2 Flow Rate FiO2 10/17/16 10:05 35 10/17/16 10:05 98 10/17/16 08:00 99.4 92 20 92/51 Intake and Output 10/16/16 10/16/16 10/17/16 08:00 16:00 00:00 Intake Total 628 ml Output Total 675 ml Balance -47 ml Physical Examination Intubated, no sedative drips. No spontaneous eye opening, blinking eyes, Right flap soft with pulsations. The skin flap appears ecchymotic. Skin is warm. Wound healing well, griselda intact. CN: pupils 3-4 mm equal,reactive, No nystagmus seen. Bilateral Babinski response Abdomen: soft, positive BS, RRR Lab, Micro, Other Results Last Impressions Head CT 10/17/16 06 Signed Impressions: Service Date/Time: Monday, October 17, 2016 04:41 - CONCLUSION: 1. Interval removal of subdural drains and the extra-axial fluid about the posterior parietal and occipital region is isodense to CSF. 2. There is focal swelling of the brain in the anterior one half of the craniotomy defect with protrusion of the cortex. No effacement of the ventricles and no midline shift however. Carlos Stafford MD Chest X-Ray 10/12/16 0600 Signed Impressions: Service Date/Time: Wednesday, October 12, 2016 05:43 - CONCLUSION: Slight improvement in aeration. Beau Babcock MD Laboratory Tests Test 10/16/16 10/16/16 10/17/16 13:35 19:02 03:06 Vancomycin Level Trough 25.0 MCG/ML Hemoglobin 9.4 GM/DL Hematocrit 28.5 % Sodium Level 140 MEQ/L Potassium Level 3.7 MEQ/L Chloride Level 107 MEQ/L Carbon Dioxide Level 25.8 MEQ/L Anion Gap 7 MEQ/L Blood Urea Nitrogen 20 MG/DL Creatinine 0.41 MG/DL Estimat Glomerular Filtration 151 ML/MIN Rate Random Glucose 176 MG/DL Calcium Level 7.4 MG/DL Protein Corrected Calcium 8.2 MG/DL Total Protein 5.6 GM/DL Random Vancomycin Level 15.0 COMMENT Phenobarbital Level 11.8 MCG/ML Medical Decision Making Impression and Plan 10/17/[address] showed a completed right frontal contusion and post craniectomy defect but no new findings. The last EEG showed sharp activity. Follow up EEG ordered for tomorrow. She may need a follow up LP after antibiotics are completed. Total Minutes: 10 Froilan Verdugo Oct 17, 2016 12:11
[2016-10-17] MEDS: VANCOMYCIN INJ 1,250 MG in SODIUM CHLOR 0.9% 250 ML INJ 250 ML IV SCH (12:59)
--- NOTE | 2016-10-17 14:48 | PD.CARD.PN ---
Subjective Subjective Remarks intubated, sedated Objective Vital Signs / I&O Vital Signs Date Time Temp Pulse Resp B/P Pulse Ox O2 Delivery O2 Flow Rate FiO2 10/17/16 14:00 93 10/17/16 12:00 96 10/17/16 12:00 99.3 96 24 101/56 98 10/17/16 10:05 35 10/17/16 10:05 98 35 10/17/16 08:00 35 10/17/16 08:00 99.4 92 20 92/51 97 10/17/16 04:45 100 10/17/16 04:05 98 35 10/17/16 04:00 35 10/17/16 04:00 98.8 92 19 97/60 99 10/17/16 04:00 92 10/17/16 00:05 100 35 10/17/16 00:00 94 10/17/16 00:00 98.3 94 20 96/67 100 10/17/16 00:00 35 10/16/16 22:00 92 10/16/16 21:42 100 35 10/16/16 20:00 98.3 98 20 103/58 100 10/16/16 20:00 99.6 94 19 91/58 100 10/16/16 20:00 98 10/16/16 20:00 35 10/16/16 18:00 90 10/16/16 16:42 100 35 10/16/16 16:00 35 10/16/16 16:00 98.7 90 20 83/53 100 10/16/16 16:00 90 I/O 10/16/16 10/16/16 10/16/16 10/17/16 10/17/16 10/17/16 07:00 15:00 23:00 07:00 15:00 23:00 Intake Total 628 ml 2934 ml 1114 ml Output Total 675 ml 650 ml 1000 ml Balance -47 ml 2284 ml 114 ml IV Total 254 ml 2651 ml 931 ml Tube Feeding 254 ml 183 ml 183 ml Other 120 ml 100 ml Output Urine Total 675 ml 650 ml 1000 ml # Bowel Movements 0 Physical Exam GENERAL: SKIN: Warm and dry. HEAD: Normocephalic. EYES: No scleral icterus. No injection or drainage. NECK: Supple, trachea midline. No JVD or lymphadenopathy. CARDIOVASCULAR: Regular rate and rhythm without murmurs, gallops, or rubs. RESPIRATORY: Breath sounds equal bilaterally. No accessory muscle use. GASTROINTESTINAL: Abdomen soft, non-tender, nondistended. MUSCULOSKELETAL: No cyanosis, or edema. BACK: Nontender without obvious deformity. No CVA tenderness. Laboratory Laboratory Tests Test 10/16/16 10/17/16 19:02 03:06 Hemoglobin 9.4 GM/DL Hematocrit 28.5 % Sodium Level 140 MEQ/L Potassium Level 3.7 MEQ/L Chloride Level 107 MEQ/L Carbon Dioxide Level 25.8 MEQ/L Anion Gap 7 MEQ/L Blood Urea Nitrogen 20 MG/DL Creatinine 0.41 MG/DL Estimat Glomerular Filtration 151 ML/MIN Rate Random Glucose 176 MG/DL Calcium Level 7.4 MG/DL Protein Corrected Calcium 8.2 MG/DL Total Protein 5.6 GM/DL Random Vancomycin Level 15.0 COMMENT Phenobarbital Level 11.8 MCG/ML Assessment and Plan Problem List: (1) HTN (hypertension) (2) PAD (peripheral artery disease) (3) Left carotid artery occlusion (4) CAD (coronary artery disease) (5) Acute respiratory failure (6) Subdural hematoma (7) Coagulopathy (8) NSTEMI (non-ST elevated myocardial infarction) (9) Acute subdural hematoma Assessment and Plan 1.) SDH - ekg suggests possible recent anteroseptal mi, ac contraindicated d/t life threatening ich, beta blockers, lyssa held d/t hypotension and ich; continue statin, supportive care, neurologic prognosis uncertain 2.) Ischemic cardiomyopathy - lyssa inhibitor and beta blockers held d/t labile bp , hypotensive episodes and recent ich Problem Qualifiers (1) HTN (hypertension): Qualified Code: I10 - Essential hypertension Marcus Medel MD Oct 17, 2016 14:48
--- NOTE | 2016-10-17 15:08 | HHI.PR ---
Review/Management Diagnosis/Plan: (1) Encephalopathy Plan: 2/2 rt sdh, ? post-ictal and sz meds had repeat ct brain; nsx following recs consideration of palliative care Dr. Barrientos to follow (2) Seizure Plan: continue phb phb dose decreased by nsx follow exam (3) Acute subdural hematoma (4) HTN (hypertension) Subjective Subjective Comments No acute events reported Active Medications Current Medications Medications (Trade) Dose Ordered Sig/Vladislav Route Start Time Stop Time Status Last Admin Miscellaneous Information 1 Q361D XX 10/05/16 04:45 10/06/16 03:46 (Chlorhexidine 2% Cloth) Taper DAILY@04 TOP 10/06/16 04:00 10/02/17 03:59 10/12/16 04:00 (Chlorhexidine 2% Cloth) 3 pack UNSCH PRN TOP 10/05/16 04:45 (Lipitor) 20 mg HS PO 10/05/16 21:00 10/16/16 20:35 (NS Flush) 2 ml UNSCH PRN IVF 10/05/16 05:00 10/15/16 06:01 (NS Flush) 2 ml BID IVF 10/05/16 09:00 10/16/16 20:36 (Dulcolax Supp) 10 mg DAILY PRN MT 10/05/16 05:00 (Colace) 100 mg BID PO 10/05/16 09:00 10/17/16 09:21 (Protonix Inj) 40 mg DAILY IVP 10/05/16 09:00 10/17/16 09:19 (Zofran Inj) 4 mg Q6H PRN IV 10/05/16 05:00 Calcium Gluconate 1 gm 1 gm UNSCH PRN IV 10/05/16 05:00 Potassium Chloride 100 ml @ 50 mls/hr UNSCH PRN IV 10/05/16 05:00 (Magnesium Sulfate Inj/NS Inj) 108 ml @ 108 mls/hr UNSCH PRN IV 10/05/16 05:00 10/12/16 06:14 ([place] 10-325 Mg) 1 tab Q4H PRN PO 10/05/16 05:00 ([place] 10-325 Mg) 2 tab Q4H PRN PO 10/05/16 05:00 (Morphine Inj) 2 mg Q2H PRN IV PUSH 10/05/16 05:00 10/06/16 21:40 (Morphine Inj) 4 mg Q2H PRN IV PUSH 10/05/16 05:00 (Tylenol) 650 mg Q4H PRN PO 10/05/16 05:00 10/16/16 06:00 Chlorhexidine Gluconate 15 ml 15 ml BID@08,20 MT 10/05/16 08:00 10/17/16 07:43 Propofol 100 ml @ 0 mls/hr TITRATE IV 10/05/16 05:15 10/12/16 06:42 Potassium Chloride 100 ml @ 50 mls/hr Q2H PRN IV 10/05/16 05:15 (KCl 20 Meq Premix Inj) 100 ml @ 50 mls/hr Q2H PRN IV 10/05/16 05:15 Potassium Chloride 40 meq 40 meq UNSCH PRN PO/TUBE 10/05/16 05:15 Potassium Chloride 100 ml @ 25 mls/hr UNSCH PRN IV 10/05/16 05:15 Potassium Chloride 100 ml @ 50 mls/hr Q2H PRN IV 10/05/16 05:15 10/12/16 08:07 (Magnesium Sulfate Inj/NS Inj) 100 ml @ 50 mls/hr UNSCH PRN IV 10/05/16 05:15 Magnesium Oxide 800 mg 800 mg UNSCH PRN PO 10/05/16 05:15 (Magnesium Sulfate Inj/NS Inj) 100 ml @ 50 mls/hr UNSCH PRN IV 10/05/16 05:15 Potassium Phosphate 2000 mg 2,000 mg Q4H PRN PO 10/05/16 05:15 10/09/16 08:35 (Sodium Phosphate Inj/NS 250 ml Inj) 250 ml @ 42 mls/hr UNSCH PRN IV 10/05/16 05:15 10/13/16 09:21 (KCl 40 Meq/30 ml Liq) 40 meq UNSCH PRN PO/TUBE 10/05/16 05:15 Potassium Phosphate 2000 mg 2,000 mg UNSCH PRN PO/TUBE 10/05/16 05:15 (Potassium Phosphate Inj/NS 250 ml Inj) 260 ml @ 42 mls/hr UNSCH PRN IV 10/05/16 05:15 (Brethine Inj) 1 mg UNSCH PRN SQ 10/05/16 06:30 (Singulair Chew) 10 mg DAILY PO 10/06/16 09:00 10/16/16 08:35 (Trandate Inj) 10 mg Q4H PRN IV PUSH 10/07/16 15:30 (Apresoline Inj) 20 mg Q4H PRN IV PUSH 10/07/16 15:30 (Cardizem) 30 mg QID PO 10/07/16 18:00 10/16/16 20:35 Lorazepam 1 mg 1 mg Q2H PRN IM 10/08/16 13:15 10/09/16 22:05 Phenylephrine HCl 40 mg/Sodium Chloride 500 ml @ 0 mls/hr TITRATE IV 10/09/16 21:00 10/12/16 16:45 Levetriacetam 1500 mg/Sodium Chloride 115 ml @ 460 mls/hr Q12H IV 10/10/16 21:00 10/17/16 09:11 Lacosamide 200 mg/ Sodium Chloride 120 ml @ 110 mls/hr Q12HR IV 10/11/16 21:00 10/17/16 09:17 Pharmacy Profile Note 0 ml @ 0 mls/hr UNSCH OTHER 10/12/16 13:15 Cefepime HCl 2000 mg/Sodium Chloride 100 ml @ 200 mls/hr Q12H IV 10/15/16 17:00 10/17/16 05:59 Norepinephrine Bitartrate 4 mg/ Sodium Chloride 254 ml @ 0 mls/hr TITRATE IV 10/16/16 20:00 10/17/16 09:11 Sodium Chloride 1,000 ml @ 50 mls/hr Q20H IV 10/16/16 20:00 10/16/16 20:36 (Vancomycin Inj/ NS 250 ml Inj) 262.5 ml @ 250 mls/hr Q24H IV 10/17/16 13:00 10/17/16 12:59 Miscellaneous Information SPECIFIC LAB TO BE DRAWN:VANCOMY... ONCE ONCE XX 10/19/16 12:45 10/19/16 12:46 (Luminal Inj) 40 mg Q12HR IV PUSH 10/17/16 21:00 Allergies Allergies Coded Allergies Grass (Unverified Allergy, Severe, Sneezing, 10/05/16) Molds and Smuts (Unverified Allergy, Severe, Sneezing, 10/05/16) Review of Systems All other ROS: Unable to obtain Exam I&O / VS 10/16/16 10/16/16 10/17/16 15:00 23:00 07:00 Intake Total 628 ml 2934 ml Output Total 675 ml 650 ml Balance -47 ml 2284 ml IV Total 254 ml 2651 ml Tube Feeding 254 ml 183 ml Other 120 ml 100 ml Output Urine Total 675 ml 650 ml # Bowel Movements 0 Vital Signs Date Time Temp Pulse Resp B/P Pulse Ox O2 Delivery O2 Flow Rate FiO2 10/17/16 14:00 93 10/17/16 12:00 96 10/17/16 12:00 99.3 96 24 101/56 98 10/17/16 10:05 35 10/17/16 10:05 98 35 10/17/16 08:00 35 10/17/16 08:00 99.4 92 20 92/51 97 10/17/16 04:45 100 10/17/16 04:05 98 35 10/17/16 04:00 35 10/17/16 04:00 98.8 92 19 97/60 99 10/17/16 04:00 92 10/17/16 00:05 100 35 10/17/16 00:00 94 10/17/16 00:00 98.3 94 20 96/67 100 10/17/16 00:00 35 10/16/16 22:00 92 10/16/16 21:42 100 35 10/16/16 20:00 98.3 98 20 103/58 100 10/16/16 20:00 99.6 94 19 91/58 100 10/16/16 20:00 98 10/16/16 20:00 35 10/16/16 18:00 90 10/16/16 16:42 100 35 10/16/16 16:00 35 10/16/16 16:00 98.7 90 20 83/53 100 10/16/16 16:00 90 Exam Comments minimally opens eye, intubated, non-verbal, not following, ou 2-1mm, eomi, mild flexion in ue, withdrawal in le, Objective Micro and Labs Laboratory Tests Test 10/16/16 10/17/16 19:02 03:06 Hemoglobin 9.4 Hematocrit 28.5 Sodium Level 140 Potassium Level 3.7 Chloride Level 107 Carbon Dioxide Level 25.8 Anion Gap 7 Blood Urea Nitrogen 20 Creatinine 0.41 Estimat Glomerular Filtration 151 Rate Random Glucose 176 Calcium Level 7.4 Protein Corrected Calcium 8.2 Total Protein 5.6 Random Vancomycin Level 15.0 Phenobarbital Level 11.8 Problem Qualifiers (1) HTN (hypertension): Qualified Code: I10 - Essential hypertension Alfie Mary MD Oct 17, 2016 15:08
--- NOTE | 2016-10-17 16:42 | RADRPT ---
EXAM DATE/TIME: 10/17/2016 15:38 [facility] COMPARISON: CHEST SINGLE AP, October 12, 2016, 5:43. INDICATIONS : Post PICC line placement MEDICAL HISTORY : Hypertension. SURGICAL HISTORY : Loop recorder, neurostimulator ENCOUNTER: Subsequent ACUITY: 2 weeks PAIN SCORE: Non-responsive. LOCATION: Bilateral chest FINDINGS: The patient is intubated with the tip of the ET tube approximately 1.5 cm from the lissette. An NG tub e is in place with the tip directed into the stomach. The heart size is normal. There is hazy densi ty at the mid and lower lungs bilaterally. There is silhouetting in the left hemidiaphragm. The pat ient does appear to have an electronic device seen over the left lateral chest with leads directed alves periorly. There is also an electronic device seen over the left chest. The bones appear osteopenic. The patient has underwent vertebroplasty at the lower thoracic spine. There is a PICC line in plac e from the right arm with the tip overlying the SVC. This is well placed. CONCLUSION: 1. Hazy density at the mid and lower lungs which could represent areas of lower lobe atelectasis, con solidation or some degree of effusion. 2. PICC line in place from the right arm with tip overlying the SVC. Beau Bravo MD on October 17, 2016 at 15:56 Board Certified Radiologist. This report was verified electronically.
[2016-10-17] MEDS: SODIUM CHLOR 0.9% 1000 ML INJ 1,000 ML IV SCH ×2 (18:03→23:04)
[2016-10-17] MEDS: ATORVASTATIN 20 MG TAB PO SCH (20:24)
[2016-10-18] VITALS (10 sets, daily range): BP systolic 95–102; BP diastolic 58–67; PULSE 87–107; RESP 16–20; TEMP 98.6–99.8; O2SAT 99–100
--- NOTE | 2016-10-18 04:40 | RADRPT ---
EXAM DATE/TIME: 10/18/2016 03:07 [facility] COMPARISON: CHEST SINGLE AP, October 17, 2016, 15:38. INDICATIONS : Shortness of breath, possible pulmonary disease. MEDICAL HISTORY : Hypertension. SURGICAL HISTORY : Loop recorder neurostimulator ENCOUNTER: Subsequent ACUITY: 2 weeks PAIN SCORE: Non-responsive. LOCATION: Bilateral chest FINDINGS: The support devices are in place. There is some increased interstitial markings bilaterally compared to the prior exam. The heart size is stable. No significant pleural effusions. No evidence of pneumot horax. The bony structures are stable. CONCLUSION: Mild increase in interstitial infiltrates bilaterally compared to the prior exam. Minesh Evans MD on October 18, 2016 at 4:38 Board Certified Radiologist. This report was verified electronically.
[2016-10-18] MEDS: CEFEPIME INJ 2,000 MG in SODIUM CHLORIDE 0.9% INJ 100 ML IV SCH (05:22)
[2016-10-18 05:35] LABS: AUTOMATED NEUTROPHIL # 11.1 TH/MM3 (1.8-7.7); BASOPHIL # 0.1 TH/MM3 (0-0.2); BASOPHIL % 0.9 % (0.0-2.0); EOSINOPHIL # 0.2 TH/MM3 (0-0.4); EOSINOPHIL % 1.6 % (0.0-4.0); HEMATOCRIT 28.3 % (35.0-46.0); LYMPH % 10.9 % (9.0-44.0); LYMPHOCYTE # 1.6 TH/MM3 (1.0-4.8); MEAN CELL VOLUME 91.5 FL (80.0-100.0); MEAN CORPUSCULAR HEMOGLOBIN 29.9 PG (27.0-34.0); MEAN CORPUSCULAR HGB CONC 32.7 % (32.0-36.0); MONO % 9.6 % (0.0-8.0); PLATELET COUNT 477 TH/MM3 (150-450); RED BLOOD COUNT 3.09 MIL/MM3 (4.00-5.30); RED CELL DISTRIBUTION WIDTH 15.9 % (11.6-17.2); WHITE BLOOD COUNT 14.5 TH/MM3 (4.0-11.0)
[2016-10-18 05:43] LABS: HEMO FLAGS AUTO DIFF
[2016-10-18 06:06] LABS: BICARBONATE 26.3 MEQ/L (21.0-32.0); MAGNESIUM 2.2 MG/DL (1.5-2.5); PHENOBARBITAL 12.8 MCG/ML (15.0-40.0); POTASSIUM 3.5 MEQ/L (3.5-5.1)
[2016-10-18 06:24] LABS: CALCIUM-PROTEIN CORRECTED 8.2 MG/DL (8.5-10.1)
[2016-10-18] MEDS: NOREPINEPHRINE INJ 4 MG in SODIUM CHLOR 0.9% 250 ML INJ 250 ML IV SCH ×2 (07:00→13:31)
[2016-10-18] MEDS: CHLORHEXIDINE 0.12% (ORAL KIT) 15 ML CUP MT SCH (08:00)
[2016-10-18 08:21] LABS: BANDS 6 % (0-6); MYELOCYTES 1 % (0-0); NEUTROPHIL # MANUAL DIFF 12.2 TH/MM3 (1.8-7.7); PLATELET ESTIMATE SMEAR HIGH (NORMAL); PLATELET MORPHOLOGY NORMAL (NORMAL); POLYS (SEG NEUTROPHILS) 77 % (16-70); SCAN/DIFF FINAL DIFF MANUAL; WBC DIFF SAMPLE 100
[2016-10-18] MEDS: LACOSAMIDE INJ 200 MG in SODIUM CHLORIDE 0.9% INJ 100 ML IV SCH (08:21)
[2016-10-18] MEDS: MONTELUKAST SODIUM 5 MG CHEWABLE TAB PO SCH (08:58)
[2016-10-18] MEDS: PANTOPRAZOLE SODIUM 40 MG VIAL IVP SCH (08:58)
[2016-10-18] MEDS: DILTIAZEM HCL 30 MG TAB PO SCH ×2 (09:00→13:03)
[2016-10-18] MEDS: PHENobarbital SOD 130 MG/ML VIAL IV PUSH SCH (09:00)
[2016-10-18] MEDS: SODIUM CHLORIDE 0.9% FLUSH 5 ML FLUSH IVF SCH (09:00)
[2016-10-18] MEDS: DOCUSATE SODIUM 100 MG CAP PO SCH (09:00)
[2016-10-18] MEDS: levETIRAcetam INJ 1,500 MG in SODIUM CHLORIDE 0.9% INJ 100 ML IV SCH (09:04)
--- NOTE | 2016-10-18 11:13 | HHI.NSPN ---
(Kaylee Bloom) Note Status Status: Progress Note (Kaylee Bloom) Interval History Interval History Ms. Novoa is a 76 y/o woman was found unresponsive. She was found to have a acute large right sided SDH with 2 cm midline shift. She is anticoagulated with xarelto. She received Vit K and Kcentral and was transferred to [facility]. She underwent emergent right frontotemporoparietal decompressive craniectomy with evacuation of subdural hematoma, and placement of intracranial pressure monitor on 10/05/15. 10/06: POD 1, ICPs at highest overnight 11, she is on 30 of Diprivan. ICPs currently 4. She localized to LE, she does not open eyes or follow commands. Pupils are equal. 10/07: POD 2, f/u CT Brain completed this am, remains sedated for bp control. ICPs within normal limits 10/08: POD 3, minimal output from [facility]. new onset seizures, with head rotated to left, left lateral gaze with slight nystagmus. No tonic/ clonic events in extremities. bone flap with good pulsation, decompressed but firm 10/11: records reports still having seizures off diprivan over the weekend. On multiple antiepileptic medications per Neurology. Sedated on 50 mc Diprivan. 10/12: currently sedated on 30 mc Diprivan, does not open eyes or follow commands , slight withdrawals to feet. 10/13: no acute changes overnight, remains sedated. 10/14: last EEG still showing sharp discharges, remains sedated due to clinical sz when off sedation. does not open eyes, does not follow commands, no purposeful movements. 10/15: Patient seen this morning during rounds. She is still off sedation. No purposeful movements, not following commands, reported ? right eye blinking with deep stimuli. 10/18: no sedatives but on levophed for bp support. reports to mildly open eyes when repositioned but does not focus or track. (Kaylee Bloom) Labs, Micro, & Vital Signs Results Date Time Temp Pulse Resp B/P Pulse Ox O2 Delivery O2 Flow Rate FiO2 10/18/16 10:00 94 10/18/16 09:11 100 35 10/18/16 08:00 99.8 99 19 101/60 100 10/18/16 08:00 35 10/18/16 08:00 107 10/18/16 05:03 100 35 10/18/16 04:00 35 10/18/16 04:00 99.2 96 20 96/58 100 10/18/16 01:03 100 35 10/18/16 00:00 99.5 97 19 102/67 100 10/18/16 00:00 95 10/18/16 00:00 35 10/17/16 22:34 100 35 10/17/16 22:00 96 10/17/16 21:42 35 10/17/16 20:00 98 10/17/16 20:00 100.4 98 19 107/57 99 10/17/16 18:34 100 35 10/17/16 18:00 93 10/17/16 16:00 99.4 95 21 93/52 97 10/17/16 16:00 93 10/17/16 14:00 93 10/17/16 12:00 96 10/17/16 12:00 99.3 96 24 101/56 98 10/18/16 07:00 Intake Total 4077 ml Output Total 2851 ml Balance 1226 ml Constitutional Vital Signs Date Time Temp Pulse Resp B/P Pulse Ox O2 Delivery O2 Flow Rate FiO2 10/18/16 10:00 94 10/18/16 09:11 100 35 10/18/16 08:00 99.8 99 19 101/60 100 10/18/16 08:00 35 10/18/16 08:00 107 10/18/16 05:03 100 35 10/18/16 04:00 35 10/18/16 04:00 99.2 96 20 96/58 100 10/18/16 01:03 100 35 10/18/16 00:00 99.5 97 19 102/67 100 10/18/16 00:00 95 10/18/16 00:00 35 10/17/16 22:34 100 35 10/17/16 22:00 96 10/17/16 21:42 35 10/17/16 20:00 98 10/17/16 20:00 100.4 98 19 107/57 99 10/17/16 18:34 100 35 10/17/16 18:00 93 10/17/16 16:00 99.4 95 21 93/52 97 10/17/16 16:00 93 10/17/16 14:00 93 10/17/16 12:00 96 10/17/16 12:00 99.3 96 24 101/56 98 10/18/16 07:00 Intake Total 4077 ml Output Total 2851 ml Balance 1226 ml (Kaylee Bloom) Review of Systems/Exam Exam Intubated, no sedative drips. No spontaneous eye opening, blinking eyes, Right flap soft with pulsations. The skin flap appears ecchymotic. Skin is warm. Surgical wound is healing well, griselda intact. CN: pupils 3-4 mm equal,reactive, No nystagmus seen. Bilateral Babinski response Abdomen: soft (Kaylee Bloom) Medications Current Medications Current Medications Medications (Trade) Dose Ordered Sig/Vladislav Route PRN Reason Start Time Stop Time Status Last Admin Dose Admin Miscellaneous Information 1 [id number] XX 10/05/16 04:45 10/06/16 03:46 Chlorhexidine Gluconate (Chlorhexidine 2% Cloth) Taper DAILY@04 TOP 10/06/16 04:00 10/02/17 03:59 10/12/16 04:00 Chlorhexidine Gluconate (Chlorhexidine 2% Cloth) 3 pack UNSCH PRN TOP HYGIENIC CARE 10/05/16 04:45 Atorvastatin Calcium (Lipitor) 20 mg HS PO 10/05/16 21:00 10/17/16 20:24 IV Flush (NS Flush) 2 ml UNSCH PRN IVF FLUSH AFTER USING IV ACCESS 10/05/16 05:00 10/15/16 06:01 IV Flush (NS Flush) 2 ml BID IVF 10/05/16 09:00 10/18/16 09:00 Bisacodyl (Dulcolax Supp) 10 mg DAILY PRN MI CONSTIPATION 10/05/16 05:00 Docusate Sodium (Colace) 100 mg BID PO 10/05/16 09:00 10/17/16 20:24 Pantoprazole Sodium (Protonix Inj) 40 mg DAILY IVP 10/05/16 09:00 10/18/16 08:58 Ondansetron HCl (Zofran Inj) 4 mg Q6H PRN IV NAUSEA OR VOMITING 10/05/16 05:00 Calcium Gluconate 1 gm 1 gm UNSCH PRN IV SEE LABEL COMMENTS 10/05/16 05:00 Potassium Chloride 100 ml @ 50 mls/hr UNSCH PRN IV POTASSIUM LESS THAN 4 10/05/16 05:00 Magnesium Sulfate/ Sodium Chloride (Magnesium Sulfate Inj/NS Inj) 108 ml @ 108 mls/hr UNSCH PRN IV MAGNESIUM LESS THAN 2 10/05/16 05:00 10/12/16 06:14 Acetaminophen/ Hydrocodone Bitart ([place] 10-325 Mg) 1 tab Q4H PRN PO PAIN SCALE 1 TO 5 10/05/16 05:00 Acetaminophen/ Hydrocodone Bitart ([place] 10-325 Mg) 2 tab Q4H PRN PO PAIN SCALE 6 TO 10 10/05/16 05:00 Morphine Sulfate (Morphine Inj) 2 mg Q2H PRN IV PUSH PAIN SCALE 1 TO 6 10/05/16 05:00 10/06/16 21:40 Morphine Sulfate (Morphine Inj) 4 mg Q2H PRN IV PUSH PAIN SCALE 7 TO 10 10/05/16 05:00 Acetaminophen (Tylenol) 650 mg Q4H PRN PO TEMPERATURE > 101.5 F 10/05/16 05:00 10/16/16 06:00 Chlorhexidine Gluconate 15 ml 15 ml BID@08,20 MT 10/05/16 08:00 10/18/16 08:00 Propofol 100 ml @ 0 mls/hr TITRATE IV 10/05/16 05:15 10/12/16 06:42 Potassium Chloride 100 ml @ 50 mls/hr Q2H PRN IV For Potassium 2.8 - 3.2 mEq/L 10/05/16 05:15 Potassium Chloride (KCl 20 Meq Premix Inj) 100 ml @ 50 mls/hr Q2H PRN IV For Potassium 2.8 - 3.2 mEq/L 10/05/16 05:15 Potassium Chloride 40 meq 40 meq UNSCH PRN PO/TUBE For Potassium 3.3 - 3.5 mEq/L 10/05/16 05:15 Potassium Chloride 100 ml @ 25 mls/hr UNSCH PRN IV For Potassium 3.3 - 3.5 mEq/L 10/05/16 05:15 Potassium Chloride 100 ml @ 50 mls/hr Q2H PRN IV For Potassium 3.3 - 3.5 mEq/L 10/05/16 05:15 10/12/16 08:07 Magnesium Sulfate/ Sodium Chloride (Magnesium Sulfate Inj/NS Inj) 100 ml @ 50 mls/hr UNSCH PRN IV For Magnesium 0.9 - 1.1 mg/dL 10/05/16 05:15 Magnesium Oxide 800 mg 800 mg UNSCH PRN PO For Magnesium 1.2 - 1.6 mg/dL 10/05/16 05:15 Magnesium Sulfate/ Sodium Chloride (Magnesium Sulfate Inj/NS Inj) 100 ml @ 50 mls/hr UNSCH PRN IV For Magnesium 1.2 - 1.6 mg/dL 10/05/16 05:15 Potassium Phosphate 2000 mg 2,000 mg Q4H PRN PO For Phosphorus < 2.5 mg/dL 10/05/16 05:15 10/09/16 08:35 Sodium Phosphate/ Sodium Chloride (Sodium Phosphate Inj/NS 250 ml Inj) 250 ml @ 42 mls/hr UNSCH PRN IV For Phosphorus < 2.5 mg/dL 10/05/16 05:15 10/13/16 09:21 Potassium Chloride (KCl 40 Meq/30 ml Liq) 40 meq UNSCH PRN PO/TUBE SEE LABEL COMMENTS 10/05/16 05:15 Potassium Phosphate 2000 mg 2,000 mg UNSCH PRN PO/TUBE SEE LABEL COMMENTS 10/05/16 05:15 Potassium Phosphate/Sodium Chloride (Potassium Phosphate Inj/NS 250 ml Inj) 260 ml @ 42 mls/hr UNSCH PRN IV SEE LABEL COMMENTS 10/05/16 05:15 Terbutaline Sulfate (Brethine Inj) 1 mg UNSCH PRN SQ FOR EXTRAVASATION PROTOCOL 10/05/16 06:30 Montelukast Sodium (Singulair Chew) 10 mg DAILY PO 10/06/16 09:00 10/18/16 08:58 Labetalol HCl (Trandate Inj) 10 mg Q4H PRN IV PUSH SBP>160, DBP>90 10/07/16 15:30 Hydralazine HCl (Apresoline Inj) 20 mg Q4H PRN IV PUSH SBP> OR = 180, DBP> OR = 100 10/07/16 15:30 Diltiazem HCl (Cardizem) 30 mg QID PO 10/07/16 18:00 10/17/16 20:24 Lorazepam 1 mg 1 mg Q2H PRN IM SEIZURES 10/08/16 13:15 10/09/16 22:05 Phenylephrine HCl 40 mg/Sodium Chloride 500 ml @ 0 mls/hr TITRATE IV 10/09/16 21:00 10/12/16 16:45 Levetriacetam 1500 mg/Sodium Chloride 115 ml @ 460 mls/hr Q12H IV 10/10/16 21:00 10/18/16 09:04 Lacosamide 200 mg/ Sodium Chloride 120 ml @ 110 mls/hr Q12HR IV 10/11/16 21:00 10/18/16 08:21 Pharmacy Profile Note 0 ml @ 0 mls/hr UNSCH OTHER 10/12/16 13:15 Cefepime HCl 2000 mg/Sodium Chloride 100 ml @ 200 mls/hr Q12H IV 10/15/16 17:00 10/18/16 05:22 Norepinephrine Bitartrate 4 mg/ Sodium Chloride 254 ml @ 0 mls/hr TITRATE IV 10/16/16 20:00 10/18/16 07:00 Sodium Chloride 1,000 ml @ 50 mls/hr Q20H IV 10/16/16 20:00 10/17/16 23:04 Vancomycin HCl/ Sodium Chloride (Vancomycin Inj/ NS 250 ml Inj) 262.5 ml @ 250 mls/hr Q24H IV 10/17/16 13:00 10/17/16 12:59 Miscellaneous Information SPECIFIC LAB TO BE DRAWN:VANCOMY... ONCE ONCE XX 10/19/16 12:45 10/19/16 12:46 Phenobarbital Sodium (Luminal Inj) 40 mg Q12HR IV PUSH 10/17/16 21:00 10/18/16 09:00 IV Flush (NS Flush) See Protocol DAILY IVF 10/18/16 09:00 10/18/16 09:01 IV Flush (NS Flush) See Protocol UNSCH PRN IVF SEE PROTOCOL TABLE 10/17/16 15:45 Heparin Sodium (Porcine) (Heparin Central Flush) See Protocol DAILY IVF 10/18/16 09:00 10/18/16 09:00 Heparin Sodium (Porcine) (Heparin Central Flush) See Protocol UNSCH PRN IVF SEE PROTOCOL TABLE 10/17/16 15:45 IV Flush (NS Flush) See Protocol UNSCH PRN IVF SEE PROTOCOL TABLE 10/17/16 15:45 (Kaylee Bloom) Medical Decision Making MDM Remarks 76 year old female found unresponsive with a large right subdural hematoma with 2 cm midline shift previously anticoagulated on Xarelto, s/p Vit K and Kcentra s/p emergent right decompressive craniectomy with evacuation of subdural hematoma and placement of intracranial pressure monitor on 10/05/16, flap decompressed and soft, pulsatile Seizures (Kaylee Bloom) Plan Plan Remarks critical care mgt follow up exam dc surgical griselda tomorrow (Kayele Bloom) Attending Statement The exam, history, and the medical decision-making described in the above note were completed with the assistance of the mid-level provider. I reviewed and agree with the findings presented. I attest that I had a [id number] encounter with the patient on the same day, and personally performed and documented my assessment and findings in the medical record. (Chandana Leon MD) Kaylee Bloom Oct 18, 2016 11:13 Chandana Leon MD Oct 21, 2016 14:42
[2016-10-18] MEDS: SODIUM CHLOR 0.9% 1000 ML INJ 1,000 ML IV SCH (12:42)
[2016-10-18] MEDS: VANCOMYCIN INJ 1,250 MG in SODIUM CHLOR 0.9% 250 ML INJ 250 ML IV SCH (13:05)
--- NOTE | 2016-10-18 13:23 | HHI.HCPN ---
Reason for visit a. To assist with evaluation and management of symptoms including:dyspnea, encephalopathy, pain b. To assist medical decision maker(s) with: better understanding of current medical conditions; weighing benefits/burdens of medical treatment options; making medical treatment decisions. Subjective/Interval History Pt seen to follow up with family RE goals of tx, requested additional meeting today when their adult children could be present. Pt remains on mech vent in ICU. No neurological improvements. Low grade fevers 100.4, WBC up to 14.5 CXR today = Mild increase in interstitial infiltrates bilaterally compared to the prior exam. On cefepime, vanco. Remains on phenobarb , Keppra, vimpat for seizures. Nursing reports no further witnessed seizure activity. Met with , son , daughter at bedside approx 40 min. Discussion included: * Palliative care role, team members, reason for consult * Patient cognitive and functional status in the months to weeks prior to this admission * Patient and/or family understanding of current medical conditions, prognosis, treatment options and expected trajectory, slow recovery expected though not clear how full of a recovery patient will experience; review of many complications/setbacks/risks patient could face during prolonged recovery * Overall condition, prognosis * CODE STATUS[]--family to continue to discuss/considering DNR status * Living will--living will with typical verbiage describing no artificial or life probably measures in the presence of end-stage or terminal condition. Also designates as healthcare surrogate. * Palliative care contact information provided to 2 children, already has contact information Met at length with family at bedside. defers to children during this discussion he indicates we already discussed all of this, he wishes to review again for his children's benefit, who are supporting him in decision-making. They have many questions regarding seizure medications and seizure activity. No decisions or changes made today. Family is going to discuss CODE STATUS further and will notify nursing or palliative if they desire DNR status. -------1400 later notified via voicemail by family they had additional questions. I met with them again at the bedside for approximately 30 minutes. They have questions regarding withdrawal of life support in transition to comfort focused, they endorse that patient would not want to continue on ventilator and life support without the hope of a full recovery in a fairly short time. They indicate that she would not want to remain dependent on life support for any prolonged length of time, and unless she could regain full independence would not want to continue with current course. They wish to remove life support and other artificial measures as consistent with patient known wishes and living will, they wish to proceed with this today. Discuss with RN, critical care attending, palliative Dung Anticipatory guidance provided, crusher support offered excepted, comfort orders to be entered by palliative Dung Advance Directives Living Will: Completed, but not made available (possible adv. directives, not certain ) Objective Vital Signs Date Time Temp Pulse Resp B/P Pulse Ox O2 Delivery O2 Flow Rate FiO2 10/18/16 12:00 99.0 93 20 102/61 99 10/18/16 12:00 35 10/18/16 12:00 87 10/18/16 10:00 94 10/18/16 09:11 100 35 10/18/16 08:00 99.8 99 19 101/60 100 10/18/16 08:00 35 10/18/16 08:00 107 10/18/16 05:03 100 35 10/18/16 04:00 35 10/18/16 04:00 99.2 96 20 96/58 100 10/18/16 01:03 100 35 10/18/16 00:00 99.5 97 19 102/67 100 10/18/16 00:00 95 10/18/16 00:00 35 10/17/16 22:34 100 35 10/17/16 22:00 96 10/17/16 21:42 35 10/17/16 20:00 98 10/17/16 20:00 100.4 98 19 107/57 99 10/17/16 18:34 100 35 10/17/16 18:00 93 10/17/16 16:00 99.4 95 21 93/52 97 10/17/16 16:00 93 10/17/16 14:00 93 Intake & Output 10/18/16 10/18/16 07:00 19:00 Intake Total 2963 ml Output Total 1851 ml Balance 1112 ml IV Total 1965 ml Tube Feeding 778 ml Other 220 ml Output Urine Total 1850 ml Stool Total 1 ml Physical Exam CONSTITUTIONAL/GENERAL: This is an adequately nourished patient, minimally responsive on mechanical vent TUBES/LINES/DRAINS: PIV 2 right upper extremity, OG tube, ET tube, Landers catheter, SCDs HEAD: Ecchymosis present surgical flap area right head. + C-shaped incision right head, griselda intact. CARDIOVASCULAR: Regular rate and rhythm, no murmurs. No JVD. Peripheral pulses symmetric. Trace peripheral edema. RESPIRATORY/CHEST: Symmetric, unlabored respirations via mechanical vent. Clear to auscultation. Breath sounds equal bilaterally. GASTROINTESTINAL: Abdomen soft, unable to determine tenderness due to level of consciousness, nondistended. No hepato-splenomegaly, or palpable masses. Bowel sounds present. Tube feeding infusing via OG tube. GENITOURINARY: Without palpable bladder distension. Landers catheter in place- clear yellow urine . MUSCULOSKELETAL: Extremities without clubbing, cyanosis. Trace generalized edema. No joint effusion noted. No mottling or clubbing. NEUROLOGICAL: Minimally responsive. On no sedation currently. No eye opening to pain stimuli. Slight extension upper extremities to pain. Slight withdraw lower extremities to pain. + Spontaneous respirations on vent PSYCHIATRIC: No obvious anxiety/depression--limited assessment due to clinical condition/decreased level of consciousness. Diagnostic Tests Laboratory Laboratory Tests Test 10/16/16 10/16/16 10/16/16 10/17/16 05:30 13:35 19:02 03:06 White Blood Count 13.7 TH/MM3 (4.0-11.0) Red Blood Count 3.27 MIL/MM3 (4.00-5.30) Hemoglobin 9.8 GM/DL 9.4 GM/DL (11.6-15.3) (11.6-15.3) Hematocrit 29.3 % 28.5 % (35.0-46.0) (35.0-46.0) Mean Corpuscular Volume 89.5 FL (80.0-100.0) Mean Corpuscular Hemoglobin 29.9 PG (27.0-34.0) Mean Corpuscular Hemoglobin 33.4 % Concent (32.0-36.0) Red Cell Distribution Width 16.2 % (11.6-17.2) Platelet Count 327 TH/MM3 (150-450) Mean Platelet Volume 8.9 FL (7.0-11.0) Neutrophils (%) (Auto) 74.2 % (16.0-70.0) Lymphocytes (%) (Auto) 11.7 % (9.0-44.0) Monocytes (%) (Auto) 11.9 % (0.0-8.0) Eosinophils (%) (Auto) 1.4 % (0.0-4.0) Basophils (%) (Auto) 0.8 % (0.0-2.0) Neutrophils # (Auto) 10.2 TH/MM3 (1.8-7.7) Lymphocytes # (Auto) 1.6 TH/MM3 (1.0-4.8) Monocytes # (Auto) 1.6 TH/MM3 (0-0.9) Eosinophils # (Auto) 0.2 TH/MM3 (0-0.4) Basophils # (Auto) 0.1 TH/MM3 (0-0.2) CBC Comment AUTO DIFF Differential Total Cells 100 Counted Neutrophils % (Manual) 56 % (16-70) Band Neutrophils % 23 % (0-6) Lymphocytes % 12 % (9-44) Monocytes % 8 % (0-8) Neutrophils # (Manual) 11.0 TH/MM3 (1.8-7.7) Metamyelocytes 1 % (0-1) Differential Comment FINAL DIFF MANUAL Toxic Granulation 1+ (NORMAL) Platelet Estimate NORMAL (NORMAL) Platelet Morphology Comment NORMAL (NORMAL) Hematology Comments Sodium Level 139 MEQ/L 140 MEQ/L (136-145) (136-145) Potassium Level 4.2 MEQ/L 3.7 MEQ/L (3.5-5.1) (3.5-5.1) Chloride Level 105 MEQ/L 107 MEQ/L (98-107) (98-107) Carbon Dioxide Level 24.3 MEQ/L 25.8 MEQ/L (21.0-32.0) (21.0-32.0) Anion Gap 10 MEQ/L (5-15) 7 MEQ/L (5-15) Blood Urea Nitrogen 23 MG/DL (7-18) 20 MG/DL (7-18) Creatinine 0.45 MG/DL 0.41 MG/DL (0.50-1.00) (0.50-1.00) Estimat Glomerular Filtration 135 ML/MIN 151 ML/MIN Rate (>89) (>89) Random Glucose 149 MG/DL 176 MG/DL (74-106) (74-106) Calcium Level 7.6 MG/DL 7.4 MG/DL (8.5-10.1) (8.5-10.1) Phenobarbital Level 12.0 MCG/ML 11.8 MCG/ML (15.0-40.0) (15.0-40.0) Vancomycin Level Trough 25.0 MCG/ML (5.0-10.0) Protein Corrected Calcium 8.2 MG/DL (8.5-10.1) Total Protein 5.6 GM/DL (6.4-8.2) Random Vancomycin Level 15.0 COMMENT Test 10/18/16 05:05 White Blood Count 14.5 TH/MM3 (4.0-11.0) Red Blood Count 3.09 MIL/MM3 (4.00-5.30) Hemoglobin 9.2 GM/DL (11.6-15.3) Hematocrit 28.3 % (35.0-46.0) Mean Corpuscular Volume 91.5 FL (80.0-100.0) Mean Corpuscular Hemoglobin 29.9 PG (27.0-34.0) Mean Corpuscular Hemoglobin 32.7 % Concent (32.0-36.0) Red Cell Distribution Width 15.9 % (11.6-17.2) Platelet Count 477 TH/MM3 (150-450) Mean Platelet Volume 8.0 FL (7.0-11.0) Neutrophils (%) (Auto) 77.0 % (16.0-70.0) Lymphocytes (%) (Auto) 10.9 % (9.0-44.0) Monocytes (%) (Auto) 9.6 % (0.0-8.0) Eosinophils (%) (Auto) 1.6 % (0.0-4.0) Basophils (%) (Auto) 0.9 % (0.0-2.0) Neutrophils # (Auto) 11.1 TH/MM3 (1.8-7.7) Lymphocytes # (Auto) 1.6 TH/MM3 (1.0-4.8) Monocytes # (Auto) 1.4 TH/MM3 (0-0.9) Eosinophils # (Auto) 0.2 TH/MM3 (0-0.4) Basophils # (Auto) 0.1 TH/MM3 (0-0.2) CBC Comment AUTO DIFF Differential Total Cells 100 Counted Neutrophils % (Manual) 77 % (16-70) Band Neutrophils % 6 % (0-6) Lymphocytes % 5 % (9-44) Monocytes % 11 % (0-8) Neutrophils # (Manual) 12.2 TH/MM3 (1.8-7.7) Myelocytes 1 % (0-0) Differential Comment FINAL DIFF MANUAL Platelet Estimate HIGH (NORMAL) Platelet Morphology Comment NORMAL (NORMAL) Sodium Level 142 MEQ/L (136-145) Potassium Level 3.5 MEQ/L (3.5-5.1) Chloride Level 107 MEQ/L (98-107) Carbon Dioxide Level 26.3 MEQ/L (21.0-32.0) Anion Gap 9 MEQ/L (5-15) Blood Urea Nitrogen 18 MG/DL (7-18) Creatinine 0.44 MG/DL (0.50-1.00) Estimat Glomerular Filtration 139 ML/MIN Rate (>89) Random Glucose 194 MG/DL (74-106) Calcium Level 7.3 MG/DL (8.5-10.1) Protein Corrected Calcium 8.2 MG/DL (8.5-10.1) Magnesium Level 2.2 MG/DL (1.5-2.5) Total Protein 5.4 GM/DL (6.4-8.2) Phenobarbital Level 12.8 MCG/ML (15.0-40.0) Result Diagram: 10/18/16 0505 10/18/16 0505 Imaging Last Impressions Chest X-Ray 10/18/16 0400 Signed Impressions: Service Date/Time: Tuesday, October 18, 2016 03:07 - CONCLUSION: Mild increase in interstitial infiltrates bilaterally compared to the prior exam. Minesh Evans MD Head CT 10/17/16 0600 Signed Impressions: Service Date/Time: Monday, October 17, 2016 04:41 - CONCLUSION: 1. Interval removal of subdural drains and the extra-axial fluid about the posterior parietal and occipital region is isodense to CSF. 2. There is focal swelling of the brain in the anterior one half of the craniotomy defect with protrusion of the cortex. No effacement of the ventricles and no midline shift however. Carlos Stafford MD Procedures 10/05/16-left frontal conro hole with placement of ICP monitor 10/05/16 right frontal temporal parietal decompressive craniectomy with evacuation acute SDH 10/09/16 -LP Assessment and Plan Disease Oriented Problem List: (1) Acute respiratory failure (2) NSTEMI (non-ST elevated myocardial infarction) (3) Acute subdural hematoma Comment: s/p craniectomy (4) Coagulopathy (5) Seizure (6) Anemia (7) Leukocytosis Symptom Scale: (1) Seizure 0-10 Scale: Unable to quantify (2) Dyspnea 0-10 Scale: Unable to quantify (3) Encephalopathy 0-10 Scale: Unable to quantify (4) Pain 0-10 Scale: Unable to quantify Pertinent Non-Medical Issues Psychosocial:Patient lives at home with her of 55 years. Originally from [place], lived in [place] for many years. 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 Enjoyed bingo, socializing with her girlfriends. Supported by 2 adult children (not local) Spiritual:Evangelical, believes in God, no particular quaker affiliation; would appreciate typing pool supervisor support. Legal:Due to clinical condition pt unable to participate in decision making, not clear if she will regain capacity. Per [place] statutes her would be legal decision maker--he is going to try to locate any living will she may have completed. Ethical issues impacting care: Important Contacts Marcus Novoa [phone] /[phone] Prognosis This 76 yr old patient was admitted for subdural hemorrhage, now status post decompressive craniectomy. No neurological improvement thus far. Additionally has suffered NSTEMI, noted EF estimate 2024 percent. Unable to wean off of mechanical vent, had been requiring sedatives for seizure control. Overall prognosis for full functional recovery/independence appears poor. Will require trach/PEG for ongoing tx, will require NH placement following hospitalization. Code Status: Full Code Plan * Legal decision maker:Due to clinical condition pt unable to participate in decision making, not clear if she will regain capacity. Per [place] statutes her would be legal decision maker--he is going to try to locate any living will she may have completed. * Goals: Goals for now aggressive; met again at length with as well as 2 adult children today. No decisions or changes made today. Family is going to discuss CODE STATUS further and will notify nursing or palliative if they desire DNR status. 1400------- later notified by family requesting additional follow-up, they elected to transition to comfort focus, withdrawal life support today. Exhibits B, C signed and placed in chart. Comfort orders to be entered by palliative M.D. for pre-withdrawal, withdrawal and post withdrawal. Anticipatory guidance has been provided. Bread Dough Mixer support has been provided. * CODE STATUS: Full * SYMPTOMS: --Dyspnea--emergently intubated, acute respiratory failure 2/2 SDH. Remains on mechanical vent, limited CPAP trials thus far due to heavy sedation requirements/encephalopathy --Encephalopathy--large SDH with significant midline shift requiring emergent decompressive craniectomy 10/05. Very little neurologic improvement during course thus far. + Ongoing seizures (managed by neurology). --Pain--potential sources would include history of chronic disorders including fibromyalgia, scleroderma, multiple L-spine procedures, as well as acute hospitalization and current bedbound status multiple invasive procedures. Currently with no signs of pain to exam, nursing reports no signs of pain. --Seizures-neurology following. Ongoing seizure activity despite 3 anticonvulsants// phenobarbital, Keppra, vimat, neurology following * Palliative care will continue to follow during hospital course as condition evolves, to assist patient/decision-maker with understanding of medical conditions, weighing benefits/burdens of treatment options, for clarification of goals of treatment. Additionally will assist with any symptoms of palliative concern Time Spent Total Floor Time (mins): 75 >50% Counseling/Coord of Care: Yes (d/w RN, critical care ) Attestation To help prompt me to consider important information that might be impacting today's encounter and assessment, information from prior notes written by myself or my colleagues may have been "brought forward" into today's note. My signature on this note, however, is an attestation that I personally performed the exam, history, and/or decision-making noted today, and, unless otherwise indicated, the interactions with patient, family, and staff as well as the review of records all occurred today. I also attest that the listed assessment and stated plan reflect my best clinical judgment today based on the combination of historical information, prior notes, and today's exam/ interactions. When time spent is documented, it refers only to time spent today by the signer, or if indicated, combined time spent today by collaborating physician/nurse practitioner. Leah Elias Oct 18, 2016 13:23
--- NOTE | 2016-10-18 15:09 | PD.CARD.PN ---
Subjective Subjective Remarks intubated, sedated Objective Vital Signs / I&O Vital Signs Date Time Temp Pulse Resp B/P Pulse Ox O2 Delivery O2 Flow Rate FiO2 10/18/16 14:00 87 10/18/16 12:00 99.0 93 20 102/61 99 10/18/16 12:00 35 10/18/16 12:00 87 10/18/16 10:00 94 10/18/16 09:11 100 35 10/18/16 08:00 99.8 99 19 101/60 100 10/18/16 08:00 35 10/18/16 08:00 107 10/18/16 05:03 100 35 10/18/16 04:00 35 10/18/16 04:00 99.2 96 20 96/58 100 10/18/16 01:03 100 35 10/18/16 00:00 99.5 97 19 102/67 100 10/18/16 00:00 95 10/18/16 00:00 35 10/17/16 22:34 100 35 10/17/16 22:00 96 10/17/16 21:42 35 10/17/16 20:00 98 10/17/16 20:00 100.4 98 19 107/57 99 10/17/16 18:34 100 35 10/17/16 18:00 93 10/17/16 16:00 99.4 95 21 93/52 97 10/17/16 16:00 93 I/O 10/17/16 10/17/16 10/17/16 10/18/16 10/18/16 10/18/16 07:00 15:00 23:00 07:00 15:00 23:00 Intake Total 2934 ml 1114 ml 1568 ml 1395 ml 1565 ml Output Total 650 ml 1000 ml 1000 ml 851 ml 1325 ml Balance 2284 ml 114 ml 568 ml 544 ml 240 ml IV Total 2651 ml 931 ml 1089 ml 876 ml 1014 ml Tube Feeding 183 ml 183 ml 359 ml 419 ml 451 ml Other 100 ml 120 ml 100 ml 100 ml Output Urine Total 650 ml 1000 ml 1000 ml 850 ml 1325 ml Stool Total 1 ml # Bowel Movements 1 2 Physical Exam GENERAL: SKIN: Warm and dry. HEAD: Normocephalic. EYES: No scleral icterus. No injection or drainage. NECK: Supple, trachea midline. No JVD or lymphadenopathy. CARDIOVASCULAR: Regular rate and rhythm without murmurs, gallops, or rubs. RESPIRATORY: Breath sounds equal bilaterally. No accessory muscle use. GASTROINTESTINAL: Abdomen soft, non-tender, nondistended. MUSCULOSKELETAL: No cyanosis, or edema. BACK: Nontender without obvious deformity. No CVA tenderness. Laboratory Laboratory Tests Test 10/18/16 05:05 White Blood Count 14.5 TH/MM3 Red Blood Count 3.09 MIL/MM3 Hemoglobin 9.2 GM/DL Hematocrit 28.3 % Mean Corpuscular Volume 91.5 FL Mean Corpuscular Hemoglobin 29.9 PG Mean Corpuscular Hemoglobin 32.7 % Concent Red Cell Distribution Width 15.9 % Platelet Count 477 TH/MM3 Mean Platelet Volume 8.0 FL Neutrophils (%) (Auto) 77.0 % Lymphocytes (%) (Auto) 10.9 % Monocytes (%) (Auto) 9.6 % Eosinophils (%) (Auto) 1.6 % Basophils (%) (Auto) 0.9 % Neutrophils # (Auto) 11.1 TH/MM3 Lymphocytes # (Auto) 1.6 TH/MM3 Monocytes # (Auto) 1.4 TH/MM3 Eosinophils # (Auto) 0.2 TH/MM3 Basophils # (Auto) 0.1 TH/MM3 CBC Comment AUTO DIFF Differential Total Cells 100 Counted Neutrophils % (Manual) 77 % Band Neutrophils % 6 % Lymphocytes % 5 % Monocytes % 11 % Neutrophils # (Manual) 12.2 TH/MM3 Myelocytes 1 % Differential Comment FINAL DIFF MANUAL Platelet Estimate HIGH Platelet Morphology Comment NORMAL Sodium Level 142 MEQ/L Potassium Level 3.5 MEQ/L Chloride Level 107 MEQ/L Carbon Dioxide Level 26.3 MEQ/L Anion Gap 9 MEQ/L Blood Urea Nitrogen 18 MG/DL Creatinine 0.44 MG/DL Estimat Glomerular Filtration 139 ML/MIN Rate Random Glucose 194 MG/DL Calcium Level 7.3 MG/DL Protein Corrected Calcium 8.2 MG/DL Magnesium Level 2.2 MG/DL Total Protein 5.4 GM/DL Phenobarbital Level 12.8 MCG/ML Assessment and Plan Problem List: (1) HTN (hypertension) (2) PAD (peripheral artery disease) (3) Left carotid artery occlusion (4) CAD (coronary artery disease) (5) Acute respiratory failure (6) Subdural hematoma (7) Coagulopathy (8) NSTEMI (non-ST elevated myocardial infarction) (9) Acute subdural hematoma Assessment and Plan 1.) SDH - ekg suggests possible recent anteroseptal mi, ac contraindicated d/t life threatening ich, beta blockers, lyssa held d/t hypotension and ich; continue statin, supportive care, neurologic prognosis uncertain 2.) Ischemic cardiomyopathy - lyssa inhibitor and beta blockers held d/t labile bp , hypotensive episodes and recent ich 3.) family at [facility] have decided to make patient comfort care status Problem Qualifiers (1) HTN (hypertension): Qualified Code: I10 - Essential hypertension Marcus Medel MD Oct 18, 2016 15:08
[2016-10-18] MEDS ORDERED: LORazepam 2 MG/ML VIAL IV ONE ×2 (15:30→15:45)
[2016-10-18] MEDS ORDERED: HYOSCYAMINE 0.5 MG/ML AMP IV ONE (15:30)
[2016-10-18] MEDS ORDERED: MORPHINE SULFATE 4 MG/ML INJ IV ONE (15:45)
[2016-10-18] MEDS ORDERED: MORPHINE SULFATE 4 MG/ML INJ IV PRN (16:00)
[2016-10-18] MEDS ORDERED: BISACODYL 10 MG SUPP PR PRN (16:00)
[2016-10-18] MEDS ORDERED: ACETAMINOPHEN 650 MG SUPP PR PRN (16:00)
[2016-10-18] MEDS ORDERED: LORazepam 2 MG/ML VIAL IV PRN ×2 (16:00)
[2016-10-18] MEDS ORDERED: MORPHINE SULFATE 8 MG/ML INJ IV PUSH ONE (16:00)
[2016-10-18] MEDS ORDERED: LORazepam 2 MG/ML VIAL IV SCH (16:00)
[2016-10-18] MEDS ORDERED: HYOSCYAMINE 0.5 MG/ML AMP IV PRN (16:00)
[2016-10-18] MEDS ORDERED: LORazepam 2 MG/ML VIAL IVS PRN (16:00)
[2016-10-18] MEDS ORDERED: FUROSEMIDE 20 MG/2 ML VIAL IV PRN (16:00)
[2016-10-18] MEDS: MORPHINE SULFATE 8 MG/ML INJ IV PUSH PRN ×3 (16:25→17:49)
--- NOTE | 2016-10-19 06:40 | MG ---
cc: REBA KIRK M.D. Lab No: 17-___ Date: 10/18/2016 Age: 76 Sex: F Race: __ REFERRING PHYSICIAN Dr. Verdugo HISTORY An EEG was obtained on this 76-year-old patient with a history of status post right frontal temporal parietal decompressive craniotomy. DESCRIPTION The patient is intubated and unresponsive. No apparent sedation. The EEG shows continuous right frontal slowing with some associated sharp higher amplitude and the probable breech type of rhythm, but some sharp and spike discharges are also noted. There are low amplitude beta rhythms. There is a combination of theta with delta activity bilaterally. There is limited alpha activity. The background is not obviously reactive. Photic stimulation showed no change. Deep tactile stimulation also shows no distinct EEG change. INTERPRETATION Abnormal EEG because of continuous right hemisphere slowing with associated sharp and probable spike discharges. These discharges are likely of a focal epileptiform significance, but no ictal pattern encountered. The study shows generalized slowing, otherwise suggestive of a severe diffuse disturbance of cerebral function. MD PRISCILLA Gar/JULIETA /6:43 PM /6:31 AM
[2016-10-19] MEDS ORDERED: PHARMACY ORDERED LAB XX ONE (12:45)
--- NOTE | 2016-10-20 14:55 | HHI.CCPN ---
Subjective Remarks/Hospital Course NOTE for 10/17/2016 76 y/o woman was found down and unresponsive. Evaluation at [facility] revealed large acute right sided SDH with 2 cm subfalcine shift to left. 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 Required intubation and mechanical ventilation at referring facility for obtundation. Received Vit K and Kcentra then transported [place] [facility] [place] met her on her arrival. at bedside. Largely unresponsive, will withdraw arms to pain. Mannitol bolus started. Cardiac markers elevated at OSH. Emergency decompression the night of admission, now ventilator dependent, largely unresponsive. 10/13: No neurological improvement. is getting very anxious. 10/14: No improvement, sedated for seizure control. 10/15: Enterobacter and Staph in sputum. Pseudomonas in urine. Continue antibiotics, reculture for fevers. Repeat UA. 10/16: No improvement. 10/17: No improvement. Unresponsive. Objective Vital Signs Date Time Temp Pulse Resp B/P Pulse Ox O2 Delivery O2 Flow Rate FiO2 10/18/16 16:06 Room Air 21 10/18/16 16:00 98.6 94 16 95/62 99 Result Diagram: 10/18/16 0505 10/18/16 0505 Objective Remarks Gen: Unresponsive. Neck: Supple, orally intubated Lungs: Clear, no wheezes or crackles.Good brianda air entry. Few mobile secretions. Heart: NL S1S2, RRR, No JVD. Abdomen : Soft, nondistended, no guarding. BS active. No peritoneal irritation. Extremities: Warm, well perfused. Neuro: Unresponsive. No obvious seizures. Occ spontaneous breath. Moves feet slightly to stimulation. Toes up bilat. No spontaneous movement. A/P Problem List: (1) Acute subdural hematoma ICD Code: I62.01 Status: Acute (2) Coagulopathy ICD Code: D68.9 Status: Acute (3) Acute respiratory failure ICD Code: J96.00 Status: Acute (4) NSTEMI (non-ST elevated myocardial infarction) ICD Code: I21.4 Status: Acute Assessment and Plan SDH - post Emergency SDH decompression. - continue Isotonic fluid - neuro checks Seizure - Keppra 1500 BID - Increased Vimpat 200 BID (off label dose for refractory seizure/status) NSTEMI, - hemodynamically stable - Hold Xarelto and ASA due to SDH Anemia - protonics BID Respiratory failure: - intubated, ventilated - PRVC vent mode. PCO2 30-35 range. -Try CPAP trial. Fevers and leukocytosis - LP cultures negative - Follow up - empirically Vanc/Cef. Enterobacter, Staph lungs Pseudomonas urine DVT/GI prophylaxis Protonix, SCDs. No chemical DVT px. due to SDH Overall impression: This woman remains critically ill after decompression of a life-threatening acute subdural hemorrhage. We are unable to wean the ventilator. Neurologic function remains markedly decreased. Lungs are colonized , bronchitis apparent. Only response is feet movement to stimulation. Family has requested Palliative Care consult. Andrea Leiva MD Oct 20, 2016 14:55
--- NOTE | 2016-10-20 14:57 | HHI.CCPN ---
Subjective Remarks/Hospital Course NOTE for 10/18/2016 76 y/o woman was found down and unresponsive. Evaluation at [facility] revealed large acute right sided SDH with 2 cm subfalcine shift to left. 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 Required intubation and mechanical ventilation at referring facility for obtundation. Received Vit K and Kcentra then transported to [facility] where I met her on her arrival. at bedside. Largely unresponsive, will withdraw arms to pain. Mannitol bolus started. Cardiac markers elevated at OSH. Emergency decompression the night of admission, now ventilator dependent, largely unresponsive. 10/13: No neurological improvement. is getting very anxious. 10/14: No improvement, sedated for seizure control. 10/15: Enterobacter and Staph in sputum. Pseudomonas in urine. Continue antibiotics, reculture for fevers. Repeat UA. 10/16: No improvement. 10/17: No improvement. Unresponsive. 10/18: Unresponsive. Objective Vital Signs Date Time Temp Pulse Resp B/P Pulse Ox O2 Delivery O2 Flow Rate FiO2 10/18/16 16:06 Room Air 21 10/18/16 16:00 98.6 94 16 95/62 99 Result Diagram: 10/18/16 0505 10/18/16 0505 Objective Remarks Gen: Unresponsive. Neck: Supple, orally intubated Lungs: Clear, no wheezes or crackles.Good brianda air entry. Few mobile secretions. Heart: NL S1S2, RRR, No JVD. Abdomen : Soft, nondistended, no guarding. BS active. No peritoneal irritation. Extremities: Warm, well perfused. Neuro: Unresponsive. No obvious seizures. Occ spontaneous breath. Moves feet slightly to stimulation. Toes up bilat. No spontaneous movement. A/P Problem List: (1) Acute subdural hematoma ICD Code: I62.01 Status: Acute (2) Coagulopathy ICD Code: D68.9 Status: Acute (3) Acute respiratory failure ICD Code: J96.00 Status: Acute (4) NSTEMI (non-ST elevated myocardial infarction) ICD Code: I21.4 Status: Acute Assessment and Plan SDH - post Emergency SDH decompression. - continue Isotonic fluid - neuro checks Seizure - Keppra 1500 BID - Increased Vimpat 200 BID (off label dose for refractory seizure/status) NSTEMI, - hemodynamically stable - Hold Xarelto and ASA due to SDH Anemia - protonics BID Respiratory failure: - intubated, ventilated - PRVC vent mode. PCO2 30-35 range. -Try CPAP trial. Fevers and leukocytosis - LP cultures negative - Follow up - empirically Vanc/Cef. Enterobacter, Staph lungs Pseudomonas urine DVT/GI prophylaxis Protonix, SCDs. No chemical DVT px. due to SDH Overall impression: This woman remains critically ill after decompression of a life-threatening acute subdural hemorrhage. We are unable to wean the ventilator. Neurologic function remains markedly decreased. Lungs are colonized , bronchitis apparent. Only response is feet movement to stimulation. Palliative Care service has discussed patient care goals with family. Andrea Leiva MD Oct 20, 2016 14:57
--- NOTE | 2016-10-20 14:59 | DEATH SUM ---
Summary Demographics Date Pronounced : Oct 18, 2016 Time Of : 1926 Pronounced By: aileen Thomas RN and Maribel Smith RN Preliminary Cause of : Other (Severe brain injuey after subdural hemorrhage.) Andrea Leiva MD Oct 20, 2016 14:59
--- NOTE | 2016-10-20 15:01 | HHI.DS ---
Discharge Summary Admission Date Oct 05, 2016 at 04:07 Discharge Date: Oct 18, 2016 Admitting Diagnosis Right subdural hematoma (1) Subdural hematoma ICD Code: I62.00 Diagnosis: Principal Procedures Right frontal decompressive craniectomy. Left frontal Celia hole Brief History 76 y/o woman was found down and unresponsive last evening. Evaluation at [facility] revealed large acute right sided SDH with 2 cm subfalcine shift to left. 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 Required intubation and mechanical ventilation at referring facility for obtundation. Received Vit K and Kcentra then transported to [facility] where I met her on her arrival. at bedside. Largely unresponsive, will withdraw arms to pain. Mannitol bolus started. Cardiac markers elevated at OSH. CBC/BMP: 10/18/16 0505 10/18/16 0505 Significant Findings Laboratory Tests Test 10/18/16 05:05 White Blood Count 14.5 TH/MM3 (4.0-11.0) Red Blood Count 3.09 MIL/MM3 (4.00-5.30) Hemoglobin 9.2 GM/DL (11.6-15.3) Hematocrit 28.3 % (35.0-46.0) Platelet Count 477 TH/MM3 (150-450) Neutrophils (%) (Auto) 77.0 % (16.0-70.0) Monocytes (%) (Auto) 9.6 % (0.0-8.0) Neutrophils # (Auto) 11.1 TH/MM3 (1.8-7.7) Monocytes # (Auto) 1.4 TH/MM3 (0-0.9) Neutrophils % (Manual) 77 % (16-70) Lymphocytes % 5 % (9-44) Monocytes % 11 % (0-8) Neutrophils # (Manual) 12.2 TH/MM3 (1.8-7.7) Myelocytes 1 % (0-0) Platelet Estimate HIGH (NORMAL) Creatinine 0.44 MG/DL (0.50-1.00) Random Glucose 194 MG/DL (74-106) Calcium Level 7.3 MG/DL (8.5-10.1) Protein Corrected Calcium 8.2 MG/DL (8.5-10.1) Total Protein 5.4 GM/DL (6.4-8.2) Phenobarbital Level 12.8 MCG/ML (15.0-40.0) Imaging CT Head. Hospital Course NOTE for 10/18/2016 76 y/o woman was found down and unresponsive. Evaluation at [facility] revealed large acute right sided SDH with 2 cm subfalcine shift to left. 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 Required intubation and mechanical ventilation at referring facility for obtundation. Received Vit K and Kcentra then transported to [facility] where I met her on her arrival. at bedside. Largely unresponsive, will withdraw arms to pain. Mannitol bolus started. Cardiac markers elevated at OSH. Emergency decompression the night of admission, now ventilator dependent, largely unresponsive. 10/13: No neurological improvement. is getting very anxious. 10/14: No improvement, sedated for seizure control. 10/15: Enterobacter and Staph in sputum. Pseudomonas in urine. Continue antibiotics, reculture for fevers. Repeat UA. 10/16: No improvement. 10/17: No improvement. Unresponsive. 10/18: Unresponsive. Pt Condition on Discharge: Deteriorating Discharge Instructions Additional Information Severe brain injury after traumatic subdural hemorrhage. Compassionate extubation 10/18/16. Pronounced at 1927 hours on 10/18/2016 by cardiac standstill. Andrea Leiva MD Oct 20, 2016 15:01
== END 2016-10-18 19:27 | disposition expired | DRG 25 ==
LOC: NEPE 03:19 → NEDA 04:07 → N03A 08:59
PROVIDERS: ADMIT Surgery Surgical Critical Care; ATTEND Surgery Surgical Critical Care
PROC: 00H032Z Insertion of Monitoring Device into Brain, Percutaneous Approach (ICD-10-PCS; 2016-10-05)
PROC: 00C40ZZ Extirpation of Matter from Intracranial Subdural Space, Open Approach (ICD-10-PCS; 2016-10-05)
PROC: 30253N1 (ICD-10-PCS; 2016-10-05)
PROC: 4A103BD Monitoring of Intracranial Pressure, Percutaneous Approach (ICD-10-PCS; principal; 2016-10-05 05:02)
PROC: 009U30Z Drainage of Spinal Canal with Drainage Device, Percutaneous Approach (ICD-10-PCS; 2016-10-09)
DX: S06.5X9A Traumatic subdural hemorrhage with loss of consciousness of unspecified duration, initial encounter (principal); I21.4 Non-ST elevation (NSTEMI) myocardial infarction; J96.00 Acute respiratory failure, unspecified whether with hypoxia or hypercapnia; Z99.11 Dependence on respirator [ventilator] status; G93.40 Encephalopathy, unspecified; M34.9 Systemic sclerosis, unspecified; E86.0 Dehydration; D68.9 Coagulation defect, unspecified; G40.919 Epilepsy, unspecified, intractable, without status epilepticus; K21.9 Gastro-esophageal reflux disease without esophagitis; I10 Essential (primary) hypertension; M79.7 Fibromyalgia; J32.9 Chronic sinusitis, unspecified; R40.2430 Glasgow coma scale score 3-8, unspecified time; M19.90 Unspecified osteoarthritis, unspecified site; I73.9 Peripheral vascular disease, unspecified; I25.10 Atherosclerotic heart disease of native coronary artery without angina pectoris; H57.04 Mydriasis; D64.9 Anemia, unspecified; D72.829 Elevated white blood cell count, unspecified; I25.5 Ischemic cardiomyopathy; Z51.5 Encounter for palliative care; Z66 Do not resuscitate; Z87.442 Personal history of urinary calculi; Z87.891 Personal history of nicotine dependence; W19.XXXA Unspecified fall, initial encounter; Y92.9 Unspecified place or not applicable
CPT/HCPCS: 36430; 36569; 36600; 70450; 71010; 76937; 80048; 80053; 80184; 80202; 81001; 82805; 82945; 83605; 83615; 83735; 84100; 84132; 84155; 84157; 84484; 85007; 85014; 85018; 85025; 85027; 85610; 85730; 86403; 86850; 86900; 86901; 86920; 87040; 87070; 87077; 87086; 87147; 87186; 87205; 88304; 88307; 89051; 93005; 93306; 94002; 94003; 95819; C1751; C9113; C9254; J0171; J0461; J0690; J0692; J1580; J1642; J1953; J1980; J2060; J2270; J2370; J2543; J2560; J3010; J3370; J3475; J3480; J7030; J7040; J7050; J7060; P9016; P9045; Q2009